=== PATIENT | female | born 1945 | race Caucasian/White ===

== ENCOUNTER 2017-03-21 15:37 | Inpatient (IN) | payer MEDICARE, OTHER ==
[~2017-03-21] VITALS: Ht 162.6 cm; Wt 103.2 kg
[2017-03-21 20:40] VITALS: BP 165/40
[2017-03-21] MEDS ORDERED: MAG HYDROX/ALUMINUM HYD/SIMETH 30 ML ORAL.SUSP PO PRN (22:45)
[2017-03-21] MEDS ORDERED: DEXTROSE 50% 25 GM / 50ML DISP.SYRIN. IV PRN ×2 (23:00→23:30)
[2017-03-21] MEDS ORDERED: VANCOMYCIN PER PHARMACY MC PRN (23:15)
[2017-03-21] MEDS ORDERED: ATORVASTATIN CA80 MG PO (23:18)
[2017-03-21] MEDS ORDERED: UBID10CA5 PO (23:18)
[2017-03-21] MEDS ORDERED: CARV25TA PO (23:18)
[2017-03-21] MEDS ORDERED: GLUC500T10 PO (23:18)
[2017-03-21] MEDS ORDERED: ROFL500T7 PO (23:18)
[2017-03-21] MEDS ORDERED: FENO145T2 PO (23:18)
[2017-03-21] MEDS ORDERED: HYDR-2766 PO (23:18)
[2017-03-21] MEDS ORDERED: ASPI-630 PO (23:18)
[2017-03-21] MEDS ORDERED: LEVO50TA5 PO (23:18)
[2017-03-21] MEDS ORDERED: OMEG1CAP38 PO (23:18)
[2017-03-21] MEDS ORDERED: RAMI10CA PO (23:18)
[2017-03-21] MEDS ORDERED: TORS20TA2 PO (23:18)
[2017-03-21 23:30] VITALS: BP 175/46
[2017-03-22] VITALS (7 sets, daily range): BP systolic 128–186; BP diastolic 31–64
[2017-03-22] MEDS ORDERED: VANCOMYCIN 2 GM in IV DEXTROSE 5% 500 ML IV ONE ×2
--- NOTE | 2017-03-22 00:02 | HP ---
ADMIT DATE: 03/21/2017 CHIEF COMPLAINT: Hypoglycemia. HISTORY OF PRESENT ILLNESS: The patient is a 72-year-old morbidly obese woman with diabetes mellitus, renal failure, COPD who presented to the Emergency Room at [facility] with altered mental status x 3 mornings. Her relates that her blood sugar has been running in the 50s over the past 3 days. In the past couple of days, she actually improved with mental status changes including slurred speech with eating a piece of chocolate. However, she was noted to have slurred speech last night and was found with a blood sugar of 54. She therefore decided to come to the Emergency Room for further workup. Upon arrival at [facility] ER, she was actually alert and oriented. Denies any fevers, but relates that over the past 3 days, she has had shaking chills. Denies any nausea or vomiting. She has had a leg wound over the past 6 months, but has noted more erythema over the past 3 days in her left lower extremity. Swelling has increased in both lower extremities recently as well. She had been on antibiotics from her PCP for cellulitis and has an appointment to see Dr. Stafford from Vascular Surgery tomorrow. She was transferred because of multiple medical issues including peripheral vascular disease to [facility]. PAST MEDICAL HISTORY: Diabetes mellitus, hypertension, hypercholesterolemia, renal disease, COPD, hypothyroidism. FAMILY HISTORY: Positive for CAD in all first degree relatives including 2 sisters' parents. SOCIAL HISTORY: Quit smoking 12 years ago after accumulating approximately 60 pack-year history. Denies any alcohol or drug use. ALLERGIES: CEPHALOSPORINS AND EZETIMIBE. MEDICATIONS: MAR reconciled with home medications. REVIEW OF SYSTEMS: Positive as per HPI. She denies any symptoms in rest of organ system review. PHYSICAL EXAMINATION: VITAL SIGNS: Stable. She is afebrile. GENERAL: This is a 72-year-old morbidly obese woman, awake, alert, in no acute distress. HEENT: Shows no scleral icterus. Oral mucosa is pink and moist. Dentition is poor. NECK: Supple without any lymphadenopathy. LUNGS: Clear. HEART: Has regular rate and rhythm. ABDOMEN: Has positive bowel sounds, soft, nontender. EXTREMITIES: Show edema in both lower extremities, left greater than right, 1-2. SKIN: Shows chronic venous stasis changes, especially on the left with significant keratoses. There is also erythema stretching almost all the way to the knee on the left. Skin on the right is very dry. Suspicion for foot fungus as well. LABORATORY DATA: Reviewed from [facility]. ASSESSMENT AND PLAN: The patient is a 72-year-old woman with hypoglycemia and lower extremity cellulitis. I suspect the 2 may be related. She has been on her blood sugar medications for many months now without any difficulties. Nevertheless, we will hold her medications for now and substitute with insulin sliding scale. Obtain hemoglobin A1c to elucidate her recent status. Lower extremity changes announced peripheral vascular disease. She was supposed to see Dr. Stafford tomorrow. We will obtain consult from Vascular Surgery here. Apparently, her has Dr. Stafford as his physician as well. For her wounds, we will obtain wound care consult as well. Cellulitis will be treated with vancomycin for now. We will add Diflucan as well. Obtain Infectious Disease consult. The patient does have chronic renal insufficiency. Baseline is unclear at this time. We will monitor. If need be, a consult for Nephrology will be obtained as well. The patient does have hypertension and at least the family, if not, personal history of coronary artery disease. We will continue all her other home medications. She will be started on heparin subcutaneously for prophylaxis. ANJEL ULLOA MD DR: JEFFRY/nts JOB#: [id number] / [id number] marga Escalante Dr. MTDAram
[2017-03-22] MEDS: IV 1/2 NORMAL SALINE 1,000 ML IV SCH ×2 (00:09→18:26)
[2017-03-22] MEDS: HYDROcodone/APAP 10/325 1 TAB TABLET PO PRN ×5 (03:15→21:46)
[2017-03-22 05:15] LABS: BASO % 1 % (0-3); EOS % 0 % (0-3); HEMATOCRIT 24.6 % (36.0-47.0); LYMPH # 1.6 x10^3/uL (1.0-4.8); LYMPH % 21 % (24-48); MEAN CORPUSCULAR HEMOGLOBIN 28 pg (25-35); MEAN CORPUSCULAR HGB CONC 33 g/dL (31-37); MEAN CORPUSCULAR VOLUME 87 fL (79-100); MONO % 12 % (0-9); NEUT % 67 % (31-73); PLATELET COUNT 315 x10^3/uL (140-400); RED BLOOD COUNT 2.81 x10^6/uL (3.50-5.40); RED CELL DISTRIBUTION WIDTH 16.3 % (11.5-14.5); WHITE BLOOD COUNT 7.4 x10^3/uL (4.0-11.0)
[2017-03-22 05:21] LABS: INR 1.3 (0.8-1.1); PROTHROMBIN TIME PATIENT 15.2 SEC (11.7-14.0)
[2017-03-22 05:36] LABS: ALBUMIN 2.7 g/dL (3.4-5.0); ALBUMIN/GLOBULIN RATIO 0.7 (1.0-1.7); CREATININE 2.1 mg/dL (0.6-1.0); GFR 23.1; MAGNESIUM 2.5 mg/dL (1.8-2.4); PHOSPHORUS 2.6 mg/dL (2.6-4.7); POTASSIUM 3.7 mmol/L (3.5-5.1); TOTAL BILIRUBIN 0.3 mg/dL (0.2-1.0); TOTAL PROTEIN 6.5 g/dL (6.4-8.2)
[2017-03-22] MEDS: HEPARIN PF for SUB-Q USE 5,000 UNIT/0.5 ML VIAL. SQ SCH ×3 (06:00→22:24)
[2017-03-22] MEDS: LEVOTHYROXINE 50 MCG TABLET PO SCH (06:17)
[2017-03-22] MEDS ORDERED: NON FORMULARY ITEM (Glucosamine Hcl 500 MG) PO SCH (07:30)
[2017-03-22] MEDS: INSULIN ASPART 300 UNITS/3 ML INSULN.PEN SQ SCH ×3 (08:00→17:35)
[2017-03-22] MEDS: FENOFIBRATE,MICRONIZED 134 MG CAPSULE PO SCH (09:25)
[2017-03-22] MEDS: LISINOPRIL 20 MG TABLET PO SCH (09:25)
[2017-03-22] MEDS: TORSEMIDE 20 MG TABLET. PO SCH (09:25)
[2017-03-22] MEDS: ASPIRIN CHEWABLE 81 MG TABLET. PO SCH (09:26)
[2017-03-22] MEDS: ROFLUMILAST 500 MCG TABLET. PO SCH (09:26)
[2017-03-22] MEDS: OMEGA-3 FATTY ACIDS/FISH OIL 1,000 MG CAPSULE. PO SCH (09:26)
[2017-03-22] MEDS: CARVEDILOL 12.5 MG TABLET. PO SCH ×2 (09:27→17:29)
[2017-03-22] MEDS: FLUCONAZOLE 100 MG TABLET. PO SCH (09:35)
--- NOTE | 2017-03-22 10:46 | PDOC ---
Infectious Disease Note Vital Sign Vital Signs Vital Signs Date Time Temp Pulse Resp B/P (MAP) Pulse Ox O2 Delivery O2 Flow Rate FiO2 03/22/17 09:27 72 186/64 03/22/17 07:30 98.7 20 93 Room Air 98.7 Labs Lab Laboratory Tests Test 03/22/17 03:00 03/22/17 03:50 03/22/17 07:54 Prothrombin Time 15.2 SEC (11.7-14.0) Prothromb Time International Ratio 1.3 (0.8-1.1) Activated Partial Thromboplast Time 39 SEC (24-38) White Blood Count 7.4 x10^3/uL (4.0-11.0) Red Blood Count 2.81 x10^6/uL (3.50-5.40) Hemoglobin 8.0 g/dL (12.0-15.5) Hematocrit 24.6 % (36.0-47.0) Mean Corpuscular Volume 87 fL (79-100) Mean Corpuscular Hemoglobin 28 pg (25-35) Mean Corpuscular Hemoglobin Concent 33 g/dL (31-37) Red Cell Distribution Width 16.3 % (11.5-14.5) Platelet Count 315 x10^3/uL (140-400) Neutrophils (%) (Auto) 67 % (31-73) Lymphocytes (%) (Auto) 21 % (24-48) Monocytes (%) (Auto) 12 % (0-9) Eosinophils (%) (Auto) 0 % (0-3) Basophils (%) (Auto) 1 % (0-3) Neutrophils # (Auto) 5.0 x10^3uL (1.8-7.7) Lymphocytes # (Auto) 1.6 x10^3/uL (1.0-4.8) Monocytes # (Auto) 0.9 x10^3/uL (0.0-1.1) Eosinophils # (Auto) 0.0 x10^3/uL (0.0-0.7) Basophils # (Auto) 0.0 x10^3/uL (0.0-0.2) Sodium Level 144 mmol/L (136-145) Potassium Level 3.7 mmol/L (3.5-5.1) Chloride Level 106 mmol/L (98-107) Carbon Dioxide Level 29 mmol/L (21-32) Anion Gap 9 (6-14) Blood Urea Nitrogen 46 mg/dL (7-20) Creatinine 2.1 mg/dL (0.6-1.0) Estimated GFR (Cockcroft-Gault) 23.1 BUN/Creatinine Ratio 22 (6-20) Glucose Level 128 mg/dL (70-99) Calcium Level 10.0 mg/dL (8.5-10.1) Phosphorus Level 2.6 mg/dL (2.6-4.7) Magnesium Level 2.5 mg/dL (1.8-2.4) Total Bilirubin 0.3 mg/dL (0.2-1.0) Aspartate Amino Transf (AST/SGOT) 19 U/L (15-37) Alanine Aminotransferase (ALT/SGPT) 16 U/L (14-59) Alkaline Phosphatase 55 U/L (46-116) Total Protein 6.5 g/dL (6.4-8.2) Albumin 2.7 g/dL (3.4-5.0) Albumin/Globulin Ratio 0.7 (1.0-1.7) Glucose (Fingerstick) 107 mg/dL (70-99) Objective Assessment Left leg cellulitis Left leg wounds Obesity DM COPD Plan Plan of Care change vanc to unasyn debridement done by Dr Ye d/w Dr Ye leg elevation soon to change to po for d/c IGNACIO GREENBERG MD Mar 22, 2017 10:46
--- NOTE | 2017-03-22 10:53 | PDOC ---
Provider Note Provider Note Vascular Consult dictated Imp: Morbid obesity Renal insufficiency DM Severe venous insufficiency with stasis ulcers due to above and inactivity and dependency ( lack of proper elevation or compression ) Mild-moderate arterial insufficiency ( ABIs ~ 0.6 memo ) , no limb threatening, venous stasis ulcers should heal with this amt. of arterial disease. Plan; Wounds debrided, dressed with Xeroform/gauze, will add Medium strength tubi banquet server, consult Wound Car. Elevate foot of bed and lt leg on several pillows , BID dressing changes HUAN BALL MD Mar 22, 2017 10:53
[2017-03-22 11:26] LABS: BILIRUBIN,URINE NEGATIVE (NEG); GLUCOSE,URINE NEGATIVE (NEG); NITRITE,URINE NEGATIVE (NEG); PROTEIN,URINE NEGATIVE (NEG-TRACE); UROBILINOGEN,URINE 0.2 mg/dL (0.2 mg/dL)
[2017-03-22 11:34] LABS: BACTERIA,URINE FEW /HPF (0-FEW); SQUAMOUS EPITHELIAL CELL,UR MOD /LPF
--- NOTE | 2017-03-22 11:40 | PDOC ---
PROGRESS NOTES Chief Complaint Chief Complaint LE edema Cellulitis PMHx: DM HTN Hypercholesterolemia Renal disease COPD Hypothyroidism History of Present Illness History of Present Illness Pt is a pleasant 72 yo female with DM, renal failure and COPD. Her blood sugars were low and she had altered mental status. She was seen at bedside today in NAD. Pt has cellulitis on her left leg. Will consult podiatry for toenails. Pt' s lab indicate anemia and will follow the Hgb trend. Pt followed vascular surgery re: LE edema, and ID re: cellulitis. Pt is receiving vancomycin and Diflucan. Will continue abx and diuresis. Hold diabetic meds and continue on half when the pt goes home. Will continue to monitor. Vitals Vitals Vital Signs Date Time Temp Pulse Resp B/P (MAP) Pulse Ox O2 Delivery O2 Flow Rate FiO2 03/22/17 09:27 72 186/64 03/22/17 07:30 98.7 20 93 Room Air 98.7 Physical Exam Physical Exam cellulitis General: Alert, Oriented X3, Cooperative Heart: Regular rate, Normal S2, Other (3/6 systolic ejection murmur) Lungs: Clear Abdomen: Normal bowel sounds Extremities: No clubbing, Other (LE edema, Cellulitis) Skin: No breakdown, No significant lesion Labs LABS Laboratory Tests Test 03/22/17 03:00 03/22/17 03:50 03/22/17 07:54 Prothrombin Time 15.2 SEC (11.7-14.0) Prothromb Time International Ratio 1.3 (0.8-1.1) Activated Partial Thromboplast Time 39 SEC (24-38) White Blood Count 7.4 x10^3/uL (4.0-11.0) Red Blood Count 2.81 x10^6/uL (3.50-5.40) Hemoglobin 8.0 g/dL (12.0-15.5) Hematocrit 24.6 % (36.0-47.0) Mean Corpuscular Volume 87 fL (79-100) Mean Corpuscular Hemoglobin 28 pg (25-35) Mean Corpuscular Hemoglobin Concent 33 g/dL (31-37) Red Cell Distribution Width 16.3 % (11.5-14.5) Platelet Count 315 x10^3/uL (140-400) Neutrophils (%) (Auto) 67 % (31-73) Lymphocytes (%) (Auto) 21 % (24-48) Monocytes (%) (Auto) 12 % (0-9) Eosinophils (%) (Auto) 0 % (0-3) Basophils (%) (Auto) 1 % (0-3) Neutrophils # (Auto) 5.0 x10^3uL (1.8-7.7) Lymphocytes # (Auto) 1.6 x10^3/uL (1.0-4.8) Monocytes # (Auto) 0.9 x10^3/uL (0.0-1.1) Eosinophils # (Auto) 0.0 x10^3/uL (0.0-0.7) Basophils # (Auto) 0.0 x10^3/uL (0.0-0.2) Sodium Level 144 mmol/L (136-145) Potassium Level 3.7 mmol/L (3.5-5.1) Chloride Level 106 mmol/L (98-107) Carbon Dioxide Level 29 mmol/L (21-32) Anion Gap 9 (6-14) Blood Urea Nitrogen 46 mg/dL (7-20) Creatinine 2.1 mg/dL (0.6-1.0) Estimated GFR (Cockcroft-Gault) 23.1 BUN/Creatinine Ratio 22 (6-20) Glucose Level 128 mg/dL (70-99) Calcium Level 10.0 mg/dL (8.5-10.1) Phosphorus Level 2.6 mg/dL (2.6-4.7) Magnesium Level 2.5 mg/dL (1.8-2.4) Total Bilirubin 0.3 mg/dL (0.2-1.0) Aspartate Amino Transf (AST/SGOT) 19 U/L (15-37) Alanine Aminotransferase (ALT/SGPT) 16 U/L (14-59) Alkaline Phosphatase 55 U/L (46-116) Total Protein 6.5 g/dL (6.4-8.2) Albumin 2.7 g/dL (3.4-5.0) Albumin/Globulin Ratio 0.7 (1.0-1.7) Glucose (Fingerstick) 107 mg/dL (70-99) Review of Systems Review of Systems Pt complains of fatigue and edema in the LEs Assessment and Plan Assessmemt and Plan Assessment: LE edema Cellulitis DM HTN Hypercholesterolemia Renal disease COPD Hypothyroidism Plan: Continue abx Continue diuresis Follow Hgb trend for anemia Hold diabetic meds Consult podiatry PT/OT Recheck labs Appreciate subspecialty input Problems: Comment Review of Relevant I have reviewed the following items bear (where applicable) has been applied. Labs Laboratory Tests Test 03/22/17 03:00 03/22/17 03:50 03/22/17 07:54 Prothrombin Time 15.2 SEC (11.7-14.0) Prothromb Time International Ratio 1.3 (0.8-1.1) Activated Partial Thromboplast Time 39 SEC (24-38) White Blood Count 7.4 x10^3/uL (4.0-11.0) Red Blood Count 2.81 x10^6/uL (3.50-5.40) Hemoglobin 8.0 g/dL (12.0-15.5) Hematocrit 24.6 % (36.0-47.0) Mean Corpuscular Volume 87 fL (79-100) Mean Corpuscular Hemoglobin 28 pg (25-35) Mean Corpuscular Hemoglobin Concent 33 g/dL (31-37) Red Cell Distribution Width 16.3 % (11.5-14.5) Platelet Count 315 x10^3/uL (140-400) Neutrophils (%) (Auto) 67 % (31-73) Lymphocytes (%) (Auto) 21 % (24-48) Monocytes (%) (Auto) 12 % (0-9) Eosinophils (%) (Auto) 0 % (0-3) Basophils (%) (Auto) 1 % (0-3) Neutrophils # (Auto) 5.0 x10^3uL (1.8-7.7) Lymphocytes # (Auto) 1.6 x10^3/uL (1.0-4.8) Monocytes # (Auto) 0.9 x10^3/uL (0.0-1.1) Eosinophils # (Auto) 0.0 x10^3/uL (0.0-0.7) Basophils # (Auto) 0.0 x10^3/uL (0.0-0.2) Sodium Level 144 mmol/L (136-145) Potassium Level 3.7 mmol/L (3.5-5.1) Chloride Level 106 mmol/L (98-107) Carbon Dioxide Level 29 mmol/L (21-32) Anion Gap 9 (6-14) Blood Urea Nitrogen 46 mg/dL (7-20) Creatinine 2.1 mg/dL (0.6-1.0) Estimated GFR (Cockcroft-Gault) 23.1 BUN/Creatinine Ratio 22 (6-20) Glucose Level 128 mg/dL (70-99) Calcium Level 10.0 mg/dL (8.5-10.1) Phosphorus Level 2.6 mg/dL (2.6-4.7) Magnesium Level 2.5 mg/dL (1.8-2.4) Total Bilirubin 0.3 mg/dL (0.2-1.0) Aspartate Amino Transf (AST/SGOT) 19 U/L (15-37) Alanine Aminotransferase (ALT/SGPT) 16 U/L (14-59) Alkaline Phosphatase 55 U/L (46-116) Total Protein 6.5 g/dL (6.4-8.2) Albumin 2.7 g/dL (3.4-5.0) Albumin/Globulin Ratio 0.7 (1.0-1.7) Glucose (Fingerstick) 107 mg/dL (70-99) Laboratory Tests Test 03/22/17 03:00 03/22/17 03:50 03/22/17 07:54 Prothrombin Time 15.2 SEC (11.7-14.0) Prothromb Time International Ratio 1.3 (0.8-1.1) Activated Partial Thromboplast Time 39 SEC (24-38) White Blood Count 7.4 x10^3/uL (4.0-11.0) Red Blood Count 2.81 x10^6/uL (3.50-5.40) Hemoglobin 8.0 g/dL (12.0-15.5) Hematocrit 24.6 % (36.0-47.0) Mean Corpuscular Volume 87 fL (79-100) Mean Corpuscular Hemoglobin 28 pg (25-35) Mean Corpuscular Hemoglobin Concent 33 g/dL (31-37) Red Cell Distribution Width 16.3 % (11.5-14.5) Platelet Count 315 x10^3/uL (140-400) Neutrophils (%) (Auto) 67 % (31-73) Lymphocytes (%) (Auto) 21 % (24-48) Monocytes (%) (Auto) 12 % (0-9) Eosinophils (%) (Auto) 0 % (0-3) Basophils (%) (Auto) 1 % (0-3) Neutrophils # (Auto) 5.0 x10^3uL (1.8-7.7) Lymphocytes # (Auto) 1.6 x10^3/uL (1.0-4.8) Monocytes # (Auto) 0.9 x10^3/uL (0.0-1.1) Eosinophils # (Auto) 0.0 x10^3/uL (0.0-0.7) Basophils # (Auto) 0.0 x10^3/uL (0.0-0.2) Sodium Level 144 mmol/L (136-145) Potassium Level 3.7 mmol/L (3.5-5.1) Chloride Level 106 mmol/L (98-107) Carbon Dioxide Level 29 mmol/L (21-32) Anion Gap 9 (6-14) Blood Urea Nitrogen 46 mg/dL (7-20) Creatinine 2.1 mg/dL (0.6-1.0) Estimated GFR (Cockcroft-Gault) 23.1 BUN/Creatinine Ratio 22 (6-20) Glucose Level 128 mg/dL (70-99) Calcium Level 10.0 mg/dL (8.5-10.1) Phosphorus Level 2.6 mg/dL (2.6-4.7) Magnesium Level 2.5 mg/dL (1.8-2.4) Total Bilirubin 0.3 mg/dL (0.2-1.0) Aspartate Amino Transf (AST/SGOT) 19 U/L (15-37) Alanine Aminotransferase (ALT/SGPT) 16 U/L (14-59) Alkaline Phosphatase 55 U/L (46-116) Total Protein 6.5 g/dL (6.4-8.2) Albumin 2.7 g/dL (3.4-5.0) Albumin/Globulin Ratio 0.7 (1.0-1.7) Glucose (Fingerstick) 107 mg/dL (70-99) Medications Current Medications Sodium Chloride 1,000 ml @ 50 mls/hr Q20H IV Last administered on 03/22/17t 00 :09; Start 03/21/17 at 22:35 Al Hydroxide/Mg Hydroxide (Mylanta Plus Xs) 30 ml PRN Q3HRS PRN PO HEARTBURN / GAS; Start 03/21/17 at 22:45 Heparin Sodium (Porcine) (Heparin Sq) 5,000 unit Q8HRS SQ ; Start 03/22/17 at 06 :00 Insulin Aspart (NovoLOG) 0-5 UNITS TIDWMEALS SQ ; Start 03/22/17 at 08:00 Dextrose (Dextrose 50%-Water Syringe) 12.5 gm PRN Q15MIN PRN IV SEE COMMENTS; Start 03/21/17 at 23:00 Fluconazole (Diflucan) 100 mg DAILY PO Last administered on 03/22/17 09:35; Start 03/22/17 at 09:00 Ceftriaxone Sodium 2 gm/ Dextrose 100 ml @ 200 mls/hr Q24H IV ; Start 03/22/17 at 12:00; Status UNV Vancomycin HCl (Vanco Per Pharmacy) 1 each PRN DAILY PRN MC SEE COMMENTS Last administered on 03/22/17 06:02; Start 03/21/17 at 23:15; Stop 03/22/17 at 10: 44; Status DC Aspirin (Children'S Aspirin) 81 mg DAILY PO Last administered on 03/22/17 09: 26; Start 03/22/17 at 09:00 Acetaminophen/ Hydrocodone Bitart (Lortab 10/325) 1 tab PRN Q6HRS PRN PO SEVERE PAIN Last administered on 03/22/17 09:26; Start 03/21/17 at 23:30 Levothyroxine Sodium (Synthroid) 50 mcg DAILY07 PO Last administered on 06:17; Start 03/22/17 at 07:00 Roflumilast (Daliresp) 500 mcg DAILY PO Last administered on 03/22/17 09:26; Start 03/22/17 at 09:00 Torsemide (Demadex) 40 mg DAILY PO Last administered on 03/22/17 09:25; Start 03/22/17 at 09:00 Atorvastatin Calcium (Lipitor) 80 mg QHS PO ; Start 03/22/17 at 21:00 Carvedilol (Coreg) 25 mg BIDWMEALS PO Last administered on 03/22/17 09:27; Start 03/22/17 at 08:00 Fenofibrate (Lofibra) 134 mg DAILY PO Last administered on 03/22/17 09:25; Start 03/22/17 at 09:00 Non-Formulary Medication 500 mg TIDAC PO ; Start 03/22/17 at 07:30; Status UNV Fish Oil (Fish Oil) 1,000 mg DAILY PO Last administered on 03/22/17 09:26; Start 03/22/17 at 09:00 Lisinopril (Prinivil) 20 mg DAILY PO Last administered on 03/22/17 09:25; Start 03/22/17 at 09:00 Vancomycin HCl 2 gm/Dextrose 500 ml @ 250 mls/hr 1X ONCE IV Last administered on 03/22/17 00:10; Start 03/22/17 at 00:00; Stop 03/22/17 at 01:59 ; Status DC Dextrose (Dextrose 50%-Water Syringe) 12.5 gm PRN Q15MIN PRN IV SEE COMMENTS; Start 03/21/17 at 23:30 Vancomycin HCl 1.5 gm/Dextrose 500 ml @ 250 mls/hr Q24H IV ; Start 03/23/17 at 00:00; Stop 03/23/17 at 00:00; Status DC Vancomycin HCl 1 each 1X ONCE MC ; Start 03/23/17 at 23:30; Stop 03/23/17 at 23 :30; Status DC Ampicillin Sodium/ Sulbactam Sodium 3 gm/Sodium Chloride 100 ml @ 200 mls/hr Q8HRS IV ; Start 03/22/17 at 14:00; Stop 03/22/17 at 14:00; Status DC Ampicillin Sodium/ Sulbactam Sodium (Unasyn) 3 gm Q8HRS IVP ; Start 03/22/17 at 14:00 Active Scripts Active Reported Co Q-10 (Ubidecarenone) 10 Mg Capsule 10 Mg PO Torsemide 20 Mg Tablet 2 Tab PO DAILY Daliresp (Roflumilast) 500 Mcg Tablet 1 Tab PO DAILY Ramipril 10 Mg Capsule 1 Cap PO DAILY [place] 3 Fish Oil Softgel ([place]-3 Fatty Acids/Fish Oil) 1 Each Capsule. 1 Each PO DAILY Levothyroxine Sodium 50 Mcg Tablet 1 Tab PO DAILY Hydrocodone-Apap 10-325 (Hydrocodone Bit/Acetaminophen) 1 Each Tablet 1 Tab PO PRN Q6HRS PRN Glucosamine Hcl 500 Mg Tablet 500 Mg PO TIDAC Fenofibrate (Fenofibrate Nanocrystallized) 145 Mg Tablet 1 Tab PO DAILY Coreg (Carvedilol) 25 Mg Tablet 25 Mg PO BIDWMEALS Atorvastatin Calcium 80 Mg Tablet 1 Tab PO DAILY Aspirin 81 Mg Tab.chew 81 Tab PO DAILY Vitals/I & O Vital Sign - Last 24 Hours 03/21/17 03/21/17 03/21/17 03/22/17 20:40 21:40 23:30 03:15 Temp 98.1 98.4 98.1 98.4 Pulse 69 72 Resp 18 18 20 B/P (MAP) 165/40 (81) 175/46 (89) Pulse Ox 96 98 96 O2 Delivery Room Air Room Air Room Air Room Air 03/22/17 03/22/17 03/22/17 03/22/17 03:35 04:15 07:30 09:25 Temp 98.6 98.7 98.6 98.7 Pulse 73 72 72 Resp 18 18 20 B/P (MAP) 175/45 (88) 186/64 (104) 186/64 Pulse Ox 93 96 93 O2 Delivery Room Air Room Air Room Air 03/22/17 09:27 Pulse 72 B/P (MAP) 186/64 JOSEPHINE LIGHT III DO Mar 22, 2017 11:40
[2017-03-22] MEDS ORDERED: cefTRIAXone SODIUM 2 GM in IV DEXTROSE 5% 100 ML IV SCH (12:00)
[2017-03-22] MEDS ORDERED: AMPICILLIN/SULBACTAM 3 GM in IV NORMAL SALINE 100ML 100 ML IV SCH (14:00)
[2017-03-22] MEDS: AMPICILLIN/SULBACTAM IV Push 3 GM VIAL. IVP SCH ×2 (14:14→22:23)
[2017-03-22] MEDS ORDERED: VITS A & D/LANOLIN TOPICAL OINTMENT 56GM TUBE. TP PRN (15:30)
[2017-03-22] MEDS: ATORVASTATIN CALCIUM 40 MG TABLET. PO SCH (20:43)
--- NOTE | 2017-03-22 21:00 | CONS ---
DATE OF CONSULTATION: 03/22/2017 REQUESTING PHYSICIAN: Aundrea Ray MD. REASON FOR CONSULTATION: Left leg cellulitis. HISTORY OF PRESENT ILLNESS: This is a 72-year-old morbidly obese female with multiple medical problems who most of time spends sitting in a chair, came in with left leg swelling, redness and wounds. The patient has had some wounds in the past and now, it scabs over at the left lateral ankle malleolus and the left lower leg. The patient denies any fever. Denies any nausea, vomiting, diarrhea, chest pain, shortness of breath, abdominal pain, urinary symptoms or bowel symptoms and denies any trauma. PAST MEDICAL HISTORY: Positive for obesity, diabetes, hypertension, hyperlipidemia, COPD, hypothyroidism, coronary artery disease. SOCIAL HISTORY: Negative for smoking, alcohol use or drug use. ALLERGIES: SHE IS LISTED ALLERGIC TO KEFLEX CAUSED RASH. CURRENT MEDICATIONS: Reviewed. REVIEW OF SYSTEMS: As per HPI, all other systems reviewed are negative. PHYSICAL EXAMINATION: GENERAL: Alert, oriented female, not in any distress. VITAL SIGNS: Stable, afebrile. HEENT: NAD. NECK: Supple, no JVP. No lymphadenopathy. LUNGS: Clear. HEART: S1, S2 regular. ABDOMEN: Benign. EXTREMITIES: No edema, cyanosis. SKIN: Unremarkable except left lower extremity. Right lower extremity is very dry, flaky skin, but otherwise normal. Left lower extremity is swollen, is red all the way to the mid leg. There is a scab onto the left lateral malleolus and left lower lateral leg and swelling is present and dry skin is present. NEUROLOGIC: The patient is neurologically intact. LABORATORY DATA: White count is normal. BUN and creatinine is 46 and 2.1. IMPRESSION: 1. Left lower extremity cellulitis. 2. Left lower extremity wounds. 3. Diabetes. 4. Hypertension. 5. Chronic obstructive pulmonary disease. 6. Renal insufficiency. RECOMMENDATIONS: We will discontinue vancomycin, change to Unasyn, supportive care, leg elevation. Dr. Ye actually did debride at the bedside and took out all the drainage and the scab that she had. Supportive care and hopefully soon to be able to discharge on p.o. antibiotics. Discussion with Dr. Ye done. Discussion with the patient's done. Thank you very much, Dr. Ray for giving me the opportunity to participate in this patient's care. IGNACIO GREENBERG MD DR: MARYAM/jeny JOB#: [id number] / [id number]
--- NOTE | 2017-03-22 22:05 | CONS ---
DATE OF CONSULTATION: 03/22/2017 REASON FOR CONSULTATION: Venous stasis ulcers, left lower leg and peripheral vascular disease. HISTORY OF PRESENT ILLNESS: This is a 72-year-old female who is supposed to have an appointment to see Dr. Stafford today in the office because of chronic nonhealing ulcers on the lower left leg and swelling. She was admitted instead yesterday with cellulitis in the left leg, swelling and these not improving ulcers. She had an arterial evaluation with ABIs recently, because of her size I am not sure how accurate they were, but the ankle brachial index was about 0.6 bilaterally, which would suggest some stenotic occlusive disease in the superficial femoral arteries. She does have a history of peripheral vascular disease having had a left subclavian stent remotely. She has no left arm symptoms at the present time. PAST MEDICAL HISTORY: Illnesses include her chronic diabetes, morbid obesity, with renal insufficiency with a creatinine of 2, hypertension, peripheral vascular disease, chronic lung disease. SOCIAL HISTORY: Former smoker who quit about 10 years ago. ALLERGIES: I THINK PENICILLIN, BUT I AM NOT SURE. REVIEW OF SYSTEMS: Negative for stroke or any carotid disease. Positive for coronary artery disease. Positive for trouble walking, but she does very little ambulation and activity, mainly sits in the house with her legs down. She has tried some type of compression on that left leg in the past, but she states that nothing was large enough to fit that left leg. PHYSICAL EXAMINATION: Morbidly obese, pleasant female, alert, in no acute distress, 2+ right radial and brachial pulse, absent left radial and brachial pulse. 2+ carotid pulses. Regular heart rate, nonlabored respirations. Abdomen obese. I could not palpate femoral pulses because of her size. She has no palpable popliteal or pedal pulses. The right foot is with minimal edema and no open wounds or any trouble with discoloration. The left lower leg has 3+ edema. She has got some chronic excoriations and scabbing on the lateral aspect of the left lower leg and some erythematous discoloration and cellulitis in the lower leg around these wounds. IMPRESSION: Severe venous insufficiency due to multiple factors, which include her diabetes, morbid obesity with very poor venous return, inactivity and failure to compress or elevate the leg enough. Peripheral vascular disease, but not limb threatening and enough arterial circulation that she should be able heal the ulcers in the left lower leg with proper venous attention. PLAN: The wounds were debrided at the bedside with scissors and pickups, excising the eschar, the crusty topical covering, leaving open ulcers below this. Total measurements were 16 x 10 x 0.3. Minimal bleeding. Dressed the wound with Xeroform, 4 x 4s, and Kerlix. We will elevate the foot of the bed and we will add pillows to put under that left leg so there is extreme elevation of the left leg. We will do dressing changes b.i.d. with Xeroform and gauze. We will recommend medium strength Tubigrip to the left leg and we will consult Wound Care Center so that she can be followed in the Wound Care Center here at [facility]. Also, continue antibiotics. Thanks for allowing us to evaluate her. HUAN BALL MD DR: ELISA/jeny JOB#: [id number] / [id number]
[2017-03-23] MEDS ORDERED: VANCOMYCIN 1.5 GM in IV DEXTROSE 5% 500 ML IV SCH ×2
[2017-03-23] MEDS: HYDROcodone/APAP 10/325 1 TAB TABLET PO PRN ×4 (03:09→23:02)
[2017-03-23 03:46] VITALS: BP 165/42
[2017-03-23 04:12] LABS: BASO % 1 % (0-3); EOS % 0 % (0-3); HEMATOCRIT 23.9 % (36.0-47.0); HEMOGLOBIN 7.8 g/dL (12.0-15.5); LYMPH # 1.9 x10^3/uL (1.0-4.8); LYMPH % 31 % (24-48); MEAN CORPUSCULAR HEMOGLOBIN 29 pg (25-35); MEAN CORPUSCULAR HGB CONC 33 g/dL (31-37); MEAN CORPUSCULAR VOLUME 89 fL (79-100); MONO % 12 % (0-9); NEUT % 56 % (31-73); PLATELET COUNT 270 x10^3/uL (140-400); RED CELL DISTRIBUTION WIDTH 16.1 % (11.5-14.5); WHITE BLOOD COUNT 6.1 x10^3/uL (4.0-11.0)
[2017-03-23] MEDS: LEVOTHYROXINE 50 MCG TABLET PO SCH (06:09)
[2017-03-23] MEDS: AMPICILLIN/SULBACTAM IV Push 3 GM VIAL. IVP SCH (06:11)
[2017-03-23] MEDS: HEPARIN PF for SUB-Q USE 5,000 UNIT/0.5 ML VIAL. SQ SCH ×3 (06:12→21:32)
[2017-03-23 07:10] VITALS: BP 184/61
[2017-03-23 07:33] LABS: CALCIUM 9.7 mg/dL (8.5-10.1); CREATININE 1.9 mg/dL (0.6-1.0); GFR 25.9; POTASSIUM 3.7 mmol/L (3.5-5.1)
[2017-03-23] MEDS: INSULIN ASPART 300 UNITS/3 ML INSULN.PEN SQ SCH ×3 (08:00→17:00)
[2017-03-23] MEDS: LISINOPRIL 20 MG TABLET PO SCH (08:33)
[2017-03-23] MEDS: OMEGA-3 FATTY ACIDS/FISH OIL 1,000 MG CAPSULE. PO SCH (08:34)
[2017-03-23] MEDS: CARVEDILOL 12.5 MG TABLET. PO SCH ×2 (08:34→17:00)
[2017-03-23] MEDS: FLUCONAZOLE 100 MG TABLET. PO SCH (08:34)
[2017-03-23] MEDS: ASPIRIN CHEWABLE 81 MG TABLET. PO SCH (08:34)
[2017-03-23] MEDS: FENOFIBRATE,MICRONIZED 134 MG CAPSULE PO SCH (08:34)
[2017-03-23] MEDS: TORSEMIDE 20 MG TABLET. PO SCH (08:35)
[2017-03-23] MEDS: ROFLUMILAST 500 MCG TABLET. PO SCH (08:35)
[2017-03-23] MEDS ORDERED: ONDANSETRON PF 4 MG/2 ML VIAL. IV PRN (10:15)
[2017-03-23 10:28] VITALS: BP 184/48
--- NOTE | 2017-03-23 11:16 | PDOC ---
Infectious Disease Note Subjective Subjective pt feeling better, ROS ROS GEN: Denies fevers, chills, sweats HEENT: Denies blurred vision, sore throat CV: Denies chest pain RESP: Denies shortness of air, cough GI: Denies n/v/d NEURO: Denies confusion, dizziness MSK: Denies weakness, joint pain/swelling Vital Sign Vital Signs Vital Signs Date Time Temp Pulse Resp B/P (MAP) Pulse Ox O2 Delivery O2 Flow Rate FiO2 03/23/17 10:29 19 95 Room Air 03/23/17 10:28 98.5 65 184/48 (93) 98.5 Physical Exam PHYSICAL EXAM GENERAL: NAD, Alert HEENT: PERRL, OC/OP NECK: Supple, no JVD, no LN LUNGS: Clear HEART: S1S2, no gallop, no murmur ABD: Soft, NT, no organomegaly, no rebound EXT: No edema, no cyanosis, left leg celllultitis GEOSPATIAL SYSTEMS INTEGRATOR: Alert, oriented x 3, no focal neurologic deficit SKIN: No rash IV: ok Labs Lab Laboratory Tests Test 03/22/17 11:21 03/22/17 16:40 03/23/17 03:53 03/23/17 07:12 Glucose (Fingerstick) 159 mg/dL (70-99) 160 mg/dL (70-99) 126 mg/dL (70-99) White Blood Count 6.1 x10^3/uL (4.0-11.0) Red Blood Count 2.70 x10^6/uL (3.50-5.40) Hemoglobin 7.8 g/dL (12.0-15.5) Hematocrit 23.9 % (36.0-47.0) Mean Corpuscular Volume 89 fL (79-100) Mean Corpuscular Hemoglobin 29 pg (25-35) Mean Corpuscular Hemoglobin Concent 33 g/dL (31-37) Red Cell Distribution Width 16.1 % (11.5-14.5) Platelet Count 270 x10^3/uL (140-400) Neutrophils (%) (Auto) 56 % (31-73) Lymphocytes (%) (Auto) 31 % (24-48) Monocytes (%) (Auto) 12 % (0-9) Eosinophils (%) (Auto) 0 % (0-3) Basophils (%) (Auto) 1 % (0-3) Neutrophils # (Auto) 3.4 x10^3uL (1.8-7.7) Lymphocytes # (Auto) 1.9 x10^3/uL (1.0-4.8) Monocytes # (Auto) 0.7 x10^3/uL (0.0-1.1) Eosinophils # (Auto) 0.0 x10^3/uL (0.0-0.7) Basophils # (Auto) 0.0 x10^3/uL (0.0-0.2) Sodium Level 144 mmol/L (136-145) Potassium Level 3.7 mmol/L (3.5-5.1) Chloride Level 108 mmol/L (98-107) Carbon Dioxide Level 29 mmol/L (21-32) Anion Gap 7 (6-14) Blood Urea Nitrogen 35 mg/dL (7-20) Creatinine 1.9 mg/dL (0.6-1.0) Estimated GFR (Cockcroft-Gault) 25.9 Glucose Level 113 mg/dL (70-99) Calcium Level 9.7 mg/dL (8.5-10.1) Objective Assessment Left leg cellulitis Left leg wounds Obesity DM COPD Plan Plan of Care change to po augmentin leg elevation soon to change to po for d/c ok f/u with me if needed IGNACIO GREENBERG MD Mar 23, 2017 11:16
--- NOTE | 2017-03-23 12:37 | PDOC ---
PROGRESS NOTES Chief Complaint Chief Complaint LE edema Cellulitis Severe malnutrision Metabolic encephalopathy PMHx: DM HTN Hypercholesterolemia Renal disease COPD Hypothyroidism History of Present Illness History of Present Illness Pt is a pleasant 72 yo female with DM, renal failure and COPD. Her blood sugars were low and she had altered mental status. She was seen at bedside today in NAD. Pt has cellulitis on her left leg. Consulted podiatry for toenails. Pt's lab indicate anemia and will follow the Hgb trend. Pt followed vascular surgery re: LE edema, and ID re: cellulitis. Pt is receiving unasyn. Will continue abx and diuresis. Hold diabetic meds and continue on half when the pt goes home. Ordered zofran. Discussed pt care with nurse. Discussed plan with pt's . Will discharge tomorrow to SNU. Will continue to monitor.. Vitals Vitals Vital Signs Date Time Temp Pulse Resp B/P (MAP) Pulse Ox O2 Delivery O2 Flow Rate FiO2 03/23/17 11:29 19 95 Room Air 03/23/17 10:28 98.5 65 184/48 (93) 98.5 Physical Exam Physical Exam cellulitis General: Alert, Oriented X3, Cooperative Heart: Regular rate, Normal S2, Other (3/6 systolic ejection murmur) Lungs: Clear Abdomen: Normal bowel sounds Extremities: No clubbing, Other (LE edema, Cellulitis) Skin: No breakdown, No significant lesion Labs LABS Laboratory Tests Test 03/22/17 16:40 03/23/17 03:53 03/23/17 07:12 03/23/17 11:27 Glucose (Fingerstick) 160 mg/dL (70-99) 126 mg/dL (70-99) 189 mg/dL (70-99) White Blood Count 6.1 x10^3/uL (4.0-11.0) Red Blood Count 2.70 x10^6/uL (3.50-5.40) Hemoglobin 7.8 g/dL (12.0-15.5) Hematocrit 23.9 % (36.0-47.0) Mean Corpuscular Volume 89 fL (79-100) Mean Corpuscular Hemoglobin 29 pg (25-35) Mean Corpuscular Hemoglobin Concent 33 g/dL (31-37) Red Cell Distribution Width 16.1 % (11.5-14.5) Platelet Count 270 x10^3/uL (140-400) Neutrophils (%) (Auto) 56 % (31-73) Lymphocytes (%) (Auto) 31 % (24-48) Monocytes (%) (Auto) 12 % (0-9) Eosinophils (%) (Auto) 0 % (0-3) Basophils (%) (Auto) 1 % (0-3) Neutrophils # (Auto) 3.4 x10^3uL (1.8-7.7) Lymphocytes # (Auto) 1.9 x10^3/uL (1.0-4.8) Monocytes # (Auto) 0.7 x10^3/uL (0.0-1.1) Eosinophils # (Auto) 0.0 x10^3/uL (0.0-0.7) Basophils # (Auto) 0.0 x10^3/uL (0.0-0.2) Sodium Level 144 mmol/L (136-145) Potassium Level 3.7 mmol/L (3.5-5.1) Chloride Level 108 mmol/L (98-107) Carbon Dioxide Level 29 mmol/L (21-32) Anion Gap 7 (6-14) Blood Urea Nitrogen 35 mg/dL (7-20) Creatinine 1.9 mg/dL (0.6-1.0) Estimated GFR (Cockcroft-Gault) 25.9 Glucose Level 113 mg/dL (70-99) Calcium Level 9.7 mg/dL (8.5-10.1) Review of Systems Review of Systems Pt complains of fatigue and hunger Assessment and Plan Assessmemt and Plan Assessment: LE edema Cellulitis Severe malnutrision Metabolic encephalopathy DM HTN Hypercholesterolemia Renal disease COPD Hypothyroidism Plan: Ordered zofran Follow Hgb due to anemia Continue abx Continue home meds PT/OT Recheck labs Appreciate subspecialty input Discharge to SNU in am Problems: Comment Review of Relevant I have reviewed the following items bear (where applicable) has been applied. Labs Laboratory Tests Test 03/22/17 03:00 03/22/17 03:50 03/22/17 07:54 03/22/17 11:10 Prothrombin Time 15.2 SEC (11.7-14.0) Prothromb Time International Ratio 1.3 (0.8-1.1) Activated Partial Thromboplast Time 39 SEC (24-38) White Blood Count 7.4 x10^3/uL (4.0-11.0) Red Blood Count 2.81 x10^6/uL (3.50-5.40) Hemoglobin 8.0 g/dL (12.0-15.5) Hematocrit 24.6 % (36.0-47.0) Mean Corpuscular Volume 87 fL (79-100) Mean Corpuscular Hemoglobin 28 pg (25-35) Mean Corpuscular Hemoglobin Concent 33 g/dL (31-37) Red Cell Distribution Width 16.3 % (11.5-14.5) Platelet Count 315 x10^3/uL (140-400) Neutrophils (%) (Auto) 67 % (31-73) Lymphocytes (%) (Auto) 21 % (24-48) Monocytes (%) (Auto) 12 % (0-9) Eosinophils (%) (Auto) 0 % (0-3) Basophils (%) (Auto) 1 % (0-3) Neutrophils # (Auto) 5.0 x10^3uL (1.8-7.7) Lymphocytes # (Auto) 1.6 x10^3/uL (1.0-4.8) Monocytes # (Auto) 0.9 x10^3/uL (0.0-1.1) Eosinophils # (Auto) 0.0 x10^3/uL (0.0-0.7) Basophils # (Auto) 0.0 x10^3/uL (0.0-0.2) Sodium Level 144 mmol/L (136-145) Potassium Level 3.7 mmol/L (3.5-5.1) Chloride Level 106 mmol/L (98-107) Carbon Dioxide Level 29 mmol/L (21-32) Anion Gap 9 (6-14) Blood Urea Nitrogen 46 mg/dL (7-20) Creatinine 2.1 mg/dL (0.6-1.0) Estimated GFR (Cockcroft-Gault) 23.1 BUN/Creatinine Ratio 22 (6-20) Glucose Level 128 mg/dL (70-99) Calcium Level 10.0 mg/dL (8.5-10.1) Phosphorus Level 2.6 mg/dL (2.6-4.7) Magnesium Level 2.5 mg/dL (1.8-2.4) Total Bilirubin 0.3 mg/dL (0.2-1.0) Aspartate Amino Transf (AST/SGOT) 19 U/L (15-37) Alanine Aminotransferase (ALT/SGPT) 16 U/L (14-59) Alkaline Phosphatase 55 U/L (46-116) Total Protein 6.5 g/dL (6.4-8.2) Albumin 2.7 g/dL (3.4-5.0) Albumin/Globulin Ratio 0.7 (1.0-1.7) Glucose (Fingerstick) 107 mg/dL (70-99) Urine Collection Type Unknown Urine Color Yellow Urine Clarity Clear Urine pH 7.0 Urine Specific [place] 1.010 Urine Protein Negative mg/dL (NEG-TRACE) Urine Glucose (UA) Negative mg/dL (NEG) Urine Ketones (Stick) Negative mg/dL (NEG) Urine Blood Trace (NEG) Urine Nitrite Negative (NEG) Urine Bilirubin Negative (NEG) Urine Urobilinogen Dipstick 0.2 mg/dL (0.2 mg/dL) Urine Leukocyte Esterase Negative (NEG) Urine RBC 3-5 /HPF (0-2) Urine WBC 1-4 /HPF (0-4) Urine Squamous Epithelial Cells Mod /LPF Urine Bacteria Few /HPF (0-FEW) Urine Mucus Slight /LPF Test 03/22/17 11:21 03/22/17 16:40 03/23/17 03:53 03/23/17 07:12 Glucose (Fingerstick) 159 mg/dL (70-99) 160 mg/dL (70-99) 126 mg/dL (70-99) White Blood Count 6.1 x10^3/uL (4.0-11.0) Red Blood Count 2.70 x10^6/uL (3.50-5.40) Hemoglobin 7.8 g/dL (12.0-15.5) Hematocrit 23.9 % (36.0-47.0) Mean Corpuscular Volume 89 fL (79-100) Mean Corpuscular Hemoglobin 29 pg (25-35) Mean Corpuscular Hemoglobin Concent 33 g/dL (31-37) Red Cell Distribution Width 16.1 % (11.5-14.5) Platelet Count 270 x10^3/uL (140-400) Neutrophils (%) (Auto) 56 % (31-73) Lymphocytes (%) (Auto) 31 % (24-48) Monocytes (%) (Auto) 12 % (0-9) Eosinophils (%) (Auto) 0 % (0-3) Basophils (%) (Auto) 1 % (0-3) Neutrophils # (Auto) 3.4 x10^3uL (1.8-7.7) Lymphocytes # (Auto) 1.9 x10^3/uL (1.0-4.8) Monocytes # (Auto) 0.7 x10^3/uL (0.0-1.1) Eosinophils # (Auto) 0.0 x10^3/uL (0.0-0.7) Basophils # (Auto) 0.0 x10^3/uL (0.0-0.2) Sodium Level 144 mmol/L (136-145) Potassium Level 3.7 mmol/L (3.5-5.1) Chloride Level 108 mmol/L (98-107) Carbon Dioxide Level 29 mmol/L (21-32) Anion Gap 7 (6-14) Blood Urea Nitrogen 35 mg/dL (7-20) Creatinine 1.9 mg/dL (0.6-1.0) Estimated GFR (Cockcroft-Gault) 25.9 Glucose Level 113 mg/dL (70-99) Calcium Level 9.7 mg/dL (8.5-10.1) Test 03/23/17 11:27 Glucose (Fingerstick) 189 mg/dL (70-99) Laboratory Tests Test 03/22/17 16:40 03/23/17 03:53 03/23/17 07:12 03/23/17 11:27 Glucose (Fingerstick) 160 mg/dL (70-99) 126 mg/dL (70-99) 189 mg/dL (70-99) White Blood Count 6.1 x10^3/uL (4.0-11.0) Red Blood Count 2.70 x10^6/uL (3.50-5.40) Hemoglobin 7.8 g/dL (12.0-15.5) Hematocrit 23.9 % (36.0-47.0) Mean Corpuscular Volume 89 fL (79-100) Mean Corpuscular Hemoglobin 29 pg (25-35) Mean Corpuscular Hemoglobin Concent 33 g/dL (31-37) Red Cell Distribution Width 16.1 % (11.5-14.5) Platelet Count 270 x10^3/uL (140-400) Neutrophils (%) (Auto) 56 % (31-73) Lymphocytes (%) (Auto) 31 % (24-48) Monocytes (%) (Auto) 12 % (0-9) Eosinophils (%) (Auto) 0 % (0-3) Basophils (%) (Auto) 1 % (0-3) Neutrophils # (Auto) 3.4 x10^3uL (1.8-7.7) Lymphocytes # (Auto) 1.9 x10^3/uL (1.0-4.8) Monocytes # (Auto) 0.7 x10^3/uL (0.0-1.1) Eosinophils # (Auto) 0.0 x10^3/uL (0.0-0.7) Basophils # (Auto) 0.0 x10^3/uL (0.0-0.2) Sodium Level 144 mmol/L (136-145) Potassium Level 3.7 mmol/L (3.5-5.1) Chloride Level 108 mmol/L (98-107) Carbon Dioxide Level 29 mmol/L (21-32) Anion Gap 7 (6-14) Blood Urea Nitrogen 35 mg/dL (7-20) Creatinine 1.9 mg/dL (0.6-1.0) Estimated GFR (Cockcroft-Gault) 25.9 Glucose Level 113 mg/dL (70-99) Calcium Level 9.7 mg/dL (8.5-10.1) Medications Current Medications Sodium Chloride 1,000 ml @ 50 mls/hr Q20H IV Last administered on 03/22/17 00 :09; Start 03/21/17 at 22:35; Stop 03/23/17 at 05:53; Status DC Al Hydroxide/Mg Hydroxide (Mylanta Plus Xs) 30 ml PRN Q3HRS PRN PO HEARTBURN / GAS; Start 03/21/17 at 22:45 Heparin Sodium (Porcine) (Heparin Sq) 5,000 unit Q8HRS SQ Last administered on 03/23/17 06:12; Start 03/22/17 at 06:00 Insulin Aspart (NovoLOG) 0-5 UNITS TIDWMEALS SQ Last administered on 03/23/17 12:03; Start 03/22/17 at 08:00 Dextrose (Dextrose 50%-Water Syringe) 12.5 gm PRN Q15MIN PRN IV SEE COMMENTS; Start 03/21/17 at 23:00 Fluconazole (Diflucan) 100 mg DAILY PO Last administered on 03/23/17 08:34; Start 03/22/17 at 09:00 Ceftriaxone Sodium 2 gm/ Dextrose 100 ml @ 200 mls/hr Q24H IV ; Start 03/22/17 at 12:00; Status UNV Vancomycin HCl (Vanco Per Pharmacy) 1 each PRN DAILY PRN MC SEE COMMENTS Last administered on 03/22/17 06:02; Start 03/21/17 at 23:15; Stop 03/22/17 at 10: 44; Status DC Aspirin (Children'S Aspirin) 81 mg DAILY PO Last administered on 03/23/17 08: 34; Start 03/22/17 at 09:00 Acetaminophen/ Hydrocodone Bitart (Lortab 10/325) 1 tab PRN Q6HRS PRN PO SEVERE PAIN Last administered on 03/23/17 10:29; Start 03/21/17 at 23:30 Levothyroxine Sodium (Synthroid) 50 mcg DAILY07 PO Last administered on 06:09; Start 03/22/17 at 07:00 Roflumilast (Daliresp) 500 mcg DAILY PO Last administered on 03/23/17 08:35; Start 03/22/17 at 09:00 Torsemide (Demadex) 40 mg DAILY PO Last administered on 03/23/17 08:35; Start 03/22/17 at 09:00 Atorvastatin Calcium (Lipitor) 80 mg QHS PO Last administered on 03/22/17 20: 43; Start 03/22/17 at 21:00 Carvedilol (Coreg) 25 mg BIDWMEALS PO Last administered on 03/23/17 08:34; Start 03/22/17 at 08:00 Fenofibrate (Lofibra) 134 mg DAILY PO Last administered on 03/23/17 08:34; Start 03/22/17 at 09:00 Non-Formulary Medication 500 mg TIDAC PO ; Start 03/22/17 at 07:30; Status UNV Fish Oil (Fish Oil) 1,000 mg DAILY PO Last administered on 03/23/17 08:34; Start 03/22/17 at 09:00 Lisinopril (Prinivil) 20 mg DAILY PO Last administered on 03/23/17 08:33; Start 03/22/17 at 09:00 Vancomycin HCl 2 gm/Dextrose 500 ml @ 250 mls/hr 1X ONCE IV Last administered on 03/22/17 00:10; Start 03/22/17 at 00:00; Stop 03/22/17 at 01:59 ; Status DC Dextrose (Dextrose 50%-Water Syringe) 12.5 gm PRN Q15MIN PRN IV SEE COMMENTS; Start 03/21/17 at 23:30 Vancomycin HCl 1.5 gm/Dextrose 500 ml @ 250 mls/hr Q24H IV ; Start 03/23/17 at 00:00; Stop 03/23/17 at 00:00; Status DC Vancomycin HCl 1 each 1X ONCE MC ; Start 03/23/17 at 23:30; Stop 03/23/17 at 23 :30; Status DC Ampicillin Sodium/ Sulbactam Sodium 3 gm/Sodium Chloride 100 ml @ 200 mls/hr Q8HRS IV ; Start 03/22/17 at 14:00; Stop 03/22/17 at 14:00; Status DC Ampicillin Sodium/ Sulbactam Sodium (Unasyn) 3 gm Q8HRS IVP Last administered on 03/23/17 06:11; Start 03/22/17 at 14:00; Stop 03/23/17 at 11:11; Status DC Vitamin A/Vitamin D (Vitamin A & D Ointment) 1 annie TID PRN TP SKIN PROTECTION; Start 03/22/17 at 15:30; Status Cancel Ondansetron HCl (Zofran) 4 mg PRN Q6HRS PRN IV NAUSEA/VOMITING Last administered on 03/23/17 10:28; Start 03/23/17 at 10:15 Amoxicillin/ Clavulanate Potassium (Augmentin 875/ 125mg) 1 tab BID PO ; Start 03/23/17 at 21:00 Active Scripts Active Reported Co Q-10 (Ubidecarenone) 10 Mg Capsule 10 Mg PO Torsemide 20 Mg Tablet 2 Tab PO DAILY Daliresp (Roflumilast) 500 Mcg Tablet 1 Tab PO DAILY Ramipril 10 Mg Capsule 1 Cap PO DAILY [place] 3 Fish Oil Softgel ([place]-3 Fatty Acids/Fish Oil) 1 Each Capsule. 1 Each PO DAILY Levothyroxine Sodium 50 Mcg Tablet 1 Tab PO DAILY Hydrocodone-Apap 10-325 (Hydrocodone Bit/Acetaminophen) 1 Each Tablet 1 Tab PO PRN Q6HRS PRN Glucosamine Hcl 500 Mg Tablet 500 Mg PO TIDAC Fenofibrate (Fenofibrate Nanocrystallized) 145 Mg Tablet 1 Tab PO DAILY Coreg (Carvedilol) 25 Mg Tablet 25 Mg PO BIDWMEALS Atorvastatin Calcium 80 Mg Tablet 1 Tab PO DAILY Aspirin 81 Mg Tab.chew 81 Tab PO DAILY Vitals/I & O Vital Sign - Last 24 Hours 03/22/17 03/22/17 03/22/17 03/22/17 15:03 17:29 19:25 20:00 Temp 98.3 98.7 98.3 98.7 Pulse 64 64 65 Resp 20 18 B/P (MAP) 178/47 (90) 178/47 141/31 (67) Pulse Ox 95 94 O2 Delivery Room Air Room Air Room Air 03/22/17 03/22/17 03/23/17 03/23/17 20:46 23:25 03:09 03:46 Temp 98.5 98.6 98.5 98.6 Pulse 63 67 Resp 20 16 20 20 B/P (MAP) 157/40 (79) 165/42 (83) Pulse Ox 96 94 98 94 O2 Delivery Room Air Room Air Room Air Room Air 03/23/17 03/23/17 03/23/17 03/23/17 07:10 08:00 08:33 08:34 Temp 98.1 98.1 Pulse 69 69 69 Resp 20 B/P (MAP) 184/61 (102) 184/61 184/61 Pulse Ox 95 O2 Delivery Room Air Room Air 03/23/17 03/23/17 03/23/17 10:28 10:29 11:29 Temp 98.5 98.5 Pulse 65 Resp 19 19 19 B/P (MAP) 184/48 (93) Pulse Ox 95 95 95 O2 Delivery Room Air Room Air Room Air JOSEPHINE LIGHT III DO Mar 23, 2017 12:37
--- NOTE | 2017-03-23 13:17 | PDOC ---
PROGRESS NOTES Subjective Subjective Patient without complaints, sitting in chair with leg elevated Objective Objective Vital Signs Date Time Temp Pulse Resp B/P (MAP) Pulse Ox O2 Delivery O2 Flow Rate FiO2 03/23/17 11:29 19 95 Room Air 03/23/17 10:28 98.5 65 184/48 (93) 98.5 Physical Exam Physical Exam Alert, no acute distress Left leg swelling improved, less erythema, dressing intact without compression Assessment Assessment Severe venous insufficiency, diabetes, morbid obesity. The patient was able to tolerate leg elevation while in bed, Recommend mostly bedrest with legs elevated. Continue local wound care and compression. F/U in [facility]. Peripheral vascular disease, but not limb threatening and enough arterial circulation that she should be able heal the ulcers in the left lower leg with proper venous attention. Will sign off. Comment Review of Relevant I have reviewed the following items bear (where applicable) has been applied. Labs Laboratory Tests Test 03/22/17 03:00 03/22/17 03:50 03/22/17 07:54 03/22/17 11:10 Prothrombin Time 15.2 SEC (11.7-14.0) Prothromb Time International Ratio 1.3 (0.8-1.1) Activated Partial Thromboplast Time 39 SEC (24-38) White Blood Count 7.4 x10^3/uL (4.0-11.0) Red Blood Count 2.81 x10^6/uL (3.50-5.40) Hemoglobin 8.0 g/dL (12.0-15.5) Hematocrit 24.6 % (36.0-47.0) Mean Corpuscular Volume 87 fL (79-100) Mean Corpuscular Hemoglobin 28 pg (25-35) Mean Corpuscular Hemoglobin Concent 33 g/dL (31-37) Red Cell Distribution Width 16.3 % (11.5-14.5) Platelet Count 315 x10^3/uL (140-400) Neutrophils (%) (Auto) 67 % (31-73) Lymphocytes (%) (Auto) 21 % (24-48) Monocytes (%) (Auto) 12 % (0-9) Eosinophils (%) (Auto) 0 % (0-3) Basophils (%) (Auto) 1 % (0-3) Neutrophils # (Auto) 5.0 x10^3uL (1.8-7.7) Lymphocytes # (Auto) 1.6 x10^3/uL (1.0-4.8) Monocytes # (Auto) 0.9 x10^3/uL (0.0-1.1) Eosinophils # (Auto) 0.0 x10^3/uL (0.0-0.7) Basophils # (Auto) 0.0 x10^3/uL (0.0-0.2) Sodium Level 144 mmol/L (136-145) Potassium Level 3.7 mmol/L (3.5-5.1) Chloride Level 106 mmol/L (98-107) Carbon Dioxide Level 29 mmol/L (21-32) Anion Gap 9 (6-14) Blood Urea Nitrogen 46 mg/dL (7-20) Creatinine 2.1 mg/dL (0.6-1.0) Estimated GFR (Cockcroft-Gault) 23.1 BUN/Creatinine Ratio 22 (6-20) Glucose Level 128 mg/dL (70-99) Calcium Level 10.0 mg/dL (8.5-10.1) Phosphorus Level 2.6 mg/dL (2.6-4.7) Magnesium Level 2.5 mg/dL (1.8-2.4) Total Bilirubin 0.3 mg/dL (0.2-1.0) Aspartate Amino Transf (AST/SGOT) 19 U/L (15-37) Alanine Aminotransferase (ALT/SGPT) 16 U/L (14-59) Alkaline Phosphatase 55 U/L (46-116) Total Protein 6.5 g/dL (6.4-8.2) Albumin 2.7 g/dL (3.4-5.0) Albumin/Globulin Ratio 0.7 (1.0-1.7) Glucose (Fingerstick) 107 mg/dL (70-99) Urine Collection Type Unknown Urine Color Yellow Urine Clarity Clear Urine pH 7.0 Urine Specific [place] 1.010 Urine Protein Negative mg/dL (NEG-TRACE) Urine Glucose (UA) Negative mg/dL (NEG) Urine Ketones (Stick) Negative mg/dL (NEG) Urine Blood Trace (NEG) Urine Nitrite Negative (NEG) Urine Bilirubin Negative (NEG) Urine Urobilinogen Dipstick 0.2 mg/dL (0.2 mg/dL) Urine Leukocyte Esterase Negative (NEG) Urine RBC 3-5 /HPF (0-2) Urine WBC 1-4 /HPF (0-4) Urine Squamous Epithelial Cells Mod /LPF Urine Bacteria Few /HPF (0-FEW) Urine Mucus Slight /LPF Test 03/22/17 11:21 03/22/17 16:40 03/23/17 03:53 03/23/17 07:12 Glucose (Fingerstick) 159 mg/dL (70-99) 160 mg/dL (70-99) 126 mg/dL (70-99) White Blood Count 6.1 x10^3/uL (4.0-11.0) Red Blood Count 2.70 x10^6/uL (3.50-5.40) Hemoglobin 7.8 g/dL (12.0-15.5) Hematocrit 23.9 % (36.0-47.0) Mean Corpuscular Volume 89 fL (79-100) Mean Corpuscular Hemoglobin 29 pg (25-35) Mean Corpuscular Hemoglobin Concent 33 g/dL (31-37) Red Cell Distribution Width 16.1 % (11.5-14.5) Platelet Count 270 x10^3/uL (140-400) Neutrophils (%) (Auto) 56 % (31-73) Lymphocytes (%) (Auto) 31 % (24-48) Monocytes (%) (Auto) 12 % (0-9) Eosinophils (%) (Auto) 0 % (0-3) Basophils (%) (Auto) 1 % (0-3) Neutrophils # (Auto) 3.4 x10^3uL (1.8-7.7) Lymphocytes # (Auto) 1.9 x10^3/uL (1.0-4.8) Monocytes # (Auto) 0.7 x10^3/uL (0.0-1.1) Eosinophils # (Auto) 0.0 x10^3/uL (0.0-0.7) Basophils # (Auto) 0.0 x10^3/uL (0.0-0.2) Sodium Level 144 mmol/L (136-145) Potassium Level 3.7 mmol/L (3.5-5.1) Chloride Level 108 mmol/L (98-107) Carbon Dioxide Level 29 mmol/L (21-32) Anion Gap 7 (6-14) Blood Urea Nitrogen 35 mg/dL (7-20) Creatinine 1.9 mg/dL (0.6-1.0) Estimated GFR (Cockcroft-Gault) 25.9 Glucose Level 113 mg/dL (70-99) Calcium Level 9.7 mg/dL (8.5-10.1) Test 03/23/17 11:27 Glucose (Fingerstick) 189 mg/dL (70-99) Laboratory Tests Test 03/22/17 16:40 03/23/17 03:53 03/23/17 07:12 03/23/17 11:27 Glucose (Fingerstick) 160 mg/dL (70-99) 126 mg/dL (70-99) 189 mg/dL (70-99) White Blood Count 6.1 x10^3/uL (4.0-11.0) Red Blood Count 2.70 x10^6/uL (3.50-5.40) Hemoglobin 7.8 g/dL (12.0-15.5) Hematocrit 23.9 % (36.0-47.0) Mean Corpuscular Volume 89 fL (79-100) Mean Corpuscular Hemoglobin 29 pg (25-35) Mean Corpuscular Hemoglobin Concent 33 g/dL (31-37) Red Cell Distribution Width 16.1 % (11.5-14.5) Platelet Count 270 x10^3/uL (140-400) Neutrophils (%) (Auto) 56 % (31-73) Lymphocytes (%) (Auto) 31 % (24-48) Monocytes (%) (Auto) 12 % (0-9) Eosinophils (%) (Auto) 0 % (0-3) Basophils (%) (Auto) 1 % (0-3) Neutrophils # (Auto) 3.4 x10^3uL (1.8-7.7) Lymphocytes # (Auto) 1.9 x10^3/uL (1.0-4.8) Monocytes # (Auto) 0.7 x10^3/uL (0.0-1.1) Eosinophils # (Auto) 0.0 x10^3/uL (0.0-0.7) Basophils # (Auto) 0.0 x10^3/uL (0.0-0.2) Sodium Level 144 mmol/L (136-145) Potassium Level 3.7 mmol/L (3.5-5.1) Chloride Level 108 mmol/L (98-107) Carbon Dioxide Level 29 mmol/L (21-32) Anion Gap 7 (6-14) Blood Urea Nitrogen 35 mg/dL (7-20) Creatinine 1.9 mg/dL (0.6-1.0) Estimated GFR (Cockcroft-Gault) 25.9 Glucose Level 113 mg/dL (70-99) Calcium Level 9.7 mg/dL (8.5-10.1) Medications Current Medications Sodium Chloride 1,000 ml @ 50 mls/hr Q20H IV Last administered on 03/22/17 00 :09; Start 03/21/17 at 22:35; Stop 03/23/17 at 05:53; Status DC Al Hydroxide/Mg Hydroxide (Mylanta Plus Xs) 30 ml PRN Q3HRS PRN PO HEARTBURN / GAS; Start 03/21/17 at 22:45 Heparin Sodium (Porcine) (Heparin Sq) 5,000 unit Q8HRS SQ Last administered on 03/23/17 06:12; Start 03/22/17 at 06:00 Insulin Aspart (NovoLOG) 0-5 UNITS TIDWMEALS SQ Last administered on 03/23/17 12:03; Start 03/22/17 at 08:00 Dextrose (Dextrose 50%-Water Syringe) 12.5 gm PRN Q15MIN PRN IV SEE COMMENTS; Start 03/21/17 at 23:00 Fluconazole (Diflucan) 100 mg DAILY PO Last administered on 03/23/17 08:34; Start 03/22/17 at 09:00 Ceftriaxone Sodium 2 gm/ Dextrose 100 ml @ 200 mls/hr Q24H IV ; Start 03/22/17 at 12:00; Status UNV Vancomycin HCl (Vanco Per Pharmacy) 1 each PRN DAILY PRN MC SEE COMMENTS Last administered on 03/22/17 06:02; Start 03/21/17 at 23:15; Stop 03/22/17 at 10: 44; Status DC Aspirin (Children'S Aspirin) 81 mg DAILY PO Last administered on 03/23/17 08: 34; Start 03/22/17 at 09:00 Acetaminophen/ Hydrocodone Bitart (Lortab 10/325) 1 tab PRN Q6HRS PRN PO SEVERE PAIN Last administered on 03/23/17 10:29; Start 03/21/17 at 23:30 Levothyroxine Sodium (Synthroid) 50 mcg DAILY07 PO Last administered on 06:09; Start 03/22/17 at 07:00 Roflumilast (Daliresp) 500 mcg DAILY PO Last administered on 03/23/17 08:35; Start 03/22/17 at 09:00 Torsemide (Demadex) 40 mg DAILY PO Last administered on 03/23/17 08:35; Start 03/22/17 at 09:00 Atorvastatin Calcium (Lipitor) 80 mg QHS PO Last administered on 03/22/17 20: 43; Start 03/22/17 at 21:00 Carvedilol (Coreg) 25 mg BIDWMEALS PO Last administered on 03/23/17 08:34; Start 03/22/17 at 08:00 Fenofibrate (Lofibra) 134 mg DAILY PO Last administered on 03/23/17 08:34; Start 03/22/17 at 09:00 Non-Formulary Medication 500 mg TIDAC PO ; Start 03/22/17 at 07:30; Status UNV Fish Oil (Fish Oil) 1,000 mg DAILY PO Last administered on 03/23/17 08:34; Start 03/22/17 at 09:00 Lisinopril (Prinivil) 20 mg DAILY PO Last administered on 03/23/17 08:33; Start 03/22/17 at 09:00 Vancomycin HCl 2 gm/Dextrose 500 ml @ 250 mls/hr 1X ONCE IV Last administered on 03/22/17 00:10; Start 03/22/17 at 00:00; Stop 03/22/17 at 01:59 ; Status DC Dextrose (Dextrose 50%-Water Syringe) 12.5 gm PRN Q15MIN PRN IV SEE COMMENTS; Start 03/21/17 at 23:30 Vancomycin HCl 1.5 gm/Dextrose 500 ml @ 250 mls/hr Q24H IV ; Start 03/23/17 at 00:00; Stop 03/23/17 at 00:00; Status DC Vancomycin HCl 1 each 1X ONCE MC ; Start 03/23/17 at 23:30; Stop 03/23/17 at 23 :30; Status DC Ampicillin Sodium/ Sulbactam Sodium 3 gm/Sodium Chloride 100 ml @ 200 mls/hr Q8HRS IV ; Start 03/22/17 at 14:00; Stop 03/22/17 at 14:00; Status DC Ampicillin Sodium/ Sulbactam Sodium (Unasyn) 3 gm Q8HRS IVP Last administered on 03/23/17 06:11; Start 03/22/17 at 14:00; Stop 03/23/17 at 11:11; Status DC Vitamin A/Vitamin D (Vitamin A & D Ointment) 1 annie TID PRN TP SKIN PROTECTION; Start 03/22/17 at 15:30; Status Cancel Ondansetron HCl (Zofran) 4 mg PRN Q6HRS PRN IV NAUSEA/VOMITING Last administered on 03/23/17 10:28; Start 03/23/17 at 10:15 Amoxicillin/ Clavulanate Potassium (Augmentin 875/ 125mg) 1 tab BID PO ; Start 03/23/17 at 21:00 Active Scripts Active Reported Co Q-10 (Ubidecarenone) 10 Mg Capsule 10 Mg PO Torsemide 20 Mg Tablet 2 Tab PO DAILY Daliresp (Roflumilast) 500 Mcg Tablet 1 Tab PO DAILY Ramipril 10 Mg Capsule 1 Cap PO DAILY [place] 3 Fish Oil Softgel ([place]-3 Fatty Acids/Fish Oil) 1 Each Capsule. 1 Each PO DAILY Levothyroxine Sodium 50 Mcg Tablet 1 Tab PO DAILY Hydrocodone-Apap 10-325 (Hydrocodone Bit/Acetaminophen) 1 Each Tablet 1 Tab PO PRN Q6HRS PRN Glucosamine Hcl 500 Mg Tablet 500 Mg PO TIDAC Fenofibrate (Fenofibrate Nanocrystallized) 145 Mg Tablet 1 Tab PO DAILY Coreg (Carvedilol) 25 Mg Tablet 25 Mg PO BIDWMEALS Atorvastatin Calcium 80 Mg Tablet 1 Tab PO DAILY Aspirin 81 Mg Tab.chew 81 Tab PO DAILY Vitals/I & O Vital Sign - Last 24 Hours 03/22/17 03/22/17 03/22/17 03/22/17 15:03 17:29 19:25 20:00 Temp 98.3 98.7 98.3 98.7 Pulse 64 64 65 Resp 20 18 B/P (MAP) 178/47 (90) 178/47 141/31 (67) Pulse Ox 95 94 O2 Delivery Room Air Room Air Room Air 03/22/17 03/22/17 03/23/17 03/23/17 20:46 23:25 03:09 03:46 Temp 98.5 98.6 98.5 98.6 Pulse 63 67 Resp 20 16 20 20 B/P (MAP) 157/40 (79) 165/42 (83) Pulse Ox 96 94 98 94 O2 Delivery Room Air Room Air Room Air Room Air 03/23/17 03/23/17 03/23/17 03/23/17 07:10 08:00 08:33 08:34 Temp 98.1 98.1 Pulse 69 69 69 Resp 20 B/P (MAP) 184/61 (102) 184/61 184/61 Pulse Ox 95 O2 Delivery Room Air Room Air 03/23/17 03/23/17 03/23/17 10:28 10:29 11:29 Temp 98.5 98.5 Pulse 65 Resp 19 19 19 B/P (MAP) 184/48 (93) Pulse Ox 95 95 95 O2 Delivery Room Air Room Air Room Air REY BANKS APRN Mar 23, 2017 13:17
[2017-03-23 14:33] VITALS: BP 128/36
[2017-03-23 19:40] VITALS: BP 163/43
[2017-03-23] MEDS: LACTOBACILLUS RHAMNOSUS GG 1 CAPSULE. PO SCH (21:28)
[2017-03-23] MEDS: ATORVASTATIN CALCIUM 40 MG TABLET. PO SCH (21:28)
[2017-03-23] MEDS: AMOXICILLIN/K CLAV 875/125MG TABLET. PO SCH (21:28)
[2017-03-23 23:31] VITALS: BP 179/44
[2017-03-24 03:57] VITALS: BP 151/42
[2017-03-24 05:11] LABS: BASO % 1 % (0-3); EOS % 0 % (0-3); HEMATOCRIT 24.3 % (36.0-47.0); HEMOGLOBIN 7.9 g/dL (12.0-15.5); LYMPH % 35 % (24-48); MEAN CORPUSCULAR HEMOGLOBIN 29 pg (25-35); MEAN CORPUSCULAR HGB CONC 32 g/dL (31-37); MEAN CORPUSCULAR VOLUME 89 fL (79-100); MONO % 12 % (0-9); NEUT % 53 % (31-73); PLATELET COUNT 262 x10^3/uL (140-400); RED BLOOD COUNT 2.72 x10^6/uL (3.50-5.40); RED CELL DISTRIBUTION WIDTH 16.3 % (11.5-14.5); WHITE BLOOD COUNT 5.8 x10^3/uL (4.0-11.0)
[2017-03-24 05:22] LABS: CALCIUM 9.7 mg/dL (8.5-10.1); CREATININE 1.8 mg/dL (0.6-1.0); GFR 27.6; POTASSIUM 3.5 mmol/L (3.5-5.1)
[2017-03-24] MEDS: LEVOTHYROXINE 50 MCG TABLET PO SCH (06:03)
[2017-03-24] MEDS: HEPARIN PF for SUB-Q USE 5,000 UNIT/0.5 ML VIAL. SQ SCH ×3 (06:09→21:21)
[2017-03-24 06:55] VITALS: BP 169/45
[2017-03-24] MEDS: INSULIN ASPART 300 UNITS/3 ML INSULN.PEN SQ SCH ×3 (08:00→16:44)
[2017-03-24] MEDS: OMEGA-3 FATTY ACIDS/FISH OIL 1,000 MG CAPSULE. PO SCH (08:31)
[2017-03-24] MEDS: LISINOPRIL 20 MG TABLET PO SCH (08:32)
[2017-03-24] MEDS: FENOFIBRATE,MICRONIZED 134 MG CAPSULE PO SCH (08:32)
[2017-03-24] MEDS: ASPIRIN CHEWABLE 81 MG TABLET. PO SCH (08:32)
[2017-03-24] MEDS: FLUCONAZOLE 100 MG TABLET. PO SCH (08:33)
[2017-03-24] MEDS: CARVEDILOL 12.5 MG TABLET. PO SCH ×2 (08:33→16:59)
[2017-03-24] MEDS: HYDROcodone/APAP 10/325 1 TAB TABLET PO PRN ×3 (08:33→21:28)
[2017-03-24] MEDS: AMOXICILLIN/K CLAV 875/125MG TABLET. PO SCH ×2 (08:33→21:17)
[2017-03-24] MEDS: TORSEMIDE 20 MG TABLET. PO SCH (08:33)
[2017-03-24] MEDS: LACTOBACILLUS RHAMNOSUS GG 1 CAPSULE. PO SCH ×2 (08:33→21:17)
[2017-03-24] MEDS: ROFLUMILAST 500 MCG TABLET. PO SCH (08:38)
--- NOTE | 2017-03-24 10:18 | PDOC ---
Infectious Disease Note Subjective Subjective pt feeling better, ROS ROS GEN: Denies fevers, chills, sweats HEENT: Denies blurred vision, sore throat CV: Denies chest pain RESP: Denies shortness of air, cough GI: Denies n/v/d NEURO: Denies confusion, dizziness MSK: Denies weakness, joint pain/swelling Vital Sign Vital Signs Vital Signs Date Time Temp Pulse Resp B/P (MAP) Pulse Ox O2 Delivery O2 Flow Rate FiO2 03/24/17 08:33 67 169/45 03/24/17 08:33 19 92 Room Air 03/24/17 06:55 98.7 98.7 Physical Exam PHYSICAL EXAM GENERAL: NAD, Alert HEENT: PERRL, OC/OP NECK: Supple, no JVD, no LN LUNGS: Clear HEART: S1S2, no gallop, no murmur ABD: Soft, NT, no organomegaly, no rebound EXT: No edema, no cyanosis 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, 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 3, no focal neurologic deficit SKIN: No rash IV: ok Labs Lab Laboratory Tests Test 03/23/17 11:27 03/23/17 16:26 03/23/17 20:23 03/24/17 04:25 Glucose (Fingerstick) 189 mg/dL (70-99) 120 mg/dL (70-99) 133 mg/dL (70-99) White Blood Count 5.8 x10^3/uL (4.0-11.0) Red Blood Count 2.72 x10^6/uL (3.50-5.40) Hemoglobin 7.9 g/dL (12.0-15.5) Hematocrit 24.3 % (36.0-47.0) Mean Corpuscular Volume 89 fL (79-100) Mean Corpuscular Hemoglobin 29 pg (25-35) Mean Corpuscular Hemoglobin Concent 32 g/dL (31-37) Red Cell Distribution Width 16.3 % (11.5-14.5) Platelet Count 262 x10^3/uL (140-400) Neutrophils (%) (Auto) 53 % (31-73) Lymphocytes (%) (Auto) 35 % (24-48) Monocytes (%) (Auto) 12 % (0-9) Eosinophils (%) (Auto) 0 % (0-3) Basophils (%) (Auto) 1 % (0-3) Neutrophils # (Auto) 3.1 x10^3uL (1.8-7.7) Lymphocytes # (Auto) 2.0 x10^3/uL (1.0-4.8) Monocytes # (Auto) 0.7 x10^3/uL (0.0-1.1) Eosinophils # (Auto) 0.0 x10^3/uL (0.0-0.7) Basophils # (Auto) 0.0 x10^3/uL (0.0-0.2) Sodium Level 144 mmol/L (136-145) Potassium Level 3.5 mmol/L (3.5-5.1) Chloride Level 108 mmol/L (98-107) Carbon Dioxide Level 30 mmol/L (21-32) Anion Gap 6 (6-14) Blood Urea Nitrogen 27 mg/dL (7-20) Creatinine 1.8 mg/dL (0.6-1.0) Estimated GFR (Cockcroft-Gault) 27.6 Glucose Level 88 mg/dL (70-99) Calcium Level 9.7 mg/dL (8.5-10.1) Test 03/24/17 07:00 Glucose (Fingerstick) 99 mg/dL (70-99) Objective Assessment Left leg cellulitis Left leg wounds Obesity DM COPD Plan Plan of Care po augmentin for 7 days leg elevation soon to change to po for d/c ok f/u with me if needed IGNACIO GREENBERG MD Mar 24, 2017 10:18
[2017-03-24 10:38] VITALS: BP 167/45
[2017-03-24 14:33] VITALS: BP 151/43
--- NOTE | 2017-03-24 15:39 | PDOC ---
PROGRESS NOTES Chief Complaint Chief Complaint LE edema left leg Cellulitis Severe malnutrision Metabolic encephalopathy resolved DM diet control HTN Hypercholesterolemia Renal disease COPD Hypothyroidism PVD, mild plan: fu with ID, cont augmentin x7ds waiting to dc to [place] with SW ssi elevate leg pain control wound care no vascular sx dvt ppx PTOT History of Present Illness History of Present Illness ROS: no fever, chills, sob or chest pain c/o chronic back pain leg pain, ulcer better Vitals Vitals Vital Signs Date Time Temp Pulse Resp B/P (MAP) Pulse Ox O2 Delivery O2 Flow Rate FiO2 03/24/17 14:33 98.6 63 18 151/43 (79) 93 Room Air 98.6 Physical Exam Physical Exam left leg red, superficial ulcer General: Alert, Oriented X3, Cooperative Heart: Regular rate, Normal S2, Other (3/6 systolic ejection murmur) Lungs: Clear Abdomen: Normal bowel sounds Extremities: No clubbing, Other (LE edema, Cellulitis) Skin: No breakdown, No significant lesion Labs LABS Laboratory Tests Test 03/23/17 16:26 03/23/17 20:23 03/24/17 04:25 03/24/17 07:00 Glucose (Fingerstick) 120 mg/dL (70-99) 133 mg/dL (70-99) 99 mg/dL (70-99) White Blood Count 5.8 x10^3/uL (4.0-11.0) Red Blood Count 2.72 x10^6/uL (3.50-5.40) Hemoglobin 7.9 g/dL (12.0-15.5) Hematocrit 24.3 % (36.0-47.0) Mean Corpuscular Volume 89 fL (79-100) Mean Corpuscular Hemoglobin 29 pg (25-35) Mean Corpuscular Hemoglobin Concent 32 g/dL (31-37) Red Cell Distribution Width 16.3 % (11.5-14.5) Platelet Count 262 x10^3/uL (140-400) Neutrophils (%) (Auto) 53 % (31-73) Lymphocytes (%) (Auto) 35 % (24-48) Monocytes (%) (Auto) 12 % (0-9) Eosinophils (%) (Auto) 0 % (0-3) Basophils (%) (Auto) 1 % (0-3) Neutrophils # (Auto) 3.1 x10^3uL (1.8-7.7) Lymphocytes # (Auto) 2.0 x10^3/uL (1.0-4.8) Monocytes # (Auto) 0.7 x10^3/uL (0.0-1.1) Eosinophils # (Auto) 0.0 x10^3/uL (0.0-0.7) Basophils # (Auto) 0.0 x10^3/uL (0.0-0.2) Sodium Level 144 mmol/L (136-145) Potassium Level 3.5 mmol/L (3.5-5.1) Chloride Level 108 mmol/L (98-107) Carbon Dioxide Level 30 mmol/L (21-32) Anion Gap 6 (6-14) Blood Urea Nitrogen 27 mg/dL (7-20) Creatinine 1.8 mg/dL (0.6-1.0) Estimated GFR (Cockcroft-Gault) 27.6 Glucose Level 88 mg/dL (70-99) Calcium Level 9.7 mg/dL (8.5-10.1) Test 03/24/17 11:03 Glucose (Fingerstick) 155 mg/dL (70-99) Comment Review of Relevant I have reviewed the following items bear (where applicable) has been applied. Labs Laboratory Tests Test 03/22/17 16:40 03/22/17 21:40 03/23/17 03:53 03/23/17 07:12 Glucose (Fingerstick) 160 mg/dL (70-99) 184 mg/dL (70-99) 126 mg/dL (70-99) White Blood Count 6.1 x10^3/uL (4.0-11.0) Red Blood Count 2.70 x10^6/uL (3.50-5.40) Hemoglobin 7.8 g/dL (12.0-15.5) Hematocrit 23.9 % (36.0-47.0) Mean Corpuscular Volume 89 fL (79-100) Mean Corpuscular Hemoglobin 29 pg (25-35) Mean Corpuscular Hemoglobin Concent 33 g/dL (31-37) Red Cell Distribution Width 16.1 % (11.5-14.5) Platelet Count 270 x10^3/uL (140-400) Neutrophils (%) (Auto) 56 % (31-73) Lymphocytes (%) (Auto) 31 % (24-48) Monocytes (%) (Auto) 12 % (0-9) Eosinophils (%) (Auto) 0 % (0-3) Basophils (%) (Auto) 1 % (0-3) Neutrophils # (Auto) 3.4 x10^3uL (1.8-7.7) Lymphocytes # (Auto) 1.9 x10^3/uL (1.0-4.8) Monocytes # (Auto) 0.7 x10^3/uL (0.0-1.1) Eosinophils # (Auto) 0.0 x10^3/uL (0.0-0.7) Basophils # (Auto) 0.0 x10^3/uL (0.0-0.2) Sodium Level 144 mmol/L (136-145) Potassium Level 3.7 mmol/L (3.5-5.1) Chloride Level 108 mmol/L (98-107) Carbon Dioxide Level 29 mmol/L (21-32) Anion Gap 7 (6-14) Blood Urea Nitrogen 35 mg/dL (7-20) Creatinine 1.9 mg/dL (0.6-1.0) Estimated GFR (Cockcroft-Gault) 25.9 Glucose Level 113 mg/dL (70-99) Calcium Level 9.7 mg/dL (8.5-10.1) Test 03/23/17 11:27 03/23/17 16:26 03/23/17 20:23 03/24/17 04:25 Glucose (Fingerstick) 189 mg/dL (70-99) 120 mg/dL (70-99) 133 mg/dL (70-99) White Blood Count 5.8 x10^3/uL (4.0-11.0) Red Blood Count 2.72 x10^6/uL (3.50-5.40) Hemoglobin 7.9 g/dL (12.0-15.5) Hematocrit 24.3 % (36.0-47.0) Mean Corpuscular Volume 89 fL (79-100) Mean Corpuscular Hemoglobin 29 pg (25-35) Mean Corpuscular Hemoglobin Concent 32 g/dL (31-37) Red Cell Distribution Width 16.3 % (11.5-14.5) Platelet Count 262 x10^3/uL (140-400) Neutrophils (%) (Auto) 53 % (31-73) Lymphocytes (%) (Auto) 35 % (24-48) Monocytes (%) (Auto) 12 % (0-9) Eosinophils (%) (Auto) 0 % (0-3) Basophils (%) (Auto) 1 % (0-3) Neutrophils # (Auto) 3.1 x10^3uL (1.8-7.7) Lymphocytes # (Auto) 2.0 x10^3/uL (1.0-4.8) Monocytes # (Auto) 0.7 x10^3/uL (0.0-1.1) Eosinophils # (Auto) 0.0 x10^3/uL (0.0-0.7) Basophils # (Auto) 0.0 x10^3/uL (0.0-0.2) Sodium Level 144 mmol/L (136-145) Potassium Level 3.5 mmol/L (3.5-5.1) Chloride Level 108 mmol/L (98-107) Carbon Dioxide Level 30 mmol/L (21-32) Anion Gap 6 (6-14) Blood Urea Nitrogen 27 mg/dL (7-20) Creatinine 1.8 mg/dL (0.6-1.0) Estimated GFR (Cockcroft-Gault) 27.6 Glucose Level 88 mg/dL (70-99) Calcium Level 9.7 mg/dL (8.5-10.1) Test 03/24/17 07:00 03/24/17 11:03 Glucose (Fingerstick) 99 mg/dL (70-99) 155 mg/dL (70-99) Laboratory Tests Test 03/23/17 16:26 03/23/17 20:23 03/24/17 04:25 03/24/17 07:00 Glucose (Fingerstick) 120 mg/dL (70-99) 133 mg/dL (70-99) 99 mg/dL (70-99) White Blood Count 5.8 x10^3/uL (4.0-11.0) Red Blood Count 2.72 x10^6/uL (3.50-5.40) Hemoglobin 7.9 g/dL (12.0-15.5) Hematocrit 24.3 % (36.0-47.0) Mean Corpuscular Volume 89 fL (79-100) Mean Corpuscular Hemoglobin 29 pg (25-35) Mean Corpuscular Hemoglobin Concent 32 g/dL (31-37) Red Cell Distribution Width 16.3 % (11.5-14.5) Platelet Count 262 x10^3/uL (140-400) Neutrophils (%) (Auto) 53 % (31-73) Lymphocytes (%) (Auto) 35 % (24-48) Monocytes (%) (Auto) 12 % (0-9) Eosinophils (%) (Auto) 0 % (0-3) Basophils (%) (Auto) 1 % (0-3) Neutrophils # (Auto) 3.1 x10^3uL (1.8-7.7) Lymphocytes # (Auto) 2.0 x10^3/uL (1.0-4.8) Monocytes # (Auto) 0.7 x10^3/uL (0.0-1.1) Eosinophils # (Auto) 0.0 x10^3/uL (0.0-0.7) Basophils # (Auto) 0.0 x10^3/uL (0.0-0.2) Sodium Level 144 mmol/L (136-145) Potassium Level 3.5 mmol/L (3.5-5.1) Chloride Level 108 mmol/L (98-107) Carbon Dioxide Level 30 mmol/L (21-32) Anion Gap 6 (6-14) Blood Urea Nitrogen 27 mg/dL (7-20) Creatinine 1.8 mg/dL (0.6-1.0) Estimated GFR (Cockcroft-Gault) 27.6 Glucose Level 88 mg/dL (70-99) Calcium Level 9.7 mg/dL (8.5-10.1) Test 03/24/17 11:03 Glucose (Fingerstick) 155 mg/dL (70-99) Medications Current Medications Sodium Chloride 1,000 ml @ 50 mls/hr Q20H IV Last administered on 03/22/17t 00 :09; Start 03/21/17 at 22:35; Stop 03/23/17 at 05:53; Status DC Al Hydroxide/Mg Hydroxide (Mylanta Plus Xs) 30 ml PRN Q3HRS PRN PO HEARTBURN / GAS; Start 03/21/17 at 22:45 Heparin Sodium (Porcine) (Heparin Sq) 5,000 unit Q8HRS SQ Last administered on 03/24/17 14:14; Start 03/22/17 at 06:00 Insulin Aspart (NovoLOG) 0-5 UNITS TIDWMEALS SQ Last administered on 03/24/17 12:11; Start 03/22/17 at 08:00 Dextrose (Dextrose 50%-Water Syringe) 12.5 gm PRN Q15MIN PRN IV SEE COMMENTS; Start 03/21/17 at 23:00 Fluconazole (Diflucan) 100 mg DAILY PO Last administered on 03/24/17 08:33; Start 03/22/17 at 09:00 Ceftriaxone Sodium 2 gm/ Dextrose 100 ml @ 200 mls/hr Q24H IV ; Start 03/22/17 at 12:00; Status UNV Vancomycin HCl (Vanco Per Pharmacy) 1 each PRN DAILY PRN MC SEE COMMENTS Last administered on 03/22/17 06:02; Start 03/21/17 at 23:15; Stop 03/22/17 at 10: 44; Status DC Aspirin (Children'S Aspirin) 81 mg DAILY PO Last administered on 03/24/17 08: 32; Start 03/22/17 at 09:00 Acetaminophen/ Hydrocodone Bitart (Lortab 10/325) 1 tab PRN Q6HRS PRN PO SEVERE PAIN Last administered on 03/24/17 14:06; Start 03/21/17 at 23:30 Levothyroxine Sodium (Synthroid) 50 mcg DAILY07 PO Last administered on 06:03; Start 03/22/17 at 07:00 Roflumilast (Daliresp) 500 mcg DAILY PO Last administered on 03/24/17 08:38; Start 03/22/17 at 09:00 Torsemide (Demadex) 40 mg DAILY PO Last administered on 03/24/17 08:33; Start 03/22/17 at 09:00 Atorvastatin Calcium (Lipitor) 80 mg QHS PO Last administered on 03/23/17 21: 28; Start 03/22/17 at 21:00 Carvedilol (Coreg) 25 mg BIDWMEALS PO Last administered on 03/24/17 08:33; Start 03/22/17 at 08:00 Fenofibrate (Lofibra) 134 mg DAILY PO Last administered on 03/24/17 08:32; Start 03/22/17 at 09:00 Non-Formulary Medication 500 mg TIDAC PO ; Start 03/22/17 at 07:30; Status UNV Fish Oil (Fish Oil) 1,000 mg DAILY PO Last administered on 03/24/17 08:31; Start 03/22/17 at 09:00 Lisinopril (Prinivil) 20 mg DAILY PO Last administered on 03/24/17 08:32; Start 03/22/17 at 09:00 Vancomycin HCl 2 gm/Dextrose 500 ml @ 250 mls/hr 1X ONCE IV Last administered on 03/22/17 00:10; Start 03/22/17 at 00:00; Stop 03/22/17 at 01:59 ; Status DC Dextrose (Dextrose 50%-Water Syringe) 12.5 gm PRN Q15MIN PRN IV SEE COMMENTS; Start 03/21/17 at 23:30 Vancomycin HCl 1.5 gm/Dextrose 500 ml @ 250 mls/hr Q24H IV ; Start 03/23/17 at 00:00; Stop 03/23/17 at 00:00; Status DC Vancomycin HCl 1 each 1X ONCE MC ; Start 03/23/17 at 23:30; Stop 03/23/17 at 23 :30; Status DC Ampicillin Sodium/ Sulbactam Sodium 3 gm/Sodium Chloride 100 ml @ 200 mls/hr Q8HRS IV ; Start 03/22/17 at 14:00; Stop 03/22/17 at 14:00; Status DC Ampicillin Sodium/ Sulbactam Sodium (Unasyn) 3 gm Q8HRS IVP Last administered on 03/23/17 06:11; Start 03/22/17 at 14:00; Stop 03/23/17 at 11:11; Status DC Vitamin A/Vitamin D (Vitamin A & D Ointment) 1 annie TID PRN TP SKIN PROTECTION; Start 03/22/17 at 15:30; Status Cancel Ondansetron HCl (Zofran) 4 mg PRN Q6HRS PRN IV NAUSEA/VOMITING Last administered on 03/23/17 10:28; Start 03/23/17 at 10:15 Amoxicillin/ Clavulanate Potassium (Augmentin 875/ 125mg) 1 tab BID PO Last administered on 03/24/17 08:33; Start 03/23/17 at 21:00 Lactobacillus Rhamnosus (Culturelle) 1 cap BID PO Last administered on 08:33; Start 03/23/17 at 21:00 Active Scripts Active Reported Co Q-10 (Ubidecarenone) 10 Mg Capsule 10 Mg PO Torsemide 20 Mg Tablet 2 Tab PO DAILY Daliresp (Roflumilast) 500 Mcg Tablet 1 Tab PO DAILY Ramipril 10 Mg Capsule 1 Cap PO DAILY [place] 3 Fish Oil Softgel ([place]-3 Fatty Acids/Fish Oil) 1 Each Capsule. 1 Each PO DAILY Levothyroxine Sodium 50 Mcg Tablet 1 Tab PO DAILY Hydrocodone-Apap 10-325 (Hydrocodone Bit/Acetaminophen) 1 Each Tablet 1 Tab PO PRN Q6HRS PRN Glucosamine Hcl 500 Mg Tablet 500 Mg PO TIDAC Fenofibrate (Fenofibrate Nanocrystallized) 145 Mg Tablet 1 Tab PO DAILY Coreg (Carvedilol) 25 Mg Tablet 25 Mg PO BIDWMEALS Atorvastatin Calcium 80 Mg Tablet 1 Tab PO DAILY Aspirin 81 Mg Tab.chew 81 Tab PO DAILY Vitals/I & O Vital Sign - Last 24 Hours 03/23/17 03/23/17 03/23/17 03/23/17 15:45 17:00 19:40 20:00 Temp 98.2 98.2 Pulse 63 62 Resp 22 18 B/P (MAP) 128/36 163/43 (83) Pulse Ox 96 93 O2 Delivery Room Air Room Air Room Air 03/23/17 03/23/17 03/24/17 03/24/17 23:02 23:31 03:57 06:55 Temp 98.6 98.4 98.7 98.6 98.4 98.7 Pulse 63 68 67 Resp 16 18 16 19 B/P (MAP) 179/44 (89) 151/42 (78) 169/45 (86) Pulse Ox 93 93 92 92 O2 Delivery Room Air Room Air Room Air Room Air 03/24/17 03/24/17 03/24/17 03/24/17 08:00 08:32 08:33 08:33 Pulse 67 67 Resp 19 B/P (MAP) 169/45 169/45 Pulse Ox 92 O2 Delivery Room Air Room Air 03/24/17 03/24/17 03/24/17 03/24/17 09:33 10:38 14:06 14:33 Temp 98.9 98.6 98.9 98.6 Pulse 66 63 Resp 20 17 20 18 B/P (MAP) 167/45 (85) 151/43 (79) Pulse Ox 94 94 94 93 O2 Delivery Room Air Room Air Room Air Room Air DANIELA PACHECO MD Mar 24, 2017 15:39
[2017-03-24] MEDS ORDERED: ONDANSETRON PF 4 MG/2 ML VIAL. IV PRN (15:45)
[2017-03-24] MEDS ORDERED: hydrALAZINE 20 MG/ML VIAL. IVP PRN (15:45)
[2017-03-24] MEDS ORDERED: DOCUSATE SODIUM 100 MG CAPSULE. PO PRN (15:45)
[2017-03-24] MEDS ORDERED: ACETAMINOPHEN 325 MG TABLET. PO PRN (15:45)
[2017-03-24] MEDS ORDERED: MORPHINE SULFATE 2 MG/ML DISP.SYRIN. IV PRN (15:45)
[2017-03-24] MEDS ORDERED: traMADol 50 MG TABLET PO PRN (15:45)
[2017-03-24 19:28] LABS: NEG OBC FOB NEG; POS OBC FOB POS
[2017-03-24 19:40] VITALS: BP 177/47
[2017-03-24] MEDS: ATORVASTATIN CALCIUM 40 MG TABLET. PO SCH (21:17)
[2017-03-24 23:12] VITALS: BP 191/58
[2017-03-25 03:44] VITALS: BP 185/54
[2017-03-25 05:41] LABS: BASO # 0.1 x10^3/uL (0.0-0.2); BASO % 1 % (0-3); EOS % 0 % (0-3); HEMATOCRIT 24.8 % (36.0-47.0); HEMOGLOBIN 8.1 g/dL (12.0-15.5); LYMPH # 1.6 x10^3/uL (1.0-4.8); LYMPH % 26 % (24-48); MEAN CORPUSCULAR HEMOGLOBIN 29 pg (25-35); MEAN CORPUSCULAR HGB CONC 33 g/dL (31-37); MEAN CORPUSCULAR VOLUME 88 fL (79-100); MONO % 11 % (0-9); NEUT % 63 % (31-73); PLATELET COUNT 263 x10^3/uL (140-400); RED BLOOD COUNT 2.82 x10^6/uL (3.50-5.40); WHITE BLOOD COUNT 6.2 x10^3/uL (4.0-11.0)
[2017-03-25] MEDS: HEPARIN PF for SUB-Q USE 5,000 UNIT/0.5 ML VIAL. SQ SCH ×2 (06:00→13:49)
[2017-03-25 06:06] LABS: CALCIUM 9.8 mg/dL (8.5-10.1); CREATININE 1.8 mg/dL (0.6-1.0); GFR 27.6; POTASSIUM 3.2 mmol/L (3.5-5.1)
[2017-03-25] MEDS: LEVOTHYROXINE 50 MCG TABLET PO SCH (06:13)
[2017-03-25 06:19] LABS: % SAT IRON 13 % (15-34); IRON,SERUM 37 ug/dL (50-170)
[2017-03-25 06:55] VITALS: BP 197/59
[2017-03-25] MEDS: INSULIN ASPART 300 UNITS/3 ML INSULN.PEN SQ SCH ×3 (08:00→17:00)
[2017-03-25] MEDS: LACTOBACILLUS RHAMNOSUS GG 1 CAPSULE. PO SCH (08:14)
[2017-03-25] MEDS: TORSEMIDE 20 MG TABLET. PO SCH (08:14)
[2017-03-25] MEDS: CARVEDILOL 12.5 MG TABLET. PO SCH ×2 (08:14→16:10)
[2017-03-25] MEDS: LISINOPRIL 20 MG TABLET PO SCH (08:15)
[2017-03-25] MEDS: FENOFIBRATE,MICRONIZED 134 MG CAPSULE PO SCH (08:15)
[2017-03-25] MEDS: OMEGA-3 FATTY ACIDS/FISH OIL 1,000 MG CAPSULE. PO SCH (08:15)
[2017-03-25] MEDS: AMOXICILLIN/K CLAV 875/125MG TABLET. PO SCH (08:15)
[2017-03-25] MEDS: ROFLUMILAST 500 MCG TABLET. PO SCH (08:15)
[2017-03-25] MEDS: FLUCONAZOLE 100 MG TABLET. PO SCH (08:15)
[2017-03-25] MEDS: ASPIRIN CHEWABLE 81 MG TABLET. PO SCH (08:16)
[2017-03-25] MEDS: HYDROcodone/APAP 10/325 1 TAB TABLET PO PRN ×2 (10:17→16:11)
[2017-03-25 10:23] VITALS: BP 165/49
[2017-03-25] MEDS ORDERED: AMOX1TAB11 PO (12:25)
[2017-03-25] MEDS ORDERED: HYDR-2766 PO (12:25)
[2017-03-25 15:00] VITALS: BP 122/86
--- NOTE | 2017-03-25 15:01 | PDOC3 ---
Discharge Summary [facility] Date of Admission: Mar 21, 2017 Discharge Date: Mar 25, 2017 Admitting Diagnosis LE edema left leg Cellulitis Severe malnutrition Metabolic encephalopathy resolved DM diet control HTN Hypercholesterolemia Renal disease COPD Hypothyroidism PVD, mild Problems: CONSULTS vascular id Brief Hospital Course Ms. Irizarry is a 72 old F, chronic back pain, came for left leg edema with some superficial cellulitis. no intervention needed. the cellulitis is better with abx, dc to rehab with augmentin, cont local wound care, leg elevation. dc time 35min Physical Exam left leg red, superficial ulcer General: Alert, Oriented X3, Cooperative Heart: Regular rate, Normal S2, Other (3/6 systolic ejection murmur) Lungs: Clear Abdomen: Normal bowel sounds Extremities: No clubbing, Other (LE edema, Cellulitis) Skin: No breakdown, No significant lesion Problems: Disposition rehab CONDITION AT DISCHARGE: Improved Diet ada Scheduled Amoxicillin/Potassium Clav (Amox Tr-K Clv 875-125 Mg Tab), 1 TAB PO BID Aspirin (Aspirin), 81 TAB PO DAILY, (Reported) Atorvastatin Calcium (Atorvastatin Calcium), 1 TAB PO DAILY, (Reported) Carvedilol (Coreg), 25 MG PO BIDWMEALS, (Reported) Fenofibrate Nanocrystallized (Fenofibrate), 1 TAB PO DAILY, (Reported) Glucosamine Hcl (Glucosamine Hcl), 500 MG PO TIDAC, (Reported) Levothyroxine Sodium (Levothyroxine Sodium), 1 TAB PO DAILY, (Reported) [place]-3 Fatty Acids/Fish Oil ([place] 3 Fish Oil Softgel), 1 EACH PO DAILY, ( Reported) Ramipril (Ramipril), 1 CAP PO DAILY, (Reported) Roflumilast (Daliresp), 1 TAB PO DAILY, (Reported) Torsemide (Torsemide), 2 TAB PO DAILY, (Reported) Scheduled PRN Hydrocodone Bit/Acetaminophen (Hydrocodone-Apap 10-325 ), 1 TAB PO PRN Q6HRS PRN for PAIN Miscellaneous Medications Ubidecarenone (Co Q-10), 10 MG PO, (Reported) Follow Up pcp in 2 weeks DANIELA PACHECO MD Mar 25, 2017 15:01
[2017-03-25 16:10] VITALS: BP 165/49
--- NOTE | 2017-03-25 21:32 | CONS ---
DATE OF CONSULTATION: 03/23/2017 PODIATRIC CONSULTATION REASON FOR CONSULTATION: Evaluate and treat for podiatric care, uncontrolled and untreated mycotic nails of both feet. REVIEW OF RECORD: This is a 72-year-old woman with a history of diabetes, renal failure, COPD who presented to the Emergency Room at [facility]. She was transferred to the [place] here. She apparently had low blood sugars at home with altered mental status, but on arrival at the ER, she was actually in pretty good shape. PAST MEDICAL HISTORY: Diabetes, hypertension, hypercholesterolemia, renal disease, COPD, hypothyroidism. SOCIAL HISTORY: Quit smoking 12 years ago. ALLERGIES: CEPHALOSPORINS AND EZETIMIBE. CURRENT MEDICATIONS: Reviewed. PHYSICAL EXAMINATION: DERMAL: The patient has elongated mycotic nails of multiple digits that the has not been able to take care of, of all digits. There is a lot of wrinkling of the skin apparently from the swelling that has decreased with some diuresis from what I understand. She does have issues with infections of her leg. She was seen by Infectious Disease and Dr. Ye. Decreased turgor, absence of hair growth is noted . VASCULAR: Pedal pulses are diminished to absent bilateral. NEUROLOGIC: The patient appears to have some decreased sensorium and did not respond to sharp stimuli. MUSCULOSKELETAL: No significant musculoskeletal abnormalities of concern are appreciated contributory to her problem today. ASSESSMENT: 1. Clinical evidence of painful onychomycosis, onychocryptosis, onycholysis of all 10 toenails. 2. History of diabetes with peripheral vascular disease and some neuropathy. PLAN: Debridement of all mycotic nails performed using double action nail forceps and rotary drill. The patient was very happy and pleased to have this done and realized she will have much improved comfort and hopefully, will continue to seek prophylactic diabetic foot care on a regular basis. Thank you very much, Dr. Weir for the opportunity to take care of the patient regarding her podiatric needs. DIAZ CARVAJAL DPM DR: ROSEMARY/jeny JOB#: [id number] / [id number]
[2017-03-27 12:48] LABS: FOLATE 8.71 ng/ml (3.2-20.0)
== END 2017-03-25 17:30 | DRG 602 ==
LOC: 6 SOUTH 20:30
PROVIDERS: ADMIT Internal Medicine Hematology & Oncology; ATTEND Internal Medicine Hematology & Oncology
PROC: 0HBRXZZ Excision of Toe Nail, External Approach (ICD-10-PCS; principal; 2017-03-22)
DX: L03.116 Cellulitis of left lower limb (principal); G93.41 Metabolic encephalopathy; E43 Unspecified severe protein-calorie malnutrition; L97.929 Non-pressure chronic ulcer of unspecified part of left lower leg with unspecified severity; E11.22 Type 2 diabetes mellitus with diabetic chronic kidney disease; E11.51 Type 2 diabetes mellitus with diabetic peripheral angiopathy without gangrene; E66.01 Morbid (severe) obesity due to excess calories; I87.2 Venous insufficiency (chronic) (peripheral); Z68.39 Body mass index [BMI] 39.0-39.9, adult; E03.9 Hypothyroidism, unspecified; E11.649 Type 2 diabetes mellitus with hypoglycemia without coma; E78.00 Pure hypercholesterolemia, unspecified; E78.5 Hyperlipidemia, unspecified; G89.29 Other chronic pain; I12.9 Hypertensive chronic kidney disease with stage 1 through stage 4 chronic kidney disease, or unspecified chronic kidney disease; I25.10 Atherosclerotic heart disease of native coronary artery without angina pectoris; J44.9 Chronic obstructive pulmonary disease, unspecified; L60.1 Onycholysis; N18.9 Chronic kidney disease, unspecified; L60.0 Ingrowing nail; E11.622 Type 2 diabetes mellitus with other skin ulcer; Z88.8 Allergy status to other drugs, medicaments and biological substances; Z87.891 Personal history of nicotine dependence; Z82.49 Family history of ischemic heart disease and other diseases of the circulatory system
CPT/HCPCS: 36415; 80048; 80053; 81001; 82274; 82607; 82728; 82746; 82962; 83540; 83550; 83735; 84100; 85025; 85610; 85730; J0295; J1815; J2405; J3370; 97110; 97116; 97530; 97535

== ENCOUNTER 2019-02-13 21:28 | Inpatient (IN) | payer MEDICARE, OTHER ==
[~2019-02-13] VITALS: Ht 162.6 cm; Wt 101.3 kg
[~2019-02-13 21:28] MED LIST: AMOX1TAB11 PO; ASPI-630 PO; ATORVASTATIN CA80 MG PO; CARV25TA PO; FENO145T30 PO; GLUC500T10 PO; HYDR-2769 PO; LEVO50TA5 PO; OMEG1CAP38 PO; RAMI10CA53 PO; ROFL500T7 PO; TORS20TA2 PO; UBID10CA5 PO
[2019-02-14] VITALS (12 sets, daily range): BP systolic 111–165; BP diastolic 36–62
[2019-02-14] MEDS ORDERED: INFLUENZA VAX SCREEN BY RX. MC PRN (01:00)
[2019-02-14] MEDS ORDERED: GLIM4TAB PO (01:24)
[2019-02-14] MEDS ORDERED: SODI30SP NS (01:24)
[2019-02-14] MEDS ORDERED: PRED-220 PO (01:24)
[2019-02-14] MEDS ORDERED: POLY17PO29 PO (01:24)
[2019-02-14] MEDS ORDERED: HYDR12.58 PO (01:24)
[2019-02-14] MEDS ORDERED: ALLO300T PO (01:24)
[2019-02-14] MEDS ORDERED: ALPR0.5T6 PO (01:24)
[2019-02-14] MEDS ORDERED: LORA10TA3 PO (01:24)
[2019-02-14] MEDS ORDERED: AMLO10TA8 PO (01:24)
[2019-02-14] MEDS ORDERED: GUAI-108 PO (01:24)
[2019-02-14] MEDS ORDERED: guaiFENesin DM 600/30MG 1 TAB TAB.ER.12H PO PRN (02:00)
[2019-02-14] MEDS ORDERED: ALPRAZolam 0.5 MG TABLET PO PRN (02:00)
[2019-02-14] MEDS ORDERED: SODIUM CHLORIDE 0.65% NASAL SPRAY 45ML BOTTLE. NS SCH (02:00)
[2019-02-14] MEDS ORDERED: SODIUM CHLORIDE 0.65% NASAL SPRAY 45ML BOTTLE. NS PRN (02:15)
[2019-02-14] MEDS ORDERED: PANTOPRAZOLE SODIUM IV DRIP 80 MG in IV NORMAL SALINE 100ML 100 ML IV SCH (04:00)
[2019-02-14] MEDS: LEVOTHYROXINE 50 MCG TABLET PO SCH (06:03)
[2019-02-14 07:27] LABS: ALBUMIN 3.4 g/dL (3.4-5.0); CALCIUM 10.5 mg/dL (8.5-10.1); CREATININE 2.2 mg/dL (0.6-1.0); GFR 21.8; POTASSIUM 3.5 mmol/L (3.5-5.1); TOTAL BILIRUBIN 0.3 mg/dL (0.2-1.0); TOTAL PROTEIN 6.7 g/dL (6.4-8.2)
[2019-02-14] MEDS: TORSEMIDE 20 MG TABLET. PO SCH (08:18)
[2019-02-14] MEDS: ROFLUMILAST 500 MCG TABLET. PO SCH (08:18)
[2019-02-14] MEDS: CETIRIZINE HCL 10 MG TABLET. PO SCH (08:18)
[2019-02-14] MEDS: ALLOPURINOL 300 MG TABLET. PO SCH (08:18)
[2019-02-14] MEDS: CARVEDILOL 12.5 MG TABLET. PO SCH ×2 (08:18→16:10)
[2019-02-14] MEDS: amLODIPine BESYLATE 10 MG TABLET PO SCH (08:19)
[2019-02-14] MEDS: HYDROcodone/APAP 10/325 1 TAB TABLET PO PRN ×3 (08:19→21:08)
[2019-02-14] MEDS: GLIMEPIRIDE 2 MG TABLET. PO SCH (08:19)
[2019-02-14] MEDS: LISINOPRIL 20 MG TABLET PO SCH (08:20)
[2019-02-14] MEDS ORDERED: ASPIRIN CHEWABLE 81 MG TABLET. PO SCH ×2 (09:00)
[2019-02-14] MEDS ORDERED: hydroCHLOROthiazide 12.5 MG CAPSULE PO SCH (09:00)
--- NOTE | 2019-02-14 09:00 | NUR ---
wound care patient seen per wound care consult. wound assessment completed at this time. patient has some scabbed/ pink area to bilateral buttocks and coccyx area, the area was cleaned and redressed with a foam dressing. patient assessed from head to toe and no wounds noted at this time. patient stated she sits in the chair. ordered a wheelchair cushion at this time. wound care will continue to f/u for changes.
--- NOTE | 2019-02-14 09:16 | PDOC1 ---
History and Physical Date of Admission Date of Admission DATE: 02/14/19 TIME: 09:14 Identification/Chief Complaint Chief Complaint CC TRANSFER FROM [facility] MARKED ANEMIA, CARDIOLOGY TO SEE hgb about 8 one year ago Colonoscopy 7-8 years ago/// [facility] At [facility] with CP and SOA trop nml CXR mild CHF /// NOT EATING WELL. SHE IS NOTED TO BE ANEMIC WITH A HGB OF 6.3, GI CONSULTED WELL NEPHROLOGY Past Medical History Past Medical History PAST MEDICAL HISTORY: Diabetes mellitus, hypertension, hypercholesterolemia, renal disease, COPD, hypothyroidism. FAMILY HISTORY: Positive for CAD in all first degree relatives including 2 sisters' parents. SOCIAL HISTORY: Quit smoking 12 years ago after accumulating approximately 60 pack-year history. Denies any alcohol or drug use. ALLERGIES: CEPHALOSPORINS AND EZETIMIBE. MEDICATIONS: MAR reconciled with home medications. GI: GERD Musculoskeletal: Osteoarthritis Renal/: Chronic renal insuff Family History Family History OBESITY Family History: High Cholestrol Social History Smoke: No ALCOHOL: none Drugs: None Current Medications Current Medications Current Medications Info (FLU VACCINE SCREEN per RX) 1 each PRN DAILY PRN MC SEE COMMENTS; Start 02/14/19 at 01:00 Allopurinol (Zyloprim) 150 mg DAILY PO Last administered on 02/14/19at 08:18; Start 02/14/19 at 09:00 Alprazolam (Xanax) 0.5 mg PRN Q12HR PRN PO ANXIETY / AGITATION; Start 02/14/19 at 02:00 Amlodipine Besylate (Norvasc) 10 mg DAILY PO Last administered on 02/14/19at 08:19; Start 02/14/19 at 09:00 Aspirin (Children'S Aspirin) 6,561 mg DAILY PO ; Start 02/14/19 at 09:00; Stop 02/14/19 at 02:09; Status DC Guaifenesin (MUCINEX ER with DM) 1 tab PRN Q12HRS PRN PO COUGH; Start 02/14/19 at 02:00 Acetaminophen/ Hydrocodone Bitart (Lortab 10/325) 1 tab PRN Q6HRS PRN PO SEVERE PAIN 7-10 Last administered on 02/14/19at 08:19; Start 02/14/19 at 02:00 Levothyroxine Sodium (Synthroid) 50 mcg DAILY06 PO Last administered on 02/14/19 06:03; Start 02/14/19 at 06:00 Polyethylene Glycol (miraLAX PACKET) 17 gm PRN DAILY PRN PO CONSTIPATION 1ST CHOICE; Start 02/14/19 at 02:00 Roflumilast (Daliresp) 500 mcg DAILY PO Last administered on 02/14/19at 08:18; Start 02/14/19 at 09:00 Sodium Chloride (Saline Mist Nasal) 2 annie Q2HR NS ; Start 02/14/19 at 02:00; Stop 02/14/19 at 02:12; Status DC Torsemide (Demadex) 60 mg DAILY PO Last administered on 02/14/19 08:18; Start 02/14/19 at 09:00 Atorvastatin Calcium (Lipitor) 80 mg QHS PO ; Start 02/14/19 at 21:00 Carvedilol (Coreg) 25 mg BIDWMEALS PO Last administered on 02/14/19 08:18; St art 02/14/19 at 08:00 Glimepiride (Amaryl) 2 mg DAILY PO Last administered on 02/14/19 08:19; Start 02/14/19 at 09:00 Hydrochlorothiazide (Microzide) 12.5 mg DAILY PO Last administered on 02/14/19 08:20; Start 02/14/19 at 09:00 Cetirizine HCl (ZyrTEC) 10 mg DAILY PO Last administered on 02/14/19at 08:18; Start 02/14/19 at 09:00 Lisinopril (Prinivil) 20 mg DAILY PO Last administered on 02/14/19at 08:20; Start 02/14/19 at 09:00 Pantoprazole Sodium 80 mg/ Sodium Chloride 100 ml @ 10 mls/hr Q10H IV Last ad ministered on 02/14/19at 06:04; Start 02/14/19 at 04:00 Aspirin (Children'S Aspirin) 81 mg DAILY PO Last administered on 02/14/19 08:17; Start 02/14/19 at 09:00 Sodium Chloride (Saline Mist Nasal) 2 annie PRN Q2HR PRN NS NASAL CONGESTION; Start 02/14/19 at 02:15 Active Scripts Active Hydrocodone-Apap 10-325 (Hydrocodone Bit/Acetaminophen) 1 Each Tablet 1 Tab PO PRN Q6HRS PRN Reported Miralax (Polyethylene Glycol 3350) 17 Gm Powd.pack 1 Pkt PO PRN DAILY PRN Amaryl (Glimepiride) 4 Mg Tablet 2 Mg PO DAILY Mucinex Dm Er 600-30 Mg Tablet (Guaifenesin/Dextromethorphan) 1 Each Tab.er.12h 1 Tab PO PRN Q12HRS Alprazolam 0.5 Mg Tablet 0.5 Mg PO PRN Q12HR PRN Saline Nasal [place] (Sodium Chloride) 30 Ml [place] 1-2 [place] NS PRN Q2HR PRN Loratadine 10 Mg Tablet 10 Mg PO DAILY Allopurinol 300 Mg Tablet 150 Mg PO DAILY Hydrochlorothiazide Tablet (Hydrochlorothiazide) 12.5 Mg Tablet 12.5 Mg PO DAILY Amlodipine Besylate 10 Mg Tablet 10 Mg PO DAILY Prednisone (Prednisone) 10 Mg Tablet 10 Mg PO UD take 4 tablets by mouth daily for 3 days, then take 3 tablets by mouth daily for 3 days, then take 2 tablets by mouth daily for 3 days, then take 1 tablets by mouth daily for 3 days, then stop. Torsemide 20 Mg Tablet 3 Tab PO DAILY Daliresp (Roflumilast) 500 Mcg Tablet 1 Tab PO DAILY Ramipril 10 Mg Capsule 2 Cap PO DAILY Levothyroxine Sodium 50 Mcg Tablet 1 Tab PO DAILY Coreg (Carvedilol) 25 Mg Tablet 25 Mg PO BIDWMEALS Atorvastatin Calcium 80 Mg Tablet 1 Tab PO DAILY Aspirin 81 Mg Tab.chew 81 Tab PO DAILY Allergies Allergies: Coded Allergies: cefuroxime (Verified Allergy, Intermediate, 03/21/17) cephalexin (Verified Allergy, Intermediate, 03/21/17) ezetimibe (Verified Allergy, Intermediate, 03/21/17) ROS Review of System 14 PT ROS OTHERWISE NEG General: YES: Fatigue PSYCHOLOGICAL ROS: YES: Memory difficulties Eyes: Yes Decreased vision Respiratory: YES: Shortness of breath Cardiovascular: yes Chest Pain Gastrointestinal: Yes Melena Musculoskeletal: Yes Joint Stiffness; No Gait Disturbance, No Joint Pain, No Joint Swelling, No Muscle Pain, No Muscular Weakness, No Pain In:, No Swelling In:, No Other Neurological: Yes Gait Disturbance, Yes Memory Loss Skin: No Dry Skin, No Eczema, No Hair Changes, No Lumps, No Mole Changes, No Mottling, No Nail Changes, No Pruritus, No Rash, No Skin Lesion Changes, No Other, No Acne Physical Exam General: Alert, Oriented X3, Cooperative, No acute distress HEENT: PERRLA Lungs: Clear to auscultation, Normal air movement Heart: RRR Breasts: Not examined Abdomen: Normal bowel sounds, Soft Rectal Exam: not examined PELVIC: Examination not indicated Extremities: No clubbing, No cyanosis Neuro: Normal speech, Cranial nerves 3-12 NL Psych/Mental Status: Mood NL Vitals Vitals Vital Signs Date Time Temp Pulse Resp B/P (MAP) Pulse Ox O2 Delivery O2 Flow Rate FiO2 02/14/19 09:04 18 96 Room Air 02/14/19 08:20 69 135/43 02/14/19 07:38 98.5 98.5 Labs Labs Laboratory Tests Test 02/14/19 06:25 02/14/19 07:17 Sodium Level 144 mmol/L (136-145) Potassium Level 3.5 mmol/L (3.5-5.1) Chloride Level 104 mmol/L (98-107) Carbon Dioxide Level 31 mmol/L (21-32) Anion Gap 9 (6-14) Blood Urea Nitrogen 88 mg/dL (7-20) Creatinine 2.2 mg/dL (0.6-1.0) Estimated GFR (Cockcroft-Gault) 21.8 BUN/Creatinine Ratio 40 (6-20) Glucose Level 142 mg/dL (70-99) Calcium Level 10.5 mg/dL (8.5-10.1) Total Bilirubin 0.3 mg/dL (0.2-1.0) Aspartate Amino Transf (AST/SGOT) 10 U/L (15-37) Alanine Aminotransferase (ALT/SGPT) 9 U/L (14-59) Alkaline Phosphatase 146 U/L (46-116) Total Protein 6.7 g/dL (6.4-8.2) Albumin 3.4 g/dL (3.4-5.0) Albumin/Globulin Ratio 1.0 (1.0-1.7) Glucose (Fingerstick) 135 mg/dL (70-99) Laboratory Tests Test 02/14/19 06:25 02/14/19 07:17 Sodium Level 144 mmol/L (136-145) Potassium Level 3.5 mmol/L (3.5-5.1) Chloride Level 104 mmol/L (98-107) Carbon Dioxide Level 31 mmol/L (21-32) Anion Gap 9 (6-14) Blood Urea Nitrogen 88 mg/dL (7-20) Creatinine 2.2 mg/dL (0.6-1.0) Estimated GFR (Cockcroft-Gault) 21.8 BUN/Creatinine Ratio 40 (6-20) Glucose Level 142 mg/dL (70-99) Calcium Level 10.5 mg/dL (8.5-10.1) Total Bilirubin 0.3 mg/dL (0.2-1.0) Aspartate Amino Transf (AST/SGOT) 10 U/L (15-37) Alanine Aminotransferase (ALT/SGPT) 9 U/L (14-59) Alkaline Phosphatase 146 U/L (46-116) Total Protein 6.7 g/dL (6.4-8.2) Albumin 3.4 g/dL (3.4-5.0) Albumin/Globulin Ratio 1.0 (1.0-1.7) Glucose (Fingerstick) 135 mg/dL (70-99) VTE Prophylaxis Ordered VTE Prophylaxis Devices: Yes VTE Pharmacological Prophylaxi: Contraindicated Assessment/Plan Assessment/Plan IMPRESSION ACUTE RENAL FAILURE MARKED ANEMIA Metabolic encephalopathy HX DM HTN Hypercholesterolemia Renal disease CKD STAGE 3-4 COPD Hypothyroidism PVD, Chest pressure, SOA, elevated D-dimer, hypercalcemia Chronic anemia, h/o iron deficiency - Hgb below baseline 6.3 02/14 Dyspepsia, abd burning, "black stools" H/o constipation on Miralax Cholelithiasis, hepatomegaly Chronic pain on hydrocodone Recent epistaxis - post cauterization -- PLAN ADMIT CBC NOTED cardiology CONSULT. Continue PPI consider EGD GI CONSULT NEPHROLOGY CONSULT ECHO transfuse to keep hgb > 7.5 dvt prophylaxis scd's 78 min pt exam, chart review, > 50% of time spent with exam, chart review, pt care coordination SELVIN DOUGLAS MD Feb 14, 2019 09:16
--- NOTE | 2019-02-14 09:58 | PDOC2 ---
GI CONSULT Reason For Consult: r/o GIB HPI: HPI: 73 y/o female transferred from [facility]. Shortness of breath and chest pressure w/ exertion x 3-4 days. GI-preston, "doesn't eat well" - nausea/dyspepsia and decreased appetite x 3 months w/ some burning mid abdominal discomfort. Probably for the same amount of time has n oted "black worm stools" on Miralax w/ occasional urgency. No heartburn/reflux history. No dysphagia or vomiting. No diarrhea, hematochezia, or weight loss. No previous EGD. Colonoscopy 7-8 years ago @ [facility] (can't find any records - attempted to clarify - she can't remember but "a doctor who only came to [place] sometimes did it.") No pancreas or PUD history. Past US noted cholelithiasis and hepatomegaly (done for elevated LFTs). Reports h/o anemia and might have taken B12 for awhile. Takes [place] for burning abdominal discomfort and was on ASA 81mg but recently stopped (getting here thought) due to nosebleeds (reports cauterization recently). Says not taking prednisone but "a steroid" was started yesterday for shortness of breath. Chronic pain on hydrocodone. At [facility]: Hgb 7.2 w/ MCV 91, RDW 19.6, D-dimer 3.79Cr 2.8, BUN 97, Ca 10.2, Mg 2.7, Alk Phos 201, normal troponin, normal INR, normal plt. CXR showed mild interstitial pulmonary edema or atypical viral infection. On review of past labs - chronic anemia w/ average Hgb in 9s since 2017 - iron deficient at that time. PMH: PMH: CAD w/ stent, HTN, HLD, DM, hypothyroidism, anxiety appendectomy, tonsillectomy FH: Family History: No pertinent hx Social History: Smoke: Quit ALCOHOL: none Drugs: None ROS: GEN: Denies fevers, chills, sweats HEENT: Denies blurred vision, sore throat CV: +chest pain RESP: +shortness of air GI: Per HPI : Denies hematuria, dysuria ENDO: Denies weight changes NEURO: Denies confusion, dizziness MSK: +chronic pain SKIN: Denies jaundice, pruritus Vitals: Vitals: Vital Signs Date Time Temp Pulse Resp B/P (MAP) Pulse Ox O2 Delivery O2 Flow Rate FiO2 02/14/19 09:04 18 96 Room Air 02/14/19 08:20 69 135/43 02/14/19 07:38 98.5 98.5 Labs: Labs: Laboratory Tests Test 02/14/19 06:25 02/14/19 07:17 Sodium Level 144 mmol/L (136-145) Potassium Level 3.5 mmol/L (3.5-5.1) Chloride Level 104 mmol/L (98-107) Carbon Dioxide Level 31 mmol/L (21-32) Anion Gap 9 (6-14) Blood Urea Nitrogen 88 mg/dL (7-20) Creatinine 2.2 mg/dL (0.6-1.0) Estimated GFR (Cockcroft-Gault) 21.8 BUN/Creatinine Ratio 40 (6-20) Glucose Level 142 mg/dL (70-99) Calcium Level 10.5 mg/dL (8.5-10.1) Total Bilirubin 0.3 mg/dL (0.2-1.0) Aspartate Amino Transf (AST/SGOT) 10 U/L (15-37) Alanine Aminotransferase (ALT/SGPT) 9 U/L (14-59) Alkaline Phosphatase 146 U/L (46-116) Total Protein 6.7 g/dL (6.4-8.2) Albumin 3.4 g/dL (3.4-5.0) Albumin/Globulin Ratio 1.0 (1.0-1.7) Glucose (Fingerstick) 135 mg/dL (70-99) Allergies: Coded Allergies: cefuroxime (Verified Allergy, Intermediate, 03/21/17) cephalexin (Verified Allergy, Intermediate, 03/21/17) ezetimibe (Verified Allergy, Intermediate, 03/21/17) Medications: Current Medications Medications (Trade) Dose Ordered Sig/Bryant Route PRN Reason Start Time Stop Time Status Last Admin Dose Admin Allopurinol (Zyloprim) 150 mg DAILY PO 02/14/19 09:00 02/14/19 08:18 Amlodipine Besylate (Norvasc) 10 mg DAILY PO 02/14/19 09:00 02/14/19 08:19 Acetaminophen/ Hydrocodone Bitart (Lortab 10/325) 1 tab PRN Q6HRS PRN PO SEVERE PAIN 7-10 02/14/19 02:00 02/14/19 08:19 Levothyroxine Sodium (Synthroid) 50 mcg DAILY06 PO 02/14/19 06:00 02/14/19 06:03 Roflumilast (Daliresp) 500 mcg DAILY PO 02/14/19 09:00 02/14/19 08:18 Torsemide (Demadex) 60 mg DAILY PO 02/14/19 09:00 02/14/19 08:18 Carvedilol (Coreg) 25 mg BIDWMEALS PO 02/14/19 08:00 02/14/19 08:18 Glimepiride (Amaryl) 2 mg DAILY PO 02/14/19 09:00 02/14/19 08:19 Hydrochlorothiazide (Microzide) 12.5 mg DAILY PO 02/14/19 09:00 02/14/19 08:20 Cetirizine HCl (ZyrTEC) 10 mg DAILY PO 02/14/19 09:00 02/14/19 08:18 Lisinopril (Prinivil) 20 mg DAILY PO 02/14/19 09:00 02/14/19 08:20 Pantoprazole Sodium 80 mg/ Sodium Chloride 100 ml @ 10 mls/hr Q10H IV 02/14/19 04:00 02/14/19 06:04 Aspirin (Children'S Aspirin) 81 mg DAILY PO 02/14/19 09:00 02/14/19 08:17 Imaging: Imaging: - PE: GEN: NAD - eating cream of wheat HEENT: Atraumatic, PERRL LUNGS: CTAB anteriorly HEART: RRR +murm ABD: NABS, S/ND/NT EXTREMITY: trace BLE edema SKIN: No rashes, no jaundice NEURO/PSYCH: A & O 3 - forgetful A/P: A/P: Chest pressure, SOA, BANDAR, elevated D-dimer, hypercalcemia Chronic anemia, h/o iron deficiency - Hgb below baseline Dyspepsia, abd burning, "black stools" H/o constipation on Miralax Cholelithiasis, hepatomegaly Chronic pain on hydrocodone Recent epistaxis - had cauterization and stopped ASA -- CBC pending. Reviewed w/ Dr. Benjamin - will ask cardiology to comment. Continue PPI (can give PO since eating) and consider EGD at some point. Will attempt to get records of previous colonoscopy if she remembers where it was done. ROJELIO MUNOZ Feb 14, 2019 09:58
[2019-02-14 11:07] LABS: BASO % 0 % (0-3); EOS % 0 % (0-3); LYMPH # 1.3 x10^3/uL (1.0-4.8); LYMPH % 18 % (24-48); MEAN CORPUSCULAR HEMOGLOBIN 29 pg (25-35); MEAN CORPUSCULAR HGB CONC 33 g/dL (31-37); MEAN CORPUSCULAR VOLUME 90 fL (79-100); MONO # 0.8 x10^3/uL (0.0-1.1); MONO % 10 % (0-9); NEUT # 5.5 x10^3/uL (1.8-7.7); NEUT % 72 % (31-73); PLATELET COUNT 220 x10^3/uL (140-400); RED BLOOD COUNT 2.16 x10^6/uL (3.50-5.40); RED CELL DISTRIBUTION WIDTH 19.3 % (11.5-14.5); WHITE BLOOD COUNT 7.7 x10^3/uL (4.0-11.0)
[2019-02-14 11:13] LABS: HEMATOCRIT 19.5 % (36.0-47.0); HEMOGLOBIN 6.3 g/dL (12.0-15.5)
--- NOTE | 2019-02-14 12:29 | PDOC2 ---
CONSULT Date of Consult Date of Consult DATE: 02/14/19 TIME: 12:23 History of Present Illness Reason for Visit: THIS IS A 73 YR OLD WITH SOB AND CHEST PAIN. ALSO NOT EATING WELL. SHE IS NOTED TO BE ANEMIC WITH A HGB OF 7.2. HER BUN IS 97 AND CR IS 2.8. OLD RECORDS NOTE A CR OF 1.8-2.2 C/W STAGE 3 CKD . NO RECENT NSAIDS OR NEPHROTOXINS NOTED. NO OTHER HX. HAS OCC NOCTURIA. CURRENTLY UNDERGOING GI EVALUATION. HAS BEEN TAKING HCT Z Past Medical History Cardiovascular: HTN, Hyperlipidemia GI: Constipation Heme/Onc: Anemia NOS Renal/: Chronic renal insuff Endocrine: Hypothyroidism Family History Family History: No Significant Social History No ALCOHOL: none Drugs: None Lives: with Family Current Medications Current Medications Current Medications Info (FLU VACCINE SCREEN per RX) 1 each PRN DAILY PRN MC SEE COMMENTS; Start 02/14/19 at 01:00 Allopurinol (Zyloprim) 150 mg DAILY PO Last administered on 02/14/19at 08:18; Start 02/14/19 at 09:00 Alprazolam (Xanax) 0.5 mg PRN Q12HR PRN PO ANXIETY / AGITATION; Start 02/14/19 at 02:00 Amlodipine Besylate (Norvasc) 10 mg DAILY PO Last administered on 02/14/19at 08:19; Start 02/14/19 at 09:00 Aspirin (Children'S Aspirin) 6,561 mg DAILY PO ; Start 02/14/19 at 09:00; Stop 02/14/19 at 02:09; Status DC Guaifenesin (MUCINEX ER with DM) 1 tab PRN Q12HRS PRN PO COUGH; Start 02/14/19 at 02:00 Acetaminophen/ Hydrocodone Bitart (Lortab 10/325) 1 tab PRN Q6HRS PRN PO SEVERE PAIN 7-10 Last administered on 02/14/19at 08:19; Start 02/14/19 at 02:00 Levothyroxine Sodium (Synthroid) 50 mcg DAILY06 PO Last administered on 02/14/19at 06:03; Start 02/14/19 at 06:00 Polyethylene Glycol (miraLAX PACKET) 17 gm PRN DAILY PRN PO CONSTIPATION 1ST CHOICE; Start 02/14/19 at 02:00 Roflumilast (Daliresp) 500 mcg DAILY PO Last administered on 02/14/19 08:18; Start 02/14/19 at 09:00 Sodium Chloride (Saline Mist Nasal) 2 annie Q2HR NS ; Start 02/14/19 at 02:00; Stop 02/14/19 at 02:12; Status DC Torsemide (Demadex) 60 mg DAILY PO Last administered on 02/14/19at 08:18; Start 02/14/19 at 09:00 Atorvastatin Calcium (Lipitor) 80 mg QHS PO ; Start 02/14/19 at 21:00 Carvedilol (Coreg) 25 mg BIDWMEALS PO Last administered on 02/14/19 08:18; Start 02/14/19 at 08:00 Glimepiride (Amaryl) 2 mg DAILY PO Last administered on 02/14/19 08:19; Start 02/14/19 at 09:00 Hydrochlorothiazide (Microzide) 12.5 mg DAILY PO Last administered on 02/14/19at 08:20; Start 02/14/19 at 09:00 Cetirizine HCl (ZyrTEC) 10 mg DAILY PO Last administered on 02/14/19at 08:18; Start 02/14/19 at 09:00 Lisinopril (Prinivil) 20 mg DAILY PO Last administered on 02/14/19at 08:20; Start 02/14/19 at 09:00 Pantoprazole Sodium 80 mg/ Sodium Chloride 100 ml @ 10 mls/hr Q10H IV Last administered on 02/14/19at 06:04; Start 02/14/19 at 04:00; Stop 02/14/19 at 10:51; Status DC Aspirin (Children'S Aspirin) 81 mg DAILY PO Last administered on 02/14/19at 08:17; Start 02/14/19 at 09:00 Sodium Chloride (Saline Mist Nasal) 2 annie PRN Q2HR PRN NS NASAL CONGESTION; Start 02/14/19 at 02:15 Pantoprazole Sodium (Protonix) 40 mg DAILYAC PO ; Start 02/15/19 at 07:30 Active Scripts Active Hydrocodone-Apap 10-325 (Hydrocodone Bit/Acetaminophen) 1 Each Tablet 1 Tab PO PRN Q6HRS PRN Reported Miralax (Polyethylene Glycol 3350) 17 Gm Powd.pack 1 Pkt PO PRN DAILY PRN Amaryl (Glimepiride) 4 Mg Tablet 2 Mg PO DAILY Mucinex Dm Er 600-30 Mg Tablet (Guaifenesin/Dextromethorphan) 1 Each Tab.er.12h 1 Tab PO PRN Q12HRS Alprazolam 0.5 Mg Tablet 0.5 Mg PO PRN Q12HR PRN Saline Nasal [place] (Sodium Chloride) 30 Ml [place] 1-2 [place] NS PRN Q2HR PRN Loratadine 10 Mg Tablet 10 Mg PO DAILY Allopurinol 300 Mg Tablet 150 Mg PO DAILY Hydrochlorothiazide Tablet (Hydrochlorothiazide) 12.5 Mg Tablet 12.5 Mg PO DAILY Amlodipine Besylate 10 Mg Tablet 10 Mg PO DAILY Prednisone (Prednisone) 10 Mg Tablet 10 Mg PO UD take 4 tablets by mouth daily for 3 days, then take 3 tablets by mouth daily for 3 days, then take 2 tablets by mouth daily for 3 days, then take 1 tablets by mouth daily for 3 days, then stop. Torsemide 20 Mg Tablet 3 Tab PO DAILY Daliresp (Roflumilast) 500 Mcg Tablet 1 Tab PO DAILY Ramipril 10 Mg Capsule 2 Cap PO DAILY Levothyroxine Sodium 50 Mcg Tablet 1 Tab PO DAILY Coreg (Carvedilol) 25 Mg Tablet 25 Mg PO BIDWMEALS Atorvastatin Calcium 80 Mg Tablet 1 Tab PO DAILY Aspirin 81 Mg Tab.chew 81 Tab PO DAILY Allergies Allergies: Coded Allergies: cefuroxime (Verified Allergy, Intermediate, 03/21/17) cephalexin (Verified Allergy, Intermediate, 03/21/17) ezetimibe (Verified Allergy, Intermediate, 03/21/17) ROS General: YES: Fatigue, Malaise, Appetite PSYCHOLOGICAL ROS: YES: Anxiety Eyes: Yes Decreased vision HEENT: YES: [place] ALLERGY AND IMMUNOLOGY: YES: Seasonal Allergies Respiratory: YES: Cough Cardiovascular: yes Chest Pain Gastrointestinal: Yes Nausea, Yes Abdominal Pain, Yes Constipation Genitourinary: YES Other (NOCTURIA) Musculoskeletal: Yes Muscular Weakness Neurological: Yes Weakness Skin: Yes Dry Skin Physical Exam General: Alert, Oriented X3, Cooperative, mild distress HEENT: Atraumatic, PERRLA, EOMI Lungs: Clear to auscultation Heart: Regular rate Abdomen: Normal bowel sounds, Soft, No tenderness Extremities: No clubbing Skin: No breakdown Neuro: Normal speech, Sensation intact Psych/Mental Status: Mental status NL, Mood NL MUSCULOSKELETAL: No joint tenderness, No deformity, No swelling Vitals VITALS Vital Signs Date Time Temp Pulse Resp B/P (MAP) Pulse Ox O2 Delivery O2 Flow Rate FiO2 02/14/19 11:21 98.3 58 18 111/43 (65) 99 Room Air 98.3 Labs Labs Laboratory Tests Test 02/14/19 06:25 02/14/19 07:17 02/14/19 10:49 White Blood Count 7.7 x10^3/uL (4.0-11.0) Red Blood Count 2.16 x10^6/uL (3.50-5.40) Hemoglobin 6.3 g/dL (12.0-15.5) Hematocrit 19.5 % (36.0-47.0) Mean Corpuscular Volume 90 fL (79-100) Mean Corpuscular Hemoglobin 29 pg (25-35) Mean Corpuscular Hemoglobin Concent 33 g/dL (31-37) Red Cell Distribution Width 19.3 % (11.5-14.5) Platelet Count 220 x10^3/uL (140-400) Neutrophils (%) (Auto) 72 % (31-73) Lymphocytes (%) (Auto) 18 % (24-48) Monocytes (%) (Auto) 10 % (0-9) Eosinophils (%) (Auto) 0 % (0-3) Basophils (%) (Auto) 0 % (0-3) Neutrophils # (Auto) 5.5 x10^3/uL (1.8-7.7) Lymphocytes # (Auto) 1.3 x10^3/uL (1.0-4.8) Monocytes # (Auto) 0.8 x10^3/uL (0.0-1.1) Eosinophils # (Auto) 0.0 x10^3/uL (0.0-0.7) Basophils # (Auto) 0.0 x10^3/uL (0.0-0.2) Sodium Level 144 mmol/L (136-145) Potassium Level 3.5 mmol/L (3.5-5.1) Chloride Level 104 mmol/L (98-107) Carbon Dioxide Level 31 mmol/L (21-32) Anion Gap 9 (6-14) Blood Urea Nitrogen 88 mg/dL (7-20) Creatinine 2.2 mg/dL (0.6-1.0) Estimated GFR (Cockcroft-Gault) 21.8 BUN/Creatinine Ratio 40 (6-20) Glucose Level 142 mg/dL (70-99) Calcium Level 10.5 mg/dL (8.5-10.1) Total Bilirubin 0.3 mg/dL (0.2-1.0) Aspartate Amino Transf (AST/SGOT) 10 U/L (15-37) Alanine Aminotransferase (ALT/SGPT) 9 U/L (14-59) Alkaline Phosphatase 146 U/L (46-116) Total Protein 6.7 g/dL (6.4-8.2) Albumin 3.4 g/dL (3.4-5.0) Albumin/Globulin Ratio 1.0 (1.0-1.7) Glucose (Fingerstick) 135 mg/dL (70-99) 144 mg/dL (70-99) Laboratory Tests Test 02/14/19 06:25 02/14/19 07:17 02/14/19 10:49 White Blood Count 7.7 x10^3/uL (4.0-11.0) Red Blood Count 2.16 x10^6/uL (3.50-5.40) Hemoglobin 6.3 g/dL (12.0-15.5) Hematocrit 19.5 % (36.0-47.0) Mean Corpuscular Volume 90 fL (79-100) Mean Corpuscular Hemoglobin 29 pg (25-35) Mean Corpuscular Hemoglobin Concent 33 g/dL (31-37) Red Cell Distribution Width 19.3 % (11.5-14.5) Platelet Count 220 x10^3/uL (140-400) Neutrophils (%) (Auto) 72 % (31-73) Lymphocytes (%) (Auto) 18 % (24-48) Monocytes (%) (Auto) 10 % (0-9) Eosinophils (%) (Auto) 0 % (0-3) Basophils (%) (Auto) 0 % (0-3) Neutrophils # (Auto) 5.5 x10^3/uL (1.8-7.7) Lymphocytes # (Auto) 1.3 x10^3/uL (1.0-4.8) Monocytes # (Auto) 0.8 x10^3/uL (0.0-1.1) Eosinophils # (Auto) 0.0 x10^3/uL (0.0-0.7) Basophils # (Auto) 0.0 x10^3/uL (0.0-0.2) Sodium Level 144 mmol/L (136-145) Potassium Level 3.5 mmol/L (3.5-5.1) Chloride Level 104 mmol/L (98-107) Carbon Dioxide Level 31 mmol/L (21-32) Anion Gap 9 (6-14) Blood Urea Nitrogen 88 mg/dL (7-20) Creatinine 2.2 mg/dL (0.6-1.0) Estimated GFR (Cockcroft-Gault) 21.8 BUN/Creatinine Ratio 40 (6-20) Glucose Level 142 mg/dL (70-99) Calcium Level 10.5 mg/dL (8.5-10.1) Total Bilirubin 0.3 mg/dL (0.2-1.0) Aspartate Amino Transf (AST/SGOT) 10 U/L (15-37) Alanine Aminotransferase (ALT/SGPT) 9 U/L (14-59) Alkaline Phosphatase 146 U/L (46-116) Total Protein 6.7 g/dL (6.4-8.2) Albumin 3.4 g/dL (3.4-5.0) Albumin/Globulin Ratio 1.0 (1.0-1.7) Glucose (Fingerstick) 135 mg/dL (70-99) 144 mg/dL (70-99) Assessment/Plan Assessment/Plan IMP BANDAR WITH BUN/CR OF 97 AND 2.2 CKD STAGE 3 WITH CR OF 1.8-2.2 ANEMIA POSS GI BLEED COPD HX HTN HX PLAN HYDRATION HOLD HCTZ GI EVAL AND TX CHECK UA WILL FOLLOW XENIA LAW MD Feb 14, 2019 12:29
--- NOTE | 2019-02-14 12:35 | PDOC2 ---
BRITANY LEIVA [employer]ING [employer] 02/14/19 1235: CARDIAC CONSULT DATE OF CONSULT Date of Consult DATE: 02/14/19 TIME: 12:23 REASON FOR CONSULT Reason for Consult: Chest pain, COPPOLA, and anemia REFERRING PHYSICIAN Referring Physician: Zaire SOURCE Source: Chart review, Patient HISTORY OF PRESENT ILLNESS HISTORY OF PRESENT ILLNESS This is a pleasant 73 yo female admitted for complains of chest pain and shortness of breath. she came from [facility]. Reports that she has limited mobility due to arthritis and and poor endurance. She is positive for COPPOLA but this is no significnat compred to her baseline. She has been having chest pain sharp and sometimes tightness but mainly pointing to her epigastric region and non radiating. This pain last for about 5 minutes at a time and responds well with resting. Sometimes this pain huirst on her epigastric region when taking deep breath. He has been having dark stools as of late. No passing out, any injuries and no palpitations. PAST MEDICAL HISTORY Cardiovascular: CAD (?), HTN, Hyperlipidemia, Aortic stenosis, Other (PAD, venous insufficiency) Pulmonary: COPD CENTRAL NERVOUS SYSTEM: Other (No pertinent history) GI: GERD Heme/Onc: Anemia NOS Musculoskeletal: Osteoarthritis Endocrine: Diabetes, Hypothyroidism Dermatology: Other (venous stasis ulcers) PAST SURGICAL HISTORY Past Surgical History: Appendectomy, Tonsillectomy, Other (PCI/stent) SOCIAL HISTORY Smoke: Quit CURRENT MEDICATIONS CURRENT MEDICATIONS Current Medications Medications (Trade) Dose Ordered Sig/Bryant Route PRN Reason Start Time Stop Time Status Last Admin Dose Admin Allopurinol (Zyloprim) 150 mg DAILY PO 02/14/19 09:00 02/14/19 08:18 Amlodipine Besylate (Norvasc) 10 mg DAILY PO 02/14/19 09:00 02/14/19 08:19 Acetaminophen/ Hydrocodone Bitart (Lortab 10/325) 1 tab PRN Q6HRS PRN PO SEVERE PAIN 7-10 02/14/19 02:00 02/14/19 08:19 Levothyroxine Sodium (Synthroid) 50 mcg DAILY06 PO 02/14/19 06:00 02/14/19 06:03 Roflumilast (Daliresp) 500 mcg DAILY PO 02/14/19 09:00 02/14/19 08:18 Torsemide (Demadex) 60 mg DAILY PO 02/14/19 09:00 02/14/19 08:18 Carvedilol (Coreg) 25 mg BIDWMEALS PO 02/14/19 08:00 02/14/19 08:18 Glimepiride (Amaryl) 2 mg DAILY PO 02/14/19 09:00 02/14/19 08:19 Hydrochlorothiazide (Microzide) 12.5 mg DAILY PO 02/14/19 09:00 02/14/19 08:20 Cetirizine HCl (ZyrTEC) 10 mg DAILY PO 02/14/19 09:00 02/14/19 08:18 Lisinopril (Prinivil) 20 mg DAILY PO 02/14/19 09:00 02/14/19 08:20 Pantoprazole Sodium 80 mg/ Sodium Chloride 100 ml @ 10 mls/hr Q10H IV 02/14/19 04:00 02/14/19 10:51 DC 02/14/19 06:04 Aspirin (Children'S Aspirin) 81 mg DAILY PO 02/14/19 09:00 02/14/19 08:17 ALLERGIES ALLERGIES: Coded Allergies: cefuroxime (Verified Allergy, Intermediate, 03/21/17) cephalexin (Verified Allergy, Intermediate, 03/21/17) ezetimibe (Verified Allergy, Intermediate, 03/21/17) ROS Review of System 14 point ROS evaluated with pertinent positives noted per HPI PHYSICAL EXAM General: Alert, Oriented X3, Cooperative, No acute distress HEENT: Atraumatic, Mucous membr. moist/pink Lungs: Other (basilar crackles) Heart: Regular rate (SR), Normal S1, Normal S2, Other (3/6 systolic murmur to JENNIFER border) Abdomen: Soft, No tenderness Extremities: No cyanosis, Other (1+ bilateral LE pitting edema) Skin: No breakdown Neuro: Normal speech, Sensation intact Psych/Mental Status: Mental status NL, Mood NL MUSCULOSKELETAL: Osteoarthritic changes both hands VITALS/I&O VITALS/I&O: Vital Signs Date Time Temp Pulse Resp B/P (MAP) Pulse Ox O2 Delivery O2 Flow Rate FiO2 02/14/19 11:21 98.3 58 18 111/43 (65) 99 Room Air 98.3 I & O 02/13/19 02/13/19 02/14/19 15:00 23:00 07:00 Intake Total 200 ml Balance 200 ml LABS Lab: Laboratory Tests Test 02/14/19 06:25 02/14/19 07:17 02/14/19 10:49 White Blood Count 7.7 x10^3/uL (4.0-11.0) Red Blood Count 2.16 x10^6/uL (3.50-5.40) L Hemoglobin 6.3 g/dL (12.0-15.5) *L Hematocrit 19.5 % (36.0-47.0) *L Mean Corpuscular Volume 90 fL (79-100) Mean Corpuscular Hemoglobin 29 pg (25-35) Mean Corpuscular Hemoglobin Concent 33 g/dL (31-37) Red Cell Distribution Width 19.3 % (11.5-14.5) H Platelet Count 220 x10^3/uL (140-400) Neutrophils (%) (Auto) 72 % (31-73) Lymphocytes (%) (Auto) 18 % (24-48) L Monocytes (%) (Auto) 10 % (0-9) H Eosinophils (%) (Auto) 0 % (0-3) Basophils (%) (Auto) 0 % (0-3) Neutrophils # (Auto) 5.5 x10^3/uL (1.8-7.7) Lymphocytes # (Auto) 1.3 x10^3/uL (1.0-4.8) Monocytes # (Auto) 0.8 x10^3/uL (0.0-1.1) Eosinophils # (Auto) 0.0 x10^3/uL (0.0-0.7) Basophils # (Auto) 0.0 x10^3/uL (0.0-0.2) Sodium Level 144 mmol/L (136-145) Potassium Level 3.5 mmol/L (3.5-5.1) Chloride Level 104 mmol/L (98-107) Carbon Dioxide Level 31 mmol/L (21-32) Anion Gap 9 (6-14) Blood Urea Nitrogen 88 mg/dL (7-20) H Creatinine 2.2 mg/dL (0.6-1.0) H Estimated GFR (Cockcroft-Gault) 21.8 BUN/Creatinine Ratio 40 (6-20) H Glucose Level 142 mg/dL (70-99) H Calcium Level 10.5 mg/dL (8.5-10.1) H Total Bilirubin 0.3 mg/dL (0.2-1.0) Aspartate Amino Transferase (AST) 10 U/L (15-37) L Alanine Aminotransferase (ALT) 9 U/L (14-59) L Alkaline Phosphatase 146 U/L (46-116) H Total Protein 6.7 g/dL (6.4-8.2) Albumin 3.4 g/dL (3.4-5.0) Albumin/Globulin Ratio 1.0 (1.0-1.7) Glucose (Fingerstick) 135 mg/dL (70-99) H 144 mg/dL (70-99) H Laboratory Tests 02/14/19 06:25 Laboratory Tests 02/14/19 06:25 ECHOCARDIOGRAM ECHOCARDIOGRAM [facility] 10/10/2017 Normal to hyperdynamic global LV contractility: Estimated LVEF 65-70%, similar prior study on December 25, 2015. Concentric LV remodeling. Mild RV basal dimension dilatation with normal RV contractility. The right ventricle is not well-visualized. Mild right atrial dilatation. Markedly elevated central venous pressure. Pulmonary artery, pulmonic valve, and aortic arch are not well visualized. Moderate mitral annular calcification. The aortic and tricuspid valves are not well visualized. Aortic sclerosis without significant aortic stenosis: aortic peak gradient ~14 mmHg. Aortic mean gradient 6.75 mmHg. Aortic velocity ratio 0.58. Calculated aortic valve area 1.93 cm. On the prior study peak aortic gradient was ~ 11 mmHg, mean aortic gradient was ~ 8 mmHg, and aortic velocity ratio was 0.50. Trace mitral and tricuspid regurgitation. On the prior study there was trace mitral and mild to moderate regurgitation Estimated PA pressure 38-45. PA pressure could not be estimated on the prior study. ASSESSMENT/PLAN ASSESSMENT/PLAN 1. Acute normocytic anemia: initial Hgb at 6.3 requiring transfusion. 2. Possible GI bleed vs ingested blood from recent recurrent epistaxis: complains of dark stools in the last 2-3 months 3. BANDAR on CKD: due to diuretics and poor hydration 4. CAD; unclear hx. [facility] records reviewed and no mention of any stents. Clinically stable 5. Hx of recent epistaxis. Seen by [facility] 02/05/2019 with septal cautery 6. HTN: controlled 7. HLP 8. DM2 9. Hypothyroidism 10. Polypharmacy 11. Atypical CP: suspect GI 12. COPD: causing dyspnea in addition to anemia 13. PAD: clinically stable, no wounds. Recommendations Stop ramipril, HCTZ and torsemide Stop ASA for now IVF. TTE. Nephrology following Supportive care Consider for outpt stress test via [facility] cardiology SINDHU ENCARNACION MD 02/15/19 2154: CARDIAC CONSULT ASSESSMENT/PLAN ASSESSMENT/PLAN Late entry for 02/14/2019 Pt. seen and examined. Agree with above HEAD OF GEOGRAPHY note. Supportive care. She is quite ill and no acute indication for further CV w/u with such profound anemia. Outpt f/u. Defer further mgmt to primary team. BRITANY LEIVA [employer]ING [employer] Feb 14, 2019 12:35 SINDHU ENCARNACION MD Feb 15, 2019 21:54
[2019-02-14] MEDS ORDERED: ALBUTEROL SULFATE 2.5 MG/3 ML NEBU. NEB PRN (12:45)
[2019-02-14] MEDS ORDERED: ONDANSETRON PF 4 MG/2 ML VIAL. IV PRN (12:45)
[2019-02-14] MEDS ORDERED: ACETAMINOPHEN 325 MG TABLET. PO PRN (12:45)
[2019-02-14] MEDS ORDERED: guaiFENesin ORAL 200 MG/10 ML LIQUID. PO PRN (12:45)
[2019-02-14] MEDS ORDERED: LORazepam 0.5 MG TABLET PO PRN (12:45)
[2019-02-14] MEDS ORDERED: 0.9 % SODIUM CHLORIDE 10 ML DISP.SYRIN. IV PRN (12:45)
[2019-02-14] MEDS ORDERED: cloNIDine HCL 0.1 MG TABLET PO PRN (12:45)
[2019-02-14 13:08] LABS: CHOLESTEROL/HDL RATIO 3.8
[2019-02-14] MEDS: IV NORMAL SALINE 1000ML BAG 1,000 ML IV SCH (16:13)
[2019-02-14] MEDS: POLYETHYLENE GLYCOL 3350 17 GM PACKET. PO PRN (18:19)
[2019-02-14] MEDS: DOCUSATE SODIUM 100 MG CAPSULE. PO PRN (18:19)
[2019-02-14] MEDS ORDERED: ATORVASTATIN CALCIUM 40 MG TABLET. PO SCH (21:00)
[2019-02-15 02:32] LABS: HEMATOCRIT 21.7 % (36.0-47.0); HEMOGLOBIN 7.1 g/dL (12.0-15.5)
[2019-02-15 03:34] VITALS: BP 117/43
[2019-02-15 05:00] LABS: BASO # 0.1 x10^3/uL (0.0-0.2); BASO % 1 % (0-3); EOS # 0.1 x10^3/uL (0.0-0.7); EOS % 1 % (0-3); HEMOGLOBIN 7.3 g/dL (12.0-15.5); LYMPH % 26 % (24-48); MEAN CORPUSCULAR HEMOGLOBIN 30 pg (25-35); MEAN CORPUSCULAR HGB CONC 33 g/dL (31-37); MEAN CORPUSCULAR VOLUME 91 fL (79-100); MONO # 0.8 x10^3/uL (0.0-1.1); MONO % 10 % (0-9); NEUT # 4.7 x10^3/uL (1.8-7.7); NEUT % 62 % (31-73); PLATELET COUNT 222 x10^3/uL (140-400); RED BLOOD COUNT 2.43 x10^6/uL (3.50-5.40); RED CELL DISTRIBUTION WIDTH 18.8 % (11.5-14.5); WHITE BLOOD COUNT 7.6 x10^3/uL (4.0-11.0)
[2019-02-15] MEDS: IV NORMAL SALINE 1000ML BAG 1,000 ML IV SCH (05:10)
[2019-02-15] MEDS: LEVOTHYROXINE 50 MCG TABLET PO SCH (05:11)
[2019-02-15 05:30] LABS: CALCIUM 10.6 mg/dL (8.5-10.1); GFR 24.4; POTASSIUM 3.7 mmol/L (3.5-5.1)
--- NOTE | 2019-02-15 07:26 | PDOC ---
PROGRESS NOTES History of Present Illness History of Present Illness VTE Prophylaxis Ordered VTE Prophylaxis Devices: Yes VTE Pharmacological Prophylaxi: Contraindicated Assessment/Plan Assessment/Plan IMPRESSION ACUTE RENAL FAILURE MARKED ANEMIA Metabolic encephalopathy HX DM HTN Hypercholesterolemia Renal disease CKD STAGE 3-4 COPD Hypothyroidism PVD, Chest pressure, SOA, elevated D-dimer, hypercalcemia Chronic anemia, h/o iron deficiency - Hgb below baseline 6.3 02/14 Dyspepsia, abd burning, "black stools" H/o constipation on Miralax Cholelithiasis, hepatomegaly Chronic pain on hydrocodone Recent epistaxis - post cauterization -- PLAN ADMIT CBC NOTED cardiology CONSULT. Continue PPI consider EGD GI CONSULT NEPHROLOGY CONSULT ECHO transfuse to keep hgb > 7.5 Would benefit from EGD at some point. PPI Await cardiology opinion. dvt prophylaxis scd's 29 min pt exam, chart review, > 50% of time spent with exam, chart review, pt care coordination Vitals Vitals Vital Signs Date Time Temp Pulse Resp B/P (MAP) Pulse Ox O2 Delivery O2 Flow Rate FiO2 02/15/19 03:34 98.2 63 16 117/43 (67) 93 Room Air 98.2 Physical Exam General: Alert, Oriented X3, Cooperative, No acute distress Heart: Regular rate (SR), Normal S1, Normal S2, Other (3/6 systolic murmur to JENNIFER border) Lungs: Clear Abdomen: Soft, No tenderness Extremities: No cyanosis, Other (1+ bilateral LE pitting edema) Skin: No breakdown Labs LABS Laboratory Tests Test 02/14/19 10:49 02/14/19 16:40 02/14/19 20:49 02/15/19 00:01 Glucose (Fingerstick) 144 mg/dL (70-99) 144 mg/dL (70-99) 185 mg/dL (70-99) Hemoglobin 7.1 g/dL (12.0-15.5) Hematocrit 21.7 % (36.0-47.0) Mean Corpuscular Hemoglobin Concent 33 g/dL (31-37) Test 02/15/19 04:25 White Blood Count 7.6 x10^3/uL (4.0-11.0) Red Blood Count 2.43 x10^6/uL (3.50-5.40) Hemoglobin 7.3 g/dL (12.0-15.5) Hematocrit 22.0 % (36.0-47.0) Mean Corpuscular Volume 91 fL (79-100) Mean Corpuscular Hemoglobin 30 pg (25-35) Mean Corpuscular Hemoglobin Concent 33 g/dL (31-37) Red Cell Distribution Width 18.8 % (11.5-14.5) Platelet Count 222 x10^3/uL (140-400) Neutrophils (%) (Auto) 62 % (31-73) Lymphocytes (%) (Auto) 26 % (24-48) Monocytes (%) (Auto) 10 % (0-9) Eosinophils (%) (Auto) 1 % (0-3) Basophils (%) (Auto) 1 % (0-3) Neutrophils # (Auto) 4.7 x10^3/uL (1.8-7.7) Lymphocytes # (Auto) 2.0 x10^3/uL (1.0-4.8) Monocytes # (Auto) 0.8 x10^3/uL (0.0-1.1) Eosinophils # (Auto) 0.1 x10^3/uL (0.0-0.7) Basophils # (Auto) 0.1 x10^3/uL (0.0-0.2) Sodium Level 146 mmol/L (136-145) Potassium Level 3.7 mmol/L (3.5-5.1) Chloride Level 107 mmol/L (98-107) Carbon Dioxide Level 32 mmol/L (21-32) Anion Gap 7 (6-14) Blood Urea Nitrogen 82 mg/dL (7-20) Creatinine 2.0 mg/dL (0.6-1.0) Estimated GFR (Cockcroft-Gault) 24.4 Glucose Level 77 mg/dL (70-99) Calcium Level 10.6 mg/dL (8.5-10.1) Comment Review of Relevant I have reviewed the following items bear (where applicable) has been applied. Labs Laboratory Tests Test 02/14/19 06:25 02/14/19 07:17 02/14/19 10:49 02/14/19 16:40 White Blood Count 7.7 x10^3/uL (4.0-11.0) Red Blood Count 2.16 x10^6/uL (3.50-5.40) Hemoglobin 6.3 g/dL (12.0-15.5) Hematocrit 19.5 % (36.0-47.0) Mean Corpuscular Volume 90 fL (79-100) Mean Corpuscular Hemoglobin 29 pg (25-35) Mean Corpuscular Hemoglobin Concent 33 g/dL (31-37) Red Cell Distribution Width 19.3 % (11.5-14.5) Platelet Count 220 x10^3/uL (140-400) Neutrophils (%) (Auto) 72 % (31-73) Lymphocytes (%) (Auto) 18 % (24-48) Monocytes (%) (Auto) 10 % (0-9) Eosinophils (%) (Auto) 0 % (0-3) Basophils (%) (Auto) 0 % (0-3) Neutrophils # (Auto) 5.5 x10^3/uL (1.8-7.7) Lymphocytes # (Auto) 1.3 x10^3/uL (1.0-4.8) Monocytes # (Auto) 0.8 x10^3/uL (0.0-1.1) Eosinophils # (Auto) 0.0 x10^3/uL (0.0-0.7) Basophils # (Auto) 0.0 x10^3/uL (0.0-0.2) Sodium Level 144 mmol/L (136-145) Potassium Level 3.5 mmol/L (3.5-5.1) Chloride Level 104 mmol/L (98-107) Carbon Dioxide Level 31 mmol/L (21-32) Anion Gap 9 (6-14) Blood Urea Nitrogen 88 mg/dL (7-20) Creatinine 2.2 mg/dL (0.6-1.0) Estimated GFR (Cockcroft-Gault) 21.8 BUN/Creatinine Ratio 40 (6-20) Glucose Level 142 mg/dL (70-99) Calcium Level 10.5 mg/dL (8.5-10.1) Total Bilirubin 0.3 mg/dL (0.2-1.0) Aspartate Amino Transf (AST/SGOT) 10 U/L (15-37) Alanine Aminotransferase (ALT/SGPT) 9 U/L (14-59) Alkaline Phosphatase 146 U/L (46-116) Total Protein 6.7 g/dL (6.4-8.2) Albumin 3.4 g/dL (3.4-5.0) Albumin/Globulin Ratio 1.0 (1.0-1.7) Triglycerides Level 116 mg/dL (0-150) Cholesterol Level 144 mg/dL (0-200) LDL Cholesterol, Calculated 83 mg/dL (0-100) VLDL Cholesterol, Calculated 23 mg/dL (0-40) Non-HDL Cholesterol Calculated 106 mg/dL (0-129) HDL Cholesterol 38 mg/dL (40-60) Cholesterol/HDL Ratio 3.8 Thyroid Stimulating Hormone (TSH) 0.293 uIU/mL (0.358-3.74) Glucose (Fingerstick) 135 mg/dL (70-99) 144 mg/dL (70-99) 144 mg/dL (70-99) Test 02/14/19 20:49 02/15/19 00:01 02/15/19 04:25 Glucose (Fingerstick) 185 mg/dL (70-99) Hemoglobin 7.1 g/dL (12.0-15.5) 7.3 g/dL (12.0-15.5) Hematocrit 21.7 % (36.0-47.0) 22.0 % (36.0-47.0) Mean Corpuscular Hemoglobin Concent 33 g/dL (31-37) 33 g/dL (31-37) White Blood Count 7.6 x10^3/uL (4.0-11.0) Red Blood Count 2.43 x10^6/uL (3.50-5.40) Mean Corpuscular Volume 91 fL (79-100) Mean Corpuscular Hemoglobin 30 pg (25-35) Red Cell Distribution Width 18.8 % (11.5-14.5) Platelet Count 222 x10^3/uL (140-400) Neutrophils (%) (Auto) 62 % (31-73) Lymphocytes (%) (Auto) 26 % (24-48) Monocytes (%) (Auto) 10 % (0-9) Eosinophils (%) (Auto) 1 % (0-3) Basophils (%) (Auto) 1 % (0-3) Neutrophils # (Auto) 4.7 x10^3/uL (1.8-7.7) Lymphocytes # (Auto) 2.0 x10^3/uL (1.0-4.8) Monocytes # (Auto) 0.8 x10^3/uL (0.0-1.1) Eosinophils # (Auto) 0.1 x10^3/uL (0.0-0.7) Basophils # (Auto) 0.1 x10^3/uL (0.0-0.2) Sodium Level 146 mmol/L (136-145) Potassium Level 3.7 mmol/L (3.5-5.1) Chloride Level 107 mmol/L (98-107) Carbon Dioxide Level 32 mmol/L (21-32) Anion Gap 7 (6-14) Blood Urea Nitrogen 82 mg/dL (7-20) Creatinine 2.0 mg/dL (0.6-1.0) Estimated GFR (Cockcroft-Gault) 24.4 Glucose Level 77 mg/dL (70-99) Calcium Level 10.6 mg/dL (8.5-10.1) Laboratory Tests Test 02/14/19 10:49 02/14/19 16:40 02/14/19 20:49 02/15/19 00:01 Glucose (Fingerstick) 144 mg/dL (70-99) 144 mg/dL (70-99) 185 mg/dL (70-99) Hemoglobin 7.1 g/dL (12.0-15.5) Hematocrit 21.7 % (36.0-47.0) Mean Corpuscular Hemoglobin Concent 33 g/dL (31-37) Test 02/15/19 04:25 White Blood Count 7.6 x10^3/uL (4.0-11.0) Red Blood Count 2.43 x10^6/uL (3.50-5.40) Hemoglobin 7.3 g/dL (12.0-15.5) Hematocrit 22.0 % (36.0-47.0) Mean Corpuscular Volume 91 fL (79-100) Mean Corpuscular Hemoglobin 30 pg (25-35) Mean Corpuscular Hemoglobin Concent 33 g/dL (31-37) Red Cell Distribution Width 18.8 % (11.5-14.5) Platelet Count 222 x10^3/uL (140-400) Neutrophils (%) (Auto) 62 % (31-73) Lymphocytes (%) (Auto) 26 % (24-48) Monocytes (%) (Auto) 10 % (0-9) Eosinophils (%) (Auto) 1 % (0-3) Basophils (%) (Auto) 1 % (0-3) Neutrophils # (Auto) 4.7 x10^3/uL (1.8-7.7) Lymphocytes # (Auto) 2.0 x10^3/uL (1.0-4.8) Monocytes # (Auto) 0.8 x10^3/uL (0.0-1.1) Eosinophils # (Auto) 0.1 x10^3/uL (0.0-0.7) Basophils # (Auto) 0.1 x10^3/uL (0.0-0.2) Sodium Level 146 mmol/L (136-145) Potassium Level 3.7 mmol/L (3.5-5.1) Chloride Level 107 mmol/L (98-107) Carbon Dioxide Level 32 mmol/L (21-32) Anion Gap 7 (6-14) Blood Urea Nitrogen 82 mg/dL (7-20) Creatinine 2.0 mg/dL (0.6-1.0) Estimated GFR (Cockcroft-Gault) 24.4 Glucose Level 77 mg/dL (70-99) Calcium Level 10.6 mg/dL (8.5-10.1) Medications Current Medications Info (FLU VACCINE SCREEN per RX) 1 each PRN DAILY PRN MC SEE COMMENTS; Start 02/14/19 at 01:00; Status Cancel Allopurinol (Zyloprim) 150 mg DAILY PO Last administered on 02/14/19at 08:18; Start 02/14/19 at 09:00 Alprazolam (Xanax) 0.5 mg PRN Q12HR PRN PO ANXIETY / AGITATION; Start 02/14/19 at 02:00 Amlodipine Besylate (Norvasc) 10 mg DAILY PO Last administered on 02/14/19at 08:19; Start 02/14/19 at 09:00 Aspirin (Children'S Aspirin) 6,561 mg DAILY PO ; Start 02/14/19 at 09:00; Stop 02/14/19 at 02:09; Status DC Guaifenesin (MUCINEX ER with DM) 1 tab PRN Q12HRS PRN PO COUGH; Start 02/14/19 at 02:00 Acetaminophen/ Hydrocodone Bitart (Lortab 10/325) 1 tab PRN Q6HRS PRN PO SEVERE PAIN 7-10 Last administered on 02/14/19 21:08; Start 02/14/19 at 02:00 Levothyroxine Sodium (Synthroid) 50 mcg DAILY06 PO Last administered on 02/15/19 05:11; Start 02/14/19 at 06:00 Polyethylene Glycol (miraLAX PACKET) 17 gm PRN DAILY PRN PO CONSTIPATION 1ST CHOICE Last administered on 02/14/19 18:19; Start 02/14/19 at 02:00 Roflumilast (Daliresp) 500 mcg DAILY PO Last administered on 02/14/19 08:18; Start 02/14/19 at 09:00 Sodium Chloride (Saline Mist Nasal) 2 annie Q2HR NS ; Start 02/14/19 at 02:00; Stop 02/14/19 at 02:12; Status DC Torsemide (Demadex) 60 mg DAILY PO Last administered on 02/14/19 08:18; Start 02/14/19 at 09:00 Atorvastatin Calcium (Lipitor) 80 mg QHS PO Last administered on 02/14/19 21:08; Start 02/14/19 at 21:00 Carvedilol (Coreg) 25 mg BIDWMEALS PO Last administered on 02/14/19 08:18; Start 02/14/19 at 08:00 Glimepiride (Amaryl) 2 mg DAILY PO Last administered on 02/14/19 08:19; Start 02/14/19 at 09:00 Hydrochlorothiazide (Microzide) 12.5 mg DAILY PO Last administered on 02/14/19 08:20; Start 02/14/19 at 09:00; Stop 02/14/19 at 12:31; Status DC Cetirizine HCl (ZyrTEC) 10 mg DAILY PO Last administered on 02/14/19 08:18; Start 02/14/19 at 09:00 Lisinopril (Prinivil) 20 mg DAILY PO Last administered on 02/14/19 08:20; Start 02/14/19 at 09:00 Pantoprazole Sodium 80 mg/ Sodium Chloride 100 ml @ 10 mls/hr Q10H IV Last administered on 02/14/19at 06:04; Start 02/14/19 at 04:00; Stop 02/14/19 at 10:51; Status DC Aspirin (Children'S Aspirin) 81 mg DAILY PO Last administered on 02/14/19at 08:17; Start 02/14/19 at 09:00; Stop 02/14/19 at 12:48; Status DC Sodium Chloride (Saline Mist Nasal) 2 annie PRN Q2HR PRN NS NASAL CONGESTION; Start 02/14/19 at 02:15 Pantoprazole Sodium (Protonix) 40 mg DAILYAC PO ; Start 02/15/19 at 07:30 Sodium Chloride 1,000 ml @ 75 mls/hr [id number] IV Last administered on 02/15/19at 05:10; Start 02/14/19 at 13:00 Sodium Chloride (Normal Saline Flush) 3 ml QSHIFT PRN IV AFTER MEDS AND BLOOD DRAWS; Start 02/14/19 at 12:45 Ondansetron HCl (Zofran) 4 mg PRN Q4HRS PRN IV NAUSEA/VOMITING; Start 02/14/19 at 12:45 Acetaminophen (Tylenol) 650 mg PRN Q4HRS PRN PO TEMP OVER 100.4F OR MILD PAIN; Start 02/14/19 at 12:45 Clonidine HCl (Catapres) 0.1 mg PRN Q6HRS PRN PO SBP>160 OR DBP>90; Start 02/14/19 at 12:45 Docusate Sodium (Colace) 100 mg PRN BID PRN PO CONSTIPATION Last administered on 02/14/19at 18:19; Start 02/14/19 at 12:45 Albuterol Sulfate (Ventolin Neb Soln) 2.5 mg PRN Q4HRS PRN NEB SHORTNESS OF BREATH; Start 02/14/19 at 12:45 Guaifenesin (Robitussin) 200 mg PRN Q4HRS PRN PO COUGH; Start 02/14/19 at 12:45 Lorazepam (Ativan) 0.5 mg PRN Q4HRS PRN PO ANXIETY / AGITATION; Start 02/14/19 at 12:45 Influenza Virus Vaccine Quadrival (Afluria Quad 2019-20 (3yr Up) Syringe) 0.5 ml ONCE ONCE VAX IM ; Start 02/15/19 at 09:00; Stop 02/15/19 at 09:01 Active Scripts Active Hydrocodone-Apap 10-325 (Hydrocodone Bit/Acetaminophen) 1 Each Tablet 1 Tab PO PRN Q6HRS PRN Reported Miralax (Polyethylene Glycol 3350) 17 Gm Powd.pack 1 Pkt PO PRN DAILY PRN Amaryl (Glimepiride) 4 Mg Tablet 2 Mg PO DAILY Mucinex Dm Er 600-30 Mg Tablet (Guaifenesin/Dextromethorphan) 1 Each Tab.er.12h 1 Tab PO PRN Q12HRS Alprazolam 0.5 Mg Tablet 0.5 Mg PO PRN Q12HR PRN Saline Nasal Blairs (Sodium Chloride) 30 Ml Blairs 1-2 Blairs NS PRN Q2HR PRN Loratadine 10 Mg Tablet 10 Mg PO DAILY Allopurinol 300 Mg Tablet 150 Mg PO DAILY Hydrochlorothiazide Tablet (Hydrochlorothiazide) 12.5 Mg Tablet 12.5 Mg PO DAILY Amlodipine Besylate 10 Mg Tablet 10 Mg PO DAILY Prednisone (Prednisone) 10 Mg Tablet 10 Mg PO UD take 4 tablets by mouth daily for 3 days, then take 3 tablets by mouth daily for 3 days, then take 2 tablets by mouth daily for 3 days, then take 1 tablets by mouth daily for 3 days, then stop. Torsemide 20 Mg Tablet 3 Tab PO DAILY Daliresp (Roflumilast) 500 Mcg Tablet 1 Tab PO DAILY Ramipril 10 Mg Capsule 2 Cap PO DAILY Levothyroxine Sodium 50 Mcg Tablet 1 Tab PO DAILY Coreg (Carvedilol) 25 Mg Tablet 25 Mg PO BIDWMEALS Atorvastatin Calcium 80 Mg Tablet 1 Tab PO DAILY Aspirin 81 Mg Tab.chew 81 Tab PO DAILY Vitals/I & O Vital Sign - Last 24 Hours 02/14/19 02/14/19 02/14/19 02/14/19 07:38 08:00 08:18 08:19 Temp 98.5 98.5 Pulse 69 69 69 Resp 20 B/P (MAP) 135/43 (73) 135/43 135/43 Pulse Ox 96 O2 Delivery Room Air Room Air 02/14/19 02/14/19 02/14/19 02/14/19 08:19 08:20 09:04 11:21 Temp 98.3 98.3 Pulse 69 58 Resp 20 18 18 B/P (MAP) 135/43 111/43 (65) Pulse Ox 96 96 99 O2 Delivery Room Air Room Air Room Air 02/14/19 02/14/19 02/14/19 02/14/19 13:30 14:28 14:39 15:24 Temp 98.0 98.0 97.9 98.0 98.0 97.9 Pulse 61 71 68 Resp 20 20 20 18 B/P (MAP) 120/45 130/42 120/39 Pulse Ox 99 O2 Delivery Room Air 02/14/19 02/14/19 02/14/19 02/14/19 15:39 16:00 16:10 16:37 Temp 97.6 98.0 97.6 98.0 Pulse 56 56 52 Resp 18 18 18 B/P (MAP) 126/44 126/44 124/52 Pulse Ox 99 O2 Delivery Room Air 02/14/19 02/14/19 02/14/19 02/14/19 19:55 20:17 21:08 22:13 Temp 98.2 98.2 Pulse 56 Resp 16 B/P (MAP) 165/36 (79) Pulse Ox 98 O2 Delivery Room Air Room Air Room Air Room Air 02/14/19 02/15/19 23:20 03:34 Temp 97.5 98.2 97.5 98.2 Pulse 62 63 Resp 16 16 B/P (MAP) 134/47 (76) 117/43 (67) Pulse Ox 96 93 O2 Delivery Room Air Room Air Intake and Output 02/14/19 02/14/19 02/15/19 15:00 23:00 07:00 Intake Total 780 ml 560 ml Balance 780 ml 560 ml SELVIN DOUGLAS MD Feb 15, 2019 07:25
[2019-02-15] MEDS ORDERED: PANTOPRAZOLE 40 MG TABLET.DR. PO SCH (07:30)
[2019-02-15 07:50] VITALS: BP 143/37
[2019-02-15] MEDS ORDERED: FLU VAX QS 2019-20 (36MOS+)/PF 0.5 ML SYRINGE. VAX IM ONE (09:00)
[2019-02-15] MEDS: HYDROcodone/APAP 10/325 1 TAB TABLET PO PRN ×2 (09:51→16:31)
[2019-02-15] MEDS: DOCUSATE SODIUM 100 MG CAPSULE. PO PRN (09:56)
[2019-02-15] MEDS: ROFLUMILAST 500 MCG TABLET. PO SCH (09:56)
[2019-02-15] MEDS: amLODIPine BESYLATE 10 MG TABLET PO SCH (09:57)
[2019-02-15] MEDS: TORSEMIDE 20 MG TABLET. PO SCH (09:57)
[2019-02-15] MEDS: CARVEDILOL 12.5 MG TABLET. PO SCH ×2 (09:57→17:48)
[2019-02-15] MEDS: LISINOPRIL 20 MG TABLET PO SCH (09:58)
[2019-02-15] MEDS: GLIMEPIRIDE 2 MG TABLET. PO SCH (09:58)
[2019-02-15] MEDS: CETIRIZINE HCL 10 MG TABLET. PO SCH (09:58)
[2019-02-15] MEDS: ALLOPURINOL 300 MG TABLET. PO SCH (09:58)
--- NOTE | 2019-02-15 11:50 | PDOC ---
Renal-Progress Notes Subjective Notes Notes NO NEW COMPLAINTS History of Present Illness Hx of present illness STABLE Vitals Vitals Vital Signs Date Time Temp Pulse Resp B/P (MAP) Pulse Ox O2 Delivery O2 Flow Rate FiO2 02/15/19 09:58 64 143/37 02/15/19 09:51 20 Room Air 02/15/19 07:50 98.3 95 98.3 Weight Weight [ ] I.O. Intake and Output Intake and Output 02/15/19 07:00 Intake Total 1340 ml Balance 1340 ml Intake Oral 1040 ml Blood Product IV Normal Saline Flush 300 ml # Voids 8 Labs Labs Laboratory Tests Test 02/14/19 16:40 02/14/19 20:49 02/15/19 00:01 02/15/19 04:25 Glucose (Fingerstick) 144 mg/dL (70-99) 185 mg/dL (70-99) Hemoglobin 7.1 g/dL (12.0-15.5) 7.3 g/dL (12.0-15.5) Hematocrit 21.7 % (36.0-47.0) 22.0 % (36.0-47.0) Mean Corpuscular Hemoglobin Concent 33 g/dL (31-37) 33 g/dL (31-37) White Blood Count 7.6 x10^3/uL (4.0-11.0) Red Blood Count 2.43 x10^6/uL (3.50-5.40) Mean Corpuscular Volume 91 fL (79-100) Mean Corpuscular Hemoglobin 30 pg (25-35) Red Cell Distribution Width 18.8 % (11.5-14.5) Platelet Count 222 x10^3/uL (140-400) Neutrophils (%) (Auto) 62 % (31-73) Lymphocytes (%) (Auto) 26 % (24-48) Monocytes (%) (Auto) 10 % (0-9) Eosinophils (%) (Auto) 1 % (0-3) Basophils (%) (Auto) 1 % (0-3) Neutrophils # (Auto) 4.7 x10^3/uL (1.8-7.7) Lymphocytes # (Auto) 2.0 x10^3/uL (1.0-4.8) Monocytes # (Auto) 0.8 x10^3/uL (0.0-1.1) Eosinophils # (Auto) 0.1 x10^3/uL (0.0-0.7) Basophils # (Auto) 0.1 x10^3/uL (0.0-0.2) Sodium Level 146 mmol/L (136-145) Potassium Level 3.7 mmol/L (3.5-5.1) Chloride Level 107 mmol/L (98-107) Carbon Dioxide Level 32 mmol/L (21-32) Anion Gap 7 (6-14) Blood Urea Nitrogen 82 mg/dL (7-20) Creatinine 2.0 mg/dL (0.6-1.0) Estimated GFR (Cockcroft-Gault) 24.4 Glucose Level 77 mg/dL (70-99) Calcium Level 10.6 mg/dL (8.5-10.1) Test 02/15/19 07:16 02/15/19 11:00 Glucose (Fingerstick) 95 mg/dL (70-99) 126 mg/dL (70-99) Review of Systems Constitutional: yes: alert, oriented Ears/Nose/Throat: Yes: no symptom reported Eyes: Yes: no symptom reported Pulmonary: Yes no symptom reported Cardiovascular: Yes no symptom reported Gastrointestional: Yes: no symptom reported Genitourinary: Yes: no symptom reported Musculoskeletal: Yes: no symptom reported Skin: Yes no symptom reported Psychiatric/Neurological: Yes: no symptom reported Physical Exam General Appearance: no apparent distress Skin: warm Respiratory: decreased breath sounds Heart: S1S2 Abdomen: soft, bowel sounds present Genitourinary: bladder flat Extremities: pulses present Neurology: alert Musculoskeletal: Osteoarthritis Assessment Assessment IMP BANDAR WITH BUN/CR OF 97 AND 2.2 CKD STAGE 3 WITH CR OF 1.8-2.2 ANEMIA POSS GI BLEED COPD HX HTN HX PLAN HYDRATION HOLD HCTZ GI EVAL AND TX UA PENDING WILL FOLLOW XENIA LAW MD Feb 15, 2019 11:50
[2019-02-15 11:52] VITALS: BP 149/53
[2019-02-15] MEDS: POLYETHYLENE GLYCOL 3350 17 GM PACKET. PO PRN (12:36)
--- NOTE | 2019-02-15 13:04 | PDOC ---
Subjective: Subjective: No chest pressure or SOA "but they haven't let me walk and that's when it happens." Doesn't know if stool was black today because someone else wiped. Trying to eat some. Was told she could go home tomorrow. has questions about nose bleeds. Objective: Objective: Nurse didn't see her stool. D/w cardiology earlier - okay for EGD. Vital Signs: Vital Signs Date Time Temp Pulse Resp B/P (MAP) Pulse Ox O2 Delivery O2 Flow Rate FiO2 02/15/19 11:52 98.2 62 20 149/53 (85) 97 Room Air 98.2 Labs: Laboratory Tests Test 02/14/19 16:40 02/14/19 20:49 02/15/19 00:01 02/15/19 04:25 Glucose (Fingerstick) 144 mg/dL 185 mg/dL Hemoglobin 7.1 g/dL 7.3 g/dL Hematocrit 21.7 % 22.0 % Mean Corpuscular Hemoglobin Concent 33 g/dL 33 g/dL White Blood Count 7.6 x10^3/uL Red Blood Count 2.43 x10^6/uL Mean Corpuscular Volume 91 fL Mean Corpuscular Hemoglobin 30 pg Red Cell Distribution Width 18.8 % Platelet Count 222 x10^3/uL Neutrophils (%) (Auto) 62 % Lymphocytes (%) (Auto) 26 % Monocytes (%) (Auto) 10 % Eosinophils (%) (Auto) 1 % Basophils (%) (Auto) 1 % Neutrophils # (Auto) 4.7 x10^3/uL Lymphocytes # (Auto) 2.0 x10^3/uL Monocytes # (Auto) 0.8 x10^3/uL Eosinophils # (Auto) 0.1 x10^3/uL Basophils # (Auto) 0.1 x10^3/uL Sodium Level 146 mmol/L Potassium Level 3.7 mmol/L Chloride Level 107 mmol/L Carbon Dioxide Level 32 mmol/L Anion Gap 7 Blood Urea Nitrogen 82 mg/dL Creatinine 2.0 mg/dL Estimated GFR (Cockcroft-Gault) 24.4 Glucose Level 77 mg/dL Calcium Level 10.6 mg/dL Test 02/15/19 07:16 02/15/19 11:00 Glucose (Fingerstick) 95 mg/dL 126 mg/dL PE: GEN: NAD - up in chair LUNGS: room air HEART: RRR ABD: NABS, S/ND/NT NEURO/PSYCH: A & O 3 A/P: Chest pressure, SOA BANDAR Chronic anemia, h/o iron deficiency - required transfusion Dyspepsia, abd burning, "black stools" - on PPI -- Spent significant time discussing rationale of possible EGD and the possibility of anemia or an upper GI problem could contribute to chest pressure and shortness of breath. She says no one has addressed the symptoms that brought her in but then also says she was feeling fine and had no issues and has been anemic for a long time. She would like to go home but her would like her to have an EGD while she's here. Will return later w/ Dr. Benjamin. ROJELIO MUNOZ Feb 15, 2019 13:04
--- NOTE | 2019-02-15 13:32 | NUR ---
SW following pt for dc planning. Chart reviewed and discussed with RN. Pt lives at home with spouse. Wound care, nephrology and Cardiology following. Pt ambulates with stand by assist with walker. Pt might benefit from PT/OT or home health upon dc.
--- NOTE | 2019-02-15 13:54 | CARD ---
MR#: [id number] Date of Study: 02/15/2019 Ordering Physician: BRITANY LEIVA, Referring Physician: BRITANY LEIVA, Tech: Angie Gutierrez APPROVED REPORT EXAM: Two-dimensional and M-mode echocardiogram with Doppler and color Doppler. Other Information Quality : AverageHR: 68bpm Technically limited study due to body habitus. INDICATION Chest Pain 2D DIMENSIONS Left Atrium(2D)3.2 (1.6-4.0cm)IVSd1.6 (0.7-1.1cm) Aortic Root(2D)2.8 (2.0-3.7cm)LVDd5.3 (3.9-5.9cm) LVOT Diameter1.9 (1.8-2.4cm)PWd1.1 (0.7-1.1cm) LVDs2.7 (2.5-4.0cm)FS (%) 50.1 % SV111.8 mlLVEF(%)81.0 (>50%) Aortic Valve AoV Peak Elan.150.2cm/sAoV VTI37.4cm AO Peak GR.9.0mmHgLVOT VTI 31.62cm AO Mean GR.5mmHg Mitral Valve MV E Ctaguftf71.3cm/sMV DECEL [id number] MV A Kzqwsggj717.8cm/sE/A Ratio0.8 TDI Lateral E' P. V7.98cm/sMedial E' P. V7.40cm/s E/Lateral E'12.2E/Medial E'13.1 Tricuspid Valve TR P. Znfyaaqx662sz/sRAP [id number] TR Peak Gr.24qtNuSNYM42kdNg Pulmonary Vein S1 Tjswzqvb26.6cm/sS2 Dwwplgov95.89cm/s D2 Efrkdect76.9cm/sPVa [id number] LEFT VENTRICLE The left ventricle is normal size. There is moderate to severe concentric left ventricular hypertroph y. The left ventricular systolic function is normal and the ejection fraction is within normal range. The Ejection Fraction is 65-70%. There is normal LV segmental wall motion. Transmitral Doppler flow pattern is Grade I-abnormal relaxation pattern. RIGHT VENTRICLE The right ventricle is mildly dilated. The right ventricle is mildly hypertrophied. The right ventric ular systolic function is normal. ATRIA The left atrium is mildly dilated. The right atrium size is normal. The interatrial septum is intact with no evidence for an atrial septal defect or patent foramen ovale as noted on 2-D or Doppler imagi ng. AORTIC VALVE The aortic valve is not well visualized. Doppler and Color Flow revealed no significant aortic regurg itation. There is no significant aortic valvular stenosis. MITRAL VALVE The mitral valve is normal in structure and function. There is no evidence of mitral valve prolapse. There is no mitral valve stenosis. Doppler and Color Flow revealed no mitral valve regurgitation note d. TRICUSPID VALVE The tricuspid valve is not well visualized. Doppler and Color Flow revealed trace tricuspid regurgita tion with an estimated PAP of 31 mmHg. There is no tricuspid valve stenosis. PULMONIC VALVE The pulmonic valve is not well visualized. Doppler and Color Flow revealed no pulmonic valvular regur gitation. There is no pulmonic valvular stenosis. GREAT VESSELS The aortic root is normal in size. The IVC is dilated and collapses >50% with inspiration. PERICARDIAL EFFUSION There is no evidence of significant pericardial effusion. Critical Notification Critical Value: No <Conclusion> The left ventricular systolic function is normal and the ejection fraction is within normal range. Th e Ejection Fraction is 65-70%. There is normal LV segmental wall motion. Signed by : Deniz Delcid, Electronically Approved : 02/15/2019 09:31:54
[2019-02-15 14:55] VITALS: BP 113/44
--- NOTE | 2019-02-15 16:15 | PDOC3 ---
Discharge Summary Date of Admission: Feb 14, 2019 Date of Discharge: Feb 15, 2019 Follow-Up: 3-5 days Admitting Diagnosis comment: discharge dx Assessment/Plan IMPRESSION ACUTE RENAL FAILURE MARKED ANEMIA Metabolic encephalopathy HX DM HTN Hypercholesterolemia Renal disease CKD STAGE 3-4 COPD Hypothyroidism PVD, Chest pressure, SOA, elevated D-dimer, hypercalcemia Chronic anemia, h/o iron deficiency - Hgb below baseline 6.3 02/14 Dyspepsia, abd burning, "black stools" H/o constipation on Miralax Cholelithiasis, hepatomegaly Chronic pain on hydrocodone Recent epistaxis - post cauterization -- PLAN ADMIT CBC NOTED cardiology CONSULT. Continue PPI consider EGD GI CONSULT NEPHROLOGY CONSULT ECHO transfuse to keep hgb > 7.5 Would benefit from EGD at some point. PPI Await cardiology opinion. dvt prophylaxis scd's 29 min pt exam, chart review d/c planning, > 50% of time spent with exam, chart review, pt care coordination Vitals Vitals Vital Signs Date Time Temp Pulse Resp B/P (MAP) Pulse Ox O2 Delivery O2 Flow Rate FiO2 02/15/19 03:34 98.2 63 16 117/43 (67) 93 Room Air 98.2 Physical Exam General: Alert, Oriented X3, Cooperative, No acute distress Heart: Regular rate (SR), Normal S1, Normal S2, Other (3/6 systolic murmur to JENNIFER border) Lungs: Clear Abdomen: Soft, No tenderness Extremities: No cyanosis, Other (1+ bilateral LE pitting edema) Skin: No breakdown per gi OK to allow home on PPI and we will have office call to schedule outpatient in the very near future Brief Hospital Course Ms. Irizarry is a 73 old [sex] who presented with [acute gi bleed ] CONDITION AT DISCHARGE: Improved Discharge Medications Current Medications Info (FLU VACCINE SCREEN per RX) 1 each PRN DAILY PRN MC SEE COMMENTS; Start 02/14/19 at 01:00; Status Cancel Allopurinol (Zyloprim) 150 mg DAILY PO Last administered on 02/15/19at 09:58; Start 02/14/19 at 09:00 Alprazolam (Xanax) 0.5 mg PRN Q12HR PRN PO ANXIETY / AGITATION; Start 02/14/19 at 02:00 Amlodipine Besylate (Norvasc) 10 mg DAILY PO Last administered on 02/15/19at 09:57; Start 02/14/19 at 09:00 Aspirin (Children'S Aspirin) 6,561 mg DAILY PO ; Start 02/14/19 at 09:00; Stop 02/14/19 at 02:09; Status DC Guaifenesin (MUCINEX ER with DM) 1 tab PRN Q12HRS PRN PO COUGH; Start 02/14/19 at 02:00 Acetaminophen/ Hydrocodone Bitart (Lortab 10/325) 1 tab PRN Q6HRS PRN PO SEVERE PAIN 7-10 Last administered on 02/15/19at 09:51; Start 02/14/19 at 02:00 Levothyroxine Sodium (Synthroid) 50 mcg DAILY06 PO Last administered on 02/15/19at 05:11; Start 02/14/19 at 06:00 Polyethylene Glycol (miraLAX PACKET) 17 gm PRN DAILY PRN PO CONSTIPATION 1ST CHOICE Last administered on 02/15/19at 12:36; Start 02/14/19 at 02:00 Roflumilast (Daliresp) 500 mcg DAILY PO Last administered on 02/15/19at 09:56; Start 02/14/19 at 09:00 Sodium Chloride (Saline Mist Nasal) 2 annie Q2HR NS ; Start 02/14/19 at 02:00; Stop 02/14/19 at 02:12; Status DC Torsemide (Demadex) 60 mg DAILY PO Last administered on 02/15/19at 09:57; Start 02/14/19 at 09:00 Atorvastatin Calcium (Lipitor) 80 mg QHS PO Last administered on 02/14/19at 21:08; Start 02/14/19 at 21:00 Carvedilol (Coreg) 25 mg BIDWMEALS PO Last administered on 02/15/19at 09:57; Start 02/14/19 at 08:00 Glimepiride (Amaryl) 2 mg DAILY PO Last administered on 02/15/19 09:58; Start 02/14/19 at 09:00 Hydrochlorothiazide (Microzide) 12.5 mg DAILY PO Last administered on 02/14/19 08:20; Start 02/14/19 at 09:00; Stop 02/14/19 at 12:31; Status DC Cetirizine HCl (ZyrTEC) 10 mg DAILY PO Last administered on 02/15/19at 09:58; Start 02/14/19 at 09:00 Lisinopril (Prinivil) 20 mg DAILY PO Last administered on 02/15/19 09:58; Start 02/14/19 at 09:00 Pantoprazole Sodium 80 mg/ Sodium Chloride 100 ml @ 10 mls/hr Q10H IV Last administered on 02/14/19 06:04; Start 02/14/19 at 04:00; Stop 02/14/19 at 10:51; Status DC Aspirin (Children'S Aspirin) 81 mg DAILY PO Last administered on 02/14/19 08:17; Start 02/14/19 at 09:00; Stop 02/14/19 at 12:48; Status DC Sodium Chloride (Saline Mist Nasal) 2 annie PRN Q2HR PRN NS NASAL CONGESTION Last administered on 02/15/19 09:56; Start 02/14/19 at 02:15 Pantoprazole Sodium (Protonix) 40 mg DAILYAC PO Last administered on 02/15/19 09:57; Start 02/15/19 at 07:30 Sodium Chloride 1,000 ml @ 75 mls/hr [id number] IV Last administered on 02/15/19 05:10; Start 02/14/19 at 13:00 Sodium Chloride (Normal Saline Flush) 3 ml QSHIFT PRN IV AFTER MEDS AND BLOOD DRAWS; Start 02/14/19 at 12:45 Ondansetron HCl (Zofran) 4 mg PRN Q4HRS PRN IV NAUSEA/VOMITING; Start 02/14/19 at 12:45 Acetaminophen (Tylenol) 650 mg PRN Q4HRS PRN PO TEMP OVER 100.4F OR MILD PAIN; Start 02/14/19 at 12:45 Clonidine HCl (Catapres) 0.1 mg PRN Q6HRS PRN PO SBP>160 OR DBP>90; Start 02/14/19 at 12:45 Docusate Sodium (Colace) 100 mg PRN BID PRN PO CONSTIPATION Last administered on 9/27/19at 09:56; Start 02/14/19 at 12:45 Albuterol Sulfate (Ventolin Neb Soln) 2.5 mg PRN Q4HRS PRN NEB SHORTNESS OF BREATH; Start 02/14/19 at 12:45 Guaifenesin (Robitussin) 200 mg PRN Q4HRS PRN PO COUGH; Start 02/14/19 at 12:45 Lorazepam (Ativan) 0.5 mg PRN Q4HRS PRN PO ANXIETY / AGITATION; Start 02/14/19 at 12:45 Influenza Virus Vaccine Quadrival (Afluria Quad 2019-20 (3yr Up) Syringe) 0.5 ml ONCE ONCE VAX IM ; Start 02/15/19 at 09:00; Stop 02/15/19 at 09:01; Status DC Active Scripts Active Hydrocodone-Apap 10-325 (Hydrocodone Bit/Acetaminophen) 1 Each Tablet 1 Tab PO PRN Q6HRS PRN Reported Miralax (Polyethylene Glycol 3350) 17 Gm Powd.pack 1 Pkt PO PRN DAILY PRN Amaryl (Glimepiride) 4 Mg Tablet 2 Mg PO DAILY Mucinex Dm Er 600-30 Mg Tablet (Guaifenesin/Dextromethorphan) 1 Each Tab.er.12h 1 Tab PO PRN Q12HRS Alprazolam 0.5 Mg Tablet 0.5 Mg PO PRN Q12HR PRN Saline Nasal [place] (Sodium Chloride) 30 Ml [place] 1-2 [place] NS PRN Q2HR PRN Loratadine 10 Mg Tablet 10 Mg PO DAILY Allopurinol 300 Mg Tablet 150 Mg PO DAILY Hydrochlorothiazide Tablet (Hydrochlorothiazide) 12.5 Mg Tablet 12.5 Mg PO DAILY Amlodipine Besylate 10 Mg Tablet 10 Mg PO DAILY Prednisone (Prednisone) 10 Mg Tablet 10 Mg PO UD take 4 tablets by mouth daily for 3 days, then take 3 tablets by mouth daily for 3 days, then take 2 tablets by mouth daily for 3 days, then take 1 tablets by mouth daily for 3 days, then stop. Torsemide 20 Mg Tablet 3 Tab PO DAILY Daliresp (Roflumilast) 500 Mcg Tablet 1 Tab PO DAILY Ramipril 10 Mg Capsule 2 Cap PO DAILY Levothyroxine Sodium 50 Mcg Tablet 1 Tab PO DAILY Coreg (Carvedilol) 25 Mg Tablet 25 Mg PO BIDWMEALS Atorvastatin Calcium 80 Mg Tablet 1 Tab PO DAILY Aspirin 81 Mg Tab.chew 81 Tab PO DAILY Vital Signs Vital Signs Date Time Temp Pulse Resp B/P (MAP) Pulse Ox O2 Delivery O2 Flow Rate FiO2 02/15/19 14:55 97.9 57 20 113/44 (67) 97 Room Air 97.9 Labs Laboratory Tests Test 02/14/19 06:25 02/14/19 07:17 02/14/19 10:49 02/14/19 16:40 White Blood Count 7.7 x10^3/uL (4.0-11.0) Red Blood Count 2.16 x10^6/uL (3.50-5.40) Hemoglobin 6.3 g/dL (12.0-15.5) Hematocrit 19.5 % (36.0-47.0) Mean Corpuscular Volume 90 fL (79-100) Mean Corpuscular Hemoglobin 29 pg (25-35) Mean Corpuscular Hemoglobin Concent 33 g/dL (31-37) Red Cell Distribution Width 19.3 % (11.5-14.5) Platelet Count 220 x10^3/uL (140-400) Neutrophils (%) (Auto) 72 % (31-73) Lymphocytes (%) (Auto) 18 % (24-48) Monocytes (%) (Auto) 10 % (0-9) Eosinophils (%) (Auto) 0 % (0-3) Basophils (%) (Auto) 0 % (0-3) Neutrophils # (Auto) 5.5 x10^3/uL (1.8-7.7) Lymphocytes # (Auto) 1.3 x10^3/uL (1.0-4.8) Monocytes # (Auto) 0.8 x10^3/uL (0.0-1.1) Eosinophils # (Auto) 0.0 x10^3/uL (0.0-0.7) Basophils # (Auto) 0.0 x10^3/uL (0.0-0.2) Sodium Level 144 mmol/L (136-145) Potassium Level 3.5 mmol/L (3.5-5.1) Chloride Level 104 mmol/L (98-107) Carbon Dioxide Level 31 mmol/L (21-32) Anion Gap 9 (6-14) Blood Urea Nitrogen 88 mg/dL (7-20) Creatinine 2.2 mg/dL (0.6-1.0) Estimated GFR (Cockcroft-Gault) 21.8 BUN/Creatinine Ratio 40 (6-20) Glucose Level 142 mg/dL (70-99) Calcium Level 10.5 mg/dL (8.5-10.1) Total Bilirubin 0.3 mg/dL (0.2-1.0) Aspartate Amino Transf (AST/SGOT) 10 U/L (15-37) Alanine Aminotransferase (ALT/SGPT) 9 U/L (14-59) Alkaline Phosphatase 146 U/L (46-116) Total Protein 6.7 g/dL (6.4-8.2) Albumin 3.4 g/dL (3.4-5.0) Albumin/Globulin Ratio 1.0 (1.0-1.7) Triglycerides Level 116 mg/dL (0-150) Cholesterol Level 144 mg/dL (0-200) LDL Cholesterol, Calculated 83 mg/dL (0-100) VLDL Cholesterol, Calculated 23 mg/dL (0-40) Non-HDL Cholesterol Calculated 106 mg/dL (0-129) HDL Cholesterol 38 mg/dL (40-60) Cholesterol/HDL Ratio 3.8 Thyroid Stimulating Hormone (TSH) 0.293 uIU/mL (0.358-3.74) Glucose (Fingerstick) 135 mg/dL (70-99) 144 mg/dL (70-99) 144 mg/dL (70-99) Test 02/14/19 20:49 02/15/19 00:01 02/15/19 04:25 02/15/19 07:16 Glucose (Fingerstick) 185 mg/dL (70-99) 95 mg/dL (70-99) Hemoglobin 7.1 g/dL (12.0-15.5) 7.3 g/dL (12.0-15.5) Hematocrit 21.7 % (36.0-47.0) 22.0 % (36.0-47.0) Mean Corpuscular Hemoglobin Concent 33 g/dL (31-37) 33 g/dL (31-37) White Blood Count 7.6 x10^3/uL (4.0-11.0) Red Blood Count 2.43 x10^6/uL (3.50-5.40) Mean Corpuscular Volume 91 fL (79-100) Mean Corpuscular Hemoglobin 30 pg (25-35) Red Cell Distribution Width 18.8 % (11.5-14.5) Platelet Count 222 x10^3/uL (140-400) Neutrophils (%) (Auto) 62 % (31-73) Lymphocytes (%) (Auto) 26 % (24-48) Monocytes (%) (Auto) 10 % (0-9) Eosinophils (%) (Auto) 1 % (0-3) Basophils (%) (Auto) 1 % (0-3) Neutrophils # (Auto) 4.7 x10^3/uL (1.8-7.7) Lymphocytes # (Auto) 2.0 x10^3/uL (1.0-4.8) Monocytes # (Auto) 0.8 x10^3/uL (0.0-1.1) Eosinophils # (Auto) 0.1 x10^3/uL (0.0-0.7) Basophils # (Auto) 0.1 x10^3/uL (0.0-0.2) Sodium Level 146 mmol/L (136-145) Potassium Level 3.7 mmol/L (3.5-5.1) Chloride Level 107 mmol/L (98-107) Carbon Dioxide Level 32 mmol/L (21-32) Anion Gap 7 (6-14) Blood Urea Nitrogen 82 mg/dL (7-20) Creatinine 2.0 mg/dL (0.6-1.0) Estimated GFR (Cockcroft-Gault) 24.4 Glucose Level 77 mg/dL (70-99) Calcium Level 10.6 mg/dL (8.5-10.1) Test 02/15/19 11:00 Glucose (Fingerstick) 126 mg/dL (70-99) Laboratory Tests Test 02/14/19 16:40 02/14/19 20:49 02/15/19 00:01 02/15/19 04:25 Glucose (Fingerstick) 144 mg/dL (70-99) 185 mg/dL (70-99) Hemoglobin 7.1 g/dL (12.0-15.5) 7.3 g/dL (12.0-15.5) Hematocrit 21.7 % (36.0-47.0) 22.0 % (36.0-47.0) Mean Corpuscular Hemoglobin Concent 33 g/dL (31-37) 33 g/dL (31-37) White Blood Count 7.6 x10^3/uL (4.0-11.0) Red Blood Count 2.43 x10^6/uL (3.50-5.40) Mean Corpuscular Volume 91 fL (79-100) Mean Corpuscular Hemoglobin 30 pg (25-35) Red Cell Distribution Width 18.8 % (11.5-14.5) Platelet Count 222 x10^3/uL (140-400) Neutrophils (%) (Auto) 62 % (31-73) Lymphocytes (%) (Auto) 26 % (24-48) Monocytes (%) (Auto) 10 % (0-9) Eosinophils (%) (Auto) 1 % (0-3) Basophils (%) (Auto) 1 % (0-3) Neutrophils # (Auto) 4.7 x10^3/uL (1.8-7.7) Lymphocytes # (Auto) 2.0 x10^3/uL (1.0-4.8) Monocytes # (Auto) 0.8 x10^3/uL (0.0-1.1) Eosinophils # (Auto) 0.1 x10^3/uL (0.0-0.7) Basophils # (Auto) 0.1 x10^3/uL (0.0-0.2) Sodium Level 146 mmol/L (136-145) Potassium Level 3.7 mmol/L (3.5-5.1) Chloride Level 107 mmol/L (98-107) Carbon Dioxide Level 32 mmol/L (21-32) Anion Gap 7 (6-14) Blood Urea Nitrogen 82 mg/dL (7-20) Creatinine 2.0 mg/dL (0.6-1.0) Estimated GFR (Cockcroft-Gault) 24.4 Glucose Level 77 mg/dL (70-99) Calcium Level 10.6 mg/dL (8.5-10.1) Test 02/15/19 07:16 02/15/19 11:00 Glucose (Fingerstick) 95 mg/dL (70-99) 126 mg/dL (70-99) Allergies Allergies Coded Allergies Type Severity Reaction Last Updated Verified cefuroxime Allergy Intermediate 03/21/17 Yes cephalexin Allergy Intermediate 03/21/17 Yes ezetimibe Allergy Intermediate 03/21/17 Yes Disposition/Orders: D/C to Home SELVIN DOUGLAS MD Feb 15, 2019 16:15
[2019-02-15] MEDS ORDERED: DOCU-109 PO (16:21)
[2019-02-15] MEDS ORDERED: ACET325T9 PO (16:21)
[2019-02-15] MEDS ORDERED: PANT40TA77 PO (16:21)
--- NOTE | 2019-02-15 16:23 | DISCH ---
DISCHARGE INSTRUCTIONS Condition on Discharge Condition on Discharge: Stable Activity After Discharge Activity Instructions for Disc: Activity as tolerated Lifting Instructions after Dis: No heavy lifting, No pulling or pushing Driving Instructions after Dis: Do not drive Diet after Discharge Diet after Discharge: Cardiac Checks after Discharge Checks after discharge: Check blood press - daily Contacting the DR. after DC Call your doctor for: If your condition worsens SELVIN DOUGLAS MD Feb 15, 2019 16:23
--- NOTE | 2019-02-15 16:51 | PDOC ---
CARDIO Progress Notes Date and Time Date of Service 02/15/2019 Time of Evaluation 1040 Subjective Subjective: No Chest Pain, No shortness of breath, No Palpitations Vitals Vitals Vital Signs Date Time Temp Pulse Resp B/P (MAP) Pulse Ox O2 Delivery O2 Flow Rate FiO2 02/15/19 16:31 20 97 Room Air 02/15/19 14:55 97.9 57 113/44 (67) 97.9 Weight Weight [ ] Input and Output Intake and Output Intake and Output 02/15/19 07:00 Intake Total 1340 ml Balance 1340 ml Intake Oral 1040 ml Blood Product IV Normal Saline Flush 300 ml # Voids 8 Laboratory Labs Laboratory Tests Test 02/14/19 20:49 02/15/19 00:01 02/15/19 04:25 02/15/19 07:16 Glucose (Fingerstick) 185 mg/dL (70-99) 95 mg/dL (70-99) Hemoglobin 7.1 g/dL (12.0-15.5) 7.3 g/dL (12.0-15.5) Hematocrit 21.7 % (36.0-47.0) 22.0 % (36.0-47.0) Mean Corpuscular Hemoglobin Concent 33 g/dL (31-37) 33 g/dL (31-37) White Blood Count 7.6 x10^3/uL (4.0-11.0) Red Blood Count 2.43 x10^6/uL (3.50-5.40) Mean Corpuscular Volume 91 fL (79-100) Mean Corpuscular Hemoglobin 30 pg (25-35) Red Cell Distribution Width 18.8 % (11.5-14.5) Platelet Count 222 x10^3/uL (140-400) Neutrophils (%) (Auto) 62 % (31-73) Lymphocytes (%) (Auto) 26 % (24-48) Monocytes (%) (Auto) 10 % (0-9) Eosinophils (%) (Auto) 1 % (0-3) Basophils (%) (Auto) 1 % (0-3) Neutrophils # (Auto) 4.7 x10^3/uL (1.8-7.7) Lymphocytes # (Auto) 2.0 x10^3/uL (1.0-4.8) Monocytes # (Auto) 0.8 x10^3/uL (0.0-1.1) Eosinophils # (Auto) 0.1 x10^3/uL (0.0-0.7) Basophils # (Auto) 0.1 x10^3/uL (0.0-0.2) Sodium Level 146 mmol/L (136-145) Potassium Level 3.7 mmol/L (3.5-5.1) Chloride Level 107 mmol/L (98-107) Carbon Dioxide Level 32 mmol/L (21-32) Anion Gap 7 (6-14) Blood Urea Nitrogen 82 mg/dL (7-20) Creatinine 2.0 mg/dL (0.6-1.0) Estimated GFR (Cockcroft-Gault) 24.4 Glucose Level 77 mg/dL (70-99) Calcium Level 10.6 mg/dL (8.5-10.1) Test 02/15/19 11:00 Glucose (Fingerstick) 126 mg/dL (70-99) Review of Systems Constitutional: yes: alert, oriented Ears/Nose/Throat: Yes: no symptom reported Eyes: Yes: no symptom reported Pulmonary: Yes no symptom reported Cardiovascular: Yes no symptom reported Gastrointestional: Yes: no symptom reported Genitourinary: Yes: no symptom reported Musculoskeletal: Yes: no symptom reported Skin: Yes no symptom reported Psychiatric/Neurological: Yes: no symptom reported Physical Exam HEENT: Neck Supple W Full Motion Chest: Symmetric LUNGS: Clear to Auscultation Heart: RRR (SR) Abdomen: Soft N/T Extremities: No Calf Tenderness Neurology: alert, oriented, follow commands Assessment Assessment 1. Acute normocytic anemia: initial Hgb at 6.3 requiring transfusion. GI following 2. Possible GI bleed vs ingested blood from recent recurrent epistaxis: complains of dark stools in the last 2-3 months 3. BANDAR on CKD: due to diuretics and poor hydration, nephrology following 4. CAD; unclear hx. [facility] records reviewed and no mention of any stents. Clinically stable. EF 65-70% 5. Hx of recent epistaxis. Seen by [facility] 02/05/2019 with septal cautery 6. HTN: controlled 7. HLP 8. DM2 9. Hypothyroidism 10. Polypharmacy 11. Atypical CP: suspect GI 12. COPD: causing dyspnea in addition to anemia 13. PAD: clinically stable, no wounds. Recommendations Stop ramipril, HCTZ and torsemide Stop ASA for now IVF per nephrology Nothing further cardiac preston. Consider for outpt stress test via [facility] cardiology BRITANY LEIVA FINISHED [employer] STOCK CLERK Feb 15, 2019 16:51
[2019-02-15 17:48] VITALS: BP 113/44
== END 2019-02-15 18:55 | disposition home or self-care (01) | DRG 812 ==
LOC: 6 SOUTH 23:27
PROVIDERS: ADMIT Internal Medicine; ATTEND Internal Medicine
PROC: 30233N1 Transfusion of Nonautologous Red Blood Cells into Peripheral Vein, Percutaneous Approach (ICD-10-PCS; principal; 2019-02-14)
DX: D64.9 Anemia, unspecified (principal); N17.9 Acute kidney failure, unspecified; N18.4 Chronic kidney disease, stage 4 (severe); E78.00 Pure hypercholesterolemia, unspecified; J44.9 Chronic obstructive pulmonary disease, unspecified; E03.9 Hypothyroidism, unspecified; E11.22 Type 2 diabetes mellitus with diabetic chronic kidney disease; E11.51 Type 2 diabetes mellitus with diabetic peripheral angiopathy without gangrene; E83.52 Hypercalcemia; K80.20 Calculus of gallbladder without cholecystitis without obstruction; G89.29 Other chronic pain; E78.5 Hyperlipidemia, unspecified; I25.10 Atherosclerotic heart disease of native coronary artery without angina pectoris; F41.9 Anxiety disorder, unspecified; M19.90 Unspecified osteoarthritis, unspecified site; K21.9 Gastro-esophageal reflux disease without esophagitis; I35.0 Nonrheumatic aortic (valve) stenosis; I12.9 Hypertensive chronic kidney disease with stage 1 through stage 4 chronic kidney disease, or unspecified chronic kidney disease; I87.2 Venous insufficiency (chronic) (peripheral); T50.2X5A Adverse effect of carbonic-anhydrase inhibitors, benzothiadiazides and other diuretics, initial encounter; Y92.89 Other specified places as the place of occurrence of the external cause; Z87.891 Personal history of nicotine dependence; Z88.8 Allergy status to other drugs, medicaments and biological substances; Z90.49 Acquired absence of other specified parts of digestive tract; Z95.5 Presence of coronary angioplasty implant and graft; Z82.49 Family history of ischemic heart disease and other diseases of the circulatory system
CPT/HCPCS: 36415; 80048; 80053; 80061; 82962; 84443; 85014; 85018; 85025; 86850; 86900; 86901; 86920; 93306; C9113; J7030; P9016; G0378

== ENCOUNTER 2020-02-14 08:08 | Emergency (ER) | payer MEDICARE, OTHER ==
[~2020-02-14] VITALS: Ht 162.6 cm; Wt 95.4 kg
[~2020-02-14 08:08] MED LIST changes: +ACET325T9 PO; +ALLO300T PO; +ALPR0.5T6 PO; +AMLO10TA8 PO; +DOCU-109 PO; +FENO145T3 PO; -FENO145T30 PO; +GLIM4TAB PO; +GUAI-108 PO; +HYDR12.58 PO; +LORA10TA3 PO; +PANT40TA77 PO; +POLY17PO29 PO; +PRED-220 PO; +SODI30SP NS
--- NOTE | 2020-02-14 08:35 | PHYS DOC ---
Past Medical History Past Medical History dm, htn, cad, ckd Past Surgical History appendectomy, cardiac stents Smoking Status: Former Smoker Alcohol Use: None Drug Use: None General Adult EDM: Chief Complaint: NOSEBLEED HPI: HPI: 74-year-old female presented emergency department today with a nosebleed. It started this morning about 30 minutes prior to arrival. She tried pressure which did not help. She did have a small nosebleed last night which was able to be alleviated with pressure. She has a mild headache that is nonradiating without leaving factors. She denies vomiting fevers or chills. Review of systems negative for chest pain shortness of breath vomiting. Positive for headache. All other review of systems negative. ED course: 74-year-old female presenting with hypertension and nosebleed. Afrin was administered and an epistatic was placed and the balloon anterior and posterior was inflated to reasonable pressure . We were able to slow down the bleeding but were unable to stop the bleeding. She is not on blood thinners. She does take an aspirin. We attempted to give the patient her home blood pressure medications here orally and also used IV labetalol to bring her blood p ressure down with minimal success. The patient was going to be admitted however we do not have ENT paper control clerk so we will need to transfer for the patient to [facility]. I spoke with the transfer center who accepted the patient. We will transfer the patient for further treatment and care. Heart Score: Risk Factors: Risk Factors: DM, Current or recent (<one month) smoker, HTN, HLP, family history of CAD, obesity. Risk Scores: Score 0 - 3: 2.5% MACE over next 6 weeks - Discharge Home Score 4 - 6: 20.3% MACE over next 6 weeks - Admit for Clinical Observation Score 7 - 10: 72.7% MACE over next 6 weeks - Early Invasive Strategies Allergies: Allergies: Allergies Coded Allergies Type Severity Reaction Last Updated Verified cefuroxime Allergy Intermediate 03/21/17 Yes cephalexin Allergy Intermediate 03/21/17 Yes ezetimibe Allergy Intermediate 03/21/17 Yes Physical Exam: PE: Constitutional: Well developed, well nourished, no acute distress, non-toxic appearance. [] HENT: Normocephalic, atraumatic, bilateral external ears normal, oropharynx moist, no oral exudates, nose normal. [] Eyes: PERRLA, EOMI, conjunctiva normal, no discharge. [] Neck: Normal range of motion, no tenderness, supple, no stridor. [] Cardiovascular:Heart rate regular rhythm, no murmur [] Lungs & Thorax: Bilateral breath sounds clear to auscultation [] Abdomen: Bowel sounds normal, soft, no tenderness, no masses, no pulsatile masses. [] Skin: Warm, dry, no erythema, no rash. [] Back: No tenderness, no CVA tenderness. [] Extremities: No tenderness, no cyanosis, no clubbing, ROM intact, no edema. [] Neurologic: Alert and oriented X 3, normal motor function, normal sensory function, no focal deficits noted. [] Psychologic: Affect normal, judgement normal, mood normal. [] EKG: EKG: EKG shows sinus rhythm with a regular rate. ST segments congruent. Not s uggestive of acute ischemia. Right bundle branch block pattern is present in the anterior lateral leads. [] Radiology/Procedures: Radiology/Procedures: [] Course & Med Decision Making: Course & Med Decision Making Pertinent Labs and Imaging studies reviewed. (See chart for details) [] Dragon Disclaimer: Dragon Disclaimer: This electronic medical record was generated, in whole or in part, using a voice recognition dictation system. Departure Departure Impression: Primary Impression: Epistaxis Additional Impression: Hypertension Disposition: 02 TRANSFER [facility] Referrals: SALINA MENDOZA MD (PCP) Justicifation of Admission Dx: Justifications for Admission: Justification of Admission Dx: N/A SINDHU SANCHEZ MD Feb 14, 2020 08:35
[2020-02-14 08:51] LABS: BASO # 0.1 x10^3/uL (0.0-0.2); BASO % 1 % (0-3); EOS # 0.1 x10^3/uL (0.0-0.7); EOS % 2 % (0-3); HEMATOCRIT 34.4 % (36.0-47.0); HEMOGLOBIN 11.9 g/dL (12.0-15.5); LYMPH # 1.2 x10^3/uL (1.0-4.8); LYMPH % 15 % (24-48); MEAN CORPUSCULAR HEMOGLOBIN 30 pg (25-35); MEAN CORPUSCULAR HGB CONC 34 g/dL (31-37); MEAN CORPUSCULAR VOLUME 88 fL (79-100); MONO # 0.5 x10^3/uL (0.0-1.1); MONO % 6 % (0-9); NEUT # 6.5 x10^3/uL (1.8-7.7); NEUT % 77 % (31-73); PLATELET COUNT 138 x10^3/uL (140-400); RED CELL DISTRIBUTION WIDTH 15.1 % (11.5-14.5); WHITE BLOOD COUNT 8.5 x10^3/uL (4.0-11.0)
[2020-02-14 09:06] LABS: CALCIUM 10.2 mg/dL (8.5-10.1); CREATININE 1.9 mg/dL (0.6-1.0); GFR 25.8; POTASSIUM 3.9 mmol/L (3.5-5.1)
[2020-02-14] MEDS ORDERED: OXYMETAZOLINE 0.05% NASAL SPRAY 30ML BOTTLE. NS ONE (09:45)
[2020-02-14] MEDS ORDERED: IV NORMAL SALINE 500ML BAG 500 ML IV ONE (10:15)
[2020-02-14] MEDS ORDERED: ONDANSETRON PF 4 MG/2 ML VIAL. IVP ONE (10:15)
[2020-02-14] MEDS ORDERED: LABETALOL 20 MG/4 ML DISP.SYRIN. IVP ONE ×2 (11:45→13:00)
[2020-02-14] MEDS ORDERED: amLODIPine BESYLATE 5 MG TABLET PO ONE (12:00)
[2020-02-14] MEDS ORDERED: CARVEDILOL 12.5 MG TABLET. PO ONE (12:00)
[2020-02-14 13:38] VITALS: BP 215/89
== END 2020-02-14 13:42 | disposition short-term general hospital (02) ==
LOC: ER 08:08
DX: R04.0 Epistaxis (principal); I12.9 Hypertensive chronic kidney disease with stage 1 through stage 4 chronic kidney disease, or unspecified chronic kidney disease; R51 Headache; E11.22 Type 2 diabetes mellitus with diabetic chronic kidney disease; N18.9 Chronic kidney disease, unspecified; I25.10 Atherosclerotic heart disease of native coronary artery without angina pectoris; Z87.891 Personal history of nicotine dependence; Z95.5 Presence of coronary angioplasty implant and graft; Z88.1 Allergy status to other antibiotic agents; Z88.8 Allergy status to other drugs, medicaments and biological substances
CPT/HCPCS: 36415; 80048; 84484; 85025; 96374; 96375; 96376; 99285; J2405; J3490; J7040

== ENCOUNTER 2020-12-28 13:34 | Emergency (ER) | payer OTHER ==
[~2020-12-28 13:34] MED LIST changes: +AMLO-187 PO; -AMLO10TA8 PO
[2020-12-29] MEDS ORDERED: ALLO300T PO ×2 (17:41)
[2020-12-29] MEDS ORDERED: ALPR0.5T6 PO (17:43)
[2020-12-29] MEDS ORDERED: AMLO-187 PO (17:45)
[2020-12-29] MEDS ORDERED: ATOR80TA72 PO (17:46)
[2020-12-29] MEDS ORDERED: CARV25TA2 PO (17:47)
[2020-12-29] MEDS ORDERED: ROFL500T7 PO (17:54)
[2020-12-29] MEDS ORDERED: GLIM1TAB7 PO (17:55)
[2020-12-29] MEDS ORDERED: HYDR-2868 PO (17:56)
[2020-12-29] MEDS ORDERED: LEVO50TA5 PO (17:57)
[2020-12-29] MEDS ORDERED: MUPI22OI2 TP (17:58)
[2020-12-29] MEDS ORDERED: RAMI10CA53 PO (18:00)
[2020-12-29] MEDS ORDERED: SPIR25TA5 PO (18:03)
[2020-12-29] MEDS ORDERED: ASPI81TA59 PO (18:04)
[2020-12-29] MEDS ORDERED: OMEG-117 PO (18:05)
[2020-12-29] MEDS ORDERED: CLON1PAT TD (18:13)
[2020-12-29] MEDS ORDERED: HYDR-2869 PO (18:17)
[2020-12-29] MEDS ORDERED: HYDR-2769 PO (18:18)
[2020-12-29] MEDS ORDERED: TORS20TA2 PO ×2 (18:19→18:21)
[2020-12-29] MEDS ORDERED: FERR-36 PO (18:23)
== END 2020-12-28 15:00 | disposition left against medical advice (07) ==
LOC: ER 13:34
DX: R06.02 Shortness of breath (principal); Z53.21 Procedure and treatment not carried out due to patient leaving prior to being seen by health care provider

== ENCOUNTER 2020-12-29 16:29 | Inpatient (IN) | payer MEDICARE, OTHER ==
[2020-12-29] VITALS (9 sets, daily range): BP systolic 138–176; BP diastolic 59–71
[~2020-12-29] VITALS: Ht 162.6 cm; Wt 98.1 kg
[2020-12-29] MEDS ORDERED: ALLO300T PO ×2 (17:41)
[2020-12-29] MEDS ORDERED: ALPR0.5T6 PO (17:43)
[2020-12-29] MEDS ORDERED: AMLO-187 PO (17:45)
[2020-12-29] MEDS ORDERED: ATOR80TA72 PO (17:46)
[2020-12-29] MEDS ORDERED: CARV25TA2 PO (17:47)
[2020-12-29] MEDS ORDERED: ROFL500T7 PO (17:54)
[2020-12-29] MEDS ORDERED: GLIM1TAB7 PO (17:55)
[2020-12-29] MEDS ORDERED: HYDR-2868 PO (17:56)
[2020-12-29] MEDS ORDERED: LEVO50TA5 PO (17:57)
[2020-12-29] MEDS ORDERED: MUPI22OI2 TP (17:58)
[2020-12-29] MEDS ORDERED: RAMI10CA53 PO (18:00)
[2020-12-29] MEDS ORDERED: SPIR25TA5 PO (18:03)
[2020-12-29] MEDS ORDERED: ASPI81TA59 PO (18:04)
[2020-12-29] MEDS ORDERED: OMEG-117 PO (18:05)
[2020-12-29] MEDS ORDERED: CLON1PAT TD (18:13)
[2020-12-29] MEDS ORDERED: HYDR-2869 PO (18:17)
[2020-12-29] MEDS ORDERED: HYDR-2769 PO (18:18)
[2020-12-29] MEDS ORDERED: TORS20TA2 PO ×2 (18:19→18:21)
[2020-12-29] MEDS ORDERED: FERR-36 PO (18:23)
[2020-12-29] MEDS ORDERED: guaiFENesin DM 600/30MG 1 TAB TAB.ER.12H PO PRN (20:30)
[2020-12-29] MEDS: MUPIROCIN 2 % NASAL OINTMENT 22GM TUBE. TP SCH (21:33)
[2020-12-29] MEDS: ACETAMINOPHEN 325 MG TABLET. PO PRN (21:35)
[2020-12-29] MEDS: ALPRAZolam 0.5 MG TABLET PO PRN (21:35)
--- NOTE | 2020-12-29 21:44 | HP ---
ADMIT DATE: 12/29/2020 CHIEF COMPLAINT: Bradycardia. HISTORY OF PRESENT ILLNESS: The patient is a pleasant elderly female who presented as a transfer from another facility with bradycardia. She came over on a dopamine drip. She is on quite a few medications including several that could cause bradycardia such as beta blockade with carvedilol and clonidine. She is also on quite a few blood pressure meds. I am going to hold all those and let her have a drug holiday. We are going to try to get her off the dopamine. I am going to consult cardiology as well. PAST MEDICAL HISTORY: Polypharmacy, hypertension, allergic rhinitis, anemia, iron deficiency, hyperlipidemia, CHF, edema, depression, anxiety, constipation, GERD and diabetes and hypothyroidism and gout. ALLERGIES: CEFUROXIME, CEPHALEXIN, AND EZETIMIBE. FAMILY HISTORY: Diabetes. SOCIAL HISTORY: She does not drink, smoke or take drugs. 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 MEDICATIONS: Reviewed, please refer to the MRAD. I have stopped most of them. REVIEW OF SYSTEMS: GENERAL: No history of weight change, weakness or fevers. SKIN: No bruising, hair changes or rashes. EYES: No blurred, double or loss of vision. NOSE AND THROAT: No history of nosebleeds, hoarseness or sore throat. HEART: No history of palpitations, chest pain or shortness of breath on exertion. LUNGS: Denies cough, hemoptysis, wheezing or shortness of breath. GASTROINTESTINAL: Denies changes in appetite, nausea, vomiting, diarrhea or constipation. GENITOURINARY: No history of frequency, urgency, hesitancy or nocturia. NEUROLOGIC: Denies history of numbness, tingling, tremor or weakness. PSYCHIATRIC: No history of panic, anxiety or depression. ENDOCRINE: No history of heat or cold intolerance, polyuria or polydipsia. EXTREMITIES: Denies muscle weakness, joint pain, pain on walking or stiffness. PHYSICAL EXAMINATION: VITALS: Within normal limits and are stable. GENERAL: No apparent distress. Alert and oriented. HEENT: Normal cephalic atraumatic, external auditory canals are patent EYES: Extraocular muscles are intact, pupils are equally round and reactive to light and accommodation MUSCULOSKELETAL: Well developed, well nourished, good range of motion ENDOCRINE: No thyromegaly was palpated LYMPHATICS: No cervical chain or axillary nodes were noted HEMATOPOIETIC: No bruising NECK: Supple, no JVD, no thyromegaly was noted. LUNGS: Clear to auscultation in all lung bryant without rhonchi or wheezing. HEART: RRR, S1, S2 present. Peripheral pulses intact, no obvious murmurs were noted. ABDOMEN: Soft, nontender. Positive bowel sounds no organomegaly, normal bowel sounds. EXTREMITIES: Without any cyanosis, clubbing, or edema. Pedal pulses intact, Homans sign is negative. NEUROLOGIC: Normal speech, normal tone. A and O x 3, moves all extremities, no obvious focal deficits. PSYCHIATRIC: Normal affect, normal mood. Stable. SKIN: No ulcerations or rashes, good skin turgor, no jaundice. VASCULAR: Good capillary refill, neurovascular bundle appears to be intact. LABORATORY DATA: Pending. ASSESSMENT AND PLAN: Symptomatic bradycardia, suspect this is all iatrogenic. She is on way too many medications. I have stopped most of the meds, please refer to her home medication list. We will consult cardiology for a second opinion. DVT prophylaxis. We will wean off the dobutamine. Cardiac monitoring. Prognosis guarded. CC TIME: Thirty one minutes. KRISTIE/BIN/JOSE ENRIQUE DR: KRISTIE/jeny TID: [id number]
[2020-12-30] VITALS (10 sets, daily range): BP systolic 106–208; BP diastolic 66–97
[2020-12-30] MEDS: ACETAMINOPHEN 325 MG TABLET. PO PRN (02:28)
[2020-12-30] MEDS: PANTOPRAZOLE 40 MG TABLET.DR. PO SCH (06:29)
[2020-12-30] MEDS: LEVOTHYROXINE 50 MCG TABLET PO SCH (06:29)
--- NOTE | 2020-12-30 09:13 | PDOC ---
[employer] PROGRESS NOTE Date of Service DOS: DATE: 12/30/20 TIME: 09:04 Chief Complaint Chief Complaint Bradycardia Hypertension Anemia, Iron deficiency Hyperlipidemia CHF, GERD Diabetes Hypothyroidism History of Present Illness History of Present Illness The patient is a pleasant elderly female who presented as a transfer from another facility with bradycardia. She came over on a dopamine drip. She is on quite a few medications including several that could cause bradycardia such as beta blockade with carvedilol and clonidine. She is also on quite a few blood pressure meds. 12/30/2020 Patient seen and examined in bed D/W RN, Chart Review Discussed that we will continue to monitor as we try to reduce the number of medications she is on Discussed that we will try and titrate off of the dopamine drip. Vitals/I&O Vitals/I&O: Vital Signs Date Time Temp Pulse Resp B/P (MAP) Pulse Ox O2 Delivery O2 Flow Rate FiO2 12/30/20 04:00 50 208/82 (124) Nasal Cannula 2.0 12/30/20 03:00 97.8 18 95 97.8 I & O 12/29/20 12/29/20 12/30/20 15:00 23:00 07:00 Intake Total 280 ml 50 ml Output Total 900 ml Balance 280 ml -850 ml Physical Exam Lungs: Clear Labs Labs: Laboratory Tests Test 12/29/20 16:44 12/29/20 20:32 12/30/20 07:55 Glucose (Fingerstick) 152 mg/dL (70-99) 147 mg/dL (70-99) 147 mg/dL (70-99) Review of Systems Review of Systems: Bowel and bladder continent Denies Numbness or tingling in extremities Denies fevers or chills Assessment and Plan Assessmemt and Plan Bradycardia Hypertension Anemia, Iron deficiency Hyperlipidemia CHF, GERD Diabetes Hypothyroidism Plan Continue to titrate off Dopamine drip Cardiac Monitoring DVT prophylaxis Appreciate Cardiac input PT/OT Trend labs Full Code Comment Review of Relevant I have reviewed the following items bear (where applicable) has been applied. Medications: Current Medications Medications (Trade) Dose Ordered Sig/Bryant Route PRN Reason Start Time Stop Time Status Last Admin Dose Admin Dopamine HCl/ Dextrose 250 ml @ 18.6 mls/hr CONT PRN IV SEE I/O RECORD 12/29/20 17:00 12/30/20 02:26 Acetaminophen (Tylenol) 650 mg PRN Q4HRS PRN PO TEMP OVER 100.4F OR MILD PAIN 12/29/20 20:30 12/30/20 02:28 Alprazolam (Xanax) 0.5 mg PRN BID PRN PO ANXIETY / AGITATION 12/29/20 20:30 12/29/20 21:35 Levothyroxine Sodium (Synthroid) 50 mcg DAILY06 PO 12/30/20 06:00 12/30/20 06:29 Mupirocin (Bactroban) 1 annie TID TP 12/29/20 21:00 12/29/20 21:33 Pantoprazole Sodium (Protonix) 40 mg DAILYAC PO 12/30/20 07:30 12/30/20 06:29 Justifications for Admission Other Justification JOSEPHINE LIGHT III DO Dec 30, 2020 09:13
--- NOTE | 2020-12-30 09:38 | PDOC2 ---
CARDIAC CONSULT DATE OF CONSULT Date of Consult DATE: 12/30/20 TIME: 09:20 REASON FOR CONSULT Reason for Consult: Bradycardia REFERRING PHYSICIAN Referring Physician: Destin SOURCE Source: Chart review, Patient HISTORY OF PRESENT ILLNESS HISTORY OF PRESENT ILLNESS This is a pleasant 75 yo female admitted for complains of shortness of breath. Initially she was at [facility]. She has been vaccinated for covid-19. Per spouse she her HR was noted to be low 30-40s. She also takes clonidine and high dose coreg. No complains of chest pain. Her HR was noted in the 20-30s at [facility] and transferred to [facility] for further care. Complains of COPPOLA and HR slow in the last 4 days. No nausea vomiting diarrhea. No flu like symptoms. No dizziness or passing out. PAST MEDICAL HISTORY Past Medical History Cardiovascular: CAD, HTN, Hyperlipidemia, Aortic stenosis, Other (PAD, venous insufficiency) Pulmonary: COPD CENTRAL NERVOUS SYSTEM: Other (No pertinent history) GI: GERD Heme/Onc: Anemia NOS Musculoskeletal: Osteoarthritis Endocrine: Diabetes, Hypothyroidism Dermatology: Other (venous stasis ulcers) PAST SURGICAL HISTORY Past Surgical History Appendectomy, Tonsillectomy, Other (PCI/stent) FAMILY HISTORY Family History: High Cholestrol SOCIAL HISTORY Smoke: Quit ALCOHOL: none Drugs: None Lives: Alone CURRENT MEDICATIONS CURRENT MEDICATIONS Current Medications Medications (Trade) Dose Ordered Sig/Bryant Route PRN Reason Start Time Stop Time Status Last Admin Dose Admin Dopamine HCl/ Dextrose 250 ml @ 18.6 mls/hr CONT PRN IV SEE I/O RECORD 12/29/20 17:00 12/30/20 02:26 Acetaminophen (Tylenol) 650 mg PRN Q4HRS PRN PO TEMP OVER 100.4F OR MILD PAIN 12/29/20 20:30 12/30/20 02:28 Alprazolam (Xanax) 0.5 mg PRN BID PRN PO ANXIETY / AGITATION 12/29/20 20:30 12/29/20 21:35 Levothyroxine Sodium (Synthroid) 50 mcg DAILY06 PO 12/30/20 06:00 12/30/20 06:29 Mupirocin (Bactroban) 1 annie TID TP 12/29/20 21:00 12/29/20 21:33 Pantoprazole Sodium (Protonix) 40 mg DAILYAC PO 12/30/20 07:30 12/30/20 06:29 ALLERGIES ALLERGIES: Coded Allergies: cefuroxime (Verified Allergy, Intermediate, 03/21/17) cephalexin (Verified Allergy, Intermediate, 03/21/17) ezetimibe (Verified Allergy, Intermediate, 03/21/17) ROS Review of System 14 point ROS evaluated with pertinent positives noted per HPI PHYSICAL EXAM General: Alert, Oriented X3, Cooperative, No acute distress HEENT: Atraumatic, Mucous membr. moist/pink Lungs: Other (diminished bases) Heart: Regular rate (SR/SB), Other (distant heart sounds) Abdomen: Soft, Other (obese) Extremities: No cyanosis, Other (2-3+ bilateral LE pitting edema) Skin: No breakdown Neuro: Normal speech, Sensation intact Psych/Mental Status: Mental status NL, Mood NL MUSCULOSKELETAL: Osteoarthritic changes both hands VITALS/I&O VITALS/I&O: Vital Signs Date Time Temp Pulse Resp B/P (MAP) Pulse Ox O2 Delivery O2 Flow Rate FiO2 12/30/20 07:00 97.7 59 18 173/97 (122) 93 Nasal Cannula 2.0 97.7 I & O 12/29/20 12/29/20 12/30/20 15:00 23:00 07:00 Intake Total 280 ml 50 ml Output Total 900 ml Balance 280 ml -850 ml LABS Lab: Laboratory Tests Test 12/29/20 16:44 12/29/20 20:32 12/30/20 07:55 Glucose (Fingerstick) 152 mg/dL (70-99) H 147 mg/dL (70-99) H 147 mg/dL (70-99) H ASSESSMENT/PLAN ASSESSMENT/PLAN 1. Symptomatic Sinus bradycardia with associated use of clonidine and high dose coreg 2. HTN urgency 3. Acute on chronic diastolic CHF 4. BANDAR on CKD with hyperkalemia: Cr was at 3.5 5. DM2: per PCP 6. HLP 7. Hypothyroidism: on replacement Recommendations 1. Not needing dopamine currently HR in the 40s-50s. Allow washout period of clonidine and coreg. Avoid AV jeff blocking agents 2. Restart home norvasc. Hydralazine 3. TSH, TTE 4. Kayexelate, lasix x1 5. Secondary prevention measures. DC home ACEi 6. Monitor rhythm overnight and will consider for PPM 7. Consult nephrology. She sees BRITANY Rockwell SPA MANAGER Dec 30, 2020 09:38
[2020-12-30] MEDS: FERROUS SULFATE 325 MG TABLET. PO SCH (09:50)
[2020-12-30] MEDS: GLIMEPIRIDE 2 MG TABLET. PO SCH (09:50)
[2020-12-30] MEDS: ASPIRIN CHEWABLE 81 MG TABLET. PO SCH (09:50)
[2020-12-30] MEDS: HYDROcodone/APAP 10/325 1 TAB TABLET PO PRN ×2 (09:57→19:36)
[2020-12-30] MEDS: MUPIROCIN 2 % NASAL OINTMENT 22GM TUBE. TP SCH ×3 (09:59→22:47)
[2020-12-30 10:35] LABS: HEMATOCRIT 31.1 % (36.0-47.0); HEMOGLOBIN 10.4 g/dL (12.0-15.5); RED BLOOD COUNT 3.52 x10^6/uL (3.50-5.40); RED CELL DISTRIBUTION WIDTH 15.6 % (11.5-14.5); WHITE BLOOD COUNT 7.1 x10^3/uL (4.0-11.0)
[2020-12-30 11:04] LABS: CALCIUM 10.2 mg/dL (8.5-10.1); CREATININE 3.1 mg/dL (0.6-1.0); GFR 14.6
[2020-12-30 11:07] LABS: POTASSIUM 5.5 mmol/L (3.5-5.1)
[2020-12-30] MEDS ORDERED: SODIUM POLYSTYRENE SULFON/SORB 15 GM/60 ML ORAL.SUSP. PO ONE (12:00)
[2020-12-30] MEDS ORDERED: FUROSEMIDE 40 MG/4 ML VIAL. IVP ONE (12:30)
--- NOTE | 2020-12-30 12:50 | NUR ---
SS following for discharge planning. SS reviewed pt chart and discussed with pt RN. Pt is from home with family and is currently requiring oxygen at two liters nasal canula. COVID19 negative. Cardiology and Nephrology consulted. ECHO ordered. Possible pacemaker tomorrow. PT/OT ordered. SS will continue to follow for discharge planning.
--- NOTE | 2020-12-30 16:41 | CARD ---
MR#: [id number] Date of Study: 12/30/2020 Ordering Physician: BRITANY LEIVA, Referring Physician: BRITANY LEIVA, Tech: Brandee Clayton [facility] APPROVED REPORT EXAM: Two-dimensional and M-mode echocardiogram with Doppler and color Doppler. Other Information Quality : FairHR: 40bpm Rhythm : NSR INDICATION Dyspnea RISK FACTORS Hypertension Hyperlipidemia 2D DIMENSIONS RVDd3.5 (2.9-3.5cm)Left Atrium(2D)4.9 (1.6-4.0cm) IVSd1.3 (0.7-1.1cm)Aortic Root(2D)2.9 (2.0-3.7cm) LVDd4.4 (3.9-5.9cm)LVOT Diameter2.5 (1.8-2.4cm) PWd1.3 (0.7-1.1cm)LVDs2.6 (2.5-4.0cm) FS (%) 40.9 %SV63.6 ml LVEF(%)71.9 (>50%) Aortic Valve AoV Peak Elan.201.9cm/sAoV VTI57.7cm AO Peak GR.16.3mmHgLVOT Peak Elan.134.0cm/s AO Mean GR.8mmHgAVA (VMAX)3.30cm2 AI P 1/2 [id number] Mitral Valve MV E Avxfuwyc954.8cm/sMV DECEL [id number] MV A Jklmxjqh111.7cm/sE/A Ratio1.1 Tricuspid Valve TR P. Qaxwacyq547kv/sTR Peak Gr.25mmHg LEFT VENTRICLE The left ventricle is normal size. There is mild concentric left ventricular hypertrophy. The left ve ntricular systolic function is normal. Estimated ejection 60-65%. There is normal LV segmental wall m otion. Transmitral Doppler flow pattern is Grade II-pseudonormal filling dynamics. RIGHT VENTRICLE The right ventricle is normal size. There is normal right ventricular wall thickness. The right ventr icular systolic function is normal. ATRIA The left atrium is borderline dilated. The right atrium size is normal. The interatrial septum is int act with no evidence for an atrial septal defect or patent foramen ovale as noted on 2-D or Doppler i maging. AORTIC VALVE The aortic valve is normal in structure and function. Doppler and Color Flow revealed mild aortic reg urgitation. There is no significant aortic valvular stenosis. MITRAL VALVE The mitral valve is normal in structure and function. There is no evidence of mitral valve prolapse. There is no mitral valve stenosis. Doppler and Color-flow revealed trace mitral regurgitation. TRICUSPID VALVE The tricuspid valve is normal in structure and function. Doppler and Color Flow revealed trace tricus pid regurgitation. Estimated PAP 40 mmHg. There is no tricuspid valve stenosis. GREAT VESSELS The aortic root is normal in size. The ascending aorta is normal in size. The IVC is dilated and reji apses <50% with inspiration. PERICARDIAL EFFUSION There is no evidence of significant pericardial effusion. Critical Notification Critical Value: No <Conclusion> The left ventricular systolic function is normal. Estimated ejection 60-65%. There is normal LV segmental wall motion. Transmitral Doppler flow pattern is Grade II-pseudonormal filling dynamics. Mild aortic regurgitation. Trace mitral regurgitation. Trace tricuspid regurgitation. Estimated PAP 40 mmHg. There is no evidence of significant pericardial effusion. Signed by : Errol Green, Electronically Approved : 12/30/2020 16:41:19
[2020-12-30] MEDS: ATORVASTATIN CALCIUM 40 MG TABLET. PO SCH (22:45)
[2020-12-31] MEDS: HYDROcodone/APAP 10/325 1 TAB TABLET PO PRN ×4 (01:51→22:40)
[2020-12-31] MEDS: DOCUSATE SODIUM 100 MG CAPSULE. PO PRN (01:54)
[2020-12-31] MEDS: LEVOTHYROXINE 50 MCG TABLET PO SCH (01:54)
[2020-12-31 02:02] VITALS: BP 170/74
[2020-12-31 08:16] LABS: ALBUMIN 3.5 g/dL (3.4-5.0); ALBUMIN/GLOBULIN RATIO 1.1 (1.0-1.7); CALCIUM 10.5 mg/dL (8.5-10.1); CREATININE 2.4 mg/dL (0.6-1.0); GFR 19.6; POTASSIUM 4.5 mmol/L (3.5-5.1); TOTAL BILIRUBIN 0.5 mg/dL (0.2-1.0); TOTAL PROTEIN 6.8 g/dL (6.4-8.2)
[2020-12-31 08:43] LABS: BASO # 0.1 x10^3/uL (0.0-0.2); BASO % 1 % (0-3); EOS # 0.2 x10^3/uL (0.0-0.7); EOS % 2 % (0-3); HEMATOCRIT 31.7 % (36.0-47.0); HEMOGLOBIN 10.7 g/dL (12.0-15.5); LYMPH # 1.3 x10^3/uL (1.0-4.8); LYMPH % 18 % (24-48); MEAN CORPUSCULAR HEMOGLOBIN 30 pg (25-35); MEAN CORPUSCULAR HGB CONC 34 g/dL (31-37); MEAN CORPUSCULAR VOLUME 89 fL (79-100); MONO # 0.8 x10^3/uL (0.0-1.1); MONO % 11 % (0-9); NEUT # 4.9 x10^3/uL (1.8-7.7); NEUT % 68 % (31-73); PLATELET COUNT 161 x10^3/uL (140-400); RED BLOOD COUNT 3.54 x10^6/uL (3.50-5.40); RED CELL DISTRIBUTION WIDTH 15.7 % (11.5-14.5); WHITE BLOOD COUNT 7.2 x10^3/uL (4.0-11.0)
[2020-12-31] MEDS: MUPIROCIN 2 % NASAL OINTMENT 22GM TUBE. TP SCH ×3 (09:00→22:41)
[2020-12-31] MEDS: FERROUS SULFATE 325 MG TABLET. PO SCH (09:26)
[2020-12-31] MEDS: ASPIRIN CHEWABLE 81 MG TABLET. PO SCH (09:26)
[2020-12-31] MEDS: GLIMEPIRIDE 2 MG TABLET. PO SCH (09:27)
[2020-12-31] MEDS: PANTOPRAZOLE 40 MG TABLET.DR. PO SCH (09:27)
--- NOTE | 2020-12-31 10:21 | PDOC2 ---
CONSULT Date of Consult Date of Consult DATE: 12/31/20 TIME: 10:14 Reason for Consult Reason for Consult: BANDAR Referring Physician Referring Physician: JOSEE Identification/Chief Complaint Chief Complaint SOB Source Source: Chart review, Patient History of Present Illness Reason for Visit: THIS IS A 75 YR OLD WITH SOB FOR ABOUT A MONTH. HAS LE EDEMA WELL. HAS BEEN TAKING HER DIURETICS BUT NOT HELPING. HAS CKD STAGE 4 WITH CR OF 2.0. CR OF 3.1 ON ADMIT. CKD DUE TO HTN AND DM II. ON ADMIT SHE IS ALSO NOTED TO HAVE BRADYCARDIA. BETA LEATHA AND CLONIDINE HAS BEEN STOPPED AND CARDIOLOGY EVALUATION ONGOING. SHE IS ALSO HYPOXIC AND NEEDING SUPPLEMENTAL OXYGEN. NO HX OF ANY KIDNEY OR BLADDER SURGERIES HEMATURIA DYSURIA OR FREQUENCY NOTED. NO OTHER HX Past Medical History Cardiovascular: CAD, HTN, Hyperlipidemia, Aortic stenosis, Other Pulmonary: COPD CENTRAL NERVOUS SYSTEM: Other GI: GERD Heme/Onc: Anemia NOS Musculoskeletal: Osteoarthritis Renal/: Chronic renal insuff Endocrine: Diabetes, Hypothyroidism Past Surgical History Past Surgical History: Appendectomy, Tonsillectomy, Other Family History Family History: High Cholestrol Social History Quit ALCOHOL: none Drugs: None Lives: Alone Current Medications Current Medications Current Medications Dopamine HCl/ Dextrose 250 ml @ 18.6 mls/hr CONT PRN IV SEE I/O RECORD Last administered on 12/30/20at 02:26; Start 12/29/20 at 17:00 Acetaminophen (Tylenol) 650 mg PRN Q4HRS PRN PO TEMP OVER 100.4F OR MILD PAIN Last administered on 12/30/20at 02:28; Start 12/29/20 at 20:30 Alprazolam (Xanax) 0.5 mg PRN BID PRN PO ANXIETY / AGITATION Last administered on 12/29/20at 21:35; Start 12/29/20 at 20:30 Aspirin (Aspirin Chewable) 81 mg DAILY PO Last administered on 12/31/20at 09:26; Start 12/30/20 at 09:00 Docusate Sodium (Colace) 100 mg PRN BID PRN PO HARD STOOLS Last administered on 12/31/20at 01:54; Start 12/29/20 at 20:30 Ferrous Sulfate (Feosol) 325 mg DAILY PO Last administered on 12/31/20at 09:26; Start 12/30/20 at 09:00 Guaifenesin (MUCINEX ER with DM) 1 tab PRN Q12HRS PRN PO COUGH; Start 12/29/20 at 20:30 Levothyroxine Sodium (Synthroid) 50 mcg DAILY06 PO Last administered on 12/31/20at 01:54; Start 12/30/20 at 06:00 Mupirocin (Bactroban) 1 precious TID TP Last administered on 12/31/20 09:00; Start 12/29/20 at 21:00 Pantoprazole Sodium (Protonix) 40 mg DAILYAC PO Last administered on 12/31/20 09:27; Start 12/30/20 at 07:30 Polyethylene Glycol (miraLAX PACKET) 17 gm PRN DAILY PRN PO CONSTIPATION; Start 12/29/20 at 20:30 Atorvastatin Calcium (Lipitor) 80 mg QHS PO Last administered on 12/30/20at 22:45; Start 12/30/20 at 21:00 Glimepiride (Amaryl) 1 mg DAILY08 PO Last administered on 12/31/20at 09:27; Start 12/30/20 at 08:00 Acetaminophen/ Hydrocodone Bitart (Lortab 10/325) 1 tab PRN Q6HRS PRN PO MODERATE TO SEVERE PAIN Last administered on 12/31/20 08:21; Start 12/30/20 at 08:00 Hydralazine HCl (Apresoline Inj) 10 mg PRN Q4HRS PRN IVP SBP>170 at DBP>110; Start 12/30/20 at 09:30 Hydralazine HCl (Apresoline) 50 mg TID PO Last administered on 12/31/20at 09:26; Start 12/30/20 at 10:00 Amlodipine Besylate (Norvasc) 10 mg DAILY PO Last administered on 12/31/20 09:25; Start 12/31/20 at 09:00 Amlodipine Besylate (Norvasc) 10 mg 1X ONCE PO Last administered on 12/30/20at 09:50; Start 12/30/20 at 10:00; Stop 12/30/20 at 10:01; Status DC Sodium Polystyrene Sulfonate (Kayexalate) 30 gm 1X ONCE PO Last administered on 12/30/20at 12:08; Start 12/30/20 at 12:00; Stop 12/30/20 at 12:01; Status DC Furosemide (Lasix) 40 mg 1X ONCE IVP Last administered on 12/30/20at 12:09; Start 12/30/20 at 12:30; Stop 12/30/20 at 12:31; Status DC Active Scripts Active Pantoprazole Sodium (Pantoprazole Sodium) 40 Mg Tablet.dr 40 Mg PO DAILYAC 30 Days Colace (Docusate Sodium) 100 Mg Capsule 100 Mg PO PRN BID PRN 14 Days Tylenol (Acetaminophen) 325 Mg Tablet 650 Mg PO PRN Q4HRS PRN 14 Days Reported Iron (Ferrous Sulfate) 325 Mg Tablet 1 Tab PO DAILYTUES/SAT 30 Days Torsemide 20 Mg Tablet 2 Tab PO DAILY AT 2000 Torsemide 20 Mg Tablet 3 Tab PO DAILY08 Hydrocodone-Apap 10-325 (Hydrocodone Bit/Acetaminophen) 1 Tab Tablet 1 Tab PO PRN Q6HRS PRN Hydralazine Hcl 50 Mg Tablet 1 Tab PO TID Clonidine Tts-1 (Clonidine) 1 Each Patch.tdwk 1 Patch TD WEEKLY Fish Oil 1,200 mg Softgel (River-3/Dha/Epa/Fish Oil) 1 Each Capsule.dr 1 Cap PO DAILY 30 Days Children's Aspirin (Aspirin) 81 Mg Tab.chew 81 Mg PO MONDAY AND MONDAY Spironolactone 25 Mg Tablet 25 Mg PO BID Ramipril 10 Mg Capsule 2 Cap PO DAILY08 30 Days Mupirocin Ointment (Mupirocin) 22 Gm Oint...g. 1 Precious TP TID Levothyroxine Sodium 50 Mcg Tablet 50 Mcg PO DAILY AT 0300 Hydralazine Hcl 25 Mg Tablet 1 Tab PO BID Glimepiride 1 Mg Tablet 1 Mg PO DAILY08 Daliresp (Roflumilast) 500 Mcg Tablet 500 Mcg PO DAILY08 Carvedilol 25 Mg Tablet 25 Mg PO BID Atorvastatin Calcium 80 Mg Tablet 80 Mg PO QHS Amlodipine Besylate 10 Mg Tablet 10 Mg PO DAILY08 Alprazolam 0.5 Mg Tablet 0.5 Mg PO PRN BID PRN Allopurinol 300 Mg Tablet 150 Mg PO EVERY OTHER DAY. Allopurinol 300 Mg Tablet 1 Tab PO DAILY Miralax (Polyethylene Glycol 3350) 17 Gm Powd.pack 1 Pkt PO PRN DAILY PRN Amaryl (Glimepiride) 4 Mg Tablet 2 Mg PO DAILY Mucinex Dm Er 600-30 Mg Tablet (Guaifenesin/Dextromethorphan) 1 Each Tab.er.12h 1 Tab PO PRN Q12HRS Alprazolam 0.5 Mg Tablet 0.5 Mg PO PRN Q12HR PRN Saline Nasal Formoso (Sodium Chloride) 30 Ml Formoso 1-2 Formoso NS PRN Q2HR PRN Loratadine 10 Mg Tablet 10 Mg PO DAILY Allopurinol 300 Mg Tablet 150 Mg PO DAILY Amlodipine Besylate 10 Mg Tablet 10 Mg PO DAILY Torsemide 20 Mg Tablet 3 Tab PO DAILY Daliresp (Roflumilast) 500 Mcg Tablet 1 Tab PO DAILY Ramipril 10 Mg Capsule 2 Cap PO DAILY Levothyroxine Sodium 50 Mcg Tablet 1 Tab PO DAILY Coreg (Carvedilol) 25 Mg Tablet 25 Mg PO BIDWMEALS Atorvastatin Calcium 80 Mg Tablet 1 Tab PO DAILY Allergies Allergies: Coded Allergies: cefuroxime (Verified Allergy, Intermediate, 03/21/17) cephalexin (Verified Allergy, Intermediate, 03/21/17) ezetimibe (Verified Allergy, Intermediate, 03/21/17) ROS General: YES: Fatigue, Malaise, Appetite PSYCHOLOGICAL ROS: YES: Anxiety, Depression Eyes: Yes Decreased vision HEENT: YES: Oswaldo ALLERGY AND IMMUNOLOGY: YES: Seasonal Allergies Respiratory: YES: Cough, Orthopnea, Shortness of breath, SOB with excertion Cardiovascular: yes Edema Gastrointestinal: Yes Nausea, Yes Constipation Musculoskeletal: Yes Joint Pain, Yes Joint Stiffness, Yes Muscular Weakness Neurological: Yes Weakness Skin: Yes Dry Skin, Yes Skin Lesion Changes Physical Exam General: Alert, Oriented X3, Cooperative, mild distress HEENT: Atraumatic, PERRLA, EOMI Lungs: Other (DECREASED AT BASES) Heart: Regular rate, Normal S1, Normal S2, Gallops Abdomen: Normal bowel sounds, Soft, No tenderness Extremities: No clubbing, No cyanosis, Other (3+ EDEMA) Skin: Other (PRETIBIAL ERYTHEMA) Neuro: Normal speech, Sensation intact Psych/Mental Status: Mental status NL, Mood NL MUSCULOSKELETAL: No joint tenderness, No deformity Vitals VITALS Vital Signs Date Time Temp Pulse Resp B/P (MAP) Pulse Ox O2 Delivery O2 Flow Rate FiO2 12/31/20 09:26 69 215/88 12/31/20 08:21 97 Nasal Cannula 2.0 12/31/20 07:00 98.9 16 98.9 Labs Labs Laboratory Tests Test 12/29/20 16:44 12/29/20 20:32 12/30/20 07:55 12/30/20 09:50 Glucose (Fingerstick) 152 mg/dL (70-99) 147 mg/dL (70-99) 147 mg/dL (70-99) White Blood Count 7.1 x10^3/uL (4.0-11.0) Red Blood Count 3.52 x10^6/uL (3.50-5.40) Hemoglobin 10.4 g/dL (12.0-15.5) Hematocrit 31.1 % (36.0-47.0) Mean Corpuscular Volume 89 fL (79-100) Mean Corpuscular Hemoglobin 30 pg (25-35) Mean Corpuscular Hemoglobin Concent 33 g/dL (31-37) Red Cell Distribution Width 15.6 % (11.5-14.5) Platelet Count 152 x10^3/uL (140-400) Sodium Level 139 mmol/L (136-145) Potassium Level 5.5 mmol/L (3.5-5.1) Chloride Level 103 mmol/L (98-107) Carbon Dioxide Level 24 mmol/L (21-32) Anion Gap 12 (6-14) Blood Urea Nitrogen 56 mg/dL (7-20) Creatinine 3.1 mg/dL (0.6-1.0) Estimated GFR (Cockcroft-Gault) 14.6 Glucose Level 130 mg/dL (70-99) Calcium Level 10.2 mg/dL (8.5-10.1) Magnesium Level 3.0 mg/dL (1.8-2.4) Thyroid Stimulating Hormone (TSH) 0.390 uIU/mL (0.358-3.74) Test 12/30/20 11:45 12/30/20 20:49 12/30/20 22:26 12/31/20 06:55 Glucose (Fingerstick) 120 mg/dL (70-99) 66 mg/dL (70-99) 84 mg/dL (70-99) White Blood Count 7.2 x10^3/uL (4.0-11.0) Red Blood Count 3.54 x10^6/uL (3.50-5.40) Hemoglobin 10.7 g/dL (12.0-15.5) Hematocrit 31.7 % (36.0-47.0) Mean Corpuscular Volume 89 fL (79-100) Mean Corpuscular Hemoglobin 30 pg (25-35) Mean Corpuscular Hemoglobin Concent 34 g/dL (31-37) Red Cell Distribution Width 15.7 % (11.5-14.5) Platelet Count 161 x10^3/uL (140-400) Neutrophils (%) (Auto) 68 % (31-73) Lymphocytes (%) (Auto) 18 % (24-48) Monocytes (%) (Auto) 11 % (0-9) Eosinophils (%) (Auto) 2 % (0-3) Basophils (%) (Auto) 1 % (0-3) Neutrophils # (Auto) 4.9 x10^3/uL (1.8-7.7) Lymphocytes # (Auto) 1.3 x10^3/uL (1.0-4.8) Monocytes # (Auto) 0.8 x10^3/uL (0.0-1.1) Eosinophils # (Auto) 0.2 x10^3/uL (0.0-0.7) Basophils # (Auto) 0.1 x10^3/uL (0.0-0.2) Sodium Level 142 mmol/L (136-145) Potassium Level 4.5 mmol/L (3.5-5.1) Chloride Level 106 mmol/L (98-107) Carbon Dioxide Level 26 mmol/L (21-32) Anion Gap 10 (6-14) Blood Urea Nitrogen 43 mg/dL (7-20) Creatinine 2.4 mg/dL (0.6-1.0) Estimated GFR (Cockcroft-Gault) 19.6 BUN/Creatinine Ratio 18 (6-20) Glucose Level 73 mg/dL (70-99) Calcium Level 10.5 mg/dL (8.5-10.1) Total Bilirubin 0.5 mg/dL (0.2-1.0) Aspartate Amino Transf (AST/SGOT) 15 U/L (15-37) Alanine Aminotransferase (ALT/SGPT) 16 U/L (14-59) Alkaline Phosphatase 104 U/L (46-116) Total Protein 6.8 g/dL (6.4-8.2) Albumin 3.5 g/dL (3.4-5.0) Albumin/Globulin Ratio 1.1 (1.0-1.7) Laboratory Tests Test 12/30/20 11:45 12/30/20 20:49 12/30/20 22:26 12/31/20 06:55 Glucose (Fingerstick) 120 mg/dL (70-99) 66 mg/dL (70-99) 84 mg/dL (70-99) White Blood Count 7.2 x10^3/uL (4.0-11.0) Red Blood Count 3.54 x10^6/uL (3.50-5.40) Hemoglobin 10.7 g/dL (12.0-15.5) Hematocrit 31.7 % (36.0-47.0) Mean Corpuscular Volume 89 fL (79-100) Mean Corpuscular Hemoglobin 30 pg (25-35) Mean Corpuscular Hemoglobin Concent 34 g/dL (31-37) Red Cell Distribution Width 15.7 % (11.5-14.5) Platelet Count 161 x10^3/uL (140-400) Neutrophils (%) (Auto) 68 % (31-73) Lymphocytes (%) (Auto) 18 % (24-48) Monocytes (%) (Auto) 11 % (0-9) Eosinophils (%) (Auto) 2 % (0-3) Basophils (%) (Auto) 1 % (0-3) Neutrophils # (Auto) 4.9 x10^3/uL (1.8-7.7) Lymphocytes # (Auto) 1.3 x10^3/uL (1.0-4.8) Monocytes # (Auto) 0.8 x10^3/uL (0.0-1.1) Eosinophils # (Auto) 0.2 x10^3/uL (0.0-0.7) Basophils # (Auto) 0.1 x10^3/uL (0.0-0.2) Sodium Level 142 mmol/L (136-145) Potassium Level 4.5 mmol/L (3.5-5.1) Chloride Level 106 mmol/L (98-107) Carbon Dioxide Level 26 mmol/L (21-32) Anion Gap 10 (6-14) Blood Urea Nitrogen 43 mg/dL (7-20) Creatinine 2.4 mg/dL (0.6-1.0) Estimated GFR (Cockcroft-Gault) 19.6 BUN/Creatinine Ratio 18 (6-20) Glucose Level 73 mg/dL (70-99) Calcium Level 10.5 mg/dL (8.5-10.1) Total Bilirubin 0.5 mg/dL (0.2-1.0) Aspartate Amino Transf (AST/SGOT) 15 U/L (15-37) Alanine Aminotransferase (ALT/SGPT) 16 U/L (14-59) Alkaline Phosphatase 104 U/L (46-116) Total Protein 6.8 g/dL (6.4-8.2) Albumin 3.5 g/dL (3.4-5.0) Albumin/Globulin Ratio 1.1 (1.0-1.7) Images Images OUTSIDE IMAGES REVIEWED Assessment/Plan Assessment/Plan IMP BANDAR-CR OF 3.0 CKD STAGE 4-CR OF 2.0 BRADYCARDIA HYPOXIA ANEMIA HTN-UNCONTROLLED DM II CHF-PROB ACUTE ON CHRONIC DIASTOLIC HYPOTHYROIDISM PLAN DIURESE HOLD ESPERANZA-I CHECK IRON FOLLOW PO4 IMPROVE BG CONTROL CARDIOLOGY EVALUATION ECHOCARDIOGRAM POSSIBLE PM D/W CARDIOLOGY WILL FOLLOW XENIA LAW MD Dec 31, 2020 10:21
[2020-12-31] MEDS ORDERED: cloNIDine HCL 0.1 MG TABLET PO ONE (10:30)
[2020-12-31] MEDS ORDERED: FUROSEMIDE 40 MG/4 ML VIAL. IVP ONE ×2 (10:30)
--- NOTE | 2020-12-31 10:53 | PDOC ---
BRITANY LEIVA BELT MOLDER 12/31/20 1053: CARDIO Progress Notes Date and Time Date of Service 12/31/2020 Time of Evaluation 1030 Subjective Subjective: No Chest Pain, No shortness of breath, No Palpitations Vitals Vitals Vital Signs Date Time Temp Pulse Resp B/P (MAP) Pulse Ox O2 Delivery O2 Flow Rate FiO2 12/31/20 10:18 97 Nasal Cannula 2.0 12/31/20 09:26 69 215/88 12/31/20 07:00 98.9 16 98.9 Weight Weight [ ] Input and Output Intake and Output Intake and Output 12/31/20 07:00 Intake Total 560 ml Output Total 2350 ml Balance -1790 ml Intake Oral 560 ml Output Urine Total 1750 ml Urine/Stool Mix 600 ml # Voids 2 # Bowel Movements 2 Laboratory Labs Laboratory Tests Test 12/30/20 11:45 12/30/20 20:49 12/30/20 22:26 12/31/20 06:55 Glucose (Fingerstick) 120 mg/dL (70-99) 66 mg/dL (70-99) 84 mg/dL (70-99) White Blood Count 7.2 x10^3/uL (4.0-11.0) Red Blood Count 3.54 x10^6/uL (3.50-5.40) Hemoglobin 10.7 g/dL (12.0-15.5) Hematocrit 31.7 % (36.0-47.0) Mean Corpuscular Volume 89 fL (79-100) Mean Corpuscular Hemoglobin 30 pg (25-35) Mean Corpuscular Hemoglobin Concent 34 g/dL (31-37) Red Cell Distribution Width 15.7 % (11.5-14.5) Platelet Count 161 x10^3/uL (140-400) Neutrophils (%) (Auto) 68 % (31-73) Lymphocytes (%) (Auto) 18 % (24-48) Monocytes (%) (Auto) 11 % (0-9) Eosinophils (%) (Auto) 2 % (0-3) Basophils (%) (Auto) 1 % (0-3) Neutrophils # (Auto) 4.9 x10^3/uL (1.8-7.7) Lymphocytes # (Auto) 1.3 x10^3/uL (1.0-4.8) Monocytes # (Auto) 0.8 x10^3/uL (0.0-1.1) Eosinophils # (Auto) 0.2 x10^3/uL (0.0-0.7) Basophils # (Auto) 0.1 x10^3/uL (0.0-0.2) Sodium Level 142 mmol/L (136-145) Potassium Level 4.5 mmol/L (3.5-5.1) Chloride Level 106 mmol/L (98-107) Carbon Dioxide Level 26 mmol/L (21-32) Anion Gap 10 (6-14) Blood Urea Nitrogen 43 mg/dL (7-20) Creatinine 2.4 mg/dL (0.6-1.0) Estimated GFR (Cockcroft-Gault) 19.6 BUN/Creatinine Ratio 18 (6-20) Glucose Level 73 mg/dL (70-99) Calcium Level 10.5 mg/dL (8.5-10.1) Total Bilirubin 0.5 mg/dL (0.2-1.0) Aspartate Amino Transf (AST/SGOT) 15 U/L (15-37) Alanine Aminotransferase (ALT/SGPT) 16 U/L (14-59) Alkaline Phosphatase 104 U/L (46-116) Total Protein 6.8 g/dL (6.4-8.2) Albumin 3.5 g/dL (3.4-5.0) Albumin/Globulin Ratio 1.1 (1.0-1.7) Physical Exam HEENT: Neck Supple W Full Motion Chest: Symmetric LUNGS: Other (diminished bases) Heart: RRR (SR) Abdomen: Soft N/T Extremities: Other (3+ bilateral LE pitting edema) Neurology: alert, oriented, follow commands Assessment Assessment 1. Symptomatic Sinus bradycardia with associated use of clonidine and high dose coreg. 2. HTN urgency: remains labile 3. Acute on chronic diastolic CHF: EFG amd WM nml 4. BANDAR on CKD with hyperkalemia: Cr improved to 2.4. K back to nml 5. DM2: per PCP 6. HLP 7. Hypothyroidism: on replacement Recommendations 1. No significant bradycardia since clonidine and high dose coreg discontinued. Baseline at 50-60s overnight. Notable for rebound HTN. Will restart clonidine and monitor rhythm overnight. At this time no indication for PPM. Will arrange for ILR next week 2. Continue current BP regimen and will add nitrates. 3. Lasix therapy. Adjustment defer to nephrology 4. Secondary prevention measures. DC home ACEi 5. Will obtain renal duplex tomorrow Justicifation of Admission Dx: Justifications for Admission: Justification of Admission Dx: N/A SINDHU ENCARNACION MD 12/31/20 1841: CARDIO Progress Notes Plan Plan Patient seen and examined. Agree with above nurse practitioner note. At this present time patient's blood pressure is much better controlled after reinitiation of clonidine therapy. Supportive care for now. Plan for outpatient implantable loop recorder and renal duplex study. BRITANY LEIVA APRN Dec 31, 2020 10:53 SINDHU ENCARNACION MD Dec 31, 2020 18:41
[2020-12-31 11:00] VITALS: BP 198/86
--- NOTE | 2020-12-31 11:04 | PDOC ---
[facility] PROGRESS NOTE Date of Service DOS: DATE: 12/31/20 TIME: 11:00 Chief Complaint Chief Complaint Bradycardia Hypertension Anemia, Iron deficiency Hyperlipidemia CHF, GERD Diabetes Hypothyroidism History of Present Illness History of Present Illness The patient is a pleasant elderly female who presented as a transfer from another facility with bradycardia. She came over on a dopamine drip. She is on quite a few medications including several that could cause bradycardia such as beta blockade with carvedilol and clonidine. She is also on quite a few blood pressure meds. 12/30/2020 Patient seen and examined in bed D/W RN, Chart Review Discussed that we will continue to monitor as we try to reduce the number of medications she is on Discussed that we will try and titrate off of the dopamine drip. 12/31/2020 Patient was awake, alert and NAD. Patient seen and examined in bedside chair in room for discuss and exam. D/W RN, Chart Review Discussed that we will continue to monitor blood pressure. Now that the dopamine drip has been discontinued, we will restart BP medication to gain adequate control. Vitals/I&O Vitals/I&O: Vital Signs Date Time Temp Pulse Resp B/P (MAP) Pulse Ox O2 Delivery O2 Flow Rate FiO2 12/31/20 10:18 97 Nasal Cannula 2.0 12/31/20 09:26 69 215/88 12/31/20 07:00 98.9 16 98.9 I & O 12/30/20 12/30/20 12/31/20 15:00 23:00 07:00 Intake Total 280 ml 180 ml 100 ml Output Total 600 ml 450 ml 1300 ml Balance -320 ml -270 ml -1200 ml Physical Exam General: Alert, Oriented X3, Cooperative, mild distress Heart: Regular rate, Normal S1, Normal S2, Gallops Lungs: Clear Abdomen: Normal bowel sounds, Soft, No tenderness Extremities: No clubbing, No cyanosis, Other (3+ EDEMA) Skin: Other (PRETIBIAL ERYTHEMA) Labs Labs: Laboratory Tests Test 12/30/20 11:45 12/30/20 20:49 12/30/20 22:26 12/31/20 06:55 Glucose (Fingerstick) 120 mg/dL (70-99) 66 mg/dL (70-99) 84 mg/dL (70-99) White Blood Count 7.2 x10^3/uL (4.0-11.0) Red Blood Count 3.54 x10^6/uL (3.50-5.40) Hemoglobin 10.7 g/dL (12.0-15.5) Hematocrit 31.7 % (36.0-47.0) Mean Corpuscular Volume 89 fL (79-100) Mean Corpuscular Hemoglobin 30 pg (25-35) Mean Corpuscular Hemoglobin Concent 34 g/dL (31-37) Red Cell Distribution Width 15.7 % (11.5-14.5) Platelet Count 161 x10^3/uL (140-400) Neutrophils (%) (Auto) 68 % (31-73) Lymphocytes (%) (Auto) 18 % (24-48) Monocytes (%) (Auto) 11 % (0-9) Eosinophils (%) (Auto) 2 % (0-3) Basophils (%) (Auto) 1 % (0-3) Neutrophils # (Auto) 4.9 x10^3/uL (1.8-7.7) Lymphocytes # (Auto) 1.3 x10^3/uL (1.0-4.8) Monocytes # (Auto) 0.8 x10^3/uL (0.0-1.1) Eosinophils # (Auto) 0.2 x10^3/uL (0.0-0.7) Basophils # (Auto) 0.1 x10^3/uL (0.0-0.2) Sodium Level 142 mmol/L (136-145) Potassium Level 4.5 mmol/L (3.5-5.1) Chloride Level 106 mmol/L (98-107) Carbon Dioxide Level 26 mmol/L (21-32) Anion Gap 10 (6-14) Blood Urea Nitrogen 43 mg/dL (7-20) Creatinine 2.4 mg/dL (0.6-1.0) Estimated GFR (Cockcroft-Gault) 19.6 BUN/Creatinine Ratio 18 (6-20) Glucose Level 73 mg/dL (70-99) Calcium Level 10.5 mg/dL (8.5-10.1) Total Bilirubin 0.5 mg/dL (0.2-1.0) Aspartate Amino Transf (AST/SGOT) 15 U/L (15-37) Alanine Aminotransferase (ALT/SGPT) 16 U/L (14-59) Alkaline Phosphatase 104 U/L (46-116) Total Protein 6.8 g/dL (6.4-8.2) Albumin 3.5 g/dL (3.4-5.0) Albumin/Globulin Ratio 1.1 (1.0-1.7) Review of Systems Review of Systems: Denies RUIZ or dizziness Denies numbness or tingling in extremities Ermias fever and chills Denies SOB Denies chest pain or palpitations Assessment and Plan Assessmemt and Plan Bradycardia Hypertension Anemia, Iron deficiency Hyperlipidemia CHF, GERD Diabetes Hypothyroidism Plan Dopamine drip discontinued Restart BP medication -Norvasc 5mg -Hydralazine 50 mg Cardiac Monitoring DVT prophylaxis Appreciate Cardiac input PT/OT Trend labs Full Code Discharge once BP has lower and stabilized Comment Review of Relevant I have reviewed the following items bear (where applicable) has been applied. Medications: Current Medications Medications (Trade) Dose Ordered Sig/Bryant Route PRN Reason Start Time Stop Time Status Last Admin Dose Admin Atorvastatin Calcium (Lipitor) 80 mg QHS PO 12/30/20 21:00 12/30/20 22:45 Amlodipine Besylate (Norvasc) 10 mg DAILY PO 12/31/20 09:00 12/31/20 09:25 Sodium Polystyrene Sulfonate (Kayexalate) 30 gm 1X ONCE PO 12/30/20 12:00 12/30/20 12:01 DC 12/30/20 12:08 Furosemide (Lasix) 40 mg 1X ONCE IVP 12/30/20 12:30 12/30/20 12:31 DC 12/30/20 12:09 Justifications for Admission Other Justification JOSEPHINE LIGHT III DO Dec 31, 2020 11:04
[2020-12-31] MEDS: ISOSORBIDE MONONITRATE ER 30 MG TAB.ER.24H PO SCH (12:47)
--- NOTE | 2020-12-31 14:08 | NUR ---
SS following up with discharge planning. SS reviewed pt chart and discussed with pt RN. Pt is currently requiring oxygen at two liters nasal canula. COVID19 negative. Cardiology following. Pt on IV Lasix. PT/OT ordered. SS will continue to follow for discharge planning.
[2020-12-31 15:00] VITALS: BP 163/70
[2020-12-31] MEDS: FUROSEMIDE 40 MG/4 ML VIAL. IVP SCH (15:10)
[2020-12-31] MEDS ORDERED: cloNIDine TTS-3 1 PATCH PATCH.TDWK TD SCH (16:00)
[2020-12-31 19:42] VITALS: BP 144/75
[2020-12-31 22:38] VITALS: BP 199/83
[2020-12-31] MEDS: ATORVASTATIN CALCIUM 40 MG TABLET. PO SCH (22:40)
[2021-01-01] MEDS: hydrALAZINE 20 MG/ML VIAL. IVP PRN (02:31)
[2021-01-01 02:41] VITALS: BP 193/84
[2021-01-01 07:00] VITALS: BP 216/84
--- NOTE | 2021-01-01 07:54 | RAD ---
MR#: [id number] Date of Study: 01/01/2021 Ordering Physician: BRITANY LEIVA, Referring Physician: BRITANY LEIVA, Tech: APPROVED REPORT Patient Location: IN-PATIENT Indications Uncontrolled HTN Renal Artery Doppler Right Renal Artery Left Renal Arter y Proximal 51.0/20.0 cm/secProximal 225.0/31.0 cm/sec Mid 67.0/17.0 cm/secMid 98.0/9.0 cm/sec Distal 38.0/11.0 cm/secDistal 129.0/17.0 cm/sec Renal/Aorta Ratio 0.00Renal/Aorta Ratio 0.00 Prox. Resistive Index 0.60Prox. Resistive Index 0.86 Mid Resistive Index 0.74Mid Resistive Index 0.91 Distal Resistive Index 0.71Distal Resistive Index 0.87 Rt. Segmental A. 51.0/9.0 cm/secLt. Segmental A. 21.0/4.0 cm/sec Renal Measurements RightLeft Kidney Length9.3 cm cmKidney Myzybr06.3 cm cm Right Additional FindingsLeft Additional Findings Findings Grayscale images of the abdominal aorta were not able to be obtained due to patient's body habitus. Spectral waveforms and color Doppler of the right proximal, mid and distal renal arteries are grossly unremarkable. Elevated velocities are noted at the level of the left proximal renal artery suggesti ve of moderate 50% stenosis. Due to lack of aortic velocities the degree of stenosis is unclear. Critical Notification Critical Value: No <Conclusion> 1. Probable moderate left renal artery stenosis. 2. Technically difficult study. Signed by : Deniz Delcid, Electronically Approved : 01/01/2021 07:54:11
[2021-01-01 08:59] LABS: BASO # 0.1 x10^3/uL (0.0-0.2); BASO % 1 % (0-3); EOS # 0.3 x10^3/uL (0.0-0.7); EOS % 4 % (0-3); HEMATOCRIT 30.2 % (36.0-47.0); HEMOGLOBIN 10.2 g/dL (12.0-15.5); LYMPH # 1.1 x10^3/uL (1.0-4.8); LYMPH % 15 % (24-48); MEAN CORPUSCULAR HEMOGLOBIN 30 pg (25-35); MEAN CORPUSCULAR HGB CONC 34 g/dL (31-37); MEAN CORPUSCULAR VOLUME 89 fL (79-100); MONO # 0.7 x10^3/uL (0.0-1.1); MONO % 10 % (0-9); NEUT # 5.1 x10^3/uL (1.8-7.7); NEUT % 70 % (31-73); PLATELET COUNT 164 x10^3/uL (140-400); RED BLOOD COUNT 3.39 x10^6/uL (3.50-5.40); RED CELL DISTRIBUTION WIDTH 15.8 % (11.5-14.5); WHITE BLOOD COUNT 7.3 x10^3/uL (4.0-11.0)
[2021-01-01 09:24] LABS: ALBUMIN 3.5 g/dL (3.4-5.0); ALBUMIN/GLOBULIN RATIO 1.1 (1.0-1.7); CALCIUM 10.9 mg/dL (8.5-10.1); CREATININE 2.3 mg/dL (0.6-1.0); GFR 20.6; POTASSIUM 4.4 mmol/L (3.5-5.1); TOTAL BILIRUBIN 0.5 mg/dL (0.2-1.0); TOTAL PROTEIN 6.6 g/dL (6.4-8.2)
[2021-01-01] MEDS: PANTOPRAZOLE 40 MG TABLET.DR. PO SCH (09:45)
[2021-01-01] MEDS: FERROUS SULFATE 325 MG TABLET. PO SCH (09:45)
[2021-01-01] MEDS: LEVOTHYROXINE 50 MCG TABLET PO SCH (09:45)
[2021-01-01] MEDS: HYDROcodone/APAP 10/325 1 TAB TABLET PO PRN ×3 (09:45→23:11)
[2021-01-01] MEDS: DOXAZOSIN MESYLATE 4 MG TABLET. PO SCH (09:45)
[2021-01-01] MEDS: GLIMEPIRIDE 2 MG TABLET. PO SCH (09:46)
[2021-01-01] MEDS: ASPIRIN CHEWABLE 81 MG TABLET. PO SCH (09:46)
[2021-01-01] MEDS: ISOSORBIDE MONONITRATE ER 30 MG TAB.ER.24H PO SCH (09:46)
[2021-01-01] MEDS: MUPIROCIN 2 % NASAL OINTMENT 22GM TUBE. TP SCH ×3 (09:47→21:50)
[2021-01-01] MEDS: FUROSEMIDE 40 MG/4 ML VIAL. IVP SCH ×2 (09:47→15:35)
[2021-01-01 10:08] LABS: MAGNESIUM 2.5 mg/dL (1.8-2.4); PHOSPHORUS 3.2 mg/dL (2.6-4.7)
[2021-01-01 11:00] VITALS: BP 152/67
--- NOTE | 2021-01-01 11:06 | PDOC ---
Renal-Progress Notes Subjective Notes Notes SITTING UP, NO NEW COMPLAINTS History of Present Illness Hx of present illness FEELING BETTER Vitals Vitals Vital Signs Date Time Temp Pulse Resp B/P (MAP) Pulse Ox O2 Delivery O2 Flow Rate FiO2 01/01/21 09:47 66 216/84 01/01/21 09:45 94 Nasal Cannula 2.0 01/01/21 07:00 98.8 20 98.8 Weight Weight [ ] I.O. Intake and Output Intake and Output 01/01/21 07:00 Intake Total 880 ml Output Total 2600 ml Balance -1720 ml Intake Oral 880 ml Output Urine Total 2600 ml Labs Labs Laboratory Tests Test 01/01/21 08:40 White Blood Count 7.3 x10^3/uL (4.0-11.0) Red Blood Count 3.39 x10^6/uL (3.50-5.40) Hemoglobin 10.2 g/dL (12.0-15.5) Hematocrit 30.2 % (36.0-47.0) Mean Corpuscular Volume 89 fL (79-100) Mean Corpuscular Hemoglobin 30 pg (25-35) Mean Corpuscular Hemoglobin Concent 34 g/dL (31-37) Red Cell Distribution Width 15.8 % (11.5-14.5) Platelet Count 164 x10^3/uL (140-400) Neutrophils (%) (Auto) 70 % (31-73) Lymphocytes (%) (Auto) 15 % (24-48) Monocytes (%) (Auto) 10 % (0-9) Eosinophils (%) (Auto) 4 % (0-3) Basophils (%) (Auto) 1 % (0-3) Neutrophils # (Auto) 5.1 x10^3/uL (1.8-7.7) Lymphocytes # (Auto) 1.1 x10^3/uL (1.0-4.8) Monocytes # (Auto) 0.7 x10^3/uL (0.0-1.1) Eosinophils # (Auto) 0.3 x10^3/uL (0.0-0.7) Basophils # (Auto) 0.1 x10^3/uL (0.0-0.2) Sodium Level 141 mmol/L (136-145) Potassium Level 4.4 mmol/L (3.5-5.1) Chloride Level 106 mmol/L (98-107) Carbon Dioxide Level 26 mmol/L (21-32) Anion Gap 9 (6-14) Blood Urea Nitrogen 37 mg/dL (7-20) Creatinine 2.3 mg/dL (0.6-1.0) Estimated GFR (Cockcroft-Gault) 20.6 BUN/Creatinine Ratio 16 (6-20) Glucose Level 110 mg/dL (70-99) Calcium Level 10.9 mg/dL (8.5-10.1) Phosphorus Level 3.2 mg/dL (2.6-4.7) Magnesium Level 2.5 mg/dL (1.8-2.4) Iron Level 37 ug/dL (50-170) Total Iron Binding Capacity 273 ug/dL (250-450) Iron Saturation 14 % (15-34) Total Bilirubin 0.5 mg/dL (0.2-1.0) Aspartate Amino Transf (AST/SGOT) 19 U/L (15-37) Alanine Aminotransferase (ALT/SGPT) 14 U/L (14-59) Alkaline Phosphatase 98 U/L (46-116) Total Protein 6.6 g/dL (6.4-8.2) Albumin 3.5 g/dL (3.4-5.0) Albumin/Globulin Ratio 1.1 (1.0-1.7) Review of Systems Constitutional: yes: weakness, alert, oriented Ears/Nose/Throat: Yes: no symptom reported Eyes: Yes: no symptom reported Pulmonary: Yes dyspnea Cardiovascular: Yes edema Gastrointestional: Yes: nausea Genitourinary: Yes: no symptom reported Skin: Yes no symptom reported Psychiatric/Neurological: Yes: no symptom reported Endocrine: Yes: no symptom reported Physical Exam General Appearance: no apparent distress Skin: warm Respiratory: decreased breath sounds Heart: S1S2 Abdomen: soft, bowel sounds present Genitourinary: bladder flat Extremities: edema Neurology: alert, oriented, follow commands Musculoskeletal: Osteoarthritis Assessment Assessment IMP BANDAR-CR OF 3.0-IMPROVED TO CR OF 2.4 ?VENKATA-REPORTED VELOCITY OF 225CM/SEC-?50% LESION CKD STAGE 4-CR OF 2.0 BRADYCARDIA HYPOXIA ANEMIA WITH IRON DEFICIENCY HTN-UNCONTROLLED DM II CHF-PROB ACUTE ON CHRONIC DIASTOLIC HYPOTHYROIDISM HYPERCALCEMIA PLAN DIURESE HOLD ESPERANZA-I IRON SUPPLEMENTS CHECK SPEP, PTH FLUID RESTRICT IMPROVE BG CONTROL CARDIOLOGY EVALUATION D/W CARDIOLOGY AGREE WITH JODI FOR NOW WOULD NOT INTERVENE FOR ?VENKATA DUE RISK OF CONTRAST EXPOSURE-ALSO UNLIKELY TO BENEFIT UPDATED PT AND WILL FOLLOW XENIA LAW MD Jan 01, 2021 11:06
[2021-01-01] MEDS ORDERED: FUROSEMIDE 40 MG/4 ML VIAL. IVP ONE (11:15)
--- NOTE | 2021-01-01 11:32 | PDOC ---
[facility] [facility] PROGRESS NOTE Date of Service DOS: DATE: 01/01/21 TIME: 11:22 Chief Complaint Chief Complaint Bradycardia Hypertension Anemia, Iron deficiency Hyperlipidemia CHF, GERD Diabetes Hypothyroidism History of Present Illness History of Present Illness The patient is a pleasant elderly female who presented as a transfer from another facility with bradycardia. She came over on a dopamine drip. She is on quite a few medications including several that could cause bradycardia such as beta blockade with carvedilol and clonidine. She is also on quite a few blood pressure meds. 12/30/2020 Patient seen and examined in bed D/W RN, Chart Review Discussed that we will continue to monitor as we try to reduce the number of medications she is on Discussed that we will try and titrate off of the dopamine drip. 12/31/2020 Patient was awake, alert and NAD. Patient seen and examined in bedside chair in room for discuss and exam. D/W RN, Chart Review Discussed that we will continue to monitor blood pressure. Now that the dopamine drip has been discontinued, we will restart BP medication to gain adequate control. 01/01/2021 Patient was awake, alert. Seen and examined in bedside chair D/W RN, Chart Review Discussed that we will continue to monitor blood pressure. Updated patient and on plan to wait for results of duplex scan and nephrology input. Vitals/I&O Vitals/I&O: Vital Signs Date Time Temp Pulse Resp B/P (MAP) Pulse Ox O2 Delivery O2 Flow Rate FiO2 01/01/21 09:47 66 216/84 01/01/21 09:45 94 Nasal Cannula 2.0 01/01/21 07:00 98.8 20 98.8 I & O 0 12/31/20 12/31/20 01/01/21 15:00 23:00 07:00 Intake Total 450 ml 380 ml 50 ml Output Total 800 ml 1400 ml 400 ml Balance -350 ml -1020 ml -350 ml Physical Exam General: Alert, Oriented X3, Cooperative, mild distress Heart: Regular rate, Normal S1, Normal S2, Gallops Lungs: Clear Abdomen: Normal bowel sounds, Soft, No tenderness Extremities: No clubbing, No cyanosis, Other (3+ EDEMA) Skin: Other (PRETIBIAL ERYTHEMA) Labs Labs: Laboratory Tests Test 01/01/21 08:40 White Blood Count 7.3 x10^3/uL (4.0-11.0) Red Blood Count 3.39 x10^6/uL (3.50-5.40) Hemoglobin 10.2 g/dL (12.0-15.5) Hematocrit 30.2 % (36.0-47.0) Mean Corpuscular Volume 89 fL (79-100) Mean Corpuscular Hemoglobin 30 pg (25-35) Mean Corpuscular Hemoglobin Concent 34 g/dL (31-37) Red Cell Distribution Width 15.8 % (11.5-14.5) Platelet Count 164 x10^3/uL (140-400) Neutrophils (%) (Auto) 70 % (31-73) Lymphocytes (%) (Auto) 15 % (24-48) Monocytes (%) (Auto) 10 % (0-9) Eosinophils (%) (Auto) 4 % (0-3) Basophils (%) (Auto) 1 % (0-3) Neutrophils # (Auto) 5.1 x10^3/uL (1.8-7.7) Lymphocytes # (Auto) 1.1 x10^3/uL (1.0-4.8) Monocytes # (Auto) 0.7 x10^3/uL (0.0-1.1) Eosinophils # (Auto) 0.3 x10^3/uL (0.0-0.7) Basophils # (Auto) 0.1 x10^3/uL (0.0-0.2) Sodium Level 141 mmol/L (136-145) Potassium Level 4.4 mmol/L (3.5-5.1) Chloride Level 106 mmol/L (98-107) Carbon Dioxide Level 26 mmol/L (21-32) Anion Gap 9 (6-14) Blood Urea Nitrogen 37 mg/dL (7-20) Creatinine 2.3 mg/dL (0.6-1.0) Estimated GFR (Cockcroft-Gault) 20.6 BUN/Creatinine Ratio 16 (6-20) Glucose Level 110 mg/dL (70-99) Calcium Level 10.9 mg/dL (8.5-10.1) Phosphorus Level 3.2 mg/dL (2.6-4.7) Magnesium Level 2.5 mg/dL (1.8-2.4) Iron Level 37 ug/dL (50-170) Total Iron Binding Capacity 273 ug/dL (250-450) Iron Saturation 14 % (15-34) Total Bilirubin 0.5 mg/dL (0.2-1.0) Aspartate Amino Transf (AST/SGOT) 19 U/L (15-37) Alanine Aminotransferase (ALT/SGPT) 14 U/L (14-59) Alkaline Phosphatase 98 U/L (46-116) Total Protein 6.6 g/dL (6.4-8.2) Albumin 3.5 g/dL (3.4-5.0) Albumin/Globulin Ratio 1.1 (1.0-1.7) Review of Systems Review of Systems: Denies fevers or chills Bowel and bladder continent Denies vision changes, RUIZ or dizziness Assessment and Plan Assessmemt and Plan Bradycardia Hypertension Anemia, Iron deficiency Hyperlipidemia CHF, GERD Diabetes Hypothyroidism Plan Awaiting results of renal duplex scan per cardiology Continue BP medication Cardiac Monitoring DVT prophylaxis Appreciate Cardiology and Nephrology input Continue to diurese per nephrology PT/OT Trend labs Full Code Discharge once BP has lowered and cleared by cardiology and nephrology Comment Review of Relevant I have reviewed the following items bear (where applicable) has been applied. Medications: Current Medications Medications (Trade) Dose Ordered Sig/Bryant Route PRN Reason Start Time Stop Time Status Last Admin Dose Admin Furosemide (Lasix) 40 mg [id number] IVP 12/31/20 14:00 01/01/21 09:47 Clonidine HCl (Catapres Tts-3) 1 patch WEEKLY TD 12/31/20 16:00 12/31/20 17:09 Doxazosin Mesylate (Cardura) 4 mg DAILY PO 01/01/21 10:00 01/01/21 09:45 Justifications for Admission Other Justification JOSEPHINE LIGHT III DO Jan 01, 2021 11:32
--- NOTE | 2021-01-01 13:53 | PDOC ---
CARDIO Progress Notes Date and Time Date of Service 01/01/2021 Time of Evaluation 1310 Subjective Subjective: No Chest Pain, No shortness of breath, No Palpitations Vitals Vitals Vital Signs Date Time Temp Pulse Resp B/P (MAP) Pulse Ox O2 Delivery O2 Flow Rate FiO2 01/01/21 11:00 98.9 65 16 152/67 (95) 98 Nasal Cannula 2.0 98.9 Weight Weight [ ] Input and Output Intake and Output Intake and Output 01/01/21 07:00 Intake Total 880 ml Output Total 2600 ml Balance -1720 ml Intake Oral 880 ml Output Urine Total 2600 ml Laboratory Labs Laboratory Tests Test 01/01/21 08:40 01/01/21 11:47 White Blood Count 7.3 x10^3/uL (4.0-11.0) Red Blood Count 3.39 x10^6/uL (3.50-5.40) Hemoglobin 10.2 g/dL (12.0-15.5) Hematocrit 30.2 % (36.0-47.0) Mean Corpuscular Volume 89 fL (79-100) Mean Corpuscular Hemoglobin 30 pg (25-35) Mean Corpuscular Hemoglobin Concent 34 g/dL (31-37) Red Cell Distribution Width 15.8 % (11.5-14.5) Platelet Count 164 x10^3/uL (140-400) Neutrophils (%) (Auto) 70 % (31-73) Lymphocytes (%) (Auto) 15 % (24-48) Monocytes (%) (Auto) 10 % (0-9) Eosinophils (%) (Auto) 4 % (0-3) Basophils (%) (Auto) 1 % (0-3) Neutrophils # (Auto) 5.1 x10^3/uL (1.8-7.7) Lymphocytes # (Auto) 1.1 x10^3/uL (1.0-4.8) Monocytes # (Auto) 0.7 x10^3/uL (0.0-1.1) Eosinophils # (Auto) 0.3 x10^3/uL (0.0-0.7) Basophils # (Auto) 0.1 x10^3/uL (0.0-0.2) Sodium Level 141 mmol/L (136-145) Potassium Level 4.4 mmol/L (3.5-5.1) Chloride Level 106 mmol/L (98-107) Carbon Dioxide Level 26 mmol/L (21-32) Anion Gap 9 (6-14) Blood Urea Nitrogen 37 mg/dL (7-20) Creatinine 2.3 mg/dL (0.6-1.0) Estimated GFR (Cockcroft-Gault) 20.6 BUN/Creatinine Ratio 16 (6-20) Glucose Level 110 mg/dL (70-99) Calcium Level 10.9 mg/dL (8.5-10.1) Phosphorus Level 3.2 mg/dL (2.6-4.7) Magnesium Level 2.5 mg/dL (1.8-2.4) Iron Level 37 ug/dL (50-170) Total Iron Binding Capacity 273 ug/dL (250-450) Iron Saturation 14 % (15-34) Total Bilirubin 0.5 mg/dL (0.2-1.0) Aspartate Amino Transf (AST/SGOT) 19 U/L (15-37) Alanine Aminotransferase (ALT/SGPT) 14 U/L (14-59) Alkaline Phosphatase 98 U/L (46-116) Total Protein 6.6 g/dL (6.4-8.2) Albumin 3.5 g/dL (3.4-5.0) Albumin/Globulin Ratio 1.1 (1.0-1.7) Glucose (Fingerstick) 107 mg/dL (70-99) Review of Systems Constitutional: yes: weakness, alert, oriented Ears/Nose/Throat: Yes: no symptom reported Eyes: Yes: no symptom reported Pulmonary: Yes dyspnea Cardiovascular: Yes edema Gastrointestional: Yes: nausea Genitourinary: Yes: no symptom reported Skin: Yes no symptom reported Psychiatric/Neurological: Yes: no symptom reported Endocrine: Yes: no symptom reported Physical Exam HEENT: Neck Supple W Full Motion Chest: Symmetric LUNGS: Other (diminished bases) Heart: RRR (SR) Abdomen: Soft N/T Extremities: Other (3+ bilateral LE pitting edema) Neurology: alert, oriented, follow commands Assessment Assessment 1. Symptomatic Sinus bradycardia with associated use of clonidine and high dose coreg. 2. HTN urgency: better with addition of cardura. No significnat VENKATA per renal duplex 3. Acute on chronic diastolic CHF: EFG amd WM nml 4. BANDAR on CKD with hyperkalemia: Cr improved to 2.4. K back to nml 5. DM2: per PCP 6. HLP 7. Hypothyroidism: on replacement Recommendations 1. No further coreg. Baseline at 50-60s overnight. At this time no indication for PPM. ILR next week check in at 1045 AM 2. Continue Catapres TTS 3, Imdur 60 mg daily. Hydralazine PO 100 mg bid. Cardura 4 mg daily. Norvasc 10 mg daily. 3. Lasix therapy. Adjustment defer to nephrology 4. Secondary prevention measures. DC home ACEi Justicifation of Admission Dx: Justifications for Admission: Justification of Admission Dx: N/A BRITANY LEIVA HORTICULTURAL NURSERY ASSISTANT Jan 01, 2021 13:53
[2021-01-01 15:00] VITALS: BP 160/64
[2021-01-01] MEDS ORDERED: ISOS30TA68 PO (16:58)
[2021-01-01] MEDS ORDERED: DOXA4TAB2 PO (16:58)
[2021-01-01] MEDS ORDERED: FURO-69 PO (16:58)
--- NOTE | 2021-01-01 17:03 | SNU/HH DC ---
DISCHARGE WITH HOME HEALTH DISCHARGE INFORMATION: Condition on Discharge: Stable CODE STATUS: Code Status: Full HOME HEALTH: Face to Face: I certify this patient is under my care and that I, or a nurse practitioner or physician's education assistant working with me, had a face to face encounter that meets the physician face to face encounter requirements with this patient on []. Medical Complications: Other (htn, bradycardia) Detention For: Assess & Educate Safety RN For Eval/Treatment: Yes Physical Therapy For: Evalulation/Treatment Occupational Therapy For: Evaluation/Treatment Home Health Aide For: Self-care CONSERVATION SPECIALIST For: Community Resources Pt Meets Homebound Status: Poor coordination w/ amb. POST DISCHARGE ORDERS: Activity Instructions for Disc: Activity as tolerated Weight Bearing Status after Di: As tolerated DIET AFTER DISCHARGE: Cardiac CHECKS AFTER DISCHARGE: Checks after discharge: Check blood press - daily CERTIFICATION STATEMENT: Certification Statement: Certification Statement: Based on the above finding, I certify that this patient is confined to the home and needs intermittent snf care, physical therapy and/or speech therapy, or continues to need occupational therapy.~ This patient is under my care, and I have initiated the establishment of the plan of care.~ This patient will be followed by myself or a community physician who will periodically review the plan of care. Home Meds Active Scripts Pantoprazole Sodium (PANTOPRAZOLE SODIUM ) 40 Mg Tablet.dr, 40 MG PO DAILYAC for acid newspaper illustrator for 30 Days, #30 TAB.SR Prov:SELVIN DOUGLAS MD 02/15/19 Docusate Sodium (COLACE) 100 Mg Capsule, 100 MG PO PRN BID PRN for CONSTIPATION for 14 Days, #30 CAP Prov:SELVIN DOUGLAS MD 02/15/19 Acetaminophen (TYLENOL) 325 Mg Tablet, 650 MG PO PRN Q4HRS PRN for TEMP OVER 100.4F OR MILD PAIN for 14 Days, #30 TAB Prov:SELVIN DOUGLAS MD 02/15/19 Reported Medications Ferrous Sulfate (IRON) 325 Mg Tablet, 1 TAB PO DailyTues/Sat for 30 Days, TAB 0 Refills 12/29/20 Torsemide (TORSEMIDE) 20 Mg Tablet, 2 TAB PO Daily at 2000, #90 TAB 1 Refill 12/29/20 Torsemide (TORSEMIDE) 20 Mg Tablet, 3 TAB PO DAILY08, #90 TAB 1 Refill 12/29/20 Hydrocodone Bit/Acetaminophen (HYDROCODONE-APAP 10325 ) 1 Tab Tablet, 1 TAB PO PRN Q6HRS PRN for PAIN, TAB 0 Refills 12/29/20 Hydralazine Hcl (HYDRALAZINE HCL) 50 Mg Tablet, 1 TAB PO TID, #270 TAB 3 Refills 12/29/20 Clonidine (CLONIDINE TTS-1 ) 1 Each Patch.tdwk, 1 PATCH TD WEEKLY for HYPERTENSION, PATCH 12/29/20 [place]-3/Dha/Epa/Fish Oil (Fish Oil 1,200 mg Softgel) 1 Each Capsule.dr, 1 CAP PO DAILY for 30 Days, #30 CAP 0 Refills 12/29/20 Aspirin (Children's Aspirin) 81 Mg Tab.chew, 81 MG PO Monday and Monday, TAB.CHEW 12/29/20 Spironolactone (SPIRONOLACTONE) 25 Mg Tablet, 25 MG PO BID, TAB 12/29/20 Ramipril (RAMIPRIL) 10 Mg Capsule, 2 CAP PO DAILY08 for 30 Days, #60 CAP 0 Refills 12/29/20 Mupirocin (MUPIROCIN OINTMENT) 22 Gm Oint...g., 1 BULMARO TP TID for WOUND CARE, #1 EACH 12/29/20 Levothyroxine Sodium (LEVOTHYROXINE SODIUM) 50 Mcg Tablet, 50 MCG PO daily at 0300 for THYROID SUPPLEMENT, #30 TAB 0 Refills 12/29/20 Hydralazine Hcl (HYDRALAZINE HCL) 25 Mg Tablet, 1 TAB PO BID, #180 TAB 3 Refills 12/29/20 Glimepiride (GLIMEPIRIDE) 1 Mg Tablet, 1 MG PO DAILY08, TAB 12/29/20 Roflumilast (DALIRESP) 500 Mcg Tablet, 500 MCG PO DAILY08, TAB 12/29/20 Carvedilol (CARVEDILOL) 25 Mg Tablet, 25 MG PO BID for CARDIAC, TAB 12/29/20 Atorvastatin Calcium (Atorvastatin Calcium) 80 Mg Tablet, 80 MG PO QHS for FOR HIGH CHOLESTEROL, TAB 12/29/20 Amlodipine Besylate (AMLODIPINE BESYLATE) 10 Mg Tablet, 10 MG PO DAILY08, TAB 12/29/20 Alprazolam (ALPRAZOLAM) 0.5 Mg Tablet, 0.5 MG PO PRN BID PRN for ANXIETY / AGITATION, TAB 0 Refills 12/29/20 Allopurinol (ALLOPURINOL) 300 Mg Tablet, 150 MG PO every other day. , TAB 12/29/20 Allopurinol (ALLOPURINOL) 300 Mg Tablet, 1 TAB PO DAILY, #90 TAB 3 Refills 12/29/20 Polyethylene Glycol 3350 (MIRALAX) 17 Gm Powd.pack, 1 PKT PO PRN DAILY PRN for CONSTIPATION, PKT 02/14/19 Glimepiride (AMARYL) 4 Mg Tablet, 2 MG PO DAILY for diabetes, TAB 02/14/19 Guaifenesin/Dextromethorphan (MUCINEX DM ER 600-30 MG TABLET) 1 Each Tab.er.12h, 1 TAB PO PRN Q12HRS for copd, #28 TAB 02/14/19 Alprazolam (ALPRAZOLAM) 0.5 Mg Tablet, 0.5 MG PO PRN Q12HR PRN for ANXIETY / AGITATION, TAB 0 Refills 02/14/19 Sodium Chloride (SALINE NASAL SPRAY) 30 Ml [place], 1-2 SPRAY NS PRN Q2HR PRN for CONGESTION, #30 ML 02/14/19 Loratadine (LORATADINE) 10 Mg Tablet, 10 MG PO DAILY for allergy symptoms, TAB 02/14/19 Allopurinol (ALLOPURINOL) 300 Mg Tablet, 150 MG PO DAILY for legs, TAB 02/14/19 Amlodipine Besylate (AMLODIPINE BESYLATE) 10 Mg Tablet, 10 MG PO DAILY for hypertension, TAB 02/14/19 Torsemide (TORSEMIDE) 20 Mg Tablet, 3 TAB PO DAILY for edema, #90 TAB 1 Refill 03/21/17 Roflumilast (DALIRESP) 500 Mcg Tablet, 1 TAB PO DAILY, #90 TAB 3 Refills 03/21/17 Ramipril (RAMIPRIL) 10 Mg Capsule, 2 CAP PO DAILY for hypertension, #30 CAP 5 Refills 03/21/17 Levothyroxine Sodium (LEVOTHYROXINE SODIUM) 50 Mcg Tablet, 1 TAB PO DAILY, #30 TAB 5 Refills 03/21/17 Carvedilol (COREG) 25 Mg Tablet, 25 MG PO BIDWMEALS, TAB 03/21/17 Atorvastatin Calcium (ATORVASTATIN CALCIUM) 80 Mg Tablet, 1 TAB PO DAILY, #30 TAB 5 Refills 03/21/17 JOSEPHINE LIGHT III DO Jan 01, 2021 17:03
[2021-01-01 19:55] VITALS: BP 106/64
[2021-01-01] MEDS: ATORVASTATIN CALCIUM 40 MG TABLET. PO SCH (21:50)
[2021-01-01 22:30] VITALS: BP 146/80
[2021-01-02 03:50] VITALS: BP 159/56
[2021-01-02] MEDS: LEVOTHYROXINE 50 MCG TABLET PO SCH (06:00)
[2021-01-02] MEDS: HYDROcodone/APAP 10/325 1 TAB TABLET PO PRN ×2 (06:13→18:39)
[2021-01-02 06:57] VITALS: BP 193/53
[2021-01-02] MEDS: PANTOPRAZOLE 40 MG TABLET.DR. PO SCH (07:30)
[2021-01-02 08:19] LABS: BASO # 0.1 x10^3/uL (0.0-0.2); BASO % 1 % (0-3); EOS # 0.3 x10^3/uL (0.0-0.7); EOS % 5 % (0-3); HEMATOCRIT 29.2 % (36.0-47.0); HEMOGLOBIN 10.1 g/dL (12.0-15.5); LYMPH % 16 % (24-48); MEAN CORPUSCULAR HEMOGLOBIN 31 pg (25-35); MEAN CORPUSCULAR HGB CONC 35 g/dL (31-37); MEAN CORPUSCULAR VOLUME 89 fL (79-100); MONO # 0.6 x10^3/uL (0.0-1.1); MONO % 11 % (0-9); NEUT # 3.9 x10^3/uL (1.8-7.7); NEUT % 67 % (31-73); PLATELET COUNT 153 x10^3/uL (140-400); RED CELL DISTRIBUTION WIDTH 15.3 % (11.5-14.5); WHITE BLOOD COUNT 5.9 x10^3/uL (4.0-11.0)
[2021-01-02 08:44] LABS: ALBUMIN 3.6 g/dL (3.4-5.0); ALBUMIN/GLOBULIN RATIO 1.2 (1.0-1.7); CALCIUM 10.7 mg/dL (8.5-10.1); CREATININE 2.3 mg/dL (0.6-1.0); GFR 20.6; MAGNESIUM 2.3 mg/dL (1.8-2.4); POTASSIUM 4.1 mmol/L (3.5-5.1); TOTAL BILIRUBIN 0.4 mg/dL (0.2-1.0); TOTAL PROTEIN 6.7 g/dL (6.4-8.2)
[2021-01-02] MEDS: FERROUS SULFATE 325 MG TABLET. PO SCH (09:00)
[2021-01-02] MEDS: FUROSEMIDE 40 MG/4 ML VIAL. IVP SCH ×2 (09:29→15:27)
[2021-01-02] MEDS: ASPIRIN CHEWABLE 81 MG TABLET. PO SCH (09:30)
[2021-01-02] MEDS: ISOSORBIDE MONONITRATE ER 30 MG TAB.ER.24H PO SCH (09:30)
[2021-01-02] MEDS: DOXAZOSIN MESYLATE 4 MG TABLET. PO SCH (09:31)
[2021-01-02] MEDS: GLIMEPIRIDE 2 MG TABLET. PO SCH (09:31)
[2021-01-02] MEDS: MUPIROCIN 2 % NASAL OINTMENT 22GM TUBE. TP SCH ×3 (09:34→20:59)
--- NOTE | 2021-01-02 10:52 | PDOC ---
Renal-Progress Notes Subjective Notes Notes STILL SOB WITH AMBULATION History of Present Illness Hx of present illness STABLE Vitals Vitals Vital Signs Date Time Temp Pulse Resp B/P (MAP) Pulse Ox O2 Delivery O2 Flow Rate FiO2 01/02/21 09:31 66 193/53 01/02/21 06:57 98.1 21 95 Nasal Cannula 2.0 98.1 Weight Weight [ ] I.O. Intake and Output Intake and Output 01/02/21 07:00 Intake Total 400 ml Output Total 700 ml Balance -300 ml Intake Oral 400 ml Output Urine Total 700 ml # Bowel Movements 1 Labs Labs Laboratory Tests Test 01/01/21 11:47 01/02/21 07:25 Glucose (Fingerstick) 107 mg/dL (70-99) White Blood Count 5.9 x10^3/uL (4.0-11.0) Red Blood Count 3.30 x10^6/uL (3.50-5.40) Hemoglobin 10.1 g/dL (12.0-15.5) Hematocrit 29.2 % (36.0-47.0) Mean Corpuscular Volume 89 fL (79-100) Mean Corpuscular Hemoglobin 31 pg (25-35) Mean Corpuscular Hemoglobin Concent 35 g/dL (31-37) Red Cell Distribution Width 15.3 % (11.5-14.5) Platelet Count 153 x10^3/uL (140-400) Neutrophils (%) (Auto) 67 % (31-73) Lymphocytes (%) (Auto) 16 % (24-48) Monocytes (%) (Auto) 11 % (0-9) Eosinophils (%) (Auto) 5 % (0-3) Basophils (%) (Auto) 1 % (0-3) Neutrophils # (Auto) 3.9 x10^3/uL (1.8-7.7) Lymphocytes # (Auto) 1.0 x10^3/uL (1.0-4.8) Monocytes # (Auto) 0.6 x10^3/uL (0.0-1.1) Eosinophils # (Auto) 0.3 x10^3/uL (0.0-0.7) Basophils # (Auto) 0.1 x10^3/uL (0.0-0.2) Sodium Level 139 mmol/L (136-145) Potassium Level 4.1 mmol/L (3.5-5.1) Chloride Level 106 mmol/L (98-107) Carbon Dioxide Level 27 mmol/L (21-32) Anion Gap 6 (6-14) Blood Urea Nitrogen 35 mg/dL (7-20) Creatinine 2.3 mg/dL (0.6-1.0) Estimated GFR (Cockcroft-Gault) 20.6 BUN/Creatinine Ratio 15 (6-20) Glucose Level 89 mg/dL (70-99) Calcium Level 10.7 mg/dL (8.5-10.1) Magnesium Level 2.3 mg/dL (1.8-2.4) Total Bilirubin 0.4 mg/dL (0.2-1.0) Aspartate Amino Transf (AST/SGOT) 15 U/L (15-37) Alanine Aminotransferase (ALT/SGPT) 14 U/L (14-59) Alkaline Phosphatase 98 U/L (46-116) Total Protein 6.7 g/dL (6.4-8.2) Albumin 3.6 g/dL (3.4-5.0) Albumin/Globulin Ratio 1.2 (1.0-1.7) Review of Systems Constitutional: yes: weakness, alert, oriented Ears/Nose/Throat: Yes: no symptom reported Eyes: Yes: no symptom reported Pulmonary: Yes dyspnea Cardiovascular: Yes edema Gastrointestional: Yes: nausea Genitourinary: Yes: no symptom reported Skin: Yes no symptom reported Psychiatric/Neurological: Yes: no symptom reported Endocrine: Yes: no symptom reported Physical Exam General Appearance: no apparent distress Skin: warm Respiratory: decreased breath sounds Heart: S1S2 Abdomen: soft, bowel sounds present Genitourinary: bladder flat Extremities: edema Neurology: alert, oriented, follow commands Musculoskeletal: Osteoarthritis Assessment Assessment IMP BANDAR-CR OF 3.0-IMPROVED TO CR OF 2.3 ?VENKATA-REPORTED VELOCITY OF 225CM/SEC-?50% LESION CKD STAGE 4-CR OF 2.0 BRADYCARDIA HYPOXIA ANEMIA WITH IRON DEFICIENCY [id number] DM II CHF-PROB ACUTE ON CHRONIC DIASTOLIC HYPOTHYROIDISM HYPERCALCEMIA-PERSISTENT PLAN DIURESE CONT TO HOLD ESPERANZA-I IRON SUPPLEMENTS PENDING SPEP, PTH FLUID RESTRICT IMPROVE BG CONTROL CARDIOLOGY EVALUATION D/W CARDIOLOGY AGREE WITH JODI WOULD NOT INTERVENE FOR ?VENKATA DUE RISK OF CONTRAST EXPOSURE-ALSO UNLIKELY TO BENEFIT D/C ATTENDING WILL FOLLOW XENIA LAW MD Jan 02, 2021 10:52
[2021-01-02 11:00] VITALS: BP 212/81
--- NOTE | 2021-01-02 11:17 | PDOC ---
[employer] PROGRESS NOTE Date of Service DOS: DATE: 01/02/21 TIME: 11:11 Chief Complaint Chief Complaint Bradycardia Hypertension Anemia, Iron deficiency Hyperlipidemia CHF, GERD Diabetes Hypothyroidism History of Present Illness History of Present Illness The patient is a pleasant elderly female who presented as a transfer from another facility with bradycardia. She came over on a dopamine drip. She is on quite a few medications including several that could cause bradycardia such as beta blockade with carvedilol and clonidine. She is also on quite a few blood pressure meds. 12/30/2020 Patient seen and examined in bed D/W RN, Chart Review Discussed that we will continue to monitor as we try to reduce the number of medications she is on Discussed that we will try and titrate off of the dopamine drip. 12/31/2020 Patient was awake, alert and NAD. Patient seen and examined in bedside chair in room for discuss and exam. D/W RN, Chart Review Discussed that we will continue to monitor blood pressure. Now that the dopamine drip has been discontinued, we will restart BP medication to gain adequate control. 01/01/2021 Patient was awake, alert. Seen and examined in bedside chair D/W RN, Chart Review Discussed that we will continue to monitor blood pressure. Updated patient and on plan to wait for results of duplex scan and nephrology input. 01/02/2021 Patient was awake, alert. Seen and examined in bedside chair D/W RN, Chart Review Discussed with patient that her blood pressure is improving and we will continue to monitor Discussed with patient and nephrology that we will continue to diurese to remove excess fluid Updated patient with probable discharge plan for early next week after consulting pulmonology and if agreeable with nephrology Vitals/I&O Vitals/I&O: Vital Signs Date Time Temp Pulse Resp B/P (MAP) Pulse Ox O2 Delivery O2 Flow Rate FiO2 01/02/21 09:31 66 193/53 01/02/21 08:00 Nasal Cannula 2.0 01/02/21 06:57 98.1 21 95 98.1 I & O 01/01/21 01/01/21 01/02/21 15:00 23:00 07:00 Intake Total 400 ml Output Total 700 ml Balance 400 ml -700 ml Physical Exam General: Alert, Oriented X3, Cooperative, mild distress Heart: Regular rate, Normal S1, Normal S2, Gallops Lungs: Clear Abdomen: Normal bowel sounds, Soft, No tenderness Extremities: No clubbing, No cyanosis, Other (3+ EDEMA) Skin: Other (PRETIBIAL ERYTHEMA) Labs Labs: Laboratory Tests Test 01/01/21 11:47 01/02/21 07:25 Glucose (Fingerstick) 107 mg/dL (70-99) White Blood Count 5.9 x10^3/uL (4.0-11.0) Red Blood Count 3.30 x10^6/uL (3.50-5.40) Hemoglobin 10.1 g/dL (12.0-15.5) Hematocrit 29.2 % (36.0-47.0) Mean Corpuscular Volume 89 fL (79-100) Mean Corpuscular Hemoglobin 31 pg (25-35) Mean Corpuscular Hemoglobin Concent 35 g/dL (31-37) Red Cell Distribution Width 15.3 % (11.5-14.5) Platelet Count 153 x10^3/uL (140-400) Neutrophils (%) (Auto) 67 % (31-73) Lymphocytes (%) (Auto) 16 % (24-48) Monocytes (%) (Auto) 11 % (0-9) Eosinophils (%) (Auto) 5 % (0-3) Basophils (%) (Auto) 1 % (0-3) Neutrophils # (Auto) 3.9 x10^3/uL (1.8-7.7) Lymphocytes # (Auto) 1.0 x10^3/uL (1.0-4.8) Monocytes # (Auto) 0.6 x10^3/uL (0.0-1.1) Eosinophils # (Auto) 0.3 x10^3/uL (0.0-0.7) Basophils # (Auto) 0.1 x10^3/uL (0.0-0.2) Sodium Level 139 mmol/L (136-145) Potassium Level 4.1 mmol/L (3.5-5.1) Chloride Level 106 mmol/L (98-107) Carbon Dioxide Level 27 mmol/L (21-32) Anion Gap 6 (6-14) Blood Urea Nitrogen 35 mg/dL (7-20) Creatinine 2.3 mg/dL (0.6-1.0) Estimated GFR (Cockcroft-Gault) 20.6 BUN/Creatinine Ratio 15 (6-20) Glucose Level 89 mg/dL (70-99) Calcium Level 10.7 mg/dL (8.5-10.1) Magnesium Level 2.3 mg/dL (1.8-2.4) Total Bilirubin 0.4 mg/dL (0.2-1.0) Aspartate Amino Transf (AST/SGOT) 15 U/L (15-37) Alanine Aminotransferase (ALT/SGPT) 14 U/L (14-59) Alkaline Phosphatase 98 U/L (46-116) Total Protein 6.7 g/dL (6.4-8.2) Albumin 3.6 g/dL (3.4-5.0) Albumin/Globulin Ratio 1.2 (1.0-1.7) Review of Systems Review of Systems: Denies RUIZ or dizziness Denies numbness or tingling in extremities Denies fevers or chills Assessment and Plan Assessmemt and Plan Bradycardia Hypertension Anemia, Iron deficiency Hyperlipidemia CHF, GERD Diabetes Hypothyroidism Plan Continue BP medications Cardiac Monitoring DVT prophylaxis Appreciate Cardiology and Nephrology input Continue to diurese per nephrology to remove edema in LE Consult pulmonology for exertional dyspnea PT/OT Trend labs Full Code Discharge once BP has lowered and agreeable with cardiology and nephrology Comment Review of Relevant I have reviewed the following items bear (where applicable) has been applied. Medications: Current Medications Medications (Trade) Dose Ordered Sig/Bryant Route PRN Reason Start Time Stop Time Status Last Admin Dose Admin Hydralazine HCl (Apresoline) 100 mg BID PO 01/01/21 21:00 01/02/21 09:31 Justifications for Admission Other Justification JOSEPHINE LIGHT III DO Jan 02, 2021 11:17
[2021-01-02] MEDS: POLYETHYLENE GLYCOL 3350 17 GM PACKET. PO PRN (12:42)
[2021-01-02] MEDS: hydrALAZINE 20 MG/ML VIAL. IVP PRN (12:43)
[2021-01-02 15:00] VITALS: BP 162/76
--- NOTE | 2021-01-02 15:26 | PDOC ---
PROGRESS NOTES Date of Service DATE: 01/02/21 TIME: 15:24 Subjective Subjective Patient seen and examined Objective Objective Vital Signs Date Time Temp Pulse Resp B/P (MAP) Pulse Ox O2 Delivery O2 Flow Rate FiO2 01/02/21 12:43 82 212/81 01/02/21 11:00 98.1 18 96 Nasal Cannula 2.0 98.1 Intake and Output 01/02/21 07:00 Intake Total 400 ml Output Total 700 ml Balance -300 ml Intake Oral 400 ml Output Urine Total 700 ml # Bowel Movements 1 Physical Exam Abdomen: Normal bowel sounds Heart: Regular rate General: No acute distress Lungs: Other (Minimally decreased breath sounds) Assessment Assessment 1. Symptomatic Sinus bradycardia with associated use of clonidine and high dose coreg. Off Coreg. Rate is under better control at this time in the 50s. 2. HTN urgency: better with addition of cardura. No significnat VENKATA per renal duplex 3. Acute on chronic diastolic CHF: EFG amd WM nml 4. BANDAR on CKD with hyperkalemia: Cr improved 5. DM2: per PCP 6. HLP 7. Hypothyroidism: on replacement Recommendations 1. No further coreg. Baseline at 50-60s overnight. At this time no indication for PPM. ILR next week check in at 1045 AM 2. Continue Catapres TTS 3, Imdur 60 mg daily. Hydralazine PO 100 mg bid. Cardura 4 mg daily. Norvasc 10 mg daily. 3. Lasix therapy. Adjustment defer to nephrology 4. Secondary prevention measures. DC home ACEi Comment Review of Relevant I have reviewed the following items bear (where applicable) has been applied. Labs Laboratory Tests Test 01/01/21 08:40 01/01/21 11:47 01/02/21 07:25 White Blood Count 7.3 x10^3/uL (4.0-11.0) 5.9 x10^3/uL (4.0-11.0) Red Blood Count 3.39 x10^6/uL (3.50-5.40) 3.30 x10^6/uL (3.50-5.40) Hemoglobin 10.2 g/dL (12.0-15.5) 10.1 g/dL (12.0-15.5) Hematocrit 30.2 % (36.0-47.0) 29.2 % (36.0-47.0) Mean Corpuscular Volume 89 fL (79-100) 89 fL (79-100) Mean Corpuscular Hemoglobin 30 pg (25-35) 31 pg (25-35) Mean Corpuscular Hemoglobin Concent 34 g/dL (31-37) 35 g/dL (31-37) Red Cell Distribution Width 15.8 % (11.5-14.5) 15.3 % (11.5-14.5) Platelet Count 164 x10^3/uL (140-400) 153 x10^3/uL (140-400) Neutrophils (%) (Auto) 70 % (31-73) 67 % (31-73) Lymphocytes (%) (Auto) 15 % (24-48) 16 % (24-48) Monocytes (%) (Auto) 10 % (0-9) 11 % (0-9) Eosinophils (%) (Auto) 4 % (0-3) 5 % (0-3) Basophils (%) (Auto) 1 % (0-3) 1 % (0-3) Neutrophils # (Auto) 5.1 x10^3/uL (1.8-7.7) 3.9 x10^3/uL (1.8-7.7) Lymphocytes # (Auto) 1.1 x10^3/uL (1.0-4.8) 1.0 x10^3/uL (1.0-4.8) Monocytes # (Auto) 0.7 x10^3/uL (0.0-1.1) 0.6 x10^3/uL (0.0-1.1) Eosinophils # (Auto) 0.3 x10^3/uL (0.0-0.7) 0.3 x10^3/uL (0.0-0.7) Basophils # (Auto) 0.1 x10^3/uL (0.0-0.2) 0.1 x10^3/uL (0.0-0.2) Sodium Level 141 mmol/L (136-145) 139 mmol/L (136-145) Potassium Level 4.4 mmol/L (3.5-5.1) 4.1 mmol/L (3.5-5.1) Chloride Level 106 mmol/L (98-107) 106 mmol/L (98-107) Carbon Dioxide Level 26 mmol/L (21-32) 27 mmol/L (21-32) Anion Gap 9 (6-14) 6 (6-14) Blood Urea Nitrogen 37 mg/dL (7-20) 35 mg/dL (7-20) Creatinine 2.3 mg/dL (0.6-1.0) 2.3 mg/dL (0.6-1.0) Estimated GFR (Cockcroft-Gault) 20.6 20.6 BUN/Creatinine Ratio 16 (6-20) 15 (6-20) Glucose Level 110 mg/dL (70-99) 89 mg/dL (70-99) Calcium Level 10.9 mg/dL (8.5-10.1) 10.7 mg/dL (8.5-10.1) Phosphorus Level 3.2 mg/dL (2.6-4.7) Magnesium Level 2.5 mg/dL (1.8-2.4) 2.3 mg/dL (1.8-2.4) Iron Level 37 ug/dL (50-170) Total Iron Binding Capacity 273 ug/dL (250-450) Iron Saturation 14 % (15-34) Total Bilirubin 0.5 mg/dL (0.2-1.0) 0.4 mg/dL (0.2-1.0) Aspartate Amino Transf (AST/SGOT) 19 U/L (15-37) 15 U/L (15-37) Alanine Aminotransferase (ALT/SGPT) 14 U/L (14-59) 14 U/L (14-59) Alkaline Phosphatase 98 U/L (46-116) 98 U/L (46-116) Total Protein 6.6 g/dL (6.4-8.2) 6.7 g/dL (6.4-8.2) Albumin 3.5 g/dL (3.4-5.0) 3.6 g/dL (3.4-5.0) Albumin/Globulin Ratio 1.1 (1.0-1.7) 1.2 (1.0-1.7) Glucose (Fingerstick) 107 mg/dL (70-99) Laboratory Tests Test 01/02/21 07:25 White Blood Count 5.9 x10^3/uL (4.0-11.0) Red Blood Count 3.30 x10^6/uL (3.50-5.40) Hemoglobin 10.1 g/dL (12.0-15.5) Hematocrit 29.2 % (36.0-47.0) Mean Corpuscular Volume 89 fL (79-100) Mean Corpuscular Hemoglobin 31 pg (25-35) Mean Corpuscular Hemoglobin Concent 35 g/dL (31-37) Red Cell Distribution Width 15.3 % (11.5-14.5) Platelet Count 153 x10^3/uL (140-400) Neutrophils (%) (Auto) 67 % (31-73) Lymphocytes (%) (Auto) 16 % (24-48) Monocytes (%) (Auto) 11 % (0-9) Eosinophils (%) (Auto) 5 % (0-3) Basophils (%) (Auto) 1 % (0-3) Neutrophils # (Auto) 3.9 x10^3/uL (1.8-7.7) Lymphocytes # (Auto) 1.0 x10^3/uL (1.0-4.8) Monocytes # (Auto) 0.6 x10^3/uL (0.0-1.1) Eosinophils # (Auto) 0.3 x10^3/uL (0.0-0.7) Basophils # (Auto) 0.1 x10^3/uL (0.0-0.2) Sodium Level 139 mmol/L (136-145) Potassium Level 4.1 mmol/L (3.5-5.1) Chloride Level 106 mmol/L (98-107) Carbon Dioxide Level 27 mmol/L (21-32) Anion Gap 6 (6-14) Blood Urea Nitrogen 35 mg/dL (7-20) Creatinine 2.3 mg/dL (0.6-1.0) Estimated GFR (Cockcroft-Gault) 20.6 BUN/Creatinine Ratio 15 (6-20) Glucose Level 89 mg/dL (70-99) Calcium Level 10.7 mg/dL (8.5-10.1) Magnesium Level 2.3 mg/dL (1.8-2.4) Total Bilirubin 0.4 mg/dL (0.2-1.0) Aspartate Amino Transf (AST/SGOT) 15 U/L (15-37) Alanine Aminotransferase (ALT/SGPT) 14 U/L (14-59) Alkaline Phosphatase 98 U/L (46-116) Total Protein 6.7 g/dL (6.4-8.2) Albumin 3.6 g/dL (3.4-5.0) Albumin/Globulin Ratio 1.2 (1.0-1.7) Medications Current Medications Dopamine HCl/ Dextrose 250 ml @ 18.6 mls/hr CONT PRN IV SEE I/O RECORD Last administered on 12/30/20 02:26; Start 12/29/20 at 17:00 Acetaminophen (Tylenol) 650 mg PRN Q4HRS PRN PO TEMP OVER 100.4F OR MILD PAIN Last administered on 12/30/20 02:28; Start 12/29/20 at 20:30 Alprazolam (Xanax) 0.5 mg PRN BID PRN PO ANXIETY / AGITATION Last administered on 12/29/20 21:35; Start 12/29/20 at 20:30 Aspirin (Aspirin Chewable) 81 mg DAILY PO Last administered on 01/02/21 09:30; Start 12/30/20 at 09:00 Docusate Sodium (Colace) 100 mg PRN BID PRN PO HARD STOOLS Last administered on 12/31/20 01:54; Start 12/29/20 at 20:30 Ferrous Sulfate (Feosol) 325 mg DAILY PO Last administered on 01/01/21 09:45; Start 12/30/20 at 09:00 Guaifenesin (MUCINEX ER with DM) 1 tab PRN Q12HRS PRN PO COUGH; Start 12/29/20 at 20:30 Levothyroxine Sodium (Synthroid) 50 mcg DAILY06 PO Last administered on 01/02/21 06:00; Start 12/30/20 at 06:00 Mupirocin (Bactroban) 1 precious TID TP Last administered on 01/02/21 09:34; Start 12/29/20 at 21:00 Pantoprazole Sodium (Protonix) 40 mg DAILYAC PO Last administered on 01/01/21 09:45; Start 12/30/20 at 07:30 Polyethylene Glycol (miraLAX PACKET) 17 gm PRN DAILY PRN PO CONSTIPATION Last administered on 01/02/21 12:42; Start 12/29/20 at 20:30 Atorvastatin Calcium (Lipitor) 80 mg QHS PO Last administered on 01/01/21 21:50; Start 12/30/20 at 21:00 Glimepiride (Amaryl) 1 mg DAILY08 PO Last administered on 01/02/21 09:31; Start 12/30/20 at 08:00 Acetaminophen/ Hydrocodone Bitart (Lortab 10/325) 1 tab PRN Q6HRS PRN PO MODERATE TO SEVERE PAIN Last administered on 01/02/21 06:13; Start 12/30/20 at 08:00 Hydralazine HCl (Apresoline Inj) 10 mg PRN Q4HRS PRN IVP SBP>170 at DBP>110 Last administered on 01/02/21 12:43; Start 12/30/20 at 09:30 Hydralazine HCl (Apresoline) 50 mg TID PO Last administered on 01/01/21 09:45; Start 12/30/20 at 10:00; Stop 01/01/21 at 13:52; Status DC Amlodipine Besylate (Norvasc) 10 mg DAILY PO Last administered on 01/02/21 09:30; Start 12/31/20 at 09:00 Amlodipine Besylate (Norvasc) 10 mg 1X ONCE PO Last administered on 12/30/20 09:50; Start 12/30/20 at 10:00; Stop 12/30/20 at 10:01; Status DC Sodium Polystyrene Sulfonate (Kayexalate) 30 gm 1X ONCE PO Last administered on 12/30/20at 12:08; Start 12/30/20 at 12:00; Stop 12/30/20 at 12:01; Status DC Furosemide (Lasix) 40 mg 1X ONCE IVP Last administered on 12/30/20 12:09; Start 12/30/20 at 12:30; Stop 12/30/20 at 12:31; Status DC Furosemide (Lasix) 40 mg 1X ONCE IVP ; Start 12/31/20 at 10:30; Stop 12/31/20 at 10:31; Status UNV Clonidine HCl (Catapres) 0.3 mg 1X ONCE PO Last administered on 12/31/20at 12:47; Start 12/31/20 at 10:30; Stop 12/31/20 at 10:31; Status DC Furosemide (Lasix) 40 mg BID92 IVP Last administered on 01/02/21at 09:29; Start 12/31/20 at 14:00 Furosemide (Lasix) 40 mg 1X ONCE IVP Last administered on 12/31/20at 12:48; Start 12/31/20 at 10:30; Stop 12/31/20 at 10:31; Status DC Isosorbide Mononitrate (Imdur) 60 mg DAILY PO Last administered on 01/02/21at 09:30; Start 12/31/20 at 11:00 Clonidine HCl (Catapres Tts-3) 1 patch WEEKLY TD Last administered on 12/31/20at 17:09; Start 12/31/20 at 16:00 Doxazosin Mesylate (Cardura) 4 mg DAILY PO Last administered on 01/02/21at 09:31; Start 01/01/21 at 10:00 Furosemide (Lasix) 40 mg 1X ONCE IVP ; Start 01/01/21 at 11:15; Stop 01/01/21 at 11:16; Status DC Hydralazine HCl (Apresoline) 100 mg BID PO Last administered on 01/02/21at 09:31; Start 01/01/21 at 21:00 Active Scripts Active Pantoprazole Sodium (Pantoprazole Sodium) 40 Mg Tablet.dr 40 Mg PO DAILYAC 30 Days Colace (Docusate Sodium) 100 Mg Capsule 100 Mg PO PRN BID PRN 14 Days Tylenol (Acetaminophen) 325 Mg Tablet 650 Mg PO PRN Q4HRS PRN 14 Days Reported Iron (Ferrous Sulfate) 325 Mg Tablet 1 Tab PO DAILYTUES/SAT 30 Days Torsemide 20 Mg Tablet 2 Tab PO DAILY AT 2000 Torsemide 20 Mg Tablet 3 Tab PO DAILY08 Hydrocodone-Apap 10-325 (Hydrocodone Bit/Acetaminophen) 1 Tab Tablet 1 Tab PO PRN Q6HRS PRN Hydralazine Hcl 50 Mg Tablet 1 Tab PO TID Clonidine Tts-1 (Clonidine) 1 Each Patch.tdwk 1 Patch TD WEEKLY Fish Oil 1,200 mg Softgel (Cofield-3/Dha/Epa/Fish Oil) 1 Each Capsule. 1 Cap PO DAILY 30 Days Children's Aspirin (Aspirin) 81 Mg Tab.chew 81 Mg PO MONDAY AND MONDAY Spironolactone 25 Mg Tablet 25 Mg PO BID Ramipril 10 Mg Capsule 2 Cap PO DAILY08 30 Days Mupirocin Ointment (Mupirocin) 22 Gm Oint...g. 1 Precious TP TID Levothyroxine Sodium 50 Mcg Tablet 50 Mcg PO DAILY AT 0300 Hydralazine Hcl 25 Mg Tablet 1 Tab PO BID Glimepiride 1 Mg Tablet 1 Mg PO DAILY08 Daliresp (Roflumilast) 500 Mcg Tablet 500 Mcg PO DAILY08 Carvedilol 25 Mg Tablet 25 Mg PO BID Atorvastatin Calcium 80 Mg Tablet 80 Mg PO QHS Amlodipine Besylate 10 Mg Tablet 10 Mg PO DAILY08 Alprazolam 0.5 Mg Tablet 0.5 Mg PO PRN BID PRN Allopurinol 300 Mg Tablet 150 Mg PO EVERY OTHER DAY. Allopurinol 300 Mg Tablet 1 Tab PO DAILY Miralax (Polyethylene Glycol 3350) 17 Gm Powd.pack 1 Pkt PO PRN DAILY PRN Amaryl (Glimepiride) 4 Mg Tablet 2 Mg PO DAILY Mucinex Dm Er 600-30 Mg Tablet (Guaifenesin/Dextromethorphan) 1 Each Tab.er.12h 1 Tab PO PRN Q12HRS Alprazolam 0.5 Mg Tablet 0.5 Mg PO PRN Q12HR PRN Saline Nasal Portal (Sodium Chloride) 30 Ml Portal 1-2 Portal NS PRN Q2HR PRN Loratadine 10 Mg Tablet 10 Mg PO DAILY Allopurinol 300 Mg Tablet 150 Mg PO DAILY Amlodipine Besylate 10 Mg Tablet 10 Mg PO DAILY Torsemide 20 Mg Tablet 3 Tab PO DAILY Daliresp (Roflumilast) 500 Mcg Tablet 1 Tab PO DAILY Ramipril 10 Mg Capsule 2 Cap PO DAILY Levothyroxine Sodium 50 Mcg Tablet 1 Tab PO DAILY Coreg (Carvedilol) 25 Mg Tablet 25 Mg PO BIDWMEALS Atorvastatin Calcium 80 Mg Tablet 1 Tab PO DAILY Vitals/I & O Vital Sign - Last 24 Hours 01/01/21 01/01/21 01/01/21 01/01/21 16:22 16:52 19:55 20:00 Temp 97.9 97.9 Pulse 70 Resp 21 B/P (MAP) 106/64 (78) Pulse Ox 98 98 97 O2 Delivery Nasal Cannula Nasal Cannula Nasal Cannula Nasal Cannula O2 Flow Rate 2.0 2.0 2.0 2.0 01/01/21 01/01/21 01/01/21 01/01/21 21:53 22:30 23:11 23:41 Temp 98.2 98.2 Pulse 73 Resp 22 B/P (MAP) 146/80 146/80 (102) Pulse Ox 97 O2 Delivery Nasal Cannula Nasal Cannula Nasal Cannula O2 Flow Rate 2.0 2.0 01/02/21 01/02/21 01/02/21 01/02/21 03:50 06:57 08:00 09:30 Temp 98.0 98.1 98.0 98.1 Pulse 70 66 66 Resp 22 21 B/P (MAP) 159/56 (90) 193/53 (99) 193/53 Pulse Ox 98 95 O2 Delivery Nasal Cannula Nasal Cannula Nasal Cannula O2 Flow Rate 2.0 2.0 2.0 01/02/21 01/02/21 01/02/21 01/02/21 09:30 09:31 09:31 11:00 Temp 98.1 98.1 Pulse 66 66 66 82 Resp 18 B/P (MAP) 193/53 193/53 193/53 212/81 (124) Pulse Ox 96 O2 Delivery Nasal Cannula O2 Flow Rate 2.0 01/02/21 12:43 Pulse 82 B/P (MAP) 212/81 Intake and Output 01/01/21 01/01/21 01/02/21 15:00 23:00 07:00 Intake Total 400 ml Output Total 700 ml Balance 400 ml -700 ml Justifications for Admission Other Justification WENDY MONTIEL MD Jan 02, 2021 15:26
[2021-01-02] MEDS: DOCUSATE SODIUM 100 MG CAPSULE. PO PRN (20:59)
[2021-01-02] MEDS: ATORVASTATIN CALCIUM 40 MG TABLET. PO SCH (20:59)
[2021-01-02 22:00] VITALS: BP 164/71
[2021-01-03] MEDS: HYDROcodone/APAP 10/325 1 TAB TABLET PO PRN ×4 (01:40→23:54)
[2021-01-03 03:55] VITALS: BP 136/65
[2021-01-03] MEDS: LEVOTHYROXINE 50 MCG TABLET PO SCH (06:23)
[2021-01-03 08:08] LABS: BASO # 0.1 x10^3/uL (0.0-0.2); BASO % 1 % (0-3); EOS # 0.4 x10^3/uL (0.0-0.7); EOS % 7 % (0-3); HEMATOCRIT 31.5 % (36.0-47.0); HEMOGLOBIN 10.8 g/dL (12.0-15.5); LYMPH # 1.4 x10^3/uL (1.0-4.8); LYMPH % 26 % (24-48); MEAN CORPUSCULAR HEMOGLOBIN 30 pg (25-35); MEAN CORPUSCULAR HGB CONC 34 g/dL (31-37); MEAN CORPUSCULAR VOLUME 88 fL (79-100); MONO # 0.6 x10^3/uL (0.0-1.1); MONO % 11 % (0-9); NEUT # 3.1 x10^3/uL (1.8-7.7); NEUT % 56 % (31-73); PLATELET COUNT 162 x10^3/uL (140-400); RED BLOOD COUNT 3.57 x10^6/uL (3.50-5.40); RED CELL DISTRIBUTION WIDTH 15.5 % (11.5-14.5); WHITE BLOOD COUNT 5.6 x10^3/uL (4.0-11.0)
[2021-01-03] MEDS: GLIMEPIRIDE 2 MG TABLET. PO SCH (08:16)
[2021-01-03] MEDS: PANTOPRAZOLE 40 MG TABLET.DR. PO SCH (08:17)
[2021-01-03] MEDS: FERROUS SULFATE 325 MG TABLET. PO SCH (08:17)
[2021-01-03] MEDS: DOCUSATE SODIUM 100 MG CAPSULE. PO PRN ×2 (08:18→20:25)
[2021-01-03 08:19] LABS: ALBUMIN 3.6 g/dL (3.4-5.0); ALBUMIN/GLOBULIN RATIO 1.1 (1.0-1.7); CALCIUM 10.8 mg/dL (8.5-10.1); CREATININE 2.1 mg/dL (0.6-1.0); GFR 22.9; POTASSIUM 4.6 mmol/L (3.5-5.1); TOTAL BILIRUBIN 0.4 mg/dL (0.2-1.0); TOTAL PROTEIN 6.9 g/dL (6.4-8.2)
[2021-01-03] MEDS: DOXAZOSIN MESYLATE 4 MG TABLET. PO SCH (08:19)
[2021-01-03 08:20] LABS: MAGNESIUM 2.2 mg/dL (1.8-2.4); PHOSPHORUS 2.7 mg/dL (2.6-4.7)
[2021-01-03] MEDS: ASPIRIN CHEWABLE 81 MG TABLET. PO SCH (08:20)
[2021-01-03] MEDS: ISOSORBIDE MONONITRATE ER 30 MG TAB.ER.24H PO SCH (08:21)
[2021-01-03] MEDS: FUROSEMIDE 40 MG/4 ML VIAL. IVP SCH (08:23)
[2021-01-03] MEDS: MUPIROCIN 2 % NASAL OINTMENT 22GM TUBE. TP SCH ×3 (08:24→19:58)
[2021-01-03] MEDS: POLYETHYLENE GLYCOL 3350 17 GM PACKET. PO PRN (08:29)
--- NOTE | 2021-01-03 10:50 | PDOC ---
Renal-Progress Notes Subjective Notes Notes NO NEW COMPLAINTS History of Present Illness Hx of present illness STABLE Vitals Vitals Vital Signs Date Time Temp Pulse Resp B/P (MAP) Pulse Ox O2 Delivery O2 Flow Rate FiO2 01/03/21 08:21 83 136/65 01/03/21 08:15 96 Nasal Cannula 2.0 01/03/21 07:42 98.3 22 98.3 Weight Weight [ ] I.O. Intake and Output Intake and Output 01/03/21 07:00 Intake Total 50 ml Output Total 750 ml Balance -700 ml Intake Oral 50 ml Output Urine Total 750 ml # Voids 5 # Bowel Movements 1 Labs Labs Laboratory Tests Test 01/03/21 06:35 01/03/21 06:55 White Blood Count 5.6 x10^3/uL (4.0-11.0) Red Blood Count 3.57 x10^6/uL (3.50-5.40) Hemoglobin 10.8 g/dL (12.0-15.5) Hematocrit 31.5 % (36.0-47.0) Mean Corpuscular Volume 88 fL (79-100) Mean Corpuscular Hemoglobin 30 pg (25-35) Mean Corpuscular Hemoglobin Concent 34 g/dL (31-37) Red Cell Distribution Width 15.5 % (11.5-14.5) Platelet Count 162 x10^3/uL (140-400) Neutrophils (%) (Auto) 56 % (31-73) Lymphocytes (%) (Auto) 26 % (24-48) Monocytes (%) (Auto) 11 % (0-9) Eosinophils (%) (Auto) 7 % (0-3) Basophils (%) (Auto) 1 % (0-3) Neutrophils # (Auto) 3.1 x10^3/uL (1.8-7.7) Lymphocytes # (Auto) 1.4 x10^3/uL (1.0-4.8) Monocytes # (Auto) 0.6 x10^3/uL (0.0-1.1) Eosinophils # (Auto) 0.4 x10^3/uL (0.0-0.7) Basophils # (Auto) 0.1 x10^3/uL (0.0-0.2) Sodium Level 142 mmol/L (136-145) Potassium Level 4.6 mmol/L (3.5-5.1) Chloride Level 105 mmol/L (98-107) Carbon Dioxide Level 29 mmol/L (21-32) Anion Gap 8 (6-14) Blood Urea Nitrogen 29 mg/dL (7-20) Creatinine 2.1 mg/dL (0.6-1.0) Estimated GFR (Cockcroft-Gault) 22.9 BUN/Creatinine Ratio 14 (6-20) Glucose Level 90 mg/dL (70-99) Calcium Level 10.8 mg/dL (8.5-10.1) Phosphorus Level 2.7 mg/dL (2.6-4.7) Magnesium Level 2.2 mg/dL (1.8-2.4) Total Bilirubin 0.4 mg/dL (0.2-1.0) Aspartate Amino Transf (AST/SGOT) 22 U/L (15-37) Alanine Aminotransferase (ALT/SGPT) 23 U/L (14-59) Alkaline Phosphatase 99 U/L (46-116) Total Protein 6.9 g/dL (6.4-8.2) Albumin 3.6 g/dL (3.4-5.0) Albumin/Globulin Ratio 1.1 (1.0-1.7) Review of Systems Constitutional: yes: weakness, alert, oriented Ears/Nose/Throat: Yes: no symptom reported Eyes: Yes: no symptom reported Pulmonary: Yes dyspnea Cardiovascular: Yes edema Gastrointestional: Yes: nausea Genitourinary: Yes: no symptom reported Skin: Yes no symptom reported Psychiatric/Neurological: Yes: no symptom reported Endocrine: Yes: no symptom reported Physical Exam General Appearance: no apparent distress Skin: warm Respiratory: decreased breath sounds Heart: S1S2 Abdomen: soft, bowel sounds present Genitourinary: bladder flat Extremities: edema Neurology: alert, oriented, follow commands Musculoskeletal: Osteoarthritis Assessment Assessment IMP BANDAR-RESOLVED WITH CR OF 2.0 TODAY ?VENKATA-REPORTED VELOCITY OF 225CM/SEC-?50% LESION CKD STAGE 4-CR OF 2.0 BRADYCARDIA HYPOXIA ANEMIA WITH IRON DEFICIENCY [id number] DM II CHF-PROB ACUTE ON CHRONIC DIASTOLIC HYPOTHYROIDISM HYPERCALCEMIA-PERSISTENT PLAN DIURESE-CHANGE TO PO LASIX CONT TO HOLD ESPERANZA-I IRON SUPPLEMENTS PENDING SPEP, PTH FLUID RESTRICT IMPROVE BG CONTROL CARDIOLOGY EVALUATION D/W CARDIOLOGY AGREE WITH JODI WOULD NOT INTERVENE FOR ?VENKATA DUE RISK OF CONTRAST EXPOSURE-ALSO UNLIKELY TO BENEFIT D/W ATTENDING WILL FOLLOW IF STABLE D/C TOMORROW UPDATED XENIA LAW MD Jan 03, 2021 10:50
[2021-01-03 11:00] VITALS: BP 189/78
[2021-01-03] MEDS ORDERED: FUROSEMIDE 40 MG/4 ML VIAL. IVP ONE (11:00)
[2021-01-03] MEDS: metOLazone 2.5 MG TABLET PO SCH (12:32)
--- NOTE | 2021-01-03 13:06 | PDOC ---
[facility] [facility] PROGRESS NOTE Date of Service DOS: DATE: 01/03/21 TIME: 12:55 Chief Complaint Chief Complaint Bradycardia Hypertension Anemia, Iron deficiency Hyperlipidemia CHF, GERD Diabetes Hypothyroidism History of Present Illness History of Present Illness The patient is a pleasant elderly female who presented as a transfer from another facility with bradycardia. She came over on a dopamine drip. She is on quite a few medications including several that could cause bradycardia such as beta blockade with carvedilol and clonidine. She is also on quite a few blood pressure meds. 12/30/2020 Patient seen and examined in bed D/W RN, Chart Review Discussed that we will continue to monitor as we try to reduce the number of medications she is on Discussed that we will try and titrate off of the dopamine drip. 12/31/2020 Patient was awake, alert and NAD. Patient seen and examined in bedside chair in room for discuss and exam. D/W RN, Chart Review Discussed that we will continue to monitor blood pressure. Now that the dopamine drip has been discontinued, we will restart BP medication to gain adequate control. 01/01/2021 Patient was awake, alert. Seen and examined in bedside chair D/W RN, Chart Review Discussed that we will continue to monitor blood pressure. Updated patient and on plan to wait for results of duplex scan and nephrology input. 01/02/2021 Patient was awake, alert. Seen and examined in bedside chair D/W RN, Chart Review Discussed with patient that her blood pressure is improving and we will continue to monitor Discussed with patient and nephrology that we will continue to diurese to remove excess fluid Updated patient with probable discharge plan for early next week after consulting pulmonology and if agreeable with nephrology 01/03/2021 Patient was pleasant, awake, and alert. Seen and examined in bedside chair D/W RN, Chart Review Improved edema in lower extremities bilaterally. Will continue to monitor BP. Updated patient with probable discharge plan for tomorrow Vitals/I&O Vitals/I&O: Vital Signs Date Time Temp Pulse Resp B/P (MAP) Pulse Ox O2 Delivery O2 Flow Rate FiO2 01/03/21 11:00 98.8 68 18 189/78 (115) 97 Nasal Cannula 2.0 98.8 I & O 01/02/21 01/02/21 01/03/21 15:00 23:00 07:00 Intake Total 50 ml Output Total 600 ml 150 ml Balance -600 ml 50 ml -150 ml Physical Exam General: No acute distress Heart: Regular rate Lungs: Clear Abdomen: Normal bowel sounds Extremities: No clubbing, No cyanosis, Other (3+ EDEMA) Skin: Other (PRETIBIAL ERYTHEMA) Labs Labs: Laboratory Tests Test 01/03/21 06:35 01/03/21 06:55 White Blood Count 5.6 x10^3/uL (4.0-11.0) Red Blood Count 3.57 x10^6/uL (3.50-5.40) Hemoglobin 10.8 g/dL (12.0-15.5) Hematocrit 31.5 % (36.0-47.0) Mean Corpuscular Volume 88 fL (79-100) Mean Corpuscular Hemoglobin 30 pg (25-35) Mean Corpuscular Hemoglobin Concent 34 g/dL (31-37) Red Cell Distribution Width 15.5 % (11.5-14.5) Platelet Count 162 x10^3/uL (140-400) Neutrophils (%) (Auto) 56 % (31-73) Lymphocytes (%) (Auto) 26 % (24-48) Monocytes (%) (Auto) 11 % (0-9) Eosinophils (%) (Auto) 7 % (0-3) Basophils (%) (Auto) 1 % (0-3) Neutrophils # (Auto) 3.1 x10^3/uL (1.8-7.7) Lymphocytes # (Auto) 1.4 x10^3/uL (1.0-4.8) Monocytes # (Auto) 0.6 x10^3/uL (0.0-1.1) Eosinophils # (Auto) 0.4 x10^3/uL (0.0-0.7) Basophils # (Auto) 0.1 x10^3/uL (0.0-0.2) Sodium Level 142 mmol/L (136-145) Potassium Level 4.6 mmol/L (3.5-5.1) Chloride Level 105 mmol/L (98-107) Carbon Dioxide Level 29 mmol/L (21-32) Anion Gap 8 (6-14) Blood Urea Nitrogen 29 mg/dL (7-20) Creatinine 2.1 mg/dL (0.6-1.0) Estimated GFR (Cockcroft-Gault) 22.9 BUN/Creatinine Ratio 14 (6-20) Glucose Level 90 mg/dL (70-99) Calcium Level 10.8 mg/dL (8.5-10.1) Phosphorus Level 2.7 mg/dL (2.6-4.7) Magnesium Level 2.2 mg/dL (1.8-2.4) Total Bilirubin 0.4 mg/dL (0.2-1.0) Aspartate Amino Transf (AST/SGOT) 22 U/L (15-37) Alanine Aminotransferase (ALT/SGPT) 23 U/L (14-59) Alkaline Phosphatase 99 U/L (46-116) Total Protein 6.9 g/dL (6.4-8.2) Albumin 3.6 g/dL (3.4-5.0) Albumin/Globulin Ratio 1.1 (1.0-1.7) Review of Systems Review of Systems: Denies RUIZ or dizziness Denies fevers or chill Bowel and bladder continent Assessment and Plan Assessmemt and Plan Bradycardia Hypertension Anemia, Iron deficiency Hyperlipidemia CHF, GERD Diabetes Hypothyroidism Plan Continue to diurese per nephrology to relieve edema in LE -change to PO Lasix prior to discharge Continue BP medications per cardiology -Continue Catapres TTS 3, Imdur 60 mg daily. Hydralazine PO 100 mg bid. Cardura 4 mg daily. Norvasc 10 mg daily -Continue to hold Nikolai-I Cardiac Monitoring DVT prophylaxis Appreciate Cardiology and Nephrology input PT/OT Trend labs Full Code Discharge tomorrow per nephrology is stable Comment Review of Relevant I have reviewed the following items bear (where applicable) has been applied. Medications: Current Medications Medications (Trade) Dose Ordered Sig/Bryant Route PRN Reason Start Time Stop Time Status Last Admin Dose Admin Furosemide (Lasix) 40 mg 1X ONCE IVP 01/03/21 11:00 01/03/21 11:01 DC 01/03/21 12:32 Metolazone (Zaroxolyn) 2.5 mg DAILY PO 01/03/21 12:00 01/03/21 12:32 Justifications for Admission Other Justification JOSEPHINE LIGHT III DO Jan 03, 2021 13:06
[2021-01-03 15:00] VITALS: BP 204/81
[2021-01-03 19:00] VITALS: BP 186/90
[2021-01-03] MEDS: FUROSEMIDE 40 MG TABLET. PO SCH (19:02)
[2021-01-03] MEDS: ATORVASTATIN CALCIUM 40 MG TABLET. PO SCH (19:57)
[2021-01-03 23:00] VITALS: BP 217/87
[2021-01-04] MEDS: hydrALAZINE 20 MG/ML VIAL. IVP PRN (01:01)
[2021-01-04] MEDS: ALPRAZolam 0.5 MG TABLET PO PRN ×2 (01:46→21:15)
[2021-01-04 02:37] VITALS: BP 216/89
[2021-01-04] MEDS: LEVOTHYROXINE 50 MCG TABLET PO SCH (06:36)
[2021-01-04 07:00] VITALS: BP 186/114
[2021-01-04 08:26] LABS: ALBUMIN 3.9 g/dL (3.4-5.0); ALBUMIN/GLOBULIN RATIO 1.1 (1.0-1.7); CALCIUM 11.3 mg/dL (8.5-10.1); CREATININE 2.2 mg/dL (0.6-1.0); GFR 21.7; POTASSIUM 4.3 mmol/L (3.5-5.1); TOTAL BILIRUBIN 0.3 mg/dL (0.2-1.0); TOTAL PROTEIN 7.4 g/dL (6.4-8.2)
[2021-01-04 08:31] LABS: MAGNESIUM 2.1 mg/dL (1.8-2.4)
[2021-01-04 08:35] LABS: BASO # 0.1 x10^3/uL (0.0-0.2); BASO % 1 % (0-3); EOS # 0.4 x10^3/uL (0.0-0.7); EOS % 7 % (0-3); HEMATOCRIT 32.5 % (36.0-47.0); HEMOGLOBIN 10.9 g/dL (12.0-15.5); LYMPH # 1.2 x10^3/uL (1.0-4.8); LYMPH % 21 % (24-48); MEAN CORPUSCULAR HEMOGLOBIN 30 pg (25-35); MEAN CORPUSCULAR HGB CONC 34 g/dL (31-37); MEAN CORPUSCULAR VOLUME 88 fL (79-100); MONO # 0.6 x10^3/uL (0.0-1.1); MONO % 10 % (0-9); NEUT # 3.6 x10^3/uL (1.8-7.7); NEUT % 62 % (31-73); PLATELET COUNT 159 x10^3/uL (140-400); RED CELL DISTRIBUTION WIDTH 15.4 % (11.5-14.5); WHITE BLOOD COUNT 5.9 x10^3/uL (4.0-11.0)
[2021-01-04] MEDS: DOXAZOSIN MESYLATE 4 MG TABLET. PO SCH (09:20)
[2021-01-04] MEDS: PANTOPRAZOLE 40 MG TABLET.DR. PO SCH (09:20)
[2021-01-04] MEDS: ASPIRIN CHEWABLE 81 MG TABLET. PO SCH (09:20)
[2021-01-04] MEDS: FUROSEMIDE 40 MG TABLET. PO SCH ×2 (09:21→13:08)
[2021-01-04] MEDS: FERROUS SULFATE 325 MG TABLET. PO SCH (09:21)
[2021-01-04] MEDS: GLIMEPIRIDE 2 MG TABLET. PO SCH (09:21)
[2021-01-04] MEDS: metOLazone 2.5 MG TABLET PO SCH (09:21)
[2021-01-04] MEDS: POLYETHYLENE GLYCOL 3350 17 GM PACKET. PO PRN (09:22)
[2021-01-04] MEDS: DOCUSATE SODIUM 100 MG CAPSULE. PO PRN ×2 (09:22→21:16)
[2021-01-04] MEDS: MUPIROCIN 2 % NASAL OINTMENT 22GM TUBE. TP SCH ×3 (09:22→21:00)
[2021-01-04] MEDS: HYDROcodone/APAP 10/325 1 TAB TABLET PO PRN ×2 (09:22→21:16)
[2021-01-04] MEDS: ISOSORBIDE MONONITRATE ER 30 MG TAB.ER.24H PO SCH (09:51)
--- NOTE | 2021-01-04 09:56 | PDOC ---
PROGRESS NOTES Date of Service: DATE: 01/04/21 TIME: 09:55 Chief Complaint Chief Complaint Bradycardia Hypertension Anemia, Iron deficiency Hyperlipidemia CHF, GERD Diabetes Hypothyroidism History of Present Illness History of Present Illness The patient is a pleasant elderly female who presented as a transfer from another facility with bradycardia. She came over on a dopamine drip. She is on quite a few medications including several that could cause bradycardia such as beta blockade with carvedilol and clonidine. She is also on quite a few blood pressure meds. 12/30/2020 Patient seen and examined in bed D/W RN, Chart Review Discussed that we will continue to monitor as we try to reduce the number of medications she is on Discussed that we will try and titrate off of the dopamine drip. 12/31/2020 Patient was awake, alert and NAD. Patient seen and examined in bedside chair in room for discuss and exam. D/W RN, Chart Review Discussed that we will continue to monitor blood pressure. Now that the dopamine drip has been discontinued, we will restart BP medication to gain adequate control. 01/01/2021 Patient was awake, alert. Seen and examined in bedside chair D/W RN, Chart Review Discussed that we will continue to monitor blood pressure. Updated patient and on plan to wait for results of duplex scan and nephrology input. 01/02/2021 Patient was awake, alert. Seen and examined in bedside chair D/W RN, Chart Review Discussed with patient that her blood pressure is improving and we will continue to monitor Discussed with patient and nephrology that we will continue to diurese to remove excess fluid Updated patient with probable discharge plan for early next week after consulting pulmonology and if agreeable with nephrology 01/03/2021 Patient was pleasant, awake, and alert. Seen and examined in bedside chair D/W RN, Chart Review Improved edema in lower extremities bilaterally. Will continue to monitor BP. Updated patient with probable discharge plan for tomorrow Vitals Vitals Vital Signs Date Time Temp Pulse Resp B/P (MAP) Pulse Ox O2 Delivery O2 Flow Rate FiO2 01/04/21 09:51 75 186/114 01/04/21 09:22 96 Nasal Cannula 2.0 01/04/21 07:00 98.2 20 98.2 Physical Exam General: No acute distress Heart: Regular rate Lungs: Clear Abdomen: Normal bowel sounds Extremities: No clubbing, No cyanosis, Other (3+ EDEMA) Skin: Other (PRETIBIAL ERYTHEMA) Labs LABS try to think and talk about your own wishes for healthcare in case youre ever not able to tell your loved ones or healthcare team what your wishes are. If you became really sick tomorrow, would your loved ones or healthcare team know what your wishes were? Here are some examples of different sets of goals and health care directives for your conversations: My wish is to use all medical therapies including resuscitation (such as CPR) and artificial life-sustaining treatments (such as machines and medicine) in an intensive care unit, to keep me alive if at all possible. My wish is to live as long as possible, but I dont want attempts to bring me back to life if my heart and breathing stop. I would like full medical care but without using resuscitation or artificial life- sustaining intensive treatments, if these are unlikely to make me live longer or restore me to a certain quality of life. I will accept treatments that try to fix medical problems, but if Im not getting better or going to have a certain quality of life, I would want to switch to focusing only on my comfort and letting my happen naturally. My wish is for healthcare to focus on my comfort and lessen suffering. I would like medical care that focuses only on my quality of life and that allows me to naturally. Consider: What does a good quality of life mean for me? For many people, it is the ability to live independently and tell their own story. I may define it differently. Under what circumstances would I not want to be kept alive by medical treatments, resuscitation, or intensive care? What kind of changes to my health or life might make me change my mind? If I clearly am facing the last chapter of my life, how do I want the story to end? Who do I want to speak for me if I cant speak for myself? Do they understand my preferences? Are they willing to assume the role of my Durable Power of Serials Librarian? Can I change my Goals of Care Designation? Yes, your Goals of Care Designation can be changed at any time. It should be reviewed if: your health condition changes your circumstances change (such as new understanding) you are transferred or admitted to another healthcare setting dpoa review, to pt portal 18 min and question review Laboratory Tests Test 01/04/21 07:10 White Blood Count 5.9 x10^3/uL (4.0-11.0) Red Blood Count 3.70 x10^6/uL (3.50-5.40) Hemoglobin 10.9 g/dL (12.0-15.5) Hematocrit 32.5 % (36.0-47.0) Mean Corpuscular Volume 88 fL (79-100) Mean Corpuscular Hemoglobin 30 pg (25-35) Mean Corpuscular Hemoglobin Concent 34 g/dL (31-37) Red Cell Distribution Width 15.4 % (11.5-14.5) Platelet Count 159 x10^3/uL (140-400) Neutrophils (%) (Auto) 62 % (31-73) Lymphocytes (%) (Auto) 21 % (24-48) Monocytes (%) (Auto) 10 % (0-9) Eosinophils (%) (Auto) 7 % (0-3) Basophils (%) (Auto) 1 % (0-3) Neutrophils # (Auto) 3.6 x10^3/uL (1.8-7.7) Lymphocytes # (Auto) 1.2 x10^3/uL (1.0-4.8) Monocytes # (Auto) 0.6 x10^3/uL (0.0-1.1) Eosinophils # (Auto) 0.4 x10^3/uL (0.0-0.7) Basophils # (Auto) 0.1 x10^3/uL (0.0-0.2) Sodium Level 140 mmol/L (136-145) Potassium Level 4.3 mmol/L (3.5-5.1) Chloride Level 101 mmol/L (98-107) Carbon Dioxide Level 30 mmol/L (21-32) Anion Gap 9 (6-14) Blood Urea Nitrogen 28 mg/dL (7-20) Creatinine 2.2 mg/dL (0.6-1.0) Estimated GFR (Cockcroft-Gault) 21.7 BUN/Creatinine Ratio 13 (6-20) Glucose Level 112 mg/dL (70-99) Calcium Level 11.3 mg/dL (8.5-10.1) Phosphorus Level 3.0 mg/dL (2.6-4.7) Magnesium Level 2.1 mg/dL (1.8-2.4) Total Bilirubin 0.3 mg/dL (0.2-1.0) Aspartate Amino Transf (AST/SGOT) 26 U/L (15-37) Alanine Aminotransferase (ALT/SGPT) 25 U/L (14-59) Alkaline Phosphatase 115 U/L (46-116) Total Protein 7.4 g/dL (6.4-8.2) Albumin 3.9 g/dL (3.4-5.0) Albumin/Globulin Ratio 1.1 (1.0-1.7) Comment Review of Relevant I have reviewed the following items bear (where applicable) has been applied. Labs Laboratory Tests Test 01/03/21 06:35 01/03/21 06:55 01/04/21 07:10 White Blood Count 5.6 x10^3/uL (4.0-11.0) 5.9 x10^3/uL (4.0-11.0) Red Blood Count 3.57 x10^6/uL (3.50-5.40) 3.70 x10^6/uL (3.50-5.40) Hemoglobin 10.8 g/dL (12.0-15.5) 10.9 g/dL (12.0-15.5) Hematocrit 31.5 % (36.0-47.0) 32.5 % (36.0-47.0) Mean Corpuscular Volume 88 fL (79-100) 88 fL (79-100) Mean Corpuscular Hemoglobin 30 pg (25-35) 30 pg (25-35) Mean Corpuscular Hemoglobin Concent 34 g/dL (31-37) 34 g/dL (31-37) Red Cell Distribution Width 15.5 % (11.5-14.5) 15.4 % (11.5-14.5) Platelet Count 162 x10^3/uL (140-400) 159 x10^3/uL (140-400) Neutrophils (%) (Auto) 56 % (31-73) 62 % (31-73) Lymphocytes (%) (Auto) 26 % (24-48) 21 % (24-48) Monocytes (%) (Auto) 11 % (0-9) 10 % (0-9) Eosinophils (%) (Auto) 7 % (0-3) 7 % (0-3) Basophils (%) (Auto) 1 % (0-3) 1 % (0-3) Neutrophils # (Auto) 3.1 x10^3/uL (1.8-7.7) 3.6 x10^3/uL (1.8-7.7) Lymphocytes # (Auto) 1.4 x10^3/uL (1.0-4.8) 1.2 x10^3/uL (1.0-4.8) Monocytes # (Auto) 0.6 x10^3/uL (0.0-1.1) 0.6 x10^3/uL (0.0-1.1) Eosinophils # (Auto) 0.4 x10^3/uL (0.0-0.7) 0.4 x10^3/uL (0.0-0.7) Basophils # (Auto) 0.1 x10^3/uL (0.0-0.2) 0.1 x10^3/uL (0.0-0.2) Sodium Level 142 mmol/L (136-145) 140 mmol/L (136-145) Potassium Level 4.6 mmol/L (3.5-5.1) 4.3 mmol/L (3.5-5.1) Chloride Level 105 mmol/L (98-107) 101 mmol/L (98-107) Carbon Dioxide Level 29 mmol/L (21-32) 30 mmol/L (21-32) Anion Gap 8 (6-14) 9 (6-14) Blood Urea Nitrogen 29 mg/dL (7-20) 28 mg/dL (7-20) Creatinine 2.1 mg/dL (0.6-1.0) 2.2 mg/dL (0.6-1.0) Estimated GFR (Cockcroft-Gault) 22.9 21.7 BUN/Creatinine Ratio 14 (6-20) 13 (6-20) Glucose Level 90 mg/dL (70-99) 112 mg/dL (70-99) Calcium Level 10.8 mg/dL (8.5-10.1) 11.3 mg/dL (8.5-10.1) Phosphorus Level 2.7 mg/dL (2.6-4.7) 3.0 mg/dL (2.6-4.7) Magnesium Level 2.2 mg/dL (1.8-2.4) 2.1 mg/dL (1.8-2.4) Total Bilirubin 0.4 mg/dL (0.2-1.0) 0.3 mg/dL (0.2-1.0) Aspartate Amino Transf (AST/SGOT) 22 U/L (15-37) 26 U/L (15-37) Alanine Aminotransferase (ALT/SGPT) 23 U/L (14-59) 25 U/L (14-59) Alkaline Phosphatase 99 U/L (46-116) 115 U/L (46-116) Total Protein 6.9 g/dL (6.4-8.2) 7.4 g/dL (6.4-8.2) Albumin 3.6 g/dL (3.4-5.0) 3.9 g/dL (3.4-5.0) Albumin/Globulin Ratio 1.1 (1.0-1.7) 1.1 (1.0-1.7) Laboratory Tests Test 01/04/21 07:10 White Blood Count 5.9 x10^3/uL (4.0-11.0) Red Blood Count 3.70 x10^6/uL (3.50-5.40) Hemoglobin 10.9 g/dL (12.0-15.5) Hematocrit 32.5 % (36.0-47.0) Mean Corpuscular Volume 88 fL (79-100) Mean Corpuscular Hemoglobin 30 pg (25-35) Mean Corpuscular Hemoglobin Concent 34 g/dL (31-37) Red Cell Distribution Width 15.4 % (11.5-14.5) Platelet Count 159 x10^3/uL (140-400) Neutrophils (%) (Auto) 62 % (31-73) Lymphocytes (%) (Auto) 21 % (24-48) Monocytes (%) (Auto) 10 % (0-9) Eosinophils (%) (Auto) 7 % (0-3) Basophils (%) (Auto) 1 % (0-3) Neutrophils # (Auto) 3.6 x10^3/uL (1.8-7.7) Lymphocytes # (Auto) 1.2 x10^3/uL (1.0-4.8) Monocytes # (Auto) 0.6 x10^3/uL (0.0-1.1) Eosinophils # (Auto) 0.4 x10^3/uL (0.0-0.7) Basophils # (Auto) 0.1 x10^3/uL (0.0-0.2) Sodium Level 140 mmol/L (136-145) Potassium Level 4.3 mmol/L (3.5-5.1) Chloride Level 101 mmol/L (98-107) Carbon Dioxide Level 30 mmol/L (21-32) Anion Gap 9 (6-14) Blood Urea Nitrogen 28 mg/dL (7-20) Creatinine 2.2 mg/dL (0.6-1.0) Estimated GFR (Cockcroft-Gault) 21.7 BUN/Creatinine Ratio 13 (6-20) Glucose Level 112 mg/dL (70-99) Calcium Level 11.3 mg/dL (8.5-10.1) Phosphorus Level 3.0 mg/dL (2.6-4.7) Magnesium Level 2.1 mg/dL (1.8-2.4) Total Bilirubin 0.3 mg/dL (0.2-1.0) Aspartate Amino Transf (AST/SGOT) 26 U/L (15-37) Alanine Aminotransferase (ALT/SGPT) 25 U/L (14-59) Alkaline Phosphatase 115 U/L (46-116) Total Protein 7.4 g/dL (6.4-8.2) Albumin 3.9 g/dL (3.4-5.0) Albumin/Globulin Ratio 1.1 (1.0-1.7) Medications Current Medications Dopamine HCl/ Dextrose 250 ml @ 18.6 mls/hr CONT PRN IV SEE I/O RECORD Last administered on 12/30/20at 02:26; Start 12/29/20 at 17:00 Acetaminophen (Tylenol) 650 mg PRN Q4HRS PRN PO TEMP OVER 100.4F OR MILD PAIN Last administered on 12/30/20at 02:28; Start 12/29/20 at 20:30 Alprazolam (Xanax) 0.5 mg PRN BID PRN PO ANXIETY / AGITATION Last administered on 01/04/21at 01:46; Start 12/29/20 at 20:30 Aspirin (Aspirin Chewable) 81 mg DAILY PO Last administered on 01/04/21 09:20; Start 12/30/20 at 09:00 Docusate Sodium (Colace) 100 mg PRN BID PRN PO HARD STOOLS Last administered on 01/04/21 09:22; Start 12/29/20 at 20:30 Ferrous Sulfate (Feosol) 325 mg DAILY PO Last administered on 01/04/21 09:21; Start 12/30/20 at 09:00 Guaifenesin (MUCINEX ER with DM) 1 tab PRN Q12HRS PRN PO COUGH; Start 12/29/20 at 20:30 Levothyroxine Sodium (Synthroid) 50 mcg DAILY06 PO Last administered on 01/04/21 06:36; Start 12/30/20 at 06:00 Mupirocin (Bactroban) 1 precious TID TP Last administered on 01/04/21 09:22; Start 12/29/20 at 21:00 Pantoprazole Sodium (Protonix) 40 mg DAILYAC PO Last administered on 01/04/21 09:20; Start 12/30/20 at 07:30 Polyethylene Glycol (miraLAX PACKET) 17 gm PRN DAILY PRN PO CONSTIPATION Last administered on 01/04/21 09:22; Start 12/29/20 at 20:30 Atorvastatin Calcium (Lipitor) 80 mg QHS PO Last administered on 01/03/21 19:57; Start 12/30/20 at 21:00 Glimepiride (Amaryl) 1 mg DAILY08 PO Last administered on 01/04/21 09:21; Start 12/30/20 at 08:00 Acetaminophen/ Hydrocodone Bitart (Lortab 10/325) 1 tab PRN Q6HRS PRN PO MODERATE TO SEVERE PAIN Last administered on 01/04/21 09:22; Start 12/30/20 at 08:00 Hydralazine HCl (Apresoline Inj) 10 mg PRN Q4HRS PRN IVP SBP>170 at DBP>110 L ast administered on 01/04/21 01:01; Start 12/30/20 at 09:30 Hydralazine HCl (Apresoline) 50 mg TID PO Last administered on 01/01/21 09:45; Start 12/30/20 at 10:00; Stop 01/01/21 at 13:52; Status DC Amlodipine Besylate (Norvasc) 10 mg DAILY PO Last administered on 01/04/21at 09:21; Start 12/31/20 at 09:00 Amlodipine Besylate (Norvasc) 10 mg 1X ONCE PO Last administered on 12/30/20at 09:50; Start 12/30/20 at 10:00; Stop 12/30/20 at 10:01; Status DC Sodium Polystyrene Sulfonate (Kayexalate) 30 gm 1X ONCE PO Last administered on 12/30/20at 12:08; Start 12/30/20 at 12:00; Stop 12/30/20 at 12:01; Status DC Furosemide (Lasix) 40 mg 1X ONCE IVP Last administered on 12/30/20at 12:09; Start 12/30/20 at 12:30; Stop 12/30/20 at 12:31; Status DC Furosemide (Lasix) 40 mg 1X ONCE IVP ; Start 12/31/20 at 10:30; Stop 12/31/20 at 10:31; Status UNV Clonidine HCl (Catapres) 0.3 mg 1X ONCE PO Last administered on 12/31/20at 12:47; Start 12/31/20 at 10:30; Stop 12/31/20 at 10:31; Status DC Furosemide (Lasix) 40 mg BID92 IVP Last administered on 01/03/21at 08:23; Start 12/31/20 at 14:00; Stop 01/03/21 at 10:52; Status DC Furosemide (Lasix) 40 mg 1X ONCE IVP Last administered on 12/31/20at 12:48; Start 12/31/20 at 10:30; Stop 12/31/20 at 10:31; Status DC Isosorbide Mononitrate (Imdur) 60 mg DAILY PO Last administered on 01/04/21at 09:51; Start 12/31/20 at 11:00 Clonidine HCl (Catapres Tts-3) 1 patch WEEKLY TD Last administered on 12/31/20at 17:09; Start 12/31/20 at 16:00 Doxazosin Mesylate (Cardura) 4 mg DAILY PO Last administered on 01/04/21at 09:20; Start 01/01/21 at 10:00 Furosemide (Lasix) 40 mg 1X ONCE IVP ; Start 01/01/21 at 11:15; Stop 01/01/21 at 11:16; Status DC Hydralazine HCl (Apresoline) 100 mg BID PO Last administered on 01/04/21at 09:22; Start 01/01/21 at 21:00 Furosemide (Lasix) 40 mg 1X ONCE IVP Last administered on 01/03/21at 12:32; Start 01/03/21 at 11:00; Stop 01/03/21 at 11:01; Status DC Furosemide (Lasix) 40 mg BID92 PO Last administered on 01/04/21at 09:21; Start 01/03/21 at 14:00 Metolazone (Zaroxolyn) 2.5 mg DAILY PO Last administered on 01/04/21at 09:21; Start 01/03/21 at 12:00 Active Scripts Active Pantoprazole Sodium (Pantoprazole Sodium) 40 Mg Tablet.dr 40 Mg PO DAILYAC 30 Days Colace (Docusate Sodium) 100 Mg Capsule 100 Mg PO PRN BID PRN 14 Days Tylenol (Acetaminophen) 325 Mg Tablet 650 Mg PO PRN Q4HRS PRN 14 Days Reported Iron (Ferrous Sulfate) 325 Mg Tablet 1 Tab PO DAILYTUES/SAT 30 Days Torsemide 20 Mg Tablet 2 Tab PO DAILY AT 2000 Torsemide 20 Mg Tablet 3 Tab PO DAILY08 Hydrocodone-Apap 10-325 (Hydrocodone Bit/Acetaminophen) 1 Tab Tablet 1 Tab PO PRN Q6HRS PRN Hydralazine Hcl 50 Mg Tablet 1 Tab PO TID Clonidine Tts-1 (Clonidine) 1 Each Patch.tdwk 1 Patch TD WEEKLY Fish Oil 1,200 mg Softgel ([place]-3/Dha/Epa/Fish Oil) 1 Each Capsule.dr 1 Cap PO DAILY 30 Days Children's Aspirin (Aspirin) 81 Mg Tab.chew 81 Mg PO MONDAY AND MONDAY Spironolactone 25 Mg Tablet 25 Mg PO BID Ramipril 10 Mg Capsule 2 Cap PO DAILY08 30 Days Mupirocin Ointment (Mupirocin) 22 Gm Oint...g. 1 Precious TP TID Levothyroxine Sodium 50 Mcg Tablet 50 Mcg PO DAILY AT 0300 Hydralazine Hcl 25 Mg Tablet 1 Tab PO BID Glimepiride 1 Mg Tablet 1 Mg PO DAILY08 Daliresp (Roflumilast) 500 Mcg Tablet 500 Mcg PO DAILY08 Carvedilol 25 Mg Tablet 25 Mg PO BID Atorvastatin Calcium 80 Mg Tablet 80 Mg PO QHS Amlodipine Besylate 10 Mg Tablet 10 Mg PO DAILY08 Alprazolam 0.5 Mg Tablet 0.5 Mg PO PRN BID PRN Allopurinol 300 Mg Tablet 150 Mg PO EVERY OTHER DAY. Allopurinol 300 Mg Tablet 1 Tab PO DAILY Miralax (Polyethylene Glycol 3350) 17 Gm Powd.pack 1 Pkt PO PRN DAILY PRN Amaryl (Glimepiride) 4 Mg Tablet 2 Mg PO DAILY Mucinex Dm Er 600-30 Mg Tablet (Guaifenesin/Dextromethorphan) 1 Each Tab.er.12h 1 Tab PO PRN Q12HRS Alprazolam 0.5 Mg Tablet 0.5 Mg PO PRN Q12HR PRN Saline Nasal [place] (Sodium Chloride) 30 Ml [place] 1-2 [place] NS PRN Q2HR PRN Loratadine 10 Mg Tablet 10 Mg PO DAILY Allopurinol 300 Mg Tablet 150 Mg PO DAILY Amlodipine Besylate 10 Mg Tablet 10 Mg PO DAILY Torsemide 20 Mg Tablet 3 Tab PO DAILY Daliresp (Roflumilast) 500 Mcg Tablet 1 Tab PO DAILY Ramipril 10 Mg Capsule 2 Cap PO DAILY Levothyroxine Sodium 50 Mcg Tablet 1 Tab PO DAILY Coreg (Carvedilol) 25 Mg Tablet 25 Mg PO BIDWMEALS Atorvastatin Calcium 80 Mg Tablet 1 Tab PO DAILY Vitals/I & O Vital Sign - Last 24 Hours 01/03/21 01/03/21 01/03/21 01/03/21 11:00 15:00 15:20 15:50 Temp 98.8 98.3 98.8 98.3 Pulse 68 79 Resp 18 18 20 18 B/P (MAP) 189/78 (115) 204/81 (122) Pulse Ox 97 95 97 97 O2 Delivery Nasal Cannula Nasal Cannula Nasal Cannula Nasal Cannula O2 Flow Rate 2.0 2.0 2.0 01/03/21 01/03/21 01/03/21 01/03/21 19:00 19:57 20:00 23:00 Temp 97.3 97.3 97.3 97.3 Pulse 76 80 Resp 18 18 B/P (MAP) 186/90 (122) 186/90 217/87 (130) Pulse Ox 99 99 O2 Delivery Nasal Cannula Nasal Cannula Nasal Cannula O2 Flow Rate 2.0 2.0 2.0 01/03/21 01/04/21 01/04/21 01/04/21 23:54 01:01 02:37 07:00 Temp 97.9 98.2 97.9 98.2 Pulse 80 75 75 Resp 20 16 20 B/P (MAP) 217/87 216/89 (131) 186/114 (138) Pulse Ox 93 96 O2 Delivery Nasal Cannula Nasal Cannula O2 Flow Rate 2.0 2.0 01/04/21 01/04/21 01/04/21 01/04/21 09:20 09:21 09:22 09:22 Pulse 75 75 75 B/P (MAP) 186/114 186/114 186/114 Pulse Ox 96 O2 Delivery Nasal Cannula O2 Flow Rate 2.0 01/04/21 09:51 Pulse 75 B/P (MAP) 186/114 Intake and Output 01/03/21 01/03/21 01/04/21 15:00 23:00 07:00 Intake Total 910 ml 410 ml 100 ml Output Total 650 ml 1200 ml 550 ml Balance 260 ml -790 ml -450 ml Justicifation of Admission Dx: Justifications for Admission: Justification of Admission Dx: N/A SELVIN DOUGLAS MD Jan 04, 2021 09:55
--- NOTE | 2021-01-04 10:46 | PDOC ---
Renal-Progress Notes Subjective Notes Notes NO NEW COMPLAINTS History of Present Illness Hx of present illness STABLE AND IMPROVED Vitals Vitals Vital Signs Date Time Temp Pulse Resp B/P (MAP) Pulse Ox O2 Delivery O2 Flow Rate FiO2 01/04/21 09:51 75 186/114 01/04/21 09:22 96 Nasal Cannula 2.0 01/04/21 07:00 98.2 20 98.2 Weight Weight [ ] I.O. Intake and Output Intake and Output 01/04/21 07:00 Intake Total 1420 ml Output Total 2400 ml Balance -980 ml Intake Oral 1420 ml Output Urine Total 2400 ml Labs Labs Laboratory Tests Test 01/04/21 07:10 White Blood Count 5.9 x10^3/uL (4.0-11.0) Red Blood Count 3.70 x10^6/uL (3.50-5.40) Hemoglobin 10.9 g/dL (12.0-15.5) Hematocrit 32.5 % (36.0-47.0) Mean Corpuscular Volume 88 fL (79-100) Mean Corpuscular Hemoglobin 30 pg (25-35) Mean Corpuscular Hemoglobin Concent 34 g/dL (31-37) Red Cell Distribution Width 15.4 % (11.5-14.5) Platelet Count 159 x10^3/uL (140-400) Neutrophils (%) (Auto) 62 % (31-73) Lymphocytes (%) (Auto) 21 % (24-48) Monocytes (%) (Auto) 10 % (0-9) Eosinophils (%) (Auto) 7 % (0-3) Basophils (%) (Auto) 1 % (0-3) Neutrophils # (Auto) 3.6 x10^3/uL (1.8-7.7) Lymphocytes # (Auto) 1.2 x10^3/uL (1.0-4.8) Monocytes # (Auto) 0.6 x10^3/uL (0.0-1.1) Eosinophils # (Auto) 0.4 x10^3/uL (0.0-0.7) Basophils # (Auto) 0.1 x10^3/uL (0.0-0.2) Sodium Level 140 mmol/L (136-145) Potassium Level 4.3 mmol/L (3.5-5.1) Chloride Level 101 mmol/L (98-107) Carbon Dioxide Level 30 mmol/L (21-32) Anion Gap 9 (6-14) Blood Urea Nitrogen 28 mg/dL (7-20) Creatinine 2.2 mg/dL (0.6-1.0) Estimated GFR (Cockcroft-Gault) 21.7 BUN/Creatinine Ratio 13 (6-20) Glucose Level 112 mg/dL (70-99) Calcium Level 11.3 mg/dL (8.5-10.1) Phosphorus Level 3.0 mg/dL (2.6-4.7) Magnesium Level 2.1 mg/dL (1.8-2.4) Total Bilirubin 0.3 mg/dL (0.2-1.0) Aspartate Amino Transf (AST/SGOT) 26 U/L (15-37) Alanine Aminotransferase (ALT/SGPT) 25 U/L (14-59) Alkaline Phosphatase 115 U/L (46-116) Total Protein 7.4 g/dL (6.4-8.2) Albumin 3.9 g/dL (3.4-5.0) Albumin/Globulin Ratio 1.1 (1.0-1.7) Review of Systems Constitutional: yes: weakness, alert, oriented Ears/Nose/Throat: Yes: no symptom reported Eyes: Yes: no symptom reported Pulmonary: Yes dyspnea Cardiovascular: Yes edema Gastrointestional: Yes: nausea Genitourinary: Yes: no symptom reported Skin: Yes no symptom reported Psychiatric/Neurological: Yes: no symptom reported Endocrine: Yes: no symptom reported Physical Exam General Appearance: no apparent distress Skin: warm Respiratory: decreased breath sounds Heart: S1S2 Abdomen: soft, bowel sounds present Genitourinary: bladder flat Extremities: edema Neurology: alert, oriented, follow commands Musculoskeletal: Osteoarthritis Assessment Assessment IMP BANDAR-RESOLVED WITH CR BACK TO BASELINE ?VENKATA-REPORTED VELOCITY OF 225CM/SEC-?50% LESION CKD STAGE 4-CR OF 2.0 BRADYCARDIA HYPOXIA ANEMIA WITH IRON DEFICIENCY [id number] DM II CHF-PROB ACUTE ON CHRONIC DIASTOLIC HYPOTHYROIDISM HYPERCALCEMIA-PERSISTENT PLAN RESUME ESPERANZA-I CLONIDINE TABLET NOW CONT PO LASIX IRON SUPPLEMENTS STOP THIAZIDE DUE TO HIGH CA WEAN OFF OXYGEN PENDING SPEP FLUID RESTRICT IMPROVE BG CONTROL CARDIOLOGY EVALUATION D/W CARDIOLOGY WOULD NOT INTERVENE FOR ?VENKATA DUE RISK OF CONTRAST EXPOSURE-ALSO UNLIKELY TO BENEFIT D/W ATTENDING MAY NEED BISPHOSPHONATE WILL FOLLOW XENIA LAW MD Jan 04, 2021 10:46
[2021-01-04 11:00] VITALS: BP 141/65
[2021-01-04] MEDS ORDERED: cloNIDine HCL 0.2 MG TABLET PO PRN (11:30)
[2021-01-04] MEDS: LISINOPRIL 20 MG TABLET PO SCH ×2 (13:07→21:16)
--- NOTE | 2021-01-04 13:25 | PDOC ---
CARDIOLOGY PROGRESS NOTE SUBJECTIVE: No acute events overnight. Patient continues to remain hypertensive. Adjustments have been made by nephrology. Their notes reviewed and recommendations much appreciated. OBJECTIVE: Vital Signs/I&O: Vital Signs Date Time Temp Pulse Resp B/P (MAP) Pulse Ox O2 Delivery O2 Flow Rate FiO2 01/04/21 13:07 83 141/65 01/04/21 11:28 96 Nasal Cannula 2.0 01/04/21 11:00 98.3 20 98.3 I & O 01/03/21 01/03/21 01/04/21 15:00 23:00 07:00 Intake Total 910 ml 410 ml 100 ml Output Total 650 ml 1200 ml 550 ml Balance 260 ml -790 ml -450 ml Objective: The patient appeared well nourished and normally developed. Head exam is unremarkable. No scleral icterus or corneal arcus noted. Neck is without jugular venous distension, thyromegaly, or carotid bruits. Carotid upstrokes are brisk bilaterally. Lungs are clear to auscultation and percussion. Cardiac exam reveals the PMI to be normally sized and situated. Rhythm is regular. First and second heart sounds normal. No murmurs, rubs or gallops. Abdominal exam reveals normal bowel sounds, no masses, no organomegaly and no aortic enlargement. Extremities are moderately edematous but improved from prior. Diminished pedal pulses. Msk: No traumua Neuro: No focal deficits CURRENT MEDICATIONS: Clonidine, amlodipine, Imdur, lisinopril, doxazosin, atorvastatin DIAGNOSTIC TESTING: Labs reviewed and creatinine is improved. Labs: Laboratory Tests 01/04/21 07:10 Laboratory Tests Test 01/04/21 07:10 White Blood Count 5.9 x10^3/uL (4.0-11.0) Red Blood Count 3.70 x10^6/uL (3.50-5.40) Hemoglobin 10.9 g/dL (12.0-15.5) L Hematocrit 32.5 % (36.0-47.0) L Mean Corpuscular Volume 88 fL (79-100) Mean Corpuscular Hemoglobin 30 pg (25-35) Mean Corpuscular Hemoglobin Concent 34 g/dL (31-37) Red Cell Distribution Width 15.4 % (11.5-14.5) H Platelet Count 159 x10^3/uL (140-400) Neutrophils (%) (Auto) 62 % (31-73) Lymphocytes (%) (Auto) 21 % (24-48) L Monocytes (%) (Auto) 10 % (0-9) H Eosinophils (%) (Auto) 7 % (0-3) H Basophils (%) (Auto) 1 % (0-3) Neutrophils # (Auto) 3.6 x10^3/uL (1.8-7.7) Lymphocytes # (Auto) 1.2 x10^3/uL (1.0-4.8) Monocytes # (Auto) 0.6 x10^3/uL (0.0-1.1) Eosinophils # (Auto) 0.4 x10^3/uL (0.0-0.7) Basophils # (Auto) 0.1 x10^3/uL (0.0-0.2) Sodium Level 140 mmol/L (136-145) Potassium Level 4.3 mmol/L (3.5-5.1) Chloride Level 101 mmol/L (98-107) Carbon Dioxide Level 30 mmol/L (21-32) Anion Gap 9 (6-14) Blood Urea Nitrogen 28 mg/dL (7-20) H Creatinine 2.2 mg/dL (0.6-1.0) H Estimated GFR (Cockcroft-Gault) 21.7 BUN/Creatinine Ratio 13 (6-20) Glucose Level 112 mg/dL (70-99) H Calcium Level 11.3 mg/dL (8.5-10.1) H Phosphorus Level 3.0 mg/dL (2.6-4.7) Total Bilirubin 0.3 mg/dL (0.2-1.0) Aspartate Amino Transf (AST/SGOT) 26 U/L (15-37) Alkaline Phosphatase 115 U/L (46-116) Total Protein 7.4 g/dL (6.4-8.2) Albumin 3.9 g/dL (3.4-5.0) Albumin/Globulin Ratio 1.1 (1.0-1.7) ASSESSMENT: 1. Bradycardia in the setting of carvedilol use 2. Chronic kidney disease 3. Acute on chronic diastolic heart failure 4. Hypertension, labile 5. Dyslipidemia 6. Morbid obesity PLAN: 1. At this present time we will continue medical therapy as noted including clonidine and doxazosin. Appreciate nephrology recommendations 2. For now since her lisinopril is been initiated recently we will monitor her renal function so she should remain in the hospital for another 24 hours. 3. No further cardiovascular testing necessary at this time 4. Bradycardia has resolved and no further recurrence has been noted on telemetry and therefore we can defer any pacemaker implantation at this time and we will plan for an outpatient loop recorder. Suspect the bradycardia was rel ated to carvedilol. Justicifation of Admission Dx: Justifications for Admission: Justification of Admission Dx: N/A SINDHU ENCARNACION MD Jan 04, 2021 13:25
[2021-01-04 15:00] VITALS: BP 102/51
[2021-01-04 16:26] LABS: ALBUM 3.4 g/dL (2.9-4.4); ALPHA 1 0.3 g/dL (0.0-0.4); ALPHA 2 0.7 g/dL (0.4-1.0); BETA 0.9 g/dL (0.7-1.3); GAMMA 0.6 g/dL (0.4-1.8); PROTEIN TOTAL 5.9 g/dL (6.0-8.5); SPEP AG RATIO 1.4 (0.7-1.7)
[2021-01-04 19:00] VITALS: BP 153/69
[2021-01-04] MEDS: ATORVASTATIN CALCIUM 40 MG TABLET. PO SCH (21:15)
[2021-01-04] MEDS: CALCITONIN,SALMON 400 UNIT/2 ML VIAL. SQ SCH (21:22)
[2021-01-04 23:00] VITALS: BP 135/60
[2021-01-05 03:00] VITALS: BP 127/58
[2021-01-05] MEDS: CALCITONIN,SALMON 400 UNIT/2 ML VIAL. SQ SCH (03:44)
[2021-01-05 05:57] LABS: BASO # 0.1 x10^3/uL (0.0-0.2); BASO % 1 % (0-3); EOS # 0.4 x10^3/uL (0.0-0.7); EOS % 4 % (0-3); HEMATOCRIT 30.1 % (36.0-47.0); HEMOGLOBIN 10.3 g/dL (12.0-15.5); LYMPH # 1.5 x10^3/uL (1.0-4.8); LYMPH % 17 % (24-48); MEAN CORPUSCULAR HEMOGLOBIN 30 pg (25-35); MEAN CORPUSCULAR HGB CONC 34 g/dL (31-37); MEAN CORPUSCULAR VOLUME 88 fL (79-100); MONO % 12 % (0-9); NEUT # 5.7 x10^3/uL (1.8-7.7); NEUT % 66 % (31-73); PLATELET COUNT 166 x10^3/uL (140-400); RED BLOOD COUNT 3.42 x10^6/uL (3.50-5.40); RED CELL DISTRIBUTION WIDTH 15.4 % (11.5-14.5); WHITE BLOOD COUNT 8.6 x10^3/uL (4.0-11.0)
[2021-01-05] MEDS: PANTOPRAZOLE 40 MG TABLET.DR. PO SCH ×2 (06:16→08:23)
[2021-01-05] MEDS: LEVOTHYROXINE 50 MCG TABLET PO SCH (06:17)
[2021-01-05 06:24] LABS: ALBUMIN 3.5 g/dL (3.4-5.0); ALBUMIN/GLOBULIN RATIO 1.2 (1.0-1.7); CALCIUM 10.2 mg/dL (8.5-10.1); CREATININE 3.1 mg/dL (0.6-1.0); GFR 14.6; POTASSIUM 4.6 mmol/L (3.5-5.1); TOTAL BILIRUBIN 0.4 mg/dL (0.2-1.0); TOTAL PROTEIN 6.5 g/dL (6.4-8.2)
[2021-01-05 06:54] VITALS: BP 143/65
[2021-01-05] MEDS: GLIMEPIRIDE 2 MG TABLET. PO SCH (08:23)
[2021-01-05] MEDS: ASPIRIN CHEWABLE 81 MG TABLET. PO SCH (08:23)
[2021-01-05] MEDS: FERROUS SULFATE 325 MG TABLET. PO SCH (08:24)
[2021-01-05] MEDS: DOCUSATE SODIUM 100 MG CAPSULE. PO PRN (08:24)
[2021-01-05] MEDS: FUROSEMIDE 40 MG TABLET. PO SCH (08:24)
[2021-01-05] MEDS: LISINOPRIL 20 MG TABLET PO SCH (08:25)
[2021-01-05] MEDS: HYDROcodone/APAP 10/325 1 TAB TABLET PO PRN (08:30)
[2021-01-05] MEDS: DOXAZOSIN MESYLATE 4 MG TABLET. PO SCH (08:33)
--- NOTE | 2021-01-05 09:59 | PDOC ---
PROGRESS NOTES Date of Service: DATE: 01/05/21 TIME: 09:59 Chief Complaint Chief Complaint Bradycardia Hypertension Anemia, Iron deficiency Hyperlipidemia CHF, GERD Diabetes Hypothyroidism 01/05/2021 Patient was pleasant, awake, and alert. Seen and examined in bedside chair D/W RN, Chart Review Improved edema in lower extremities bilaterally. Will continue to monitor BP. Updated patient with probable discharge plan for tomorrow SEE DR LAW 4 WEEKS D/W DR LAW OK TO D/C STOP THIAZIDE DUE TO HIGH CA WEAN OFF OXYGEN PENDING SPEP FLUID RESTRICT IMPROVE BG CONTROL CARDIOLOGY EVALUATION D/W CARDIOLOGY WOULD NOT INTERVENE FOR ?VENKATA DUE RISK OF CONTRAST EXPOSURE-ALSO UNLIKELY TO BENEFIT SEE DR LAW 4 WEEKS D/C PLANNING 35 MIN History of Present Illness History of Present Illness The patient is a pleasant elderly female who presented as a transfer from another facility with bradycardia. She came over on a dopamine drip. She is on quite a few medications including several that could cause bradycardia such as beta blockade with carvedilol and clonidine. She is also on quite a few blood pressure meds. 12/30/2020 Patient seen and examined in bed D/W RN, Chart Review Discussed that we will continue to monitor as we try to reduce the number of medications she is on Discussed that we will try and titrate off of the dopamine drip. 12/31/2020 Patient was awake, alert and NAD. Patient seen and examined in bedside chair in room for discuss and exam. D/W RN, Chart Review Discussed that we will continue to monitor blood pressure. Now that the dopamine drip has been discontinued, we will restart BP medication to gain adequate control. 01/01/2021 Patient was awake, alert. Seen and examined in bedside chair D/W RN, Chart Review Discussed that we will continue to monitor blood pressure. Updated patient and on plan to wait for results of duplex scan and nephrology input. 01/02/2021 Patient was awake, alert. Seen and examined in bedside chair D/W RN, Chart Review Discussed with patient that her blood pressure is improving and we will continue to monitor Discussed with patient and nephrology that we will continue to diurese to remove excess fluid Updated patient with probable discharge plan for early next week after consulting pulmonology and if agreeable with nephrology 01/03/2021 Patient was pleasant, awake, and alert. Seen and examined in bedside chair D/W RN, Chart Review Improved edema in lower extremities bilaterally. Will continue to monitor BP. Updated patient with probable discharge plan for tomorrow 01/04/2021 Patient was pleasant, awake, and alert. Seen and examined in bedside chair D/W RN, Chart Review Improved edema in lower extremities bilaterally. Will continue to monitor BP. Updated patient with probable discharge plan for tomorrow SEE DR LAW 4 WEEKS Vitals Vitals Vital Signs Date Time Temp Pulse Resp B/P (MAP) Pulse Ox O2 Delivery O2 Flow Rate FiO2 01/05/21 08:33 61 143/65 01/05/21 08:30 20 93 Room Air 01/05/21 06:54 97.9 97.9 01/04/21 21:46 2.0 Physical Exam General: Alert, Oriented X3, Cooperative, No acute distress Heart: Regular rate Lungs: Clear Abdomen: Normal bowel sounds, Soft, No tenderness Extremities: No clubbing, No cyanosis, Other (3+ EDEMA) Skin: Other (PRETIBIAL ERYTHEMA) Labs LABS Laboratory Tests Test 01/05/21 05:05 White Blood Count 8.6 x10^3/uL (4.0-11.0) Red Blood Count 3.42 x10^6/uL (3.50-5.40) Hemoglobin 10.3 g/dL (12.0-15.5) Hematocrit 30.1 % (36.0-47.0) Mean Corpuscular Volume 88 fL (79-100) Mean Corpuscular Hemoglobin 30 pg (25-35) Mean Corpuscular Hemoglobin Concent 34 g/dL (31-37) Red Cell Distribution Width 15.4 % (11.5-14.5) Platelet Count 166 x10^3/uL (140-400) Neutrophils (%) (Auto) 66 % (31-73) Lymphocytes (%) (Auto) 17 % (24-48) Monocytes (%) (Auto) 12 % (0-9) Eosinophils (%) (Auto) 4 % (0-3) Basophils (%) (Auto) 1 % (0-3) Neutrophils # (Auto) 5.7 x10^3/uL (1.8-7.7) Lymphocytes # (Auto) 1.5 x10^3/uL (1.0-4.8) Monocytes # (Auto) 1.0 x10^3/uL (0.0-1.1) Eosinophils # (Auto) 0.4 x10^3/uL (0.0-0.7) Basophils # (Auto) 0.1 x10^3/uL (0.0-0.2) Sodium Level 133 mmol/L (136-145) Potassium Level 4.6 mmol/L (3.5-5.1) Chloride Level 99 mmol/L (98-107) Carbon Dioxide Level 29 mmol/L (21-32) Anion Gap 5 (6-14) Blood Urea Nitrogen 38 mg/dL (7-20) Creatinine 3.1 mg/dL (0.6-1.0) Estimated GFR (Cockcroft-Gault) 14.6 BUN/Creatinine Ratio 12 (6-20) Glucose Level 129 mg/dL (70-99) Calcium Level 10.2 mg/dL (8.5-10.1) Phosphorus Level 3.6 mg/dL (2.6-4.7) Total Bilirubin 0.4 mg/dL (0.2-1.0) Aspartate Amino Transf (AST/SGOT) 20 U/L (15-37) Alanine Aminotransferase (ALT/SGPT) 26 U/L (14-59) Alkaline Phosphatase 104 U/L (46-116) Total Protein 6.5 g/dL (6.4-8.2) Albumin 3.5 g/dL (3.4-5.0) Albumin/Globulin Ratio 1.2 (1.0-1.7) Comment Review of Relevant I have reviewed the following items bear (where applicable) has been applied. Labs Laboratory Tests Test 01/04/21 07:10 01/05/21 05:05 White Blood Count 5.9 x10^3/uL (4.0-11.0) 8.6 x10^3/uL (4.0-11.0) Red Blood Count 3.70 x10^6/uL (3.50-5.40) 3.42 x10^6/uL (3.50-5.40) Hemoglobin 10.9 g/dL (12.0-15.5) 10.3 g/dL (12.0-15.5) Hematocrit 32.5 % (36.0-47.0) 30.1 % (36.0-47.0) Mean Corpuscular Volume 88 fL (79-100) 88 fL (79-100) Mean Corpuscular Hemoglobin 30 pg (25-35) 30 pg (25-35) Mean Corpuscular Hemoglobin Concent 34 g/dL (31-37) 34 g/dL (31-37) Red Cell Distribution Width 15.4 % (11.5-14.5) 15.4 % (11.5-14.5) Platelet Count 159 x10^3/uL (140-400) 166 x10^3/uL (140-400) Neutrophils (%) (Auto) 62 % (31-73) 66 % (31-73) Lymphocytes (%) (Auto) 21 % (24-48) 17 % (24-48) Monocytes (%) (Auto) 10 % (0-9) 12 % (0-9) Eosinophils (%) (Auto) 7 % (0-3) 4 % (0-3) Basophils (%) (Auto) 1 % (0-3) 1 % (0-3) Neutrophils # (Auto) 3.6 x10^3/uL (1.8-7.7) 5.7 x10^3/uL (1.8-7.7) Lymphocytes # (Auto) 1.2 x10^3/uL (1.0-4.8) 1.5 x10^3/uL (1.0-4.8) Monocytes # (Auto) 0.6 x10^3/uL (0.0-1.1) 1.0 x10^3/uL (0.0-1.1) Eosinophils # (Auto) 0.4 x10^3/uL (0.0-0.7) 0.4 x10^3/uL (0.0-0.7) Basophils # (Auto) 0.1 x10^3/uL (0.0-0.2) 0.1 x10^3/uL (0.0-0.2) Sodium Level 140 mmol/L (136-145) 133 mmol/L (136-145) Potassium Level 4.3 mmol/L (3.5-5.1) 4.6 mmol/L (3.5-5.1) Chloride Level 101 mmol/L (98-107) 99 mmol/L (98-107) Carbon Dioxide Level 30 mmol/L (21-32) 29 mmol/L (21-32) Anion Gap 9 (6-14) 5 (6-14) Blood Urea Nitrogen 28 mg/dL (7-20) 38 mg/dL (7-20) Creatinine 2.2 mg/dL (0.6-1.0) 3.1 mg/dL (0.6-1.0) Estimated GFR (Cockcroft-Gault) 21.7 14.6 BUN/Creatinine Ratio 13 (6-20) 12 (6-20) Glucose Level 112 mg/dL (70-99) 129 mg/dL (70-99) Calcium Level 11.3 mg/dL (8.5-10.1) 10.2 mg/dL (8.5-10.1) Phosphorus Level 3.0 mg/dL (2.6-4.7) 3.6 mg/dL (2.6-4.7) Magnesium Level 2.1 mg/dL (1.8-2.4) Total Bilirubin 0.3 mg/dL (0.2-1.0) 0.4 mg/dL (0.2-1.0) Aspartate Amino Transf (AST/SGOT) 26 U/L (15-37) 20 U/L (15-37) Alanine Aminotransferase (ALT/SGPT) 25 U/L (14-59) 26 U/L (14-59) Alkaline Phosphatase 115 U/L (46-116) 104 U/L (46-116) Total Protein 7.4 g/dL (6.4-8.2) 6.5 g/dL (6.4-8.2) Albumin 3.9 g/dL (3.4-5.0) 3.5 g/dL (3.4-5.0) Albumin/Globulin Ratio 1.1 (1.0-1.7) 1.2 (1.0-1.7) Laboratory Tests Test 01/05/21 05:05 White Blood Count 8.6 x10^3/uL (4.0-11.0) Red Blood Count 3.42 x10^6/uL (3.50-5.40) Hemoglobin 10.3 g/dL (12.0-15.5) Hematocrit 30.1 % (36.0-47.0) Mean Corpuscular Volume 88 fL (79-100) Mean Corpuscular Hemoglobin 30 pg (25-35) Mean Corpuscular Hemoglobin Concent 34 g/dL (31-37) Red Cell Distribution Width 15.4 % (11.5-14.5) Platelet Count 166 x10^3/uL (140-400) Neutrophils (%) (Auto) 66 % (31-73) Lymphocytes (%) (Auto) 17 % (24-48) Monocytes (%) (Auto) 12 % (0-9) Eosinophils (%) (Auto) 4 % (0-3) Basophils (%) (Auto) 1 % (0-3) Neutrophils # (Auto) 5.7 x10^3/uL (1.8-7.7) Lymphocytes # (Auto) 1.5 x10^3/uL (1.0-4.8) Monocytes # (Auto) 1.0 x10^3/uL (0.0-1.1) Eosinophils # (Auto) 0.4 x10^3/uL (0.0-0.7) Basophils # (Auto) 0.1 x10^3/uL (0.0-0.2) Sodium Level 133 mmol/L (136-145) Potassium Level 4.6 mmol/L (3.5-5.1) Chloride Level 99 mmol/L (98-107) Carbon Dioxide Level 29 mmol/L (21-32) Anion Gap 5 (6-14) Blood Urea Nitrogen 38 mg/dL (7-20) Creatinine 3.1 mg/dL (0.6-1.0) Estimated GFR (Cockcroft-Gault) 14.6 BUN/Creatinine Ratio 12 (6-20) Glucose Level 129 mg/dL (70-99) Calcium Level 10.2 mg/dL (8.5-10.1) Phosphorus Level 3.6 mg/dL (2.6-4.7) Total Bilirubin 0.4 mg/dL (0.2-1.0) Aspartate Amino Transf (AST/SGOT) 20 U/L (15-37) Alanine Aminotransferase (ALT/SGPT) 26 U/L (14-59) Alkaline Phosphatase 104 U/L (46-116) Total Protein 6.5 g/dL (6.4-8.2) Albumin 3.5 g/dL (3.4-5.0) Albumin/Globulin Ratio 1.2 (1.0-1.7) Medications Current Medications Dopamine HCl/ Dextrose 250 ml @ 18.6 mls/hr CONT PRN IV SEE I/O RECORD Last administered on 12/30/20 02:26; Start 12/29/20 at 17:00 Acetaminophen (Tylenol) 650 mg PRN Q4HRS PRN PO TEMP OVER 100.4F OR MILD PAIN Last administered on 12/30/20 02:28; Start 12/29/20 at 20:30 Alprazolam (Xanax) 0.5 mg PRN BID PRN PO ANXIETY / AGITATION Last administered on 01/04/21 21:15; Start 12/29/20 at 20:30 Aspirin (Aspirin Chewable) 81 mg DAILY PO Last administered on 01/05/21 08:23; Start 12/30/20 at 09:00 Docusate Sodium (Colace) 100 mg PRN BID PRN PO HARD STOOLS Last administered on 01/05/21 08:24; Start 12/29/20 at 20:30 Ferrous Sulfate (Feosol) 325 mg DAILY PO Last administered on 01/05/21 08:24; Start 12/30/20 at 09:00 Guaifenesin (MUCINEX ER with DM) 1 tab PRN Q12HRS PRN PO COUGH Last administered on 01/05/21 03:43; Start 12/29/20 at 20:30 Levothyroxine Sodium (Synthroid) 50 mcg DAILY06 PO Last administered on 01/05/21 06:17; Start 12/30/20 at 06:00 Mupirocin (Bactroban) 1 precious TID TP Last administered on 01/04/21 21:00; Start 12/29/20 at 21:00 Pantoprazole Sodium (Protonix) 40 mg DAILYAC PO Last administered on 01/05/21 08:23; Start 12/30/20 at 07:30 Polyethylene Glycol (miraLAX PACKET) 17 gm PRN DAILY PRN PO CONSTIPATION Last administered on 01/04/21 09:22; Start 12/29/20 at 20:30 Atorvastatin Calcium (Lipitor) 80 mg QHS PO Last administered on 8/16/21at 21:15; Start 12/30/20 at 21:00 Glimepiride (Amaryl) 1 mg DAILY08 PO Last administered on 01/05/21at 08:23; Start 12/30/20 at 08:00 Acetaminophen/ Hydrocodone Bitart (Lortab 10/325) 1 tab PRN Q6HRS PRN PO MODERATE TO SEVERE PAIN Last administered on 01/05/21at 08:30; Start 12/30/20 at 08:00 Hydralazine HCl (Apresoline Inj) 10 mg PRN Q4HRS PRN IVP SBP>170 at DBP>110 Last administered on 01/04/21at 01:01; Start 12/30/20 at 09:30 Hydralazine HCl (Apresoline) 50 mg TID PO Last administered on 01/01/21at 09:45; Start 12/30/20 at 10:00; Stop 01/01/21 at 13:52; Status DC Amlodipine Besylate (Norvasc) 10 mg DAILY PO Last administered on 01/05/21at 08:23; Start 12/31/20 at 09:00 Amlodipine Besylate (Norvasc) 10 mg 1X ONCE PO Last administered on 12/30/20at 09:50; Start 12/30/20 at 10:00; Stop 12/30/20 at 10:01; Status DC Sodium Polystyrene Sulfonate (Kayexalate) 30 gm 1X ONCE PO Last administered on 12/30/20at 12:08; Start 12/30/20 at 12:00; Stop 12/30/20 at 12:01; Status DC Furosemide (Lasix) 40 mg 1X ONCE IVP Last administered on 12/30/20at 12:09; Start 12/30/20 at 12:30; Stop 12/30/20 at 12:31; Status DC Furosemide (Lasix) 40 mg 1X ONCE IVP ; Start 12/31/20 at 10:30; Stop 12/31/20 at 10:31; Status UNV Clonidine HCl (Catapres) 0.3 mg 1X ONCE PO Last administered on 12/31/20at 12:47; Start 12/31/20 at 10:30; Stop 12/31/20 at 10:31; Status DC Furosemide (Lasix) 40 mg BID92 IVP Last administered on 01/03/21 08:23; Start 12/31/20 at 14:00; Stop 01/03/21 at 10:52; Status DC Furosemide (Lasix) 40 mg 1X ONCE IVP Last administered on 12/31/20at 12:48; Start 12/31/20 at 10:30; Stop 12/31/20 at 10:31; Status DC Isosorbide Mononitrate (Imdur) 60 mg DAILY PO Last administered on 01/04/21at 09:51; Start 12/31/20 at 11:00 Clonidine HCl (Catapres Tts-3) 1 patch WEEKLY TD Last administered on 12/31/20at 17:09; Start 12/31/20 at 16:00 Doxazosin Mesylate (Cardura) 4 mg DAILY PO Last administered on 01/05/21at 08:33; Start 01/01/21 at 10:00 Furosemide (Lasix) 40 mg 1X ONCE IVP ; Start 01/01/21 at 11:15; Stop 01/01/21 at 11:16; Status DC Hydralazine HCl (Apresoline) 100 mg BID PO Last administered on 01/05/21at 08:25; Start 01/01/21 at 21:00 Furosemide (Lasix) 40 mg 1X ONCE IVP Last administered on 01/03/21at 12:32; Start 01/03/21 at 11:00; Stop 01/03/21 at 11:01; Status DC Furosemide (Lasix) 40 mg BID92 PO Last administered on 01/05/21at 08:24; Start 01/03/21 at 14:00 Metolazone (Zaroxolyn) 2.5 mg DAILY PO Last administered on 01/04/21at 09:21; Start 01/03/21 at 12:00; Stop 01/04/21 at 14:08; Status DC Lisinopril (Prinivil) 20 mg BID PO Last administered on 01/05/21 08:25; Start 01/04/21 at 11:00 Clonidine HCl (Catapres) 0.2 mg PRN 1X PRN PO HYPERTENSION Last administered on 01/04/21 13:07; Start 01/04/21 at 11:30 Calcitonin [place] (Miacalcin) 500 unit Q8H SQ Last administered on 01/05/21at 03:44; Start 01/04/21 at 19:00; Stop 01/05/21 at 03:01; Status DC Active Scripts Active Pantoprazole Sodium (Pantoprazole Sodium) 40 Mg Tablet.dr 40 Mg PO DAILYAC 30 Days Colace (Docusate Sodium) 100 Mg Capsule 100 Mg PO PRN BID PRN 14 Days Tylenol (Acetaminophen) 325 Mg Tablet 650 Mg PO PRN Q4HRS PRN 14 Days Reported Iron (Ferrous Sulfate) 325 Mg Tablet 1 Tab PO DAILYTUES/SAT 30 Days Torsemide 20 Mg Tablet 2 Tab PO DAILY AT 1999 Torsemide 20 Mg Tablet 3 Tab PO DAILY08 Hydrocodone-Apap 10-325 (Hydrocodone Bit/Acetaminophen) 1 Tab Tablet 1 Tab PO PRN Q6HRS PRN Hydralazine Hcl 50 Mg Tablet 1 Tab PO TID Clonidine Tts-1 (Clonidine) 1 Each Patch.tdwk 1 Patch TD WEEKLY Fish Oil 1,200 mg Softgel (Rice-3/Dha/Epa/Fish Oil) 1 Each Capsule.dr 1 Cap PO DAILY 30 Days Children's Aspirin (Aspirin) 81 Mg Tab.chew 81 Mg PO MONDAY AND MONDAY Spironolactone 25 Mg Tablet 25 Mg PO BID Ramipril 10 Mg Capsule 2 Cap PO DAILY08 30 Days Mupirocin Ointment (Mupirocin) 22 Gm Oint...g. 1 Precious TP TID Levothyroxine Sodium 50 Mcg Tablet 50 Mcg PO DAILY AT 0300 Hydralazine Hcl 25 Mg Tablet 1 Tab PO BID Glimepiride 1 Mg Tablet 1 Mg PO DAILY08 Daliresp (Roflumilast) 500 Mcg Tablet 500 Mcg PO DAILY08 Carvedilol 25 Mg Tablet 25 Mg PO BID Atorvastatin Calcium 80 Mg Tablet 80 Mg PO QHS Amlodipine Besylate 10 Mg Tablet 10 Mg PO DAILY08 Alprazolam 0.5 Mg Tablet 0.5 Mg PO PRN BID PRN Allopurinol 300 Mg Tablet 150 Mg PO EVERY OTHER DAY. Allopurinol 300 Mg Tablet 1 Tab PO DAILY Miralax (Polyethylene Glycol 3350) 17 Gm Powd.pack 1 Pkt PO PRN DAILY PRN Amaryl (Glimepiride) 4 Mg Tablet 2 Mg PO DAILY Mucinex Dm Er 600-30 Mg Tablet (Guaifenesin/Dextromethorphan) 1 Each Tab.er.12h 1 Tab PO PRN Q12HRS Alprazolam 0.5 Mg Tablet 0.5 Mg PO PRN Q12HR PRN Saline Nasal [place] (Sodium Chloride) 30 Ml [place] 1-2 [place] NS PRN Q2HR PRN Loratadine 10 Mg Tablet 10 Mg PO DAILY Allopurinol 300 Mg Tablet 150 Mg PO DAILY Amlodipine Besylate 10 Mg Tablet 10 Mg PO DAILY Torsemide 20 Mg Tablet 3 Tab PO DAILY Daliresp (Roflumilast) 500 Mcg Tablet 1 Tab PO DAILY Ramipril 10 Mg Capsule 2 Cap PO DAILY Levothyroxine Sodium 50 Mcg Tablet 1 Tab PO DAILY Coreg (Carvedilol) 25 Mg Tablet 25 Mg PO BIDWMEALS Atorvastatin Calcium 80 Mg Tablet 1 Tab PO DAILY Vitals/I & O Vital Sign - Last 24 Hours 01/04/21 01/04/21 01/04/21 01/04/21 11:00 11:28 13:07 13:07 Temp 98.3 98.3 Pulse 83 83 83 Resp 20 B/P (MAP) 141/65 (90) 141/65 141/65 Pulse Ox 96 96 O2 Delivery Room Air Nasal Cannula O2 Flow Rate 2.0 01/04/21 01/04/21 01/04/21 01/04/21 15:00 19:00 20:04 21:15 Temp 98.1 97.7 98.1 97.7 Pulse 80 82 82 Resp 20 18 B/P (MAP) 102/51 (68) 153/69 (97) 153/69 Pulse Ox 95 96 O2 Delivery Room Air Room Air Room Air 01/04/21 01/04/21 01/04/21 01/04/21 21:16 21:16 21:46 23:00 Temp 97.6 97.6 Pulse 82 61 Resp 16 B/P (MAP) 153/69 135/60 (85) Pulse Ox 96 92 O2 Delivery Room Air Room Air Room Air O2 Flow Rate 2.0 01/05/21 01/05/21 01/05/21 01/05/21 03:00 06:54 08:23 08:25 Temp 97.7 97.9 97.7 97.9 Pulse 63 61 61 61 Resp 16 19 B/P (MAP) 127/58 (81) 143/65 (91) 143/65 143/65 Pulse Ox 96 93 O2 Delivery Room Air Room Air 01/05/21 01/05/21 01/05/21 08:25 08:30 08:33 Pulse 61 61 Resp 20 B/P (MAP) 143/65 143/65 Pulse Ox 93 O2 Delivery Room Air Intake and Output 01/04/21 01/04/21 01/05/21 15:00 23:00 07:00 Intake Total 250 ml 370 ml 50 ml Output Total 320 ml 100 ml Balance -70 ml 270 ml 50 ml Justicifation of Admission Dx: Justifications for Admission: Justification of Admission Dx: N/A SELVIN DOUGLAS MD Jan 05, 2021 09:59
[2021-01-05 11:00] VITALS: BP 179/88
--- NOTE | 2021-01-05 11:07 | PDOC3 ---
Discharge Summary Date of Admission: Dec 29, 2020 Date of Discharge: Jan 05, 2021 Follow-Up: Other ([address] LAW) Admitting Diagnosis comment: D/C CONDITION GOOD PROGNOSIS GOOD WITH COMPLIANCE CONSULTS NEPHROLOGY, CARDIOLOGY COMPLICATIONS NONE DISCHARGE DX Chief Complaint Bradycardia Hypertension Anemia, Iron deficiency Hyperlipidemia CHF, GERD Diabetes Hypothyroidism CKD STAGE 4 HOSPITAL COURSE 01/05/2021 Patient was pleasant, awake, and alert. Seen and examined in bedside chair D/W RN, Chart Review Improved edema in lower extremities bilaterally. Will continue to monitor BP. Updated patient with probable discharge plan for tomorrow SEE DR LAW 4 WEEKS D/W DR LAW OK TO D/C STOP THIAZIDE DUE TO HIGH CA WEAN OFF OXYGEN PENDING SPEP FLUID RESTRICT IMPROVE BG CONTROL CARDIOLOGY EVALUATION D/W CARDIOLOGY WOULD NOT INTERVENE FOR ?VENKATA DUE RISK OF CONTRAST EXPOSURE-ALSO UNLIKELY TO BENEFIT SEE DR LAW 4 WEEKS D/C PLANNING 35 MIN History of Present Illness History of Present Illness The patient is a pleasant elderly female who presented as a transfer from another facility with bradycardia. She came over on a dopamine drip. She is on quite a few medications including several that could cause bradycardia such as beta blockade with carvedilol and clonidine. She is also on quite a few blood pressure meds. 12/30/2020 Patient seen and examined in bed D/W RN, Chart Review Discussed that we will continue to monitor as we try to reduce the number of medications she is on Discussed that we will try and titrate off of the dopamine drip. 12/31/2020 Patient was awake, alert and NAD. Patient seen and examined in bedside chair in room for discuss and exam. D/W RN, Chart Review Discussed that we will continue to monitor blood pressure. Now that the dopamine drip has been discontinued, we will restart BP medication to gain adequate control. 01/01/2021 Patient was awake, alert. Seen and examined in bedside chair D/W RN, Chart Review Discussed that we will continue to monitor blood pressure. Updated patient and on plan to wait for results of duplex scan and nephrology input. 01/02/2021 Patient was awake, alert. Seen and examined in bedside chair D/W RN, Chart Review Discussed with patient that her blood pressure is improving and we will continue to monitor Discussed with patient and nephrology that we will continue to diurese to remove excess fluid Updated patient with probable discharge plan for early next week after consulting pulmonology and if agreeable with nephrology 01/03/2021 Patient was pleasant, awake, and alert. Seen and examined in bedside chair D/W RN, Chart Review Improved edema in lower extremities bilaterally. Will continue to monitor BP. Updated patient with probable discharge plan for tomorrow 01/04/2021 Patient was pleasant, awake, and alert. Seen and examined in bedside chair D/W RN, Chart Review Improved edema in lower extremities bilaterally. Will continue to monitor BP. Updated patient with probable discharge plan for tomorrow SEE DR LAW 4 WEEKS Brief Hospital Course Ms. Irizarry is a 75 old [sex] who presented with [BRADYCARDIA, BANDAR] CONDITION AT DISCHARGE: Improved Discharge Medications Current Medications Dopamine HCl/ Dextrose 250 ml @ 18.6 mls/hr CONT PRN IV SEE I/O RECORD Last administered on 12/30/20 02:26; Start 12/29/20 at 17:00 Acetaminophen (Tylenol) 650 mg PRN Q4HRS PRN PO TEMP OVER 100.4F OR MILD PAIN Last administered on 12/30/20 02:28; Start 12/29/20 at 20:30 Alprazolam (Xanax) 0.5 mg PRN BID PRN PO ANXIETY / AGITATION Last administered on 01/04/21 21:15; Start 12/29/20 at 20:30 Aspirin (Aspirin Chewable) 81 mg DAILY PO Last administered on 01/05/21 08:23; Start 12/30/20 at 09:00 Docusate Sodium (Colace) 100 mg PRN BID PRN PO HARD STOOLS Last administered on 01/05/21 08:24; Start 12/29/20 at 20:30 Ferrous Sulfate (Feosol) 325 mg DAILY PO Last administered on 01/05/21 08:24; Start 12/30/20 at 09:00 Guaifenesin (MUCINEX ER with DM) 1 tab PRN Q12HRS PRN PO COUGH Last administered on 01/05/21 03:43; Start 12/29/20 at 20:30 Levothyroxine Sodium (Synthroid) 50 mcg DAILY06 PO Last administered on 01/05/21 06:17; Start 12/30/20 at 06:00 Mupirocin (Bactroban) 1 precious TID TP Last administered on 01/04/21at 21:00; Start 12/29/20 at 21:00 Pantoprazole Sodium (Protonix) 40 mg DAILYAC PO Last administered on 01/05/21 08:23; Start 12/30/20 at 07:30 Polyethylene Glycol (miraLAX PACKET) 17 gm PRN DAILY PRN PO CONSTIPATION Last administered on 01/04/21 09:22; Start 12/29/20 at 20:30 Atorvastatin Calcium (Lipitor) 80 mg QHS PO Last administered on 01/04/21 21 :15; Start 12/30/20 at 21:00 Glimepiride (Amaryl) 1 mg DAILY08 PO Last administered on 01/05/21 08:23; Start 12/30/20 at 08:00 Acetaminophen/ Hydrocodone Bitart (Lortab 10/325) 1 tab PRN Q6HRS PRN PO MODERATE TO SEVERE PAIN Last administered on 01/05/21at 08:30; Start 12/30/20 at 08:00 Hydralazine HCl (Apresoline Inj) 10 mg PRN Q4HRS PRN IVP SBP>170 at DBP>110 Last administered on 01/04/21at 01:01; Start 12/30/20 at 09:30 Hydralazine HCl (Apresoline) 50 mg TID PO Last administered on 01/01/21at 09:45; Start 12/30/20 at 10:00; Stop 01/01/21 at 13:52; Status DC Amlodipine Besylate (Norvasc) 10 mg DAILY PO Last administered on 01/05/21at 08:23; Start 12/31/20 at 09:00 Amlodipine Besylate (Norvasc) 10 mg 1X ONCE PO Last administered on 12/30/20at 09:50; Start 12/30/20 at 10:00; Stop 12/30/20 at 10:01; Status DC Sodium Polystyrene Sulfonate (Kayexalate) 30 gm 1X ONCE PO Last administered on 12/30/20at 12:08; Start 12/30/20 at 12:00; Stop 12/30/20 at 12:01; Status DC Furosemide (Lasix) 40 mg 1X ONCE IVP Last administered on 12/30/20at 12:09; Start 12/30/20 at 12:30; Stop 12/30/20 at 12:31; Status DC Furosemide (Lasix) 40 mg 1X ONCE IVP ; Start 12/31/20 at 10:30; Stop 12/31/20 at 10:31; Status UNV Clonidine HCl (Catapres) 0.3 mg 1X ONCE PO Last administered on 12/31/20at 12:47; Start 12/31/20 at 10:30; Stop 12/31/20 at 10:31; Status DC Furosemide (Lasix) 40 mg BID92 IVP Last administered on 01/03/21at 08:23; Start 12/31/20 at 14:00; Stop 01/03/21 at 10:52; Status DC Furosemide (Lasix) 40 mg 1X ONCE IVP Last administered on 12/31/20at 12:48; Start 12/31/20 at 10:30; Stop 12/31/20 at 10:31; Status DC Isosorbide Mononitrate (Imdur) 60 mg DAILY PO Last administered on 01/04/21at 09:51; Start 12/31/20 at 11:00 Clonidine HCl (Catapres Tts-3) 1 patch WEEKLY TD Last administered on 12/31/20at 17:09; Start 12/31/20 at 16:00 Doxazosin Mesylate (Cardura) 4 mg DAILY PO Last administered on 01/05/21at 08:33; Start 01/01/21 at 10:00 Furosemide (Lasix) 40 mg 1X ONCE IVP ; Start 01/01/21 at 11:15; Stop 01/01/21 at 11:16; Status DC Hydralazine HCl (Apresoline) 100 mg BID PO Last administered on 01/05/21at 08:25; Start 01/01/21 at 21:00 Furosemide (Lasix) 40 mg 1X ONCE IVP Last administered on 01/03/21at 12:32; Start 01/03/21 at 11:00; Stop 01/03/21 at 11:01; Status DC Furosemide (Lasix) 40 mg BID92 PO Last administered on 01/05/21at 08:24; Start 01/03/21 at 14:00 Metolazone (Zaroxolyn) 2.5 mg DAILY PO Last administered on 8/16/21at 09:21; Start 01/03/21 at 12:00; Stop 01/04/21 at 14:08; Status DC Lisinopril (Prinivil) 20 mg BID PO Last administered on 01/05/21at 08:25; Start 01/04/21 at 11:00 Clonidine HCl (Catapres) 0.2 mg PRN 1X PRN PO HYPERTENSION Last administered on 01/04/21at 13:07; Start 01/04/21 at 11:30 Calcitonin [place] (Miacalcin) 500 unit Q8H SQ Last administered on 01/05/21at 03:44; Start 01/04/21 at 19:00; Stop 01/05/21 at 03:01; Status DC Active Scripts Active Pantoprazole Sodium (Pantoprazole Sodium) 40 Mg Tablet.dr 40 Mg PO DAILYAC 30 Days Colace (Docusate Sodium) 100 Mg Capsule 100 Mg PO PRN BID PRN 14 Days Tylenol (Acetaminophen) 325 Mg Tablet 650 Mg PO PRN Q4HRS PRN 14 Days Reported Iron (Ferrous Sulfate) 325 Mg Tablet 1 Tab PO DAILYTUES/SAT 30 Days Torsemide 20 Mg Tablet 2 Tab PO DAILY AT 2000 Torsemide 20 Mg Tablet 3 Tab PO DAILY08 Hydrocodone-Apap 10-325 (Hydrocodone Bit/Acetaminophen) 1 Tab Tablet 1 Tab PO PRN Q6HRS PRN Hydralazine Hcl 50 Mg Tablet 1 Tab PO TID Clonidine Tts-1 (Clonidine) 1 Each Patch.tdwk 1 Patch TD WEEKLY Fish Oil 1,200 mg Softgel ([place]-3/Dha/Epa/Fish Oil) 1 Each Capsule. 1 Cap PO DAILY 30 Days Children's Aspirin (Aspirin) 81 Mg Tab.chew 81 Mg PO MONDAY AND MONDAY Spironolactone 25 Mg Tablet 25 Mg PO BID Ramipril 10 Mg Capsule 2 Cap PO DAILY08 30 Days Mupirocin Ointment (Mupirocin) 22 Gm Oint...g. 1 Precious TP TID Levothyroxine Sodium 50 Mcg Tablet 50 Mcg PO DAILY AT 0300 Hydralazine Hcl 25 Mg Tablet 1 Tab PO BID Glimepiride 1 Mg Tablet 1 Mg PO DAILY08 Daliresp (Roflumilast) 500 Mcg Tablet 500 Mcg PO DAILY08 Carvedilol 25 Mg Tablet 25 Mg PO BID Atorvastatin Calcium 80 Mg Tablet 80 Mg PO QHS Amlodipine Besylate 10 Mg Tablet 10 Mg PO DAILY08 Alprazolam 0.5 Mg Tablet 0.5 Mg PO PRN BID PRN Allopurinol 300 Mg Tablet 150 Mg PO EVERY OTHER DAY. Allopurinol 300 Mg Tablet 1 Tab PO DAILY Miralax (Polyethylene Glycol 3350) 17 Gm Powd.pack 1 Pkt PO PRN DAILY PRN Amaryl (Glimepiride) 4 Mg Tablet 2 Mg PO DAILY Mucinex Dm Er 600-30 Mg Tablet (Guaifenesin/Dextromethorphan) 1 Each Tab.er.12h 1 Tab PO PRN Q12HRS Alprazolam 0.5 Mg Tablet 0.5 Mg PO PRN Q12HR PRN Saline Nasal [place] (Sodium Chloride) 30 Ml [place] 1-2 [place] NS PRN Q2HR PRN Loratadine 10 Mg Tablet 10 Mg PO DAILY Allopurinol 300 Mg Tablet 150 Mg PO DAILY Amlodipine Besylate 10 Mg Tablet 10 Mg PO DAILY Torsemide 20 Mg Tablet 3 Tab PO DAILY Daliresp (Roflumilast) 500 Mcg Tablet 1 Tab PO DAILY Ramipril 10 Mg Capsule 2 Cap PO DAILY Levothyroxine Sodium 50 Mcg Tablet 1 Tab PO DAILY Coreg (Carvedilol) 25 Mg Tablet 25 Mg PO BIDWMEALS Atorvastatin Calcium 80 Mg Tablet 1 Tab PO DAILY Vital Signs Vital Signs Date Time Temp Pulse Resp B/P (MAP) Pulse Ox O2 Delivery O2 Flow Rate FiO2 01/05/21 08:33 61 143/65 01/05/21 08:30 20 93 Room Air 01/05/21 06:54 97.9 97.9 01/04/21 21:46 2.0 Labs Laboratory Tests Test 01/04/21 07:10 01/05/21 05:05 White Blood Count 5.9 x10^3/uL (4.0-11.0) 8.6 x10^3/uL (4.0-11.0) Red Blood Count 3.70 x10^6/uL (3.50-5.40) 3.42 x10^6/uL (3.50-5.40) Hemoglobin 10.9 g/dL (12.0-15.5) 10.3 g/dL (12.0-15.5) Hematocrit 32.5 % (36.0-47.0) 30.1 % (36.0-47.0) Mean Corpuscular Volume 88 fL (79-100) 88 fL (79-100) Mean Corpuscular Hemoglobin 30 pg (25-35) 30 pg (25-35) Mean Corpuscular Hemoglobin Concent 34 g/dL (31-37) 34 g/dL (31-37) Red Cell Distribution Width 15.4 % (11.5-14.5) 15.4 % (11.5-14.5) Platelet Count 159 x10^3/uL (140-400) 166 x10^3/uL (140-400) Neutrophils (%) (Auto) 62 % (31-73) 66 % (31-73) Lymphocytes (%) (Auto) 21 % (24-48) 17 % (24-48) Monocytes (%) (Auto) 10 % (0-9) 12 % (0-9) Eosinophils (%) (Auto) 7 % (0-3) 4 % (0-3) Basophils (%) (Auto) 1 % (0-3) 1 % (0-3) Neutrophils # (Auto) 3.6 x10^3/uL (1.8-7.7) 5.7 x10^3/uL (1.8-7.7) Lymphocytes # (Auto) 1.2 x10^3/uL (1.0-4.8) 1.5 x10^3/uL (1.0-4.8) Monocytes # (Auto) 0.6 x10^3/uL (0.0-1.1) 1.0 x10^3/uL (0.0-1.1) Eosinophils # (Auto) 0.4 x10^3/uL (0.0-0.7) 0.4 x10^3/uL (0.0-0.7) Basophils # (Auto) 0.1 x10^3/uL (0.0-0.2) 0.1 x10^3/uL (0.0-0.2) Sodium Level 140 mmol/L (136-145) 133 mmol/L (136-145) Potassium Level 4.3 mmol/L (3.5-5.1) 4.6 mmol/L (3.5-5.1) Chloride Level 101 mmol/L (98-107) 99 mmol/L (98-107) Carbon Dioxide Level 30 mmol/L (21-32) 29 mmol/L (21-32) Anion Gap 9 (6-14) 5 (6-14) Blood Urea Nitrogen 28 mg/dL (7-20) 38 mg/dL (7-20) Creatinine 2.2 mg/dL (0.6-1.0) 3.1 mg/dL (0.6-1.0) Estimated GFR (Cockcroft-Gault) 21.7 14.6 BUN/Creatinine Ratio 13 (6-20) 12 (6-20) Glucose Level 112 mg/dL (70-99) 129 mg/dL (70-99) Calcium Level 11.3 mg/dL (8.5-10.1) 10.2 mg/dL (8.5-10.1) Phosphorus Level 3.0 mg/dL (2.6-4.7) 3.6 mg/dL (2.6-4.7) Magnesium Level 2.1 mg/dL (1.8-2.4) Total Bilirubin 0.3 mg/dL (0.2-1.0) 0.4 mg/dL (0.2-1.0) Aspartate Amino Transf (AST/SGOT) 26 U/L (15-37) 20 U/L (15-37) Alanine Aminotransferase (ALT/SGPT) 25 U/L (14-59) 26 U/L (14-59) Alkaline Phosphatase 115 U/L (46-116) 104 U/L (46-116) Total Protein 7.4 g/dL (6.4-8.2) 6.5 g/dL (6.4-8.2) Albumin 3.9 g/dL (3.4-5.0) 3.5 g/dL (3.4-5.0) Albumin/Globulin Ratio 1.1 (1.0-1.7) 1.2 (1.0-1.7) Laboratory Tests Test 01/05/21 05:05 White Blood Count 8.6 x10^3/uL (4.0-11.0) Red Blood Count 3.42 x10^6/uL (3.50-5.40) Hemoglobin 10.3 g/dL (12.0-15.5) Hematocrit 30.1 % (36.0-47.0) Mean Corpuscular Volume 88 fL (79-100) Mean Corpuscular Hemoglobin 30 pg (25-35) Mean Corpuscular Hemoglobin Concent 34 g/dL (31-37) Red Cell Distribution Width 15.4 % (11.5-14.5) Platelet Count 166 x10^3/uL (140-400) Neutrophils (%) (Auto) 66 % (31-73) Lymphocytes (%) (Auto) 17 % (24-48) Monocytes (%) (Auto) 12 % (0-9) Eosinophils (%) (Auto) 4 % (0-3) Basophils (%) (Auto) 1 % (0-3) Neutrophils # (Auto) 5.7 x10^3/uL (1.8-7.7) Lymphocytes # (Auto) 1.5 x10^3/uL (1.0-4.8) Monocytes # (Auto) 1.0 x10^3/uL (0.0-1.1) Eosinophils # (Auto) 0.4 x10^3/uL (0.0-0.7) Basophils # (Auto) 0.1 x10^3/uL (0.0-0.2) Sodium Level 133 mmol/L (136-145) Potassium Level 4.6 mmol/L (3.5-5.1) Chloride Level 99 mmol/L (98-107) Carbon Dioxide Level 29 mmol/L (21-32) Anion Gap 5 (6-14) Blood Urea Nitrogen 38 mg/dL (7-20) Creatinine 3.1 mg/dL (0.6-1.0) Estimated GFR (Cockcroft-Gault) 14.6 BUN/Creatinine Ratio 12 (6-20) Glucose Level 129 mg/dL (70-99) Calcium Level 10.2 mg/dL (8.5-10.1) Phosphorus Level 3.6 mg/dL (2.6-4.7) Total Bilirubin 0.4 mg/dL (0.2-1.0) Aspartate Amino Transf (AST/SGOT) 20 U/L (15-37) Alanine Aminotransferase (ALT/SGPT) 26 U/L (14-59) Alkaline Phosphatase 104 U/L (46-116) Total Protein 6.5 g/dL (6.4-8.2) Albumin 3.5 g/dL (3.4-5.0) Albumin/Globulin Ratio 1.2 (1.0-1.7) Allergies Allergies Coded Allergies Type Severity Reaction Last Updated Verified cefuroxime Allergy Intermediate 03/21/17 Yes cephalexin Allergy Intermediate 03/21/17 Yes ezetimibe Allergy Intermediate 03/21/17 Yes Disposition/Orders: D/C to Home Justicifation of Admission Dx: Justifications for Admission: Justification of Admission Dx: N/A SELVIN DOUGLAS MD Jan 05, 2021 11:07
[2021-01-05] MEDS ORDERED: LISI-130 PO (11:11)
[2021-01-05] MEDS ORDERED: FURO40TA4 PO (11:11)
[2021-01-05] MEDS ORDERED: ONDANSETRON PF 4 MG/2 ML VIAL. IM ONE (11:15)
--- NOTE | 2021-01-05 11:58 | PDOC ---
Renal-Progress Notes Subjective Notes Notes FEELS WELL, WANTS TO GO HOME History of Present Illness Hx of present illness STABLE Vitals Vitals Vital Signs Date Time Temp Pulse Resp B/P (MAP) Pulse Ox O2 Delivery O2 Flow Rate FiO2 01/05/21 11:00 98.0 65 18 179/88 (118) 95 Nasal Cannula 2.0 98.0 Weight Weight [ ] I.O. Intake and Output Intake and Output 01/05/21 07:00 Intake Total 670 ml Output Total 420 ml Balance 250 ml Intake Oral 670 ml Output Urine Total 420 ml Labs Labs Laboratory Tests Test 01/05/21 05:05 White Blood Count 8.6 x10^3/uL (4.0-11.0) Red Blood Count 3.42 x10^6/uL (3.50-5.40) Hemoglobin 10.3 g/dL (12.0-15.5) Hematocrit 30.1 % (36.0-47.0) Mean Corpuscular Volume 88 fL (79-100) Mean Corpuscular Hemoglobin 30 pg (25-35) Mean Corpuscular Hemoglobin Concent 34 g/dL (31-37) Red Cell Distribution Width 15.4 % (11.5-14.5) Platelet Count 166 x10^3/uL (140-400) Neutrophils (%) (Auto) 66 % (31-73) Lymphocytes (%) (Auto) 17 % (24-48) Monocytes (%) (Auto) 12 % (0-9) Eosinophils (%) (Auto) 4 % (0-3) Basophils (%) (Auto) 1 % (0-3) Neutrophils # (Auto) 5.7 x10^3/uL (1.8-7.7) Lymphocytes # (Auto) 1.5 x10^3/uL (1.0-4.8) Monocytes # (Auto) 1.0 x10^3/uL (0.0-1.1) Eosinophils # (Auto) 0.4 x10^3/uL (0.0-0.7) Basophils # (Auto) 0.1 x10^3/uL (0.0-0.2) Sodium Level 133 mmol/L (136-145) Potassium Level 4.6 mmol/L (3.5-5.1) Chloride Level 99 mmol/L (98-107) Carbon Dioxide Level 29 mmol/L (21-32) Anion Gap 5 (6-14) Blood Urea Nitrogen 38 mg/dL (7-20) Creatinine 3.1 mg/dL (0.6-1.0) Estimated GFR (Cockcroft-Gault) 14.6 BUN/Creatinine Ratio 12 (6-20) Glucose Level 129 mg/dL (70-99) Calcium Level 10.2 mg/dL (8.5-10.1) Phosphorus Level 3.6 mg/dL (2.6-4.7) Total Bilirubin 0.4 mg/dL (0.2-1.0) Aspartate Amino Transf (AST/SGOT) 20 U/L (15-37) Alanine Aminotransferase (ALT/SGPT) 26 U/L (14-59) Alkaline Phosphatase 104 U/L (46-116) Total Protein 6.5 g/dL (6.4-8.2) Albumin 3.5 g/dL (3.4-5.0) Albumin/Globulin Ratio 1.2 (1.0-1.7) Review of Systems Constitutional: yes: weakness, alert, oriented Ears/Nose/Throat: Yes: no symptom reported Eyes: Yes: no symptom reported Pulmonary: Yes dyspnea Cardiovascular: Yes edema Gastrointestional: Yes: nausea Genitourinary: Yes: no symptom reported Skin: Yes no symptom reported Psychiatric/Neurological: Yes: no symptom reported Endocrine: Yes: no symptom reported Physical Exam General Appearance: no apparent distress Skin: warm Respiratory: decreased breath sounds Heart: S1S2 Abdomen: soft, bowel sounds present Genitourinary: bladder flat Extremities: edema Neurology: alert, oriented, follow commands Musculoskeletal: Osteoarthritis Assessment Assessment IMP BANDAR-STABLE CR OF 3.1 ?VENKATA-REPORTED VELOCITY OF 225CM/SEC-?50% LESION CKD STAGE 4-CR OF 2.0-2.5 BRADYCARDIA-RESOLVED HYPOXIA-RESOLVED ANEMIA WITH IRON DEFICIENCY [id number] DM II CHF-PROB ACUTE ON CHRONIC DIASTOLIC -COMPENSATED HYPOTHYROIDISM HYPERCALCEMIA-RESOLVED PLAN OK TO D/C FROM RENAL STANDPOINT SHE WILL NEED F/U IN 4-6 WEEKS D/W ATTENDING ALSO NOTIFIED WILL FOLLOW XENIA LAW MD Jan 05, 2021 11:58
--- NOTE | 2021-01-05 12:42 | SNU/HH DC ---
DISCHARGE WITH HOME HEALTH DISCHARGE INFORMATION: Discharge Date: Jan 05, 2021 Condition on Discharge: Stable CODE STATUS: Code Status: Full HOME HEALTH: Face to Face: I certify this patient is under my care and that I, or a nurse practitioner or delicia [employer] campaign assistant working with me, had a face to face encounter that meets the physician face to face encounter requirements with this patient on []. Medical Complications: HTN Usp For: Admin/Educate Injections, Assess Cardiopulm Status, Assess & Educate Safety, Assess/Skilled Observatio RN For Eval/Treatment: Yes Physical Therapy For: Evalulation/Treatment Occupational Therapy For: Evaluation/Treatment Speech Language Pathology For: Evaluation/Treatment Home Health Aide For: Self-care NETWORK SECURITY CONSULTANT For: Community Resources Pt Meets Homebound Status: Fatigue w/ amb. POST DISCHARGE ORDERS: Activity Instructions for Disc: Activity as tolerated Weight Bearing Status after Di: As tolerated DIET AFTER DISCHARGE: Cardiac CHECKS AFTER DISCHARGE: Checks after discharge: Check blood press - daily FOLLOW-UP: PCP to follow Home Health: see pcp one week, nephrology 2 weeks CERTIFICATION STATEMENT: Certification Statement: Certification Statement: Based on the above finding, I certify that this patient is confined to the home and needs intermittent [facility] care, physical therapy and/or speech therapy, or continues to need occupational therapy.~ This patient is under my care, and I have initiated the establishment of the plan of care.~ This patient will be followed by myself or a community physician who will periodically review the plan of care. Home Meds Active Scripts Lisinopril (LISINOPRIL) 40 Mg Tablet, 20 MG PO BID for HEART for 30 Days, #60 TAB Prov:SELVIN DOUGLAS MD 01/05/21 Furosemide (FUROSEMIDE) 40 Mg Tablet, 40 MG PO BID92 for CHF for 30 Days, #60 TAB Prov:SELVIN DOUGLAS MD 01/05/21 Furosemide (LASIX) 20 Mg Tablet, 20 MG PO BID for . for 14 Days, #28 TAB Prov:CASTLE,NIAL K III DO 01/01/21 Doxazosin Mesylate (CARDURA) 4 Mg Tablet, 4 MG PO DAILY for . for 30 Days, #30 TAB Prov:CASTLE,NIAL K III DO 01/01/21 Isosorbide Mononitrate (ISOSORBIDE MONONITRATE ER) 30 Mg Tab.er.24h, 60 MG PO DAILY for . for 30 Days, #60 TAB.SR Prov:JOSEPHINE LIGHT K III DO 01/01/21 Pantoprazole Sodium (PANTOPRAZOLE SODIUM ) 40 Mg Tablet.dr, 40 MG PO DAILYAC for acid lockstitch waistband setter for 30 Days, #30 TAB.SR Prov:SELVIN DOUGLAS MD 02/15/19 Docusate Sodium (COLACE) 100 Mg Capsule, 100 MG PO PRN BID PRN for CONSTIPATION for 14 Days, #30 CAP Prov:SELVIN DOUGLAS MD 02/15/19 Acetaminophen (TYLENOL) 325 Mg Tablet, 650 MG PO PRN Q4HRS PRN for TEMP OVER 100.4F OR MILD PAIN for 14 Days, #30 TAB Prov:SELVIN DOUGLAS MD 02/15/19 Reported Medications Ferrous Sulfate (IRON) 325 Mg Tablet, 1 TAB PO DailyTues/Sat for 30 Days, TAB 0 Refills 12/29/20 Hydrocodone Bit/Acetaminophen (HYDROCODONE-APAP 10-325 ) 1 Tab Tablet, 1 TAB PO PRN Q6HRS PRN for PAIN, TAB 0 Refills 12/29/20 Hydralazine Hcl (HYDRALAZINE HCL) 50 Mg Tablet, 1 TAB PO TID, #270 TAB 3 Refills 12/29/20 [place]-3/Dha/Epa/Fish Oil (Fish Oil 1,200 mg Softgel) 1 Each Capsule.dr, 1 CAP PO DAILY for 30 Days, #30 CAP 0 Refills 12/29/20 Aspirin (Children's Aspirin) 81 Mg Tab.chew, 81 MG PO Monday and Monday, TAB.CHEW 12/29/20 Spironolactone (SPIRONOLACTONE) 25 Mg Tablet, 25 MG PO BID, TAB 12/29/20 Ramipril (RAMIPRIL) 10 Mg Capsule, 2 CAP PO DAILY08 for 30 Days, #60 CAP 0 Refills 12/29/20 Mupirocin (MUPIROCIN OINTMENT) 22 Gm Oint...g., 1 [place] TP TID for WOUND CARE, #1 EACH 12/29/20 Levothyroxine Sodium (LEVOTHYROXINE SODIUM) 50 Mcg Tablet, 50 MCG PO daily at 0300 for THYROID SUPPLEMENT, #30 TAB 0 Refills 12/29/20 Glimepiride (GLIMEPIRIDE) 1 Mg Tablet, 1 MG PO DAILY08, TAB 12/29/20 Roflumilast (DALIRESP) 500 Mcg Tablet, 500 MCG PO DAILY08, TAB 12/29/20 Atorvastatin Calcium (Atorvastatin Calcium) 80 Mg Tablet, 80 MG PO QHS for FOR HIGH CHOLESTEROL, TAB 12/29/20 Amlodipine Besylate (AMLODIPINE BESYLATE) 10 Mg Tablet, 10 MG PO DAILY08, TAB 12/29/20 Alprazolam (ALPRAZOLAM) 0.5 Mg Tablet, 0.5 MG PO PRN BID PRN for ANXIETY / AGITATION, TAB 0 Refills 12/29/20 Polyethylene Glycol 3350 (MIRALAX) 17 Gm Powd.pack, 1 PKT PO PRN DAILY PRN for CONSTIPATION, PKT 02/14/19 Glimepiride (AMARYL) 4 Mg Tablet, 2 MG PO DAILY for diabetes, TAB 02/14/19 Guaifenesin/Dextromethorphan (MUCINEX DM ER 600-30 MG TABLET) 1 Each Tab.er.12h, 1 TAB PO PRN Q12HRS for copd, #28 TAB 02/14/19 Sodium Chloride (SALINE NASAL SPRAY) 30 Ml [place], 1-2 SPRAY NS PRN Q2HR PRN for CONGESTION, #30 ML 02/14/19 Loratadine (LORATADINE) 10 Mg Tablet, 10 MG PO DAILY for allergy symptoms, TAB 02/14/19 Allopurinol (ALLOPURINOL) 300 Mg Tablet, 150 MG PO DAILY for legs, TAB 02/14/19 Levothyroxine Sodium (LEVOTHYROXINE SODIUM) 50 Mcg Tablet, 1 TAB PO DAILY, #30 TAB 5 Refills 03/21/17 Atorvastatin Calcium (ATORVASTATIN CALCIUM) 80 Mg Tablet, 1 TAB PO DAILY, #30 TAB 5 Refills 03/21/17 Discontinued Reported Medications Allopurinol (ALLOPURINOL) 300 Mg Tablet, 150 MG PO every other day. , TAB 12/29/20 Allopurinol (ALLOPURINOL) 300 Mg Tablet, 1 TAB PO DAILY, #90 TAB 3 Refills 12/29/20 Roflumilast (DALIRESP) 500 Mcg Tablet, 1 TAB PO DAILY, #90 TAB 3 Refills 03/21/17 Torsemide (TORSEMIDE) 20 Mg Tablet, 2 TAB PO Daily at 2000, #90 TAB 1 Refill 12/29/20 Torsemide (TORSEMIDE) 20 Mg Tablet, 3 TAB PO DAILY08, #90 TAB 1 Refill 12/29/20 Clonidine (CLONIDINE TTS-1 ) 1 Each Patch.tdwk, 1 PATCH TD WEEKLY for HYPERTENSION, PATCH 12/29/20 Hydralazine Hcl (HYDRALAZINE HCL) 25 Mg Tablet, 1 TAB PO BID, #180 TAB 3 Refills 12/29/20 Carvedilol (CARVEDILOL) 25 Mg Tablet, 25 MG PO BID for CARDIAC, TAB 12/29/20 Alprazolam (ALPRAZOLAM) 0.5 Mg Tablet, 0.5 MG PO PRN Q12HR PRN for ANXIETY / AGITATION, TAB 0 Refills 02/14/19 Amlodipine Besylate (AMLODIPINE BESYLATE) 10 Mg Tablet, 10 MG PO DAILY for hypertension, TAB 02/14/19 Torsemide (TORSEMIDE) 20 Mg Tablet, 3 TAB PO DAILY for edema, #90 TAB 1 Refill 03/21/17 Ramipril (RAMIPRIL) 10 Mg Capsule, 2 CAP PO DAILY for hypertension, #30 CAP 5 Refills 03/21/17 Carvedilol (COREG) 25 Mg Tablet, 25 MG PO BIDWMEALS, TAB 03/21/17 SELVIN DOUGLAS MD Jan 05, 2021 12:42
--- NOTE | 2021-01-05 14:55 | NUR ---
DISCHARGE PATIENT TO HOME WITH HOME HEALTH. DISCHARGE INSTRUCTIONS GIVEN. PIV AND HEART MONITOR REMOVED. ESCORTED PATIENT OFF UNIT PER WHEELCHAIR INTO A PRIVATE VEHICLE.
== END 2021-01-05 14:53 | disposition home health service (06) | DRG 682 ==
LOC: 6 SOUTH 16:29
PROVIDERS: ADMIT Internal Medicine; ATTEND Internal Medicine
DX: N17.9 Acute kidney failure, unspecified (principal); I50.33 Acute on chronic diastolic (congestive) heart failure; I13.0 Hypertensive heart and chronic kidney disease with heart failure and stage 1 through stage 4 chronic kidney disease, or unspecified chronic kidney disease; N18.4 Chronic kidney disease, stage 4 (severe); D50.9 Iron deficiency anemia, unspecified; E03.9 Hypothyroidism, unspecified; E11.22 Type 2 diabetes mellitus with diabetic chronic kidney disease; E66.01 Morbid (severe) obesity due to excess calories; E78.5 Hyperlipidemia, unspecified; E83.52 Hypercalcemia; E87.5 Hyperkalemia; I16.0 Hypertensive urgency; I25.10 Atherosclerotic heart disease of native coronary artery without angina pectoris; J44.9 Chronic obstructive pulmonary disease, unspecified; K21.9 Gastro-esophageal reflux disease without esophagitis; R09.02 Hypoxemia; Z83.3 Family history of diabetes mellitus; F32.9 Major depressive disorder, single episode, unspecified; F41.9 Anxiety disorder, unspecified; M10.9 Gout, unspecified; M19.90 Unspecified osteoarthritis, unspecified site; I08.3 Combined rheumatic disorders of mitral, aortic and tricuspid valves; Z88.8 Allergy status to other drugs, medicaments and biological substances; Z68.37 Body mass index [BMI] 37.0-37.9, adult; T44.7X5A Adverse effect of beta-adrenoreceptor antagonists, initial encounter; Y92.89 Other specified places as the place of occurrence of the external cause
CPT/HCPCS: 36415; 76770; 80048; 80053; 82962; 83540; 83550; 83735; 84100; 84165; 84443; 85025; 85027; 93306; J0360; J0630; J1265; J1940; J2405; 97110-GO; 97110-GP; 97116-GP; 97530-GP; G0378

== ENCOUNTER → 2021-01-07 | Outpatient (CLI) | payer OTHER, MEDICARE ==
[2020-12-31 15:11] VITALS: BP 163/70
[~2021-01-07] MED LIST changes: +ASPI81TA59 PO; +ATOR80TA72 PO; +CARV25TA2 PO; +CLON1PAT TD; +DOXA4TAB2 PO; +FERR-36 PO; +FURO-69 PO; +FURO40TA4 PO; +GLIM1TAB7 PO; +HYDR-2868 PO; +HYDR-2869 PO; +ISOS30TA68 PO; +LISI-130 PO; +MUPI22OI2 TP; +OMEG-117 PO; +SPIR25TA5 PO
--- NOTE | 2021-01-08 16:34 | CARD ---
MR#: [id number] Date of Study: 01/07/2021 Ordering Physician: SINDHU ENCARNACION, Referring Physician: SINDHU ENCARNACION, Tech: APPROVED REPORT Procedure: Implantable loop recorder Diagnosis: Bradycardia. Procedure details: After appropriate informed consent the left chest was prepped and draped in usual sterile fashion. 2 0 mL of 1% lidocaine was instilled in a 45 degree angle towards the nipple from the sternal line at a pproximately the fourth rib space. Next a 0.5 inch incision was made. A subcutaneous tunnel was cre ated and a Biotronik loop recorder with serial #[id number] was implanted with the deployment tool. The skin was then sutured with 1 absorbable 2-0 suture. The incision was then closed with Steri-Strips. The patient tolerated the procedure well. No acute complications noted. <Conclusion> 1. Successful insertion of a Biotronik implantable loop recorder. Signed by : Sindhu Encarnacion, Electronically Approved : 01/08/2021 16:33:58
== END | disposition home or self-care (01) ==
LOC: LINQ 11:02
PROVIDERS: ATTEND Internal Medicine Cardiovascular Disease
DX: R00.1 Bradycardia, unspecified (principal); I10 Essential (primary) hypertension; E78.00 Pure hypercholesterolemia, unspecified; J44.9 Chronic obstructive pulmonary disease, unspecified; E11.9 Type 2 diabetes mellitus without complications; F41.9 Anxiety disorder, unspecified; M19.90 Unspecified osteoarthritis, unspecified site; Z87.891 Personal history of nicotine dependence; Z79.82 Long term (current) use of aspirin; Z79.899 Other long term (current) drug therapy; Z98.890 Other specified postprocedural states; Z88.1 Allergy status to other antibiotic agents; Z88.8 Allergy status to other drugs, medicaments and biological substances
CPT/HCPCS: 33285; C1764

== ENCOUNTER 2021-09-21 16:20 | Emergency (ER) | payer MEDICARE, OTHER ==
[~2021-09-21] VITALS: Ht 162.6 cm; Wt 91.8 kg
[~2021-09-21 16:20] MED LIST changes: +CLOP75TA PO; +SEVE800T9 PO
--- NOTE | 2021-09-21 16:42 | PHYS DOC ---
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 Patient applied nose clip and the bleeding has slowed down. She states this is a chronic problem. 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 [] HENT: Reports nose bleeding] Respiratory: Denies cough or shortness of breath. [] Cardiovascular: Denies chest pain or edema. [] GI: Denies abdominal pain, nausea, vomiting, bloody stools or diarrhea. [] : Denies dysuria. [] Musculoskeletal: Denies back pain or joint pain. [] Integument: Denies rash. [] Neurologic: Denies headache, focal weakness or sensory changes. [] Psychiatric: Denies depression or anxiety. [] (SIS [employer]Z KNOWLEDGE ARCHITECT) Heart Score: C/O Chest Pain: N/A Risk Factors: Risk Factors: DM, Current or recent (<one month) smoker, HTN, HLP, family history of CAD, obesity. Risk Scores: Score 0 - 3: 2.5% MACE over next 6 weeks - Discharge Home Score 4 - 6: 20.3% MACE over next 6 weeks - Admit for Clinical Observation Score 7 - 10: 72.7% MACE over next 6 weeks - Early Invasive Strategies (SIS ORDOÑEZ KNOWLEDGE ARCHITECT) Allergies: Allergies: Allergies Coded Allergies Type Severity Reaction Last Updated Verified cefuroxime Allergy Intermediate 09/21/21 Yes cephalexin Allergy Intermediate 03/21/17 Yes ezetimibe Allergy Intermediate 03/21/17 Yes (SIS ORDOÑEZ KNOWLEDGE ARCHITECT) Physical Exam: PE: Constitutional: Well developed, well nourished, no acute distress, non-toxic appearance. [] HENT: Normocephalic, atraumatic, bilateral external ears normal, oropharynx moist, no oral exudates, pressure deviation bilateral nasal cavities. No active bleeding noted on either nasal cavity the left nare Eyes: PERRLA, EOMI, conjunctiva normal, no discharge. [] Neck: Normal range of motion, no tenderness, supple, no stridor. [] Cardiovascular:Heart rate regular rhythm, no murmur [] Lungs & Thorax: Bilateral breath sounds clear to auscultation [] Abdomen: Bowel sounds normal, soft, no tenderness, no masses, no pulsatile masses. [] Skin: Warm, dry, no erythema, no rash. [] Back: No tenderness, no CVA tenderness. [] Extremities: No tenderness, no cyanosis, no clubbing, ROM intact, no edema. [] Neurologic: Alert and oriented X 3, normal motor function, normal sensory function, no focal deficits noted. [] Psychologic: Affect normal, judgement normal, mood normal. [] (SIS OR[employer]ÑEZ KNOWLEDGE ARCHITECT) Current Patient Data: Vital Signs: Vital Signs Date Time Temp Pulse Resp B/P (MAP) Pulse Ox O2 Delivery O2 Flow Rate FiO2 09/21/21 16:28 97.3 76 16 195/79 (117) 95 97.3 (SIS [employer]ÑEZ KNOWLEDGE ARCHITECT) EKG: EKG: [] (SIS [employer]ÑEZ KNOWLEDGE ARCHITECT) Radiology/Procedures: Radiology/Procedures: [] (SIS [employer]ÑEZ KNOWLEDGE ARCHITECT) Course & Med Decision Making: Course & Med Decision Making Pertinent Labs and Imaging studies reviewed. (See chart for details) This a 76-year-old female patient presented to the ED today with nosebleeding that began at 3 PM. Patient is on Plavix and baby aspirin and reports this is a chronic problem. Currently has nose clip on, no active bleeding noted Blood pressure in the ED as high as 229/72 with a heart rate in the 70s. Patient states she has had high blood pressure and nosebleeds for a long time. She states the clam digger told her the current medication she is on is the most they can do for her blood pressure. When the nose clip was removed patient restarted her bleeding. Afrin was used with small amount of bleeding noted, TXA was used which helped stop the bleeding, pressure medicine was given. Bleeding stopped, she was discharged to home. Provided ENT for follow-up and encouraged to follow-up with her PCP and clam digger (SIS ORDOÑEZ APRN) Franny Disclaimer: Franny Disclaimer: This electronic medical record was generated, in whole or in part, using a voice recognition dictation system. (SIS ORDOÑEZ APRN) Departure Departure Impression: Primary Impression: Epistaxis Additional Impression: Hypertension Qualified Codes: I10 - Essential (primary) hypertension Disposition: HOME / SELF CARE / HOMELESS Condition: STABLE Referrals: SALINA MENDOZA MD (PCP) Call your doctor tomorrow and follow up REJI VALENTINE MD call her tomorrow and follow up Patient Instructions: Hypertension, Nosebleed, [id number] Additional Instructions: Please follow up with your primary care doctor and provided ENT tomorrow. Attending Signature Attending Signature I have reviewed the PA/DIRECTOR [employer]'s note and plan of care. I was available for consultation as needed during the patient's visit in the emergency department. I agree with the clinical impression, plan, and disposition. (HUAN RILEY DO) SIS ORDOÑEZ APRN September 21, 2021 16:42 HUAN RILEY DO September 22, 2021 01:13
[2021-09-21] MEDS ORDERED: OXYMETAZOLINE 0.05% NASAL SPRAY 30ML BOTTLE. NS ONE (17:00)
[2021-09-21] MEDS ORDERED: MORPHINE SULFATE 4 MG/ML INJ. IM ONE ×2 (19:30→21:30)
[2021-09-21] MEDS ORDERED: hydrALAZINE 20 MG/ML VIAL. IM ONE (19:30)
[2021-09-21] MEDS ORDERED: TRANEXAMIC ACID 1,000 MG/10 ML VIAL. TOP ONE (19:45)
[2021-09-21] MEDS ORDERED: LABETALOL HCL 200 MG TABLET PO STA (22:12)
[2021-09-21] MEDS ORDERED: FUROSEMIDE 40 MG TABLET. PO ONE (22:15)
[2021-09-21 22:50] VITALS: BP 212/86
== END 2021-09-21 22:56 | disposition home or self-care (01) ==
LOC: ER 16:20
DX: R04.0 Epistaxis (principal); I10 Essential (primary) hypertension; E11.9 Type 2 diabetes mellitus without complications; I25.10 Atherosclerotic heart disease of native coronary artery without angina pectoris; Z87.891 Personal history of nicotine dependence; Z88.1 Allergy status to other antibiotic agents; Z88.8 Allergy status to other drugs, medicaments and biological substances
CPT/HCPCS: 96372; 99284; J0360; J2270; J3490